=== PATIENT | male | born 1960 | race Caucasian/White ===

== ENCOUNTER 2017-11-03 08:58 | Emergency (ER) | payer BC, MEDICARE ==
[2017-11-03 09:03] VITALS: RESP 18
--- NOTE | 2017-11-03 09:21 | ED ---
General Adult HPI <Nicholas Villalobos - Last Filed: 11/03/17 09:52> - General Source: patient Mode of arrival: ambulatory Limitations: no limitations <Evelyne Hopkins - Last Filed: 11/03/17 12:19> - General Chief complaint: Nausea/Vomiting/Diarrhea Stated complaint: diarrhea, testicular pain Time Seen by Provider: 11/03/17 09:07 - History of Present Illness Initial comments: 57-year-old male patient presents to the emergency department today for evaluation of left testicular swelling and pain. Patient states that this started yesterday. Patient states that the pain radiates up into his left lower abdomen. He denies any hematuria, dysuria, urinary frequency, urinary urgency. He denies any penile discharge. Patient denies any recent injury however states that he has been painting his home and has had increased physical activity related to this. Patient states that yesterday he did have 3 episodes of diarrhea and some abdominal cramping. He denies any nausea or vomiting. Denies any fevers or chills. Patient denies any recent rash, shortness breath, chest pain, back pain, numbness, tingling, dizziness, weakness , headache, visual changes, or any other complaints. (Evelyne Hopkins) - Related Data Home Medications Medication Instructions Recorded Confirmed Atorvastatin [Lipitor] 80 mg PO DAILY 11/03/17 11/03/17 Lisinopril [Zestril] 10 mg PO DAILY 11/03/17 11/03/17 Metoprolol Succinate [Toprol XL] 25 mg PO DAILY 11/03/17 11/03/17 glipiZIDE XL [Glucotrol XL] 5 mg PO BID 11/03/17 11/03/17 metFORMIN HCL [Glucophage] 500 mg PO QID 11/03/17 11/03/17 Previous Rx's Medication Instructions Recorded Levofloxacin [Levaquin] 500 mg PO DAILY #10 tab 11/03/17 Allergies Allergy/AdvReac Type Severity Reaction Status Date / Time No Known Allergies Allergy Verified 11/03/17 09:03 Review of Systems ROS Other: All systems not noted in ROS Statement are negative. <Nicholas Villalobos - Last Filed: 11/03/17 09:52> ROS Other: All systems not noted in ROS Statement are negative. <Evelyne Hopkins - Last Filed: 11/03/17 12:19> ROS Statement: Those systems with pertinent positive or pertinent negative responses have been documented in the HPI. Past Medical History Past Medical History: Diabetes Mellitus, Myocardial Infarction ([place]) History of Any Multi-Drug Resistant Organisms: None Reported Past Surgical History: No Surgical Hx Reported Past Psychological History: No Psychological Hx Reported Smoking Status: Current every day smoker Past Alcohol Use History: None Reported, Rare Past Drug Use History: None Reported <Evelyne Hopkins - Last Filed: 11/03/17 12:19> General Exam Limitations: no limitations General appearance: alert, in no apparent distress, other (This is a well- developed, obese adult male patient in no acute distress. Vital signs upon presentation are temperature 99.2F, pulse 90, respirations 18, blood pressure 133/68, pulse ox 96% on room air.) Eye exam: Present: normal appearance, PERRL, EOMI. Absent: scleral icterus, conjunctival injection, periorbital swelling ENT exam: Present: normal exam, normal oropharynx, mucous membranes moist Respiratory exam: Present: normal lung sounds bilaterally. Absent: respiratory distress, wheezes, rales, rhonchi, stridor Cardiovascular Exam: Present: regular rate, normal rhythm, normal heart sounds. Absent: systolic murmur, diastolic murmur, rubs, gallop, clicks GI/Abdominal exam: Present: soft, normal bowel sounds. Absent: distended, tenderness, guarding, rebound, rigid exam: Present: testicular tenderness (Left), scrotal swelling (Left). Absent : normal inspection, urethral discharge Neurological exam: Present: alert, oriented X3, CN II-XII intact Psychiatric exam: Present: normal affect, normal mood Skin exam: Present: warm, dry, intact, normal color. Absent: rash <Evelyne Hopkins - Last Filed: 11/03/17 12:19> Course <Nicholas Villalobos - Last Filed: 11/03/17 09:52> <Evelyne Hopkins - Last Filed: 11/03/17 12:19> Vital Signs 11/03/17 11/03/17 09:00 11:41 Temperature 99.2 F 98.9 F Pulse Rate 90 84 Respiratory 18 18 Rate Blood Pressure 133/68 139/76 O2 Sat by Pulse 96 93 L Oximetry - Reevaluation(s) Reevaluation #1: 11/03/17 09:53 I did personally do a [id number] evaluation patient did discuss the findings with him. Patient does demonstrate left testicular tenderness palpation no definite masses no discharge noted. No evidence of herniation. I do agree with the assessment and plan (Nicholas Villalobos) Medical Decision Making <Nicholas Villalobos - Last Filed: 11/03/17 09:52> - Radiology Data Radiology results: report reviewed, image reviewed <Evelyne Hopkins - Last Filed: 11/03/17 12:19> - Medical Decision Making 57-year-old male patient presents the emergency department today for evaluation of left testicular pain and swelling. Physical examination did reveal some swelling and tenderness of the left testicle. Urine was obtained and showed trace protein, trace glucose, large leukocyte esterase, 110 white blood cells, few bacteria, few mucus, and occasional urine yeast. Ultrasound was obtained and did show bilateral epididymal cysts, and abnormal appearance of the left testicle that is of uncertain significance, and it did also show some epididymal enlargement. Given the patient's tenderness in the epididymis enlargement we will treat patient for epididymitis. There is also evidence of urinary tract infection which we'll treat as well. Patient will be referred to urology. Return parameters discussed in detail. He is instructed to follow-up with his primary care physician for recheck in 1-2 days. He verbalizes understanding and agrees with this plan. (Evelyne Hopkins) - Lab Data Lab Results 11/03/17 Range/Units 09:20 Urine Color Yellow Urine Appearance Cloudy (Clear) Urine pH 6.0 (5.0-8.0) Ur Specific Hoagland 1.019 (1.001-1.035) Urine Protein Trace H (Negative) Urine Glucose (UA) Trace H (Negative) Urine Ketones Negative (Negative) Urine Blood Negative (Negative) Urine Nitrite Negative (Negative) Urine Bilirubin Negative (Negative) Urine Urobilinogen 2.0 (<2.0) mg/dL Ur Leukocyte Esterase Large H (Negative) Urine RBC 1 (0-5) /hpf Urine WBC 110 H (0-5) /hpf Ur Squamous Epith Cells <1 (0-4) /hpf Urine Bacteria Few H (None) /hpf Urine Mucus Few H (None) /hpf Urine Yeast (Budding) Occasional H (None) /hpf - Radiology Data Scrotal ultrasound was obtained. Report was reviewed in its entirety. Impression by Dr. De Luna shows normal intrinsic testicles. Bilateral epididymal cysts. Small characterization left testicle are of uncertain significance. Urologic consult would be suggested. (Evelyne Hopkins) Disposition <Nicholas Villalobos - Last Filed: 11/03/17 09:52> Is patient prescribed a controlled substance at d/c from ED?: No Time of Disposition: 12:09 <Evelyne Hopkins - Last Filed: 11/03/17 12:19> Clinical Impression: Epididymo-orchitis, Hydrocele, left, Urinary tract infection Disposition: HOME SELF-CARE Condition: Good Instructions: Epididymo-Orchitis (ED), Hydrocele (ED), Urinary Tract Infection in Men (ED), Scrotal Pain (ED) Additional Instructions: Increase fluids. Follow up with urology for recheck as soon as possible. Return here immediately for any new, worsening, or concerning symptoms. Prescriptions: Levofloxacin [Levaquin] 500 mg PO DAILY #10 tab Referrals: Gurvinder Francis MD [Primary Care Provider] - 1-2 days Wellington Dong MD [STAFF PHYSICIAN] - 1-2 days
[2017-11-03 09:44] LABS: Appearance,Urine Cloudy (Clear); Bacteria,Urine Few /hpf; Bilirubin,Urine Negative (Negative); Blood,Urine Negative (Negative); Budding Yeast,Urine Occasional /hpf; Color,Urine Yellow; Glucose,Urine (UA) Trace (Negative); Ketones,Urine Negative (Negative); Leukocyte Esterase,Urine Large (Negative); Mucus,Urine Few /hpf; Nitrite,Urine Negative (Negative); Protein,Urine Trace (Negative); RBC,Urine 1 /hpf (0-5); Specific Gravity,Urine 1.019 (1.001-1.035); Squamous Epithelial Cell,Urine <1 /hpf (0-4); WBC,Urine 110 /hpf (0-5)
[2017-11-03] MEDS ORDERED: KETOROLAC 30 MG/ML 1 ML VIAL IM STA (10:41)
--- NOTE | 2017-11-03 11:19 | US ---
EXAMINATION TYPE: US scrotum with doppler. Grayscale and color Doppler Duplex imaging performed of t he scrotum. DATE OF EXAM: 11/03/2017 COMPARISON: NONE CLINICAL HISTORY: Pain. EXAM MEASUREMENTS: TESTICLES: Right Testicle: 4.5 x 3.3 x 2.9 cm Left Testicle: 3.9 x 4.2 x 2.9 cm EPIDIDYMIS HEAD: Right Epididymis: 0.9 x 1.1 x 1.0 cm Left Epididymis: 2.7 x 2.2 x 2.8cm cm Doppler performed to assess for testicular vascularity; good bilateral color flow and waveforms are s een. There is no evidence of testicular torsion, but hypervascularity is seen in left testicle on i mage #[id number]. Right epididymis: small head cysts are noted with largest = 0.4 x 0.3 x 0.4cm. Left epididymis: enlarged appearance to epididymis; head cyst is seen = 1.1 x 1.0 x 0.8cm. Presence of hydroceles: in left scrotal sac = 5.5 x 4.6 x 1.9cm. Left testicle: small appendices seen in image [id number] and [id number]. Presence of varicoceles: no Both testicles are intrinsically normal with normal vascular flow. There are bilateral epididymal cys t. There is a small left hydrocele IMPRESSION: 1. NORMAL INTRINSIC TESTICLES. 2. BILATERAL EPIDIDYMAL CYST. 3. SMALL CHARACTERIZE IN THE LEFT TESTICLE ARE OF UNCERTAIN SIGNIFICANCE. UROLOGIC CONSULT WOULD BE S UGGESTED.
[2017-11-03 11:46] VITALS: BP 139/76; PULSE 84; TEMP 98.9
== END 2017-11-03 12:15 | disposition home or self-care (01) ==
LOC: EC 08:58
DX: N45.3 Epididymo-orchitis (principal); N43.3 Hydrocele, unspecified; N39.0 Urinary tract infection, site not specified; N50.3 Cyst of epididymis; R19.7 Diarrhea, unspecified; F17.200 Nicotine dependence, unspecified, uncomplicated; I25.2 Old myocardial infarction; E11.9 Type 2 diabetes mellitus without complications; E66.9 Obesity, unspecified; Z68.42 Body mass index [BMI] 45.0-49.9, adult; Z79.84 Long term (current) use of oral hypoglycemic drugs; Z79.899 Other long term (current) drug therapy
CPT/HCPCS: 99284; 96372; 81001; 87086; 93975; 76870; J1885; 87077; 87186

== ENCOUNTER → 2018-11-29 | Day surgery (SDC) | payer BC, MEDICARE ==
[2018-11-13 14:38] VITALS: BMI 43.8
[~2018-11-29] MED LIST: LACTATED RINGERS 1,000 ML IV SCH; LIDOCAINE 1% INJ 10MG/ML (20 ML MDV) ONE; PROPOFOL 10 MG/ML 20 ML VIAL IV ONE
[2018-11-29 08:27] VITALS: TEMP 97.5
[2018-11-29 08:48] LABS: Glucose,Whole Blood 246 mg/dL (75-99)
--- NOTE | 2018-11-29 09:20 | P.GSHP ---
History of Present Illness H&P Date: 11/29/18 Chief Complaint: Colon cancer screening Patient here today for colonoscopy. He has not had one previously. No bowel related complaints. No family history of colon cancer. Past Medical History Past Medical History: COPD, Diabetes Mellitus, Hypertension, Myocardial Infarction ([place]) Last Myocardial Infarction Date:: 2003 History of Any Multi-Drug Resistant Organisms: None Reported Past Surgical History: Heart Catheterization With Stent Past Anesthesia/Blood Transfusion Reactions: No Reported Reaction Date of Last Stent Placement:: 2003 Smoking Status: Current every day smoker Medications and Allergies Home Medications Medication Instructions Recorded Confirmed Type Atorvastatin [Lipitor] 80 mg PO DAILY 11/03/17 11/29/18 History Lisinopril [Zestril] 10 mg PO DAILY 11/03/17 11/29/18 History Metoprolol Succinate [Toprol XL] 25 mg PO DAILY 11/03/17 11/29/18 History metFORMIN HCL [Glucophage] 1,000 mg PO BID 11/03/17 11/29/18 History Clopidogrel [Plavix] 75 mg PO DAILY 11/13/18 11/29/18 History Insulin Aspart [NovoLOG Flexpen] 0 units SQ TID-W/MEALS 11/13/18 11/29/18 History Insulin Degludec [Tresiba 20 unit SQ DAILY 11/13/18 11/29/18 History Flextouch U-200] Umeclidinium Brm/Vilanterol Tr 1 puff INHALATION DAILY 11/13/18 11/29/18 History [Anoro Ellipta 62.5-25 Mcg INH] Allergies Allergy/AdvReac Type Severity Reaction Status Date / Time No Known Allergies Allergy Verified 11/29/18 08:23 Surgical - Exam Vital Signs Temp Pulse Resp BP Pulse Ox 97.5 F L 76 18 149/74 94 L 11/29/18 08:26 11/29/18 08:26 11/29/18 08:26 11/29/18 08:26 11/29/18 08:26 Physical exam: General: Well-developed, well-nourished HEENT: Normocephalic, sclerae nonicteric Abdomen: Nontender, nondistended Extremities: No edema Neuro: Alert and oriented Results - Labs Abnormal Lab Results - Last 24 Hours (Table) 11/29/18 Range/Units 08:30 POC Glucose (mg/dL) 246 H (75-99) mg/dL Assessment and Plan (1) Colon cancer screening Narrative/Plan: Will proceed with colonoscopy at this time Current Visit: Yes Status: Acute Code(s): Z12.11 - ENCOUNTER FOR SCREENING FOR MALIGNANT NEOPLASM OF COLON SNOMED Code(s): 925606573
--- NOTE | 2018-11-29 09:45 | P.PCN ---
Date of Procedure: 11/29/18 Procedure(s) Performed: PREOPERATIVE DIAGNOSIS: Screening POSTOPERATIVE DIAGNOSIS: Descending colon polyp, sigmoid colon polyp PROCEDURE: Colonoscopy with snare polypectomy ANESTHESIA: MAC SURGEON: Hermilo Rollins M.D. SPECIMENS: Polyps ENDOSCOPIC PROCEDURE: The patient was placed on the endoscopy table in the left decubitus position. The Olympus colonoscope was inserted into the anus and passed under direct visualization to the base of the cecum. The appendiceal orifice was visualized. From that point the scope was slowly withdrawn inspecting all surfaces carefully. There were no neoplastic inflammatory or polypoid lesions throughout the cecum, ascending, and transverse colon. In the descending colon a small polyp was identified and removed using the snare with cautery technique. An additional polyp was identified in the midsigmoid colon removed in a similar fashion. The remainder of the sigmoid and rectum appeared normal. There is no visible diverticulosis. Digital rectal examination was normal. The patient was taken to the recovery room in stable condition per anesthesia guidelines. RECOMMENDATIONS: Await biopsy results. Anticipate follow-up colonoscopy 5 years
[2018-11-29 09:47] VITALS: RESP 16
[2018-11-29 10:03] VITALS: BP 145/79; PULSE 61
[2018-11-29 10:27] LABS: Glucose,Whole Blood 235 mg/dL (75-99)
== END ==
LOC: ORWHC2ENDO 08:02
PROVIDERS: ATTEND Surgery
DX: Z12.11 Encounter for screening for malignant neoplasm of colon (principal); D12.4 Benign neoplasm of descending colon; D12.5 Benign neoplasm of sigmoid colon; J44.9 Chronic obstructive pulmonary disease, unspecified; E11.9 Type 2 diabetes mellitus without complications; I10 Essential (primary) hypertension; E78.5 Hyperlipidemia, unspecified; I25.2 Old myocardial infarction; Z95.5 Presence of coronary angioplasty implant and graft; F17.210 Nicotine dependence, cigarettes, uncomplicated; Z79.02 Long term (current) use of antithrombotics/antiplatelets; Z79.4 Long term (current) use of insulin; Z79.899 Other long term (current) drug therapy
CPT/HCPCS: 88305; 45385; J2001; J2704

== ENCOUNTER → 2020-10-28 | Outpatient (CLI) | payer BC, MEDICARE ==
--- NOTE | 2020-10-28 10:06 | XR ---
EXAMINATION TYPE: XR lumbosacral spine min 4V DATE OF EXAM: 10/28/2020 CLINICAL HISTORY: pain COMPARISON: NONE TECHNIQUE: Frontal, lateral, and oblique images of the lumbar spine are obtained. FINDINGS: There are 5 lumbar type vertebral bodies identified. The lumbar spine shows satisfactory alignment without evidence of acute fracture or dislocation. Vertebral body heights are within normal limits. Severe degenerative disc space narrowing and spondylosis. Facet joint arthropathy. The ove rlying soft tissue appears unremarkable. IMPRESSION: No acute fracture or dislocation is seen in the lumbar spine.ICD 10 NO FRACTURE, INITIAL EVALUATION
== END | disposition home or self-care (01) ==
LOC: RADXRMAIN 09:28
PROVIDERS: ATTEND Family Medicine
DX: M54.5 Low back pain (principal)
CPT/HCPCS: 72110

== ENCOUNTER 2023-04-28 00:35 | Inpatient (IN) | payer BC, MEDICARE ==
[2023-04-28 01:49] LABS: Basophils # (A) 0.1 k/uL (0-0.2); Basophils % (A) 1 %; Eosinophils # (A) 0.5 k/uL (0-0.7); Eosinophils % (A) 4 %; HCT 42.7 % (39.0-53.0); HGB 14.2 gm/dL (13.0-17.5); Lymphocytes # (A) 3.5 k/uL (1.0-4.8); Lymphocytes % (A) 31 %; MCHC 33.2 g/dL (31.0-37.0); MCV 96.4 fL (80.0-100.0); Mean Platelet Volume 10.6; Monocytes # (A) 0.7 k/uL (0-1.0); Monocytes % (A) 7 %; Neutrophils # (A) 6.4 k/uL (1.3-7.7); Neutrophils % (A) 56 %; Platelet Count 254 k/uL (150-450); RBC 4.42 m/uL (4.30-5.90); RDW 14.1 % (11.5-15.5); WBC 11.4 k/uL (3.8-10.6)
[2023-04-28 01:57] LABS: ALT 25 U/L (4-49); AST 23 U/L (17-59); African American GFR (CKD) 84 (>60 ml/min/1.73 sqM); Albumin 3.9 g/dL (3.5-5.0); Alkaline Phosphatase 138 U/L (38-126); Anion Gap 9 mmol/L; Blood Urea Nitrogen 27 mg/dL (9-20); Calcium 9.9 mg/dL (8.4-10.2); Carbon Dioxide 22 mmol/L (22-30); Chloride 104 mmol/L (98-107); Glucose 324 mg/dL (74-99); Magnesium 1.8 mg/dL (1.6-2.3); Non-African American GFR(CKD) 73 (>60 ml/min/1.73 sqM); Potassium 4.6 mmol/L (3.5-5.1); Sodium 135 mmol/L (137-145); Total Bilirubin 0.4 mg/dL (0.2-1.3); Total Protein 6.5 g/dL (6.3-8.2)
[2023-04-28] MEDS ORDERED: ASPIRIN 81 MG PO STA (02:00)
--- NOTE | 2023-04-28 02:02 | ED ---
Chest Pain HPI - General Chief Complaint: Chest Pain Stated Complaint: Chest Pain Time Seen by Provider: 04/28/23 00:45 Source: patient Mode of arrival: wheelchair Limitations: no limitations - History of Present Illness Initial Comments: 63-year-old male with past medical history of coronary artery disease with one stent who presents to the emergency department reporting exertional dyspnea. States that he had symptoms for the past month. Reports that they are getting worse. He cannot walk a few steps without getting extremely short of breath. R eports that he has pressure in his chest described as a indigestion pressure. He denies any radiation of the pain. Not currently in pain at this time. He does have a history of one stent in 2003. Takes Plavix. Denies any missed doses. He does not currently follow with a gas maker. He did not take anything for his pain before coming into the emergency department. Has not had any stress testing. He denies fevers chills or cough. No radiating pain to the back. No numbness or tingling in his extremities. No abdominal pain. No other alleviating, precipitating or modifying factors - Related Data Home Medications Medication Instructions Recorded Confirmed Atorvastatin [Lipitor] 80 mg PO DAILY 11/03/17 11/29/18 Metoprolol Succinate [Toprol XL] 25 mg PO DAILY 11/03/17 11/29/18 lisinopriL [Zestril] 10 mg PO DAILY 11/03/17 11/29/18 metFORMIN HCL [Glucophage] 1,000 mg PO BID 11/03/17 11/29/18 Clopidogrel [Plavix] 75 mg PO DAILY 11/13/18 11/29/18 Insulin Aspart [NovoLOG Flexpen] 0 units SQ TID-W/MEALS 11/13/18 11/29/18 Insulin Degludec [Tresiba 20 unit SQ DAILY 11/13/18 11/29/18 Flextouch U-200 Pen] Umeclidinium Brm/Vilanterol Tr 1 puff INHALATION DAILY 11/13/18 11/29/18 [Anoro Ellipta 62.5-25 Mcg INH] Allergies Allergy/AdvReac Type Severity Reaction Status Date / Time No Known Allergies Allergy Verified 11/29/18 08:23 Review of Systems ROS Statement: Those systems with pertinent positive or pertinent negative responses have been documented in the HPI. ROS Other: All systems not noted in ROS Statement are negative. Past Medical History Past Medical History: COPD, Diabetes Mellitus, Hypertension, Myocardial Infarction ([place]) Last Myocardial Infarction Date:: 2003 History of Any Multi-Drug Resistant Organisms: None Reported Past Surgical History: Heart Catheterization With Stent Past Anesthesia/Blood Transfusion Reactions: No Reported Reaction Date of Last Stent Placement:: 2003 Past Psychological History: No Psychological Hx Reported Smoking Status: Never smoker Past Alcohol Use History: None Reported, Rare Past Drug Use History: None Reported General Exam Limitations: no limitations General appearance: alert, in no apparent distress Head exam: Present: atraumatic, normocephalic, normal inspection Eye exam: Present: normal appearance, PERRL, EOMI. Absent: scleral icterus, conjunctival injection, periorbital swelling ENT exam: Present: normal exam, mucous membranes moist Neck exam: Present: normal inspection. Absent: tenderness, meningismus, lymphadenopathy Respiratory exam: Present: normal lung sounds bilaterally. Absent: respiratory distress, wheezes, rales, rhonchi, stridor Cardiovascular Exam: Present: regular rate, normal rhythm, normal heart sounds. Absent: systolic murmur, diastolic murmur, rubs, gallop, clicks GI/Abdominal exam: Present: soft, normal bowel sounds. Absent: distended, tenderness, guarding, rebound, rigid Extremities exam: Present: normal inspection, full ROM, normal capillary refill. Absent: tenderness, pedal edema, joint swelling, calf tenderness Back exam: Present: normal inspection Neurological exam: Present: alert, oriented X3, CN II-XII intact Psychiatric exam: Present: normal affect, normal mood Skin exam: Present: warm, dry, intact, normal color. Absent: rash Course Vital Signs 04/28/23 04/28/23 04/28/23 00:41 01:46 03:18 Temperature 97.6 F Pulse Rate 73 69 65 Respiratory 18 16 16 Rate Blood Pressure 149/89 131/79 146/65 O2 Sat by Pulse 98 96 96 Oximetry 04/28/23 04/28/23 06:54 07:37 Temperature Pulse Rate 63 60 Respiratory 16 16 Rate Blood Pressure 135/73 130/60 O2 Sat by Pulse 95 98 Oximetry Chest Pain MDM - MDM Was pt. sent in by a medical professional or institution (, PA, INFORMATION SUPPORT PROJECT MANAGER, urgent care, hospital, or fdc...) When possible be specific @ -No Did you speak to anyone other than the patient for history (EMS, parent, family, police, friend...)? What history was obtained from this source @ -No Did you review nursing and triage notes (agree or disagree)? Why? @ -I reviewed and agree with nursing and triage notes Were old charts reviewed (outside hosp., previous admission, EMS record, old EKG, old radiological studies, urgent care reports/EKG's, fdc records)? Report findings @ -No old charts were reviewed Differential Diagnosis (chest pain, altered mental status, abdominal pain women, abdominal pain men, vaginal bleeding, weakness, fever, dyspnea, syncope, headache, dizziness, GI bleed, back pain, seizure, CVA, palpatations, mental health, musculoskeletal)? @ -Differential Chest Pain: Stable Angina, Unstable Angina, STEMI, NSTEMI Aortic Dissection, Pneumothorax, Musculoskeletal, Esophageal Spasm GERD, Cholecystitis, Pancreatitis, Zoster, this is not meant to be an all-inclusive list. EKG interpreted by me (3pts min.). @ -Yes and demonstrates sinus rhythm with a rate of 77. OR interval 142. QRS 100. QTC of 407. No acute ST segment elevations or depressions. Q wave in lead 3 X-rays interpreted by me (1pt min.). @ -Yes and demonstrates no acute process CT interpreted by me (1pt min.). @ -None done U/S interpreted by me (1pt. min.). @ -None done What testing was considered but not performed or refused? (CT, X-rays, U/S, labs)? Why? @ -None What meds were considered but not given or refused? Why? @ -None Did you discuss the management of the patient with other professionals (professionals i.e. , PA, INFORMATION SUPPORT PROJECT MANAGER, lab, RT, psych nurse, social services specialist, senior ruby developer, te acher, front desk officer, manager of case management)? Give summary @ -Spoke with Mt from [facility] Was smoking cessation discussed for >3mins.? @ -No Was critical care preformed (if so, how long)? @ -yes, 35 minutes for heparinization of the patient Were there social determinants of health that impacted care today? How? (Homelessness, low income, unemployed, alcoholism, drug addiction, transportation, low edu. Level, literacy, decrease access to med. care, [facility], rehab)? @ -No Was there de-escalation of care discussed even if they declined (Discuss DNR or withdrawal of care, Hospice)? DNR status @ -No What co-morbidities impacted this encounter? (DM, HTN, Smoking, COPD, CAD, Cancer, CVA, ARF, Chemo, Hep., AIDS, mental health diagnosis, sleep apnea, morbid obesity)? @ -Atherosclerotic coronary disease Was patient admitted / discharged? Hospital course, mention meds given and route, prescriptions, significant lab abnormalities, going to OR and other pertinent info. @ -Upon arrival patient is placed in room 19. Thorough history and physical exam was performed. IV is established and laboratory studies were conducted. 12-lead EKG is obtained. Chest x-ray was performed. Patient does have a normal first troponin however due to high concern for unstable angina I did recommend heparinizing the patient. He was agreeable to this and does not have any cont raindications. Patient will be admitted to [facility]. Spoke with Mt who agreed to admit the patient. Patient pending admission at this time Undiagnosed new problem with uncertain prognosis? @ -yes Drug Therapy requiring intensive monitoring for toxicity (Heparin, Nitro, Insulin, Cardizem)? @ -No Were any procedures done? @ -No Diagnosis/symptom? @ -Acute chest pain, possible unstable angina Acute, or Chronic, or Acute on Chronic? @ -acute Uncomplicated (without systemic symptoms) or Complicated (systemic symptoms)? @ -complicated Side effects of treatment? @ -No Exacerbation, Progression, or Severe Exacerbation? @ -No Poses a threat to life or bodily function? How? (Chest pain, [place], [place], pneumonia, PE, COPD, DKA, ARF, appy, cholecystitis, CVA, Diverticulitis, Homicidal, Suicidal, threat to staff... and all critical care pts) @ -yes, patient does have symptoms concerning for unstable angina Disposition Clinical Impression: Chest pain, Unstable angina Dis[facility] Condition: Stable Is patient prescribed a controlled substance at d/c from ED?: No Time of Disposition: 02:53 Decision to Admit Reason: Admit from EC Decision Date: 04/28/23 Decision Time: 02:53
[2023-04-28 02:05] LABS: NT-Pro-B-Type Natriuretic Pept 140 pg/mL
[2023-04-28 02:21] LABS: Partial Thromboplastin Time 25.1 sec (22.0-30.0); Prothrombin Time 10.7 sec (10.0-12.5)
[2023-04-28] MEDS ORDERED: NALOXONE 0.4 MG/ML 1 ML VIAL IV PRN (02:55)
[2023-04-28] MEDS ORDERED: HEPARIN SODIUM 1,000 UN/ML (10ML VL) IV ONE (03:01)
[2023-04-28] MEDS: HEPARIN SOD,PORK IN 0.45% NACL 25,000 UNIT in 0.45% NACL 1 250ML.BAG IV SCH ×2 (03:15→22:57)
--- NOTE | 2023-04-28 05:03 | XR ---
EXAM: XR Chest, 2 Views CLINICAL HISTORY: ITS.REASON XR Reason: Chest Pain TECHNIQUE: Frontal and lateral views of the chest. COMPARISON: No relevant prior studies available. FINDINGS: Lungs: The lungs are symmetrically mildly hypoinflated flattening of the diaphragms. Chronic lung markings are seen bilaterally. No infiltrate. Pleural space: Unremarkable. No pneumothorax. Heart: Unremarkable. No cardiomegaly. Mediastinum: Unremarkable. Bones/joints: Degenerative changes are seen within the spine and shoulders. Vasculature: Calcifications overlie the aorta. IMPRESSION: No acute cardiopulmonary disease.
[2023-04-28] MEDS ORDERED: MORPHINE SULFATE 2 MG/ML SYRINGE IVP PRN (06:27)
[2023-04-28] MEDS ORDERED: ONDANSETRON 4 MG/2 ML VIAL IVP PRN (06:27)
[2023-04-28] MEDS ORDERED: oxyCODONE-APAP 5-325MG 1 EACH TAB PO PRN (06:27)
[2023-04-28] MEDS ORDERED: ACETAMINOPHEN TAB 325 MG TAB PO PRN (06:27)
[2023-04-28] MEDS ORDERED: DEXTROSE 50% SYRINGE 50 ML IVP PRN ×2 (06:29)
[2023-04-28 06:53] LABS: Glucose,Whole Blood 211 mg/dL (70-110)
[2023-04-28] MEDS: SODIUM CHLORIDE 0.9% 1,000 ML IV SCH (06:53)
[2023-04-28] MEDS: INSULIN ASPART (NovoLOG) 100 UNIT/ML VIAL SQ SCH ×4 (09:09→20:59)
[2023-04-28] MEDS: HEPARIN SODIUM 1,000 UN/ML (10ML VL) IV PRN (10:54)
[2023-04-28] MEDS ORDERED: ALPRAZolam 0.25 MG TAB PO PRN (11:47)
--- NOTE | 2023-04-28 11:53 | P.CRDCN ---
History of Present Illness Consult date: 04/28/23 History of present illness: HISTORY OF PRESENTING ILLNESS 63-year-old male with past medical history of CAD status post PCI in 2003. We don't have a cardiac cath report at hand at this time. 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 He would start experiencing pain after walking 2-3 blocks. Angina class III. His symptoms have been getting worse over last 1 month. It has became more severe in intensity and frequency. Is associated with difficulty in breathing which would get better with rest. Patient is ECG showed sinus rhythm with no significant ST-T wave changes. There are old Q waves system of old inferior [place] Hemoglobin is 14, creatinine is within normal limit, troponin 0.01, 0.01, 0.08. REVIEW OF SYSTEMS 14 point review of system is negative except what is mentioned above in HPI. PHYSICAL EXAMINATION Vital signs reviewed. Head: Normocephalic. Eyes: Sclerae nonicteric. Neck: Brisk carotid upstroke, no jugular venous distention. Lungs: Clear to auscultation. Heart: Regular rate and rhythm, S1-S2, no S3, no murmur or rub. Abdomen: Soft nontender, positive bowel sounds no organomegaly. Extremities: No edema, intact distal pulses. Neuro: Alert, oritented, no focal deficits ASSESSMENT NSTEMI with mildly elevated troponin Worsening stable angina symptoms History of CAD status post PCI Morbid obesity Hypertension Dyslipidemia Type 2 diabetes PLAN Start aspirin, atorvastatin, metoprolol succinate 25 mg daily. Hold Plavix Continue IV heparin. Repeat 1 more troponin Obtain echocardiogram. If his cardiomyopathy he would benefit from Farxiga. Good blood pressure and diabetic control is advised Plan for cardiac catheterization on Sunday afternoon I explained the patient the need for the procedure, indications, procedure steps and potential risk of stroke and . Patient agrees to proceed. No bleeding or medications, no prior strokes Past Medical History Past Medical History: COPD, Diabetes Mellitus, Hypertension, Myocardial Infarction ([place]) Last Myocardial Infarction Date:: 2003 History of Any Multi-Drug Resistant Organisms: None Reported Past Surgical History: Heart Catheterization With Stent Additional Past Surgical History / Comment(s): 1 stent in 2003 Past Anesthesia/Blood Transfusion Reactions: No Reported Reaction Date of Last Stent Placement:: 2003 Past Psychological History: No Psychological Hx Reported Smoking Status: Current every day smoker Past Alcohol Use History: None Reported, Rare Additional Past Alcohol Use History / Comment(s): smokes 1ppd from age 16 Past Drug Use History: None Reported Medications and Allergies Home Medications Medication Instructions Recorded Confirmed Type Atorvastatin [Lipitor] 80 mg PO DAILY 11/03/17 11/29/18 History Metoprolol Succinate [Toprol XL] 25 mg PO DAILY 11/03/17 11/29/18 History lisinopriL [Zestril] 10 mg PO DAILY 11/03/17 11/29/18 History metFORMIN HCL [Glucophage] 1,000 mg PO BID 11/03/17 11/29/18 History Clopidogrel [Plavix] 75 mg PO DAILY 11/13/18 11/29/18 History Insulin Aspart [NovoLOG Flexpen] 0 units SQ TID-W/MEALS 11/13/18 11/29/18 History Insulin Degludec [Tresiba 20 unit SQ DAILY 11/13/18 11/29/18 History Flextouch U-200 Pen] Umeclidinium Brm/Vilanterol Tr 1 puff INHALATION DAILY 11/13/18 11/29/18 History [Anoro Ellipta 62.5-25 Mcg INH] Allergies Allergy/AdvReac Type Severity Reaction Status Date / Time No Known Allergies Allergy Verified 11/29/18 08:23 Physical Exam Vitals: Vital Signs Temp Pulse Pulse Resp BP BP Pulse Ox 04/28/23 08:00 98.6 F 63 19 138/79 97 04/28/23 07:37 60 16 130/60 98 04/28/23 06:54 63 16 135/73 95 04/28/23 03:18 65 16 146/65 96 04/28/23 01:46 69 16 131/79 96 04/28/23 00:41 97.6 F 73 18 149/89 98 Intake and Output 04/27/23 04/28/23 04/28/23 22:59 06:59 14:59 Intake Total 76.667 Balance 76.667 Intake: Intake, IV Titration 76.667 Amount Heparin Sod,Pork in 0.45% 76.667 NaCl 25,000 unit In 0.45 % NaCl 1 250ml.bag @ 7. 8736 UNITS/KG/HR 10 mls/ hr IV .Q24H [facility] Rx#: [id number] Other: Weight 127.006 kg 127.006 kg Results 04/28/23 01:15 04/28/23 01:15 Cardiac Enzymes 04/28/23 04/28/23 04/28/23 Range/Units 01:15 01:15 03:51 AST 23 (17-59) U/L Troponin I <0.012 <0.012 (0.000-0.034) ng/mL 04/28/23 Range/Units 09:13 AST (17-59) U/L Troponin I 0.086 H* (0.000-0.034) ng/mL Coagulation 04/28/23 04/28/23 Range/Units 01:15 09:13 PT 10.7 (10.0-12.5) sec APTT 25.1 33.8 H (22.0-30.0) sec CBC 04/28/23 Range/Units 01:15 WBC 11.4 H (3.8-10.6) k/uL RBC 4.42 (4.30-5.90) m/uL Hgb 14.2 (13.0-17.5) gm/dL Hct 42.7 (39.0-53.0) % Plt Count 254 (150-450) k/uL Comprehensive Metabolic Panel 04/28/23 Range/Units 01:15 Sodium 135 L (137-145) mmol/L Potassium 4.6 (3.5-5.1) mmol/L Chloride 104 (98-107) mmol/L Carbon Dioxide 22 (22-30) mmol/L BUN 27 H (9-20) mg/dL Creatinine 1.08 (0.66-1.25) mg/dL Glucose 324 H (74-99) mg/dL Calcium 9.9 (8.4-10.2) mg/dL AST 23 (17-59) U/L ALT 25 (4-49) U/L Alkaline Phosphatase 138 H (38-126) U/L Total Protein 6.5 (6.3-8.2) g/dL Albumin 3.9 (3.5-5.0) g/dL Current Medications Generic Name Dose Route Start Last Admin Trade Name Freq PRN Reason Stop Dose Admin Acetaminophen 650 mg 04/28/23 06:27 Acetaminophen Tab 325 Mg Tab PO Q6HR PRN Mild Pain or Fever > 100.5 Alprazolam 0.25 mg 04/28/23 11:47 Alprazolam 0.25 Mg Tab PO Q6HR PRN Mild Anxiety Aspirin 81 mg 04/28/23 11:45 Aspirin 81 Mg PO DAILY [facility] Atorvastatin Calcium 40 mg 04/28/23 21:00 Atorvastatin 40 Mg Tab PO HS [facility] Dextrose/Water 25 ml 04/28/23 06:29 Dextrose 50% Syringe 50 Ml IVP PER PROTOCOL PRN Hypoglycemia Protocol Dextrose/Water 50 ml 04/28/23 06:29 Dextrose 50% Syringe 50 Ml IVP PER PROTOCOL PRN Hypoglycemia Protocol Heparin Sodium (Porcine) 0 unit 04/28/23 03:01 04/28/23 10:54 Heparin Sodium 1,000 Un/Ml (10ml Vl) IV 3,175 unit PER PROTOCOL PRN Administration Low PTT Protocol Heparin Sodium/Sodium Chloride 250 mls @ 10 mls/hr 04/28/23 03:15 04/28/23 10:55 25,000 unit/ Sodium Chloride IV 9.87 units/kg/hr .Q24H [facility] 12.535 mls/hr Titration Protocol 7.8736 UNITS/KG/HR Sodium Chloride 1,000 mls @ 20 mls/hr 04/28/23 06:30 04/28/23 06:53 Saline 0.9% IV 20 mls/hr .Q24H [facility] Administration Heparin Sodium (Porcine) 10, 1,001 mls @ 999 mls/hr 04/30/23 07:00 000 unit/ Sodium Chloride IRRIGATION 04/30/23 23:00 ONCE PRN INTRA-OP Heparin Sodium (Porcine) 2,500 250.5 mls @ 250 mls/hr 04/30/23 07:00 unit/ Sodium Chloride IRRIGATION 04/30/23 23:00 ONCE PRN INTRA-OP Sodium Chloride 1,000 ml/ IV 1,000 mls @ 10,160.48 mls/hr 04/28/23 12:00 Solution IV 04/28/23 18:01 .Q6M [facility] 80 ML/KG/HR Insulin Aspart 0 unit 04/28/23 07:30 04/28/23 09:09 Insulin Aspart (Novolog) 100 Unit/Ml Vial SQ Not Given ACHS [facility] Protocol Metoprolol Succinate 25 mg 04/28/23 11:45 Metoprolol Succinate (Er) 25 Mg Tab.Er.24h PO DAILY [facility] Morphine Sulfate 1 mg 04/28/23 06:27 Morphine Sulfate 2 Mg/Ml Syringe IVP Q4HR PRN Severe Pain (Scale 7 to 10) Naloxone HCl 0.2 mg 04/28/23 02:55 Naloxone 0.4 Mg/Ml 1 Ml Vial IV Q2M PRN Opioid Reversal Ondansetron HCl 4 mg 04/28/23 06:27 Ondansetron 4 Mg/2 Ml Vial IVP Q8HR PRN Nausea And Vomiting Oxycodone/Acetaminophen 1 each 04/28/23 06:27 Oxycodone-Apap 5-325mg 1 Each Tab PO Q4HR PRN Severe Pain (Scale 7 to 10) Intake and Output 04/27/23 04/28/23 04/28/23 22:59 06:59 14:59 Intake Total 76.667 Balance 76.667 Intake: Intake, IV Titration 76.667 Amount Heparin Sod,Pork in 0.45% 76.667 NaCl 25,000 unit In 0.45 % NaCl 1 250ml.bag @ 7. 8736 UNITS/KG/HR 10 mls/ hr IV .Q24H [facility] Rx#: [id number] Other: Weight 127.006 kg 127.006 kg Patient Weight 04/29/23 06:59 Weight 127.006 kg 04/28/23 01:15 04/28/23 01:15
[2023-04-28 12:13] LABS: Glucose,Whole Blood 209 mg/dL (70-110)
[2023-04-28] MEDS: ASPIRIN 81 MG PO SCH (12:21)
[2023-04-28] MEDS: METOPROLOL SUCCINATE (ER) 25 MG TAB.ER.24H PO SCH (12:21)
[2023-04-28 17:38] LABS: Glucose,Whole Blood 280 mg/dL (70-110)
[2023-04-28] MEDS: ATORVASTATIN 40 MG TAB PO SCH (20:58)
[2023-04-28 20:59] LABS: Glucose,Whole Blood 273 mg/dL (70-110)
[2023-04-29] MEDS: INSULIN ASPART (NovoLOG) 100 UNIT/ML VIAL SQ SCH ×4 (06:29→21:33)
[2023-04-29 06:30] LABS: Glucose,Whole Blood 191 mg/dL (70-110)
[2023-04-29] MEDS: SODIUM CHLORIDE 0.9% 1,000 ML IV SCH (06:31)
[2023-04-29 06:40] LABS: Partial Thromboplastin Time 39.1 sec (22.0-30.0); Prothrombin Time 10.9 sec (10.0-12.5)
[2023-04-29] MEDS: HEPARIN SODIUM 1,000 UN/ML (10ML VL) IV PRN (08:20)
[2023-04-29] MEDS: METOPROLOL SUCCINATE (ER) 25 MG TAB.ER.24H PO SCH (08:21)
[2023-04-29] MEDS: ASPIRIN 81 MG PO SCH (08:21)
--- NOTE | 2023-04-29 08:55 | P.HPIM ---
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 Patient was evaluated by cardiology and is scheduled for cardiac catheterization on Sunday. Patient can use to smoke one pack of cigarettes per day REVIEW OF SYSTEMS: CONSTITUTIONAL: No fever, no malaise, no fatigue. HEENT: No recent visual problems or hearing problems. Denied any sore throat. CARDIOVASCULAR: No orthopnea, PND, no palpitations, no syncope. PULMONARY: No shortness of breath, no cough, no hemoptysis. GASTROINTESTINAL: No diarrhea, no nausea, no vomiting, no abdominal pain. NEUROLOGICAL: No headaches, no weakness, no numbness. HEMATOLOGICAL: Denies any bleeding or petechiae. GENITOURINARY: Denies any burning micturition, frequency, or urgency. MUSCULOSKELETAL/RHEUMATOLOGICAL: Denies any joint pain, swelling, or any muscle pain. ENDOCRINE: Denies any polyuria or polydipsia. The rest of the 14-point review of systems is negative. PHYSICAL EXAMINATION: GENERAL: The patient is alert and oriented x3, not in any acute distress. Obese HEENT: Pupils are round and equally reacting to light. EOMI. No scleral icterus. No conjunctival pallor. Normocephalic, atraumatic. No pharyngeal erythema. No thyromegaly. CARDIOVASCULAR: S1 and S2 present. No murmurs, rubs, or gallops. PULMONARY: Chest is clear to auscultation, no wheezing or crackles. ABDOMEN: Soft, nontender, nondistended, normoactive bowel sounds. No palpable organomegaly. MUSCULOSKELETAL: No joint swelling or deformity. EXTREMITIES: No cyanosis, clubbing, or pedal edema. NEUROLOGICAL: Gross neurological examination did not reveal any focal deficits. SKIN: No rashes. Assessment and plan -Acute non-ST elevation microinfarction: Patient will undergo cardiac catheterization on Sunday patient is on IV heparin at this time. Continue with high-dose statin, antiplatelet therapy. -Type 2 diabetes mellitus: Patient will be resumed on long-acting insulin but will cut of acidosis patient will be nothing by mouth right lung with sliding scale insulin and metformin will be held. History of coronary disease with stents in the past -Hypertension - DVT prophylaxis: On IV heparin Past Medical History Past Medical History: COPD, Diabetes Mellitus, Hypertension, Myocardial Infarction ([place]) Last Myocardial Infarction Date:: 2003 History of Any Multi-Drug Resistant Organisms: None Reported Past Surgical History: Heart Catheterization With Stent Additional Past Surgical History / Comment(s): 1 stent in 2003 Past Anesthesia/Blood Transfusion Reactions: No Reported Reaction Date of Last Stent Placement:: 2003 Past Psychological History: No Psychological Hx Reported Smoking Status: Current every day smoker Past Alcohol Use History: None Reported, Rare Additional Past Alcohol Use History / Comment(s): smokes 1ppd from age 16 Past Drug Use History: None Reported Medications and Allergies Home Medications Medication Instructions Recorded Confirmed Type Atorvastatin [Lipitor] 80 mg PO HS 11/03/17 04/28/23 History Metoprolol Succinate [Toprol XL] 25 mg PO DAILY 11/03/17 04/28/23 History lisinopriL [Zestril] 10 mg PO DAILY 11/03/17 04/28/23 History metFORMIN HCL [Glucophage] 1,000 mg PO BID 11/03/17 04/28/23 History Clopidogrel [Plavix] 75 mg PO HS 11/13/18 04/28/23 History Umeclidinium Brm/Vilanterol Tr 1 puff INHALATION RT-DAILY 11/13/18 04/28/23 History [Anoro Ellipta 62.5-25 Mcg INH] Aspirin EC [Ecotrin Low Dose] 81 mg PO DAILY PRN 04/28/23 04/28/23 History Insulin Glargine/Lixisenatide 50 units SQ DAILY 04/28/23 04/28/23 History [Soliqua 100 Unit-33 Mcg/ml Pen] Allergies Allergy/AdvReac Type Severity Reaction Status Date / Time No Known Allergies Allergy Verified 04/28/23 12:51 Physical Exam Vitals: Vital Signs Temp Pulse Resp BP Pulse Ox 04/29/23 07:10 98.2 F 58 L 17 130/63 95 04/29/23 02:00 53 L 04/29/23 01:00 97.7 F 53 L 18 117/73 97 04/28/23 19:08 97.7 F 75 16 120/70 96 04/28/23 15:00 97.4 F L 65 19 144/77 99 Intake and Output 04/28/23 04/29/23 04/29/23 22:59 06:59 14:59 Intake Total 330.837 114.069 Balance 330.837 114.069 Intake: Intake, IV Titration 150.837 114.069 Amount Heparin Sod,Pork in 0.45% 150.837 114.069 NaCl 25,000 unit In 0.45 % NaCl 1 250ml.bag @ 7. 8736 UNITS/KG/HR 10 mls/ hr IV .Q24H [facility] Rx#: [id number] Oral 180 Other: # Voids 1 2 Results CBC & Chem 7: 04/28/23 01:15 04/28/23 01:15 Labs: Abnormal Lab Results - Last 24 Hours (Table) 04/28/23 04/28/23 04/28/23 Range/Units 09:13 09:13 12:06 APTT 33.8 H (22.0-30.0) sec POC Glucose (mg/dL) (70-110) mg/dL Troponin I 0.086 H* 0.137 H* (0.000-0.034) ng/mL 04/28/23 04/28/23 04/28/23 Range/Units 12:11 17:05 17:36 APTT 47.0 H (22.0-30.0) sec POC Glucose (mg/dL) 209 H 280 H (70-110) mg/dL Troponin I (0.000-0.034) ng/mL 04/28/23 04/29/23 04/29/23 Range/Units 20:58 05:29 06:28 APTT 39.1 H (22.0-30.0) sec POC Glucose (mg/dL) 273 H 191 H (70-110) mg/dL Troponin I (0.000-0.034) ng/mL Thrombosis Risk Factor Assmnt - Choose All That Apply Any of the Below Risk Factors Present?: Yes Each Factor Represents 1 point: Obesity (BMI >25) Other Risk Factors: Yes Each Risk Factor Represents 2 Points: Age 61-74 years Thrombosis Risk Factor Assessment Total Risk Factor Score: 3 Thrombosis Risk Factor Assessment Level: Moderate Risk
[2023-04-29] MEDS ORDERED: METOPROLOL SUCCINATE (ER) 25 MG TAB.ER.24H PO SCH (09:00)
[2023-04-29] MEDS: lisinopriL 10 MG TAB PO SCH (10:28)
[2023-04-29] MEDS: INSULIN DETEMIR (LEVEMIR) 100 UNIT/ML SYR SQ SCH (10:29)
[2023-04-29 11:49] LABS: Glucose,Whole Blood 300 mg/dL (70-110)
--- NOTE | 2023-04-29 11:54 | CA ---
Transthoracic Echo Report Name: Daniel Avina Age: 63 Gender: M : 1960 Exam Date: 04/28/2023 13:56 Exam Location: [place] [facility] Ht (in): 67 Wt (lb): 280 Ordering Physician: Jerel Brewer MD ([email or web address]) Attending/Referring Phys: Pan Shover Yvonne Tuttle RDCS Procedure CPT: Indications: Ustable angina Cardiac Hx: Technical Quality: Technically difficult study Contrast 1: Lumason Total Dose (mL): 4 Contrast 2: Total Dose (mL): MEASUREMENTS (Male / Female) Normal Values 2D ECHO LV Diastolic Diameter PLAX 4.1 cm 4.2 - 5.9 / 3.9 - 5.3 cm LV Systolic Diameter PLAX 3.1 cm IVS Diastolic Thickness 1.6 cm 0.6 - 1.0 / 0.6 - 0.9 cm LVPW Diastolic Thickness 1.4 cm 0.6 - 1.0 / 0.6 - 0.9 cm LV Relative Wall Thickness 0.7 RV Internal Dim ED PLAX 3.2 cm LA Volume 79.5 cm??? 18 - 58 / 22 - 52 cm??? LA Volume Index 31.6 cm???/m??? 16 - 28 cm???/m??? M-MODE Aortic Root Diameter MM 3.4 cm LA Systolic Diameter MM 4.1 cm LA Ao Ratio MM 1.2 AV Cusp Separation MM 2.3 cm DOPPLER AV Peak Velocity 103.1 cm/s AV Peak Gradient 4.3 mmHg AV Mean Velocity 76.8 cm/s AV Mean Gradient 2.6 mmHg AV Velocity Time Integral 20.7 cm LVOT Peak Velocity 93.6 cm/s LVOT Peak Gradient 3.5 mmHg LVOT Velocity Time Integral 21.9 cm Mitral E Point Velocity 93.8 cm/s Mitral A Point Velocity 88.1 cm/s Mitral E to A Ratio 1.1 MV E' Velocity 5.3 cm/s Mitral E to MV E' Ratio 17.7 FINDINGS Left Ventricle Moderately increased left ventricular wall thickness. Left ventricular cavity size normal. Apical and infero-lateral wall hypokinesis. Left ventricular ejection fraction is estimated at 40-45%. Right Ventricle Right ventricle not well visualized. Right Atrium Right atrium not well visualized. Left Atrium Mildly increased left atrial volume. Mildly increased left atrial area. Mitral Valve Structurally normal mitral valve. No mitral stenosis. Mild mitral regurgitation. Aortic Valve No aortic valve stenosis or regurgitation. Tricuspid Valve Tricuspid valve not well visualized. Pulmonic Valve Trace pulmonic regurgitation. Pericardium No pericardial effusion. Aorta Normal size aortic root and proximal ascending aorta. CONCLUSIONS LVEF is estimated at 40 %. Moderately reduced LV systolic function Apical and infero-lateral wall hypokinesis. Moderately increased left ventricular wall thickness. Mild MR No prior echocardiogram to compare within database Previewed by: Dr Jerel Brewer (Electronically Signed) Final Date: 29 April 2023 11:54
--- NOTE | 2023-04-29 11:56 | P.PN ---
Subjective Progress Note Date: 04/29/23 Progress note: Patient is seen and examined at bedside the same. He is hemodynamics stable. Dull chest pain on and off. Echo Showed an EF of 40% with inferoapical hypokinesia HISTORY OF PRESENTING ILLNESS 63-year-old male with past medical history of CAD status post PCI in 2003. We don't have a cardiac cath report at hand at this time. 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 He would start experiencing pain after walking 2-3 blocks. Angina class III. His symptoms have been getting worse over last 1 month. It has became more severe in intensity and frequency. Is associated with difficulty in breathing which would get better with rest. Patient is ECG showed sinus rhythm with no significant ST-T wave changes. There are old Q waves system of old inferior [place] Hemoglobin is 14, creatinine is within normal limit, troponin 0.01, 0.01, 0.08. REVIEW OF SYSTEMS 14 point review of system is negative except what is mentioned above in HPI. PHYSICAL EXAMINATION Vital signs reviewed. Head: Normocephalic. Eyes: Sclerae nonicteric. Neck: Brisk carotid upstroke, no jugular venous distention. Lungs: Clear to auscultation. Heart: Regular rate and rhythm, S1-S2, no S3, no murmur or rub. Abdomen: Soft nontender, positive bowel sounds no organomegaly. Extremities: No edema, intact distal pulses. Neuro: Alert, oritented, no focal deficits ASSESSMENT NSTEMI with mildly elevated troponin Worsening stable angina symptoms History of CAD status post PCI Morbid obesity Hypertension Dyslipidemia Type 2 diabetes PLAN Start aspirin, atorvastatin, metoprolol succinate 25 mg daily. Hold Plavix Continue IV heparin. Good blood pressure and diabetic control is advised Plan for cardiac catheterization on Sunday Dr Osman Devine explained the patient the need for the procedure, indications, procedure steps and potential risk of stroke and . Patient agrees to proceed. No bleeding or medications, no prior strokes Objective - Vital Signs Vital signs: Vital Signs Temp 98.2 F 04/29/23 07:10 Pulse 58 L 04/29/23 07:10 Resp 17 04/29/23 07:10 BP 130/63 04/29/23 07:10 Pulse Ox 95 04/29/23 07:10 FiO2 Intake & Output 04/28/23 04/29/23 04/29/23 18:59 06:59 18:59 Intake Total 340.860 66.644 114.069 Balance 340.860 66.644 114.069 Weight 127.006 kg Intake: Intake, IV Titration 160.860 66.644 114.069 Amount Heparin Sod,Pork in 0.45% 160.860 66.644 114.069 NaCl 25,000 unit In 0.45 % NaCl 1 250ml.bag @ 7. 8736 UNITS/KG/HR 10 mls/ hr IV .Q24H [facility] Rx#: [id number] Oral 180 Other: # Voids 1 2 # Bowel Movements 1 - Labs CBC & Chem 7: 04/28/23 01:15 04/28/23 01:15 Labs: Abnormal Lab Results - Last 24 Hours (Table) 04/28/23 04/28/23 04/28/23 Range/Units 12:06 12:11 17:05 APTT 47.0 H (22.0-30.0) sec POC Glucose (mg/dL) 209 H (70-110) mg/dL Troponin I 0.137 H* (0.000-0.034) ng/mL 04/28/23 04/28/23 04/29/23 Range/Units 17:36 20:58 05:29 APTT 39.1 H (22.0-30.0) sec POC Glucose (mg/dL) 280 H 273 H (70-110) mg/dL Troponin I (0.000-0.034) ng/mL 04/29/23 04/29/23 Range/Units 06:28 11:47 APTT (22.0-30.0) sec POC Glucose (mg/dL) 191 H 300 H (70-110) mg/dL Troponin I (0.000-0.034) ng/mL
[2023-04-29 13:24] LABS: Basophils # (A) 0.06 X 10*3/uL (0.00-0.10); Basophils % (A) 0.6 %; Eosinophils # (A) 0.45 X 10*3/uL (0.04-0.35); Eosinophils % (A) 4.3 %; HCT 43.4 % (39.6-50.0); HGB 14.1 d/dL (13.0-17.0); Lymphocytes # (A) 2.91 X 10*3/uL (0.90-5.00); Lymphocytes % (A) 27.8 %; MCHC 32.5 d/dL (32.0-37.0); MCV 95.4 FL (80.0-97.0); Mean Platelet Volume 12.9 FL (9.5-12.2); Monocytes # (A) 0.76 X 10*3/uL (0.20-1.00); Monocytes % (A) 7.3 %; NRBC Per 100 WBC 0 X 10*3/uL (0.00-0.01); Neutrophils # (A) 6.25 X 10*3/uL (1.80-7.70); Neutrophils % (A) 59.6 %; Platelet Count 243 X 10*3/uL (140-440); RBC 4.55 X 10*6/uL (4.40-5.60); RDW 13.9 % (11.5-14.5); WBC 10.47 X 10*3/uL (4.50-10.00)
[2023-04-29 13:45] LABS: Blood Urea Nitrogen 19.8 mg/dL (9.0-27.0); Calcium 10.1 mg/dL (8.7-10.3); Carbon Dioxide 25.5 mmol/L (21.6-31.8); Chloride 103 mmol/L (96-109); Glucose 193 mg/dL (70-110); Potassium 4.7 mmol/L (3.5-5.5); Sodium 138 mmol/L (135-145)
[2023-04-29 17:07] LABS: Glucose,Whole Blood 207 mg/dL (70-110)
[2023-04-29] MEDS: ATORVASTATIN 40 MG TAB PO SCH (20:51)
[2023-04-29 21:02] LABS: Glucose,Whole Blood 240 mg/dL (70-110)
[2023-04-30] MEDS ORDERED: SODIUM CHLORIDE 0.9% 1,000 ML in EMPTY BAG 1 BAG IV SCH
[2023-04-30] MEDS: HEPARIN SOD,PORK IN 0.45% NACL 25,000 UNIT in 0.45% NACL 1 250ML.BAG IV SCH (02:55)
[2023-04-30] MEDS: SODIUM CHLORIDE 0.9% 1,000 ML IV SCH (02:56)
[2023-04-30 06:28] LABS: Glucose,Whole Blood 156 mg/dL (70-110)
[2023-04-30] MEDS: INSULIN ASPART (NovoLOG) 100 UNIT/ML VIAL SQ SCH ×4 (06:39→20:47)
[2023-04-30] MEDS ORDERED: HEPARIN SODIUM,PORCINE 10,000 UNIT in SODIUM CHLORIDE 0.9% 1,000 ML IRRIGATION PRN (07:00)
[2023-04-30] MEDS ORDERED: HEPARIN SODIUM,PORCINE (1 ML) 2,500 UNIT in SODIUM CHLORIDE 0.9% 250 ML IRRIGATION PRN (07:00)
[2023-04-30] MEDS: ASPIRIN 81 MG PO SCH (07:37)
[2023-04-30] MEDS ORDERED: IV FLUID CONTINUATION 100 ML IV ONE (07:45)
[2023-04-30] MEDS ORDERED: VERAPAMIL 2.5 MG/ML 2 ML AMP ONE (07:52)
[2023-04-30] MEDS ORDERED: LIDOCAINE 1% INJ 10MG/ML (20 ML MDV) ONE (07:52)
[2023-04-30] MEDS ORDERED: HEPARIN SODIUM 1,000 UN/ML (10ML VL) ONE (07:59)
[2023-04-30] MEDS ORDERED: fentaNYL (PF) 50 MCG/ML 2 ML AMP ONE (07:59)
[2023-04-30] MEDS ORDERED: MIDAZOLAM 2 MG/2 ML VIAL IVP ONE (08:02)
[2023-04-30] MEDS ORDERED: fentaNYL (PF) 50 MCG/ML 2 ML AMP IVP ONE (08:02)
[2023-04-30] MEDS ORDERED: LIDOCAINE 1% INJ 10MG/ML (20 ML MDV) SQ ONE (08:04)
[2023-04-30] MEDS ORDERED: VERAPAMIL SYRINGE (5 MG/10 ML) INTRAARTER ONE (08:08)
[2023-04-30] MEDS ORDERED: IOPAMIDOL-370 100ML BTL INJ ONE (08:30)
[2023-04-30] MEDS ORDERED: RX INFO: IV CONTRAST WAS GIVEN 1 EACH MISC MISCELLANE PRN (08:37)
[2023-04-30] MEDS ORDERED: SODIUM CHLORIDE 0.9% 1,000 ML IV SCH (08:45)
--- NOTE | 2023-04-30 11:01 | P.CARDCATH ---
Date of Procedure: 04/30/23 Description of Procedure: DIAGNOSTIC CORONARY ANGIOGRAPHY and LEFT HEART CATH REPORT PROCEDURES PERFORMED: Left heart catheterization Selective coronary angiography Moderate conscious sedation 22 mins Right radial access INDICATION: NSTEMI CONSENT: I have discussed the risks, benefits and alternative therapies for the above-mentioned procedure, sedation/analgesia and necessary blood product administration (if indicated, as they pertain to this patient). The patient has indicated understanding and acceptance of the risks and procedures discussed. Conscious Sedation: Patient's ECG, heart rate, blood pressure, pulse oximetry was monitored throughout the duration of procedure under the direct supervision. [1] mg Versed and [50] mg Fentanyl were used for induction of moderate conscious sedation. Total duration of [25] minutes. PROCEDURE:After the risks, benefits and alternatives of the above mentioned procedure explained in detail with the patient, informed consent was obtained. Patient was taken to the catheterization lab and prepped and draped in usual sterile fashion. 1% lidocaine was infiltrated over the right radial artery. A 6- Kinyarwanda sheath was placed in the right radial artery using modified Seldinger technique. The sheath was flushed 5 mg verapamil was administered intra- arterially. J tipped wire was advanced under fluoroscopic guidance. Once the wire tip reached aortic root [3000] units of IV heparin was given. Patient was on IV heparin drip] to the Automotive Service Manager. Over the wire JL4 diagnostic catheter was advanced. Wire was removed, catheter was flushed and manipulated under fluorosc opy to selectively engaged the left coronary ostium. Left coronary angioplasty was performed in different angiographic projections. This catheter was exchanged for a JR4 diagnostic catheter over the wire. The catheter was flushed and manipulated to cross the aortic valve. LV pressures were obtained. Pullback was performed across aortic valve and catheter was manipulated to selectively engage the right coronary ostium under fluoroscopic guidance. Right coronary angiography was performed in different angiographic projections. Catheter was removed over the wire. Radial sheath was flushed. The right radial sheath was removed and a TR band was placed with excellent patent hemostasis was achieved. The patient tolerated the procedure well. Patient was transported back to the post catheterization holding area in stable condition. Angiographic images were reviewed in detail. HEMODYNAMICS: Aortic Pressure: 137/60 mmHg. LV pressure: 136/1 mmHg. LVEDP 15 mmHg. SELECTIVE CORONARY ARTERIOGRAPHY: LEFT MAIN: Left main appears angiographically normal. Bifurcates into LAD and LCx LEFT ANTERIOR DESCENDING CORONARY ARTERY: Proximal LAD appears angiographically normal. Mid LAD has 90% stenosis just before the diagonal 1 branch. It appears that there is a bifurcation stent and diagonal 1 and LAD. LAD stent has 100% in-stent stenosis. Diagonal stent appears patent. Diagonal is a medium-sized vessel which appears angiographically normal. LEFT CIRCUMFLEX CORONARY ARTERY: Nondominant vessel. There is restless small OM1, medium-sized OM 2 vessel. Appears angiographically normal with mild luminal irregularities RIGHT CORONARY ARTERY: Dominant vessel. Proximal RCA appears angiographically normal. Mid RCA has a long stent. Proximal edge of the stent has around 40-50% stenosis, mid stent has 90% in-stent restenosis, distal of the stent has 20-30% narrowing. Distal RCA bifurcates into PDA and PL branch which has mild to moderate luminal irregularities. 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 Case discussed with sales professional bilingual. If patient is high risk for surgery, we discussed possible intervention strategy and possible viability testing in LAD territory Discontinue IV heparin. Continue other medications Performing Physician Jerel Brewer MD
[2023-04-30 13:00] LABS: Glucose,Whole Blood 276 mg/dL (70-110)
[2023-04-30] MEDS: INSULIN DETEMIR (LEVEMIR) 100 UNIT/ML SYR SQ SCH (13:00)
--- NOTE | 2023-04-30 13:08 | US ---
EXAMINATION TYPE: US carotid duplex BILAT DATE OF EXAM: 04/30/2023 COMPARISON: NONE CLINICAL INDICATION: Male, 63 years old with history of preop cardiac surgery; open heart TECHNIQUE: Carotid duplex ultrasound examination. Indirect Doppler criteria was utilized. FINDINGS: EXAM MEASUREMENTS: RIGHT: Peak Systolic Velocity (PSV) cm/sec ----- Right CCA: 64.4 ----- Right ICA: 83.8 ----- Right ECA: 109.7 ICA/CCA ratio: 1.3 RIGHT: End Diastole cm/sec ----- Right CCA: 11.1 ----- Right ICA: 22.5 ----- Right ECA: 7.9 LEFT: Peak Systolic Velocity (PSV) cm/sec ----- Left CCA: 87.1 ----- Left ICA: 87.1 ----- Left ECA: 85.4 ICA/CCA ratio: 1.0 LEFT: End Diastole cm/sec ----- Left CCA: 14.7 ----- Left ICA: 24.1 ----- Left ECA: 11.1 VERTEBRALS (direction of flow): Right Vertebral: Antegrade Left Vertebral: Antegrade Rhythm: Normal CONSTRUCTION CONTROLLER NOTES: No significant stenosis seen IMPRESSION: Less than 50% stenosis of the bilateral carotid bifurcations. Criteria for Assigning % of Stenosis / Diameter reduction (Estimation based on the indirect measurements of the internal carotid artery velocities (ICA PSV). 1. Normal (no stenosis)=ICA PSV < 125 cm/s: ratio < 2.0: ICA EDV<40 cm/s. 2. Less than 50% stenosis=ICA PSV < 125 cm/s: ratio < 2.0: ICA EDV<40 cm/s. 3. 50 to 69% stenosis=ICA PSV of 125 to 230 cm/s: ration 2.0 ? 4.0: ICA EDV 40-100 cm/s. 4. Greater than 70% stenosis to near occlusion= ICA PSV > 230 cm/s: ratio > 4.0: ICA EDV > 100 cm/s. 5. Near occlusion= ICA PSV velocities may be low or undetectable: variable ratio and ICA EDV. 6. Total occlusion=unable to detect flow.
--- NOTE | 2023-04-30 13:10 | US ---
EXAMINATION TYPE: US vein mapping BILAT DATE OF EXAM: 04/30/2023 12:51 PM COMPARISON: NONE CLINICAL INDICATION: Male, 63 years old with history of preop cardiac surgery; open heart SIDE PERFORMED: Bilateral TECHNIQUE: Lower extremity saphenous vein is examined and measured utilizing real time linear array sonography. Patient History: Smoker: Yes Heart Disease: Yes Previous DVT: No Vascular Surgery: Yes Discoloration: No Hypertension: Yes Diabetes: Yes Paralysis: No Varicosities: No Edema: No DUPLEX FINDINGS: Greater Saphenous: Color flow seen Lesser Saphenous: Color flow seen Measurements in mm: Right Greater Saphenous: Groin: 7.7 x 6.4 mm High Thigh: 3.7 x 2.5 mm Mid Thigh: 3.7 x 2.9 mm Above Knee: 3.4 x 2.3 mm Knee: 3.2 x 2.7 mm Below Knee: 3.6 x 2.9 mm Mid Calf: 2.6 x 2.0 mm At Ankle: 3.2 x 2.1 mm Left Greater Saphenous: Groin: 10.0 x 6.1 mm High Thigh: 2.2 x 2.3 mm Mid Thigh: 2.3 x 1.7 mm Above Knee: 2.5 x 1.9 mm Knee: 1.4 x 1.8 mm Below Knee: 3.1 x 2.3 mm Mid Calf: 1.3 x 1.7 mm At Ankle: 2.5 x 1.4 mm IMPRESSION: 1. Bilateral GSV measurements listed above. 2. Performing surgeon to determine viability as conduit.
--- NOTE | 2023-04-30 13:13 | US ---
EXAMINATION TYPE: Pre-Operative Non-Invasive Evaluation of the hand for Potential Radial Artery Jassi , Measurements only DATE OF EXAM: 04/30/2023 12:51 PM CLINICAL INDICATION: Male, 63 years old with history of measurements only; left measurements only SIDE PERFORMED: Left TECHNIQUE: Radial artery is measured utilizing real time linear array sonography. Dominant hand: right Duplex Findings: Radial Artery: Color flow seen Measurements in mm, transverse view: Left Radial: Proximal: 1.8 x 2.0 mm Mid: 1.8 x 1.7 mm Distal: 1.8 x 1.8 mm IMPRESSION: 1. Radial artery measurements as described above. 2. Performing surgeon to determine viability as conduit.
--- NOTE | 2023-04-30 13:30 | P.GSCN ---
History of Present Illness Consult date: 04/30/23 Reason for Consult: Coronary artery disease Requesting physician: Jerel Brewer History of present illness: This is a 63-year-old gentleman who follows outpatient with Dr. Prateek Contreras for primary care. He has a previous medical history of coronary artery disease with previous PCI many years ago, hypertension, hyperlipidemia, insulin- dependent diabetes, peripheral arterial disease with intermittent claudication, morbid obesity, current heavy tobacco dependence and remote history of pneumonia. He presented to [facility] emergency room with complaints of exertional chest pressure and shortness of breath which initially had been relieved with rest, however his symptoms had been getting worse over the prior couple of weeks. In the emergency room EKG was completed demonstrating sinus rhythm with evidence of prior infarct. Chest x-ray demonstrated no acute cardiopulmonary process. Lab work revealed WBC 11.4, hemoglobin 14.2, creatinine 1.08, initial troponin was negative, however follow-up troponin elevated to 0.137 and patient was ruled in for non-STEMI. He was admitted for evaluation and treatment with consultation placed to cardiology. Echocardiogram revealed moderately increased left ventricular wall thickness, apical and inferolateral wall hypokinesis, and moderately reduced systolic function with EF of 40-45% with mild mitral regurgitation. He was recommended to undergo heart catheterization which was completed today and which demonstrated 100% LAD in- stent stenosis and 99% mid RCA in-stent stenosis. Due to these findings consultation was placed to cardiothoracic surgery for surgical revascularization recommendations. Review of Systems Review of systems was completed it was negative except as noted - Cardiovascular Reports as per HPI, Reports chest pain, Reports claudication, Reports decreased exercise tolerance, Reports dyspnea on exertion Past Medical History Past Medical History: Coronary Artery Disease (CAD), COPD, Diabetes Mellitus, Hyperlipidemia, Hypertension, Myocardial Infarction (SC), Pneumonia Additional Past Medical History / Comment(s): Peripheral arterial disease with intermittent claudication; morbid obesity Last Myocardial Infarction Date:: 2003 History of Any Multi-Drug Resistant Organisms: None Reported Past Surgical History: Heart Catheterization With Stent Additional Past Surgical History / Comment(s): 1 stent in 2003 Past Anesthesia/Blood Transfusion Reactions: No Reported Reaction Date of Last Stent Placement:: 2003 Past Psychological History: No Psychological Hx Reported Smoking Status: Current every day smoker Past Alcohol Use History: None Reported, Rare Additional Past Alcohol Use History / Comment(s): smokes 1- 1.5 ppd from age 16 Past Drug Use History: None Reported - Past Family History Mother Family Medical History: COPD Father Additional Family Medical History / Comment(s): from old age Medications and Allergies Home Medications Medication Instructions Recorded Confirmed Type Atorvastatin [Lipitor] 80 mg PO HS 11/03/17 04/28/23 History Metoprolol Succinate [Toprol XL] 25 mg PO DAILY 11/03/17 04/28/23 History lisinopriL [Zestril] 10 mg PO DAILY 11/03/17 04/28/23 History metFORMIN HCL [Glucophage] 1,000 mg PO BID 11/03/17 04/28/23 History Clopidogrel [Plavix] 75 mg PO HS 11/13/18 04/28/23 History Umeclidinium Brm/Vilanterol Tr 1 puff INHALATION RT-DAILY 11/13/18 04/28/23 History [Anoro Ellipta 62.5-25 Mcg INH] Aspirin EC [Ecotrin Low Dose] 81 mg PO DAILY PRN 04/28/23 04/28/23 History Insulin Glargine/Lixisenatide 50 units SQ DAILY 04/28/23 04/28/23 History [Soliqua 100 Unit-33 Mcg/ml Pen] Allergies Allergy/AdvReac Type Severity Reaction Status Date / Time No Known Allergies Allergy Verified 04/28/23 12:51 Surgical - Exam Vital Signs Temp Pulse Resp BP Pulse Ox 97.6 F 73 18 149/89 98 04/28/23 00:41 04/28/23 00:41 04/28/23 00:41 04/28/23 00:41 04/28/23 00:41 CONSTITUTIONAL: Awake and alert, appears comfortable, cooperative, well- developed, well-nourished, no pain, no acute distress EYES: Pupils equal, round, reactive to light, normal ocular movement ENT: Moist mucous membranes without oral lesions present NECK: No masses, no bruits, trachea midline RESPIRATORY: Lungs sounds diminished bilaterally. Respirations even, nonlabored. Currently on room air with oxygen saturation 96%. Strong cough. No chest wall deformities. No clubbing or cyanosis present CARDIOVASCULAR: S1, S2 present. Regular rate and rhythm, sinus rhythm on telemetry. Palpable peripheral pulses bilaterally. No edema present. No calf pain or tenderness noted. No significant lower extremity varicosities noted. Left radial Ruy's test less than 8 seconds. GASTROINTESTINAL: Abdomen soft, nontender, nondistended, obese without masses or organomegaly noted. There is no rebound or guarding present. Active bowel sounds present 4 quadrants. GENITOURINARY: Deferred INTEGUMENTARY: Skin is warm and dry with evidence of good perfusion. NEUROLOGIC: Cranial nerves II through XII intact, normal coordination, no obvious motor or sensory deficits, speech is normal MUSKULOSKELETAL: Able to move all extremities, strength equal bilaterally, normal posture PSYCHIATRIC: Alert and oriented to person place and time, appropriate affect, intact judgment and insight Results - Labs 04/29/23 05:29 04/29/23 05:29 Abnormal Lab Results - Last 24 Hours (Table) 04/29/23 04/29/23 04/29/23 Range/Units 05:29 05:29 05:29 WBC 10.47 H (4.50-10.00) X 10*3/uL MPV 12.9 H (9.5-12.2) FL Eosinophils # 0.45 H (0.04-0.35) X 10*3/uL APTT (22.0-30.0) sec Glucose 193 H (70-110) mg/dL POC Glucose (mg/dL) (70-110) mg/dL Hemoglobin A1c 9.1 H (<=6.0) % 04/29/23 04/29/23 04/29/23 Range/Units 16:13 17:05 21:00 WBC (4.50-10.00) X 10*3/uL MPV (9.5-12.2) FL Eosinophils # (0.04-0.35) X 10*3/uL APTT 49.8 H (22.0-30.0) sec Glucose (70-110) mg/dL POC Glucose (mg/dL) 207 H 240 H (70-110) mg/dL Hemoglobin A1c (<=6.0) % 04/30/23 04/30/23 04/30/23 Range/Units 05:32 06:27 12:56 WBC (4.50-10.00) X 10*3/uL MPV (9.5-12.2) FL Eosinophils # (0.04-0.35) X 10*3/uL APTT 37.6 H (22.0-30.0) sec Glucose (70-110) mg/dL POC Glucose (mg/dL) 156 H 276 H (70-110) mg/dL Hemoglobin A1c (<=6.0) % Diabetes panel 04/29/23 04/29/23 Range/Units 05:29 05:29 Sodium 138 (135-145) mmol/L Potassium 4.7 (3.5-5.5) mmol/L Chloride 103 (96-109) mmol/L Carbon Dioxide 25.5 (21.6-31.8) mmol/L BUN 19.8 (9.0-27.0) mg/dL Creatinine 1.1 (0.6-1.5) mg/dL Glucose 193 H (70-110) mg/dL Hemoglobin A1c 9.1 H (<=6.0) % Calcium 10.1 (8.7-10.3) mg/dL Thyroid panel 04/30/23 Range/Units 11:15 TSH 1.630 (0.465-4.680) mIU/L Calcium panel 04/29/23 Range/Units 05:29 Calcium 10.1 (8.7-10.3) mg/dL Pituitary panel 04/29/23 04/30/23 Range/Units 05:29 11:15 Sodium 138 (135-145) mmol/L Potassium 4.7 (3.5-5.5) mmol/L Chloride 103 (96-109) mmol/L Carbon Dioxide 25.5 (21.6-31.8) mmol/L BUN 19.8 (9.0-27.0) mg/dL Creatinine 1.1 (0.6-1.5) mg/dL Glucose 193 H (70-110) mg/dL Calcium 10.1 (8.7-10.3) mg/dL TSH 1.630 (0.465-4.680) mIU/L Adrenal panel 04/29/23 Range/Units 05:29 Sodium 138 (135-145) mmol/L Potassium 4.7 (3.5-5.5) mmol/L Chloride 103 (96-109) mmol/L Carbon Dioxide 25.5 (21.6-31.8) mmol/L BUN 19.8 (9.0-27.0) mg/dL Creatinine 1.1 (0.6-1.5) mg/dL Glucose 193 H (70-110) mg/dL Calcium 10.1 (8.7-10.3) mg/dL - Imaging Chest x-ray: report reviewed, image reviewed EKG: image reviewed Assessment and Plan Assessment: Coronary artery disease with previous PCI many years ago, non-STEMI this admission Hypertension Hyperlipidemia, treated Insulin-dependent diabetes Peripheral arterial disease with intermittent claudication Morbid obesity Current heavy tobacco dependence Remote history of pneumonia Plan: The patient was seen and examined laying in bed on the observation unit. Chart/diagnostics were reviewed. The case will be discussed in detail and cardiac catheterization films will be reviewed with Dr. Aguilar. The usual perioperative course of open heart surgery was discussed in detail with the patient, risks and benefits were reviewed, all questions were answered. The patient does consent to surgery that is deemed to be the appropriate course. Preoperative testing was initiated, once completed we will calculate STS risk score and discussed with the patient. Recommend continuing to maximize medical therapy with aspirin, statin, beta marquez therapy. Increase activity as tolerated. Smoking cessation and education counseling provided, patient was strongly encouraged to cease from ever smoking again. Medical management of other comorbidities per internal medicine, cardiology. More recommendations to follow. Thank you Dr. Brewer for this consult, we look forward to working with you in the care of this patient. I have personally seen and examined the patient, performed the documentation and the assessment and plan as written. Number of minutes spent on the visit: 30. ROGELIO Alvarez Attending Addendum: Pt seen and evaluated with AIRPORT PLANNER above. Agree with her assessment and plan. This is a 63 y/o M who presents with NSTEMI. He has significant LAD and RCA disease and is a decent candidate for CABG. We will proceed this admission. I spent 45 minutes reviewing the data and discussing the plan of care with the patient and the care team. Time with Patient: Greater than 30
--- NOTE | 2023-04-30 13:46 | CT ---
EXAMINATION TYPE: CT chest wo con CT DLP: 894 mGycm, Automated exposure control for dose reduction was used. DATE OF EXAM: 04/30/2023 1:27 PM COMPARISON: Chest radiograph 04/28/2023. CLINICAL INDICATION:Male, 63 years old with history of eval aorta for calcification; PH[facility], eval aorta for calcification pre open heart TECHNIQUE: Multiple axial images were obtained through the chest without IV contrast. Lack of IV or o ral contrast limits evaluation of solid and hollow organ viscera. . Coronal and sagittal reformats re viewed. FINDINGS: LUNGS/ PLEURA: The lung parenchyma appears unremarkable. AIRWAY: Patent and unremarkable.. HEART: Size within normal limits. No pericardial effusion. Mild to moderate three-vessel coronary art erial calcifications. MEDIASTINUM: No gross evidence of adenopathy. VASCULATURE: No aortic aneurysm. Mild atherosclerotic calcification of the aorta and its branches. MUSCULOSKELETAL: No acute osseous abnormalities. Findings compatible with DISH. SOFT TISSUES/LYMPH NODES: Unremarkable. LOWER NECK: No significant findings. UPPER ABDOMEN: Small bilateral punctate nonobstructive renal calculi IMPRESSION: 1. No acute thoracic process. 2. Mild to moderate three-vessel coronary arterial disease. 3. Nonobstructive bilateral renal calculi.
--- NOTE | 2023-04-30 14:07 | P.PN ---
Subjective Progress Note Date: 04/30/23 This is a 63-year-old gentleman admitted with an NSTEMI, morbid obesity, history of CAD with previous PCI years ago, DM, nicotine dependence and multiple other medical issues status post cardiac catheterization. Completed cardiac catheterization this morning reporting 100% LAD in-stent stenosis, 99% mid RCA in-stent stenosis, mild disease of left circumflex and into PDA and PLV branch, normal LVEDP, ischemic cardiomyopathy EF 40%. CTS consulted regarding potential CABG. Currently denies chest pain, palpitations or shortness of breath. Denies nausea or vomiting. Objective - Vital Signs Vital signs: Vital Signs Temp 97.8 F 04/30/23 02:28 Pulse 55 L 04/30/23 02:28 Resp 18 04/30/23 08:00 BP 124/76 04/30/23 02:28 Pulse Ox 96 04/30/23 02:28 FiO2 Intake & Output 04/29/23 04/30/23 04/30/23 18:59 06:59 18:59 Intake Total 354.069 668 Balance 354.069 668 Intake: IV 50 Intake, IV Titration 114.069 Amount Heparin Sod,Pork in 0.45% 114.069 NaCl 25,000 unit In 0.45 % NaCl 1 250ml.bag @ 7. 8736 UNITS/KG/HR 10 mls/ hr IV .Q24H CLAY Rx#: [id number] Oral 240 618 Other: # Voids 2 2 - Exam PHYSICAL EXAMINATION: GENERAL: Alert and oriented x3, no acute distress. Obese. HEENT: Normocephalic, Pupils are round and equal. EOMI. No scleral icterus. No conjunctival pallor. CARDIOVASCULAR: S1 and S2 present. No murmurs, rubs, or gallops. PULMONARY: Unlabored, bilateral air entry, clear to auscultation, no wheezing or crackles. ABDOMEN: Soft, nontender, nondistended, normoactive bowel sounds. No palpable organomegaly. MUSCULOSKELETAL: No joint swelling or deformity. EXTREMITIES: No cyanosis, clubbing, or pedal edema. NEUROLOGICAL: Gross neurological examination did not reveal any focal deficits. SKIN: No rashes. - Labs CBC & Chem 7: 04/29/23 05:29 04/29/23 05:29 Labs: Abnormal Lab Results - Last 24 Hours (Table) 04/29/23 04/29/23 04/29/23 Range/Units 16:13 17:05 21:00 APTT 49.8 H (22.0-30.0) sec POC Glucose (mg/dL) 207 H 240 H (70-110) mg/dL 04/30/23 04/30/23 04/30/23 Range/Units 05:32 06:27 12:56 APTT 37.6 H (22.0-30.0) sec POC Glucose (mg/dL) 156 H 276 H (70-110) mg/dL Assessment and Plan Assessment: Acute NSTEMI, status post cardiac catheterization reporting 100% LAD in-stent stenosis and 99% mid RCA in-stent stenosis. CAD with hx of PCI Diabetes mellitus type 2 hypertension Hyperlipidemia Morbid obesity, BMI 44 Ongoing nicotine dependence Plan: Continue on current medication regime ,monitoring and symptomatic treatment. CTS consult in place regarding cardiac catheterization results. Anticoagulated on heparin drip. Maximizing medical management. Smoking cessation reinforced. Aggressive pulmonary toileting with incentive spirometer ordered. Prognosis guarded given multiple complex medical issues. The impression and plan of care has been dictated as directed. : I performed a history and examination of this patient, discussed the same with the dictator. I agree with the dictator's note ,documented as a scribe. Any additional findings or plans will be noted.
[2023-04-30] MEDS: lisinopriL 10 MG TAB PO SCH (14:15)
[2023-04-30] MEDS: METOPROLOL SUCCINATE (ER) 25 MG TAB.ER.24H PO SCH (14:15)
--- NOTE | 2023-04-30 16:04 | US ---
EXAMINATION TYPE: US arterial LE single level DATE OF EXAM: 04/30/2023 3:35 PM CLINICAL INDICATION: Male, 63 years old with history of Ankle Brachial Index (GIRMA); open heart History of: Smoker: y Hypertension: y Diabetic: y Hyperlipidemia: y TIA/CVA: n Previous Vascular Surgery: yes, heart stenting CAD: n IN: n Vascular Ulcers: n Claudication: n Gangrene: n Doppler Waveforms: Right: Biphasic Left: Biphasic Right Brachial Pressure: 150 Left Brachial Pressure: 148 Ankle-Brachial Indices: Right: 1.0 Left: 0.8 Toe Brachial Indices: Right: 0.9 Left: 0.5 (Vessel hardening > 1.4; Normal 0.9 - 1.4, Moderate 0.7 - 0.9, Severe 0.5-0.7) IMPRESSION: Moderate left and normal right peripheral vascular disease by ankle brachial indices.
[2023-04-30 17:02] LABS: Glucose,Whole Blood 306 mg/dL (70-110)
[2023-04-30 18:27] LABS: Hepatitis A Antibody IgM Nonreactive; Hepatitis B Core IgM Nonreactive; Hepatitis B Surface Antigen Nonreactive; Hepatitis C IgG Antibody Nonreactive
[2023-04-30 20:31] LABS: Glucose,Whole Blood 349 mg/dL (70-110)
[2023-04-30] MEDS: ATORVASTATIN 40 MG TAB PO SCH (20:47)
[2023-05-01 01:35] LABS: Chol/HDL Ratio 3.83 Ratio; LDL Cholesterol,Calculated 70.3 mg/dL (0.0-131.0)
[2023-05-01] MEDS: SODIUM CHLORIDE 0.9% 1,000 ML IV SCH (05:41)
[2023-05-01 06:25] LABS: Glucose,Whole Blood 225 mg/dL (70-110)
[2023-05-01] MEDS: INSULIN ASPART (NovoLOG) 100 UNIT/ML VIAL SQ SCH ×4 (06:31→20:36)
[2023-05-01] MEDS: lisinopriL 10 MG TAB PO SCH (08:26)
[2023-05-01] MEDS: METOPROLOL SUCCINATE (ER) 25 MG TAB.ER.24H PO SCH (08:26)
[2023-05-01] MEDS: ASPIRIN 81 MG PO SCH (08:26)
[2023-05-01] MEDS: INSULIN DETEMIR (LEVEMIR) 100 UNIT/ML SYR SQ SCH (09:31)
--- NOTE | 2023-05-01 11:45 | P.PN ---
Subjective HISTORY OF PRESENT ILLNESS: 63-year-old male with past medical history of CAD status post PCI in 2003. We don't have a cardiac cath report at hand at this time. 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 He would start experiencing pain after walking 2-3 bloc ks. Angina class III. His symptoms have been getting worse over last 1 month. It has became more severe in intensity and frequency. Is associated with difficulty in breathing which would get better with rest. Patient is ECG showed sinus rhythm with no significant ST-T wave changes. There are old Q waves system of old inferior MD Hemoglobin is 14, creatinine is within normal limit, troponin 0.01, 0.01, 0.08. 04/29/2023 Progress note: Patient is seen and examined at bedside the same. He is hemodynamics stable. Dull chest pain on and off. Echo Showed an EF of 40% with inferoapical hypokinesia 05/01/2023 Patient is status post cardiac catheterization revealing 100% LAD in-stent stenosis, 99% mid RCA in-stent stenosis, mild disease in left circumflex and mild disease and PDA and PLV branch. Cardiothoracic surgery was consulted for evaluation for possible CABG. Patient examined this morning. Patient is sitting in the chair. Patient denies any chest pain or pressure. He denies shortness of breath. PHYSICAL EXAM: VITAL SIGNS: Reviewed. GENERAL: Well-developed in no acute distress. NECK: Supple. No JVD or thyromegaly LUNGS: Respirations even and unlabored. Lungs essentially clear to auscultation bilaterally. HEART: Regular rate and rhythm. S1 and S2 heard. EXTREMITIES: Normal range of motion. No clubbing or cyanosis. Peripheral pulses intact. No lower extremity edema ASSESSMENT: Non-STEMI Coronary artery disease with previous PCI Hypertension Hyperlipidemia Diabetes Morbid obesity Nicotine dependence PLAN: Continue current cardiac medications CT surgery has been consulted for evaluation for possible CABG. Await further recommendations Continue to monitor blood pressure and continue telemetry monitoring Further recommendations pending patient course Nurse practitioner note has been reviewed by physician. Signing provider agrees with the documented findings, assessment, and plan of care. Objective - Vital Signs Vital signs: Vital Signs Temp 97.9 F 05/01/23 07:34 Pulse 57 L 05/01/23 07:34 Resp 16 05/01/23 08:00 BP 118/68 05/01/23 07:34 Pulse Ox 94 L 05/01/23 07:34 FiO2 Intake & Output 04/30/23 05/01/23 05/01/23 18:59 06:59 18:59 Intake Total 1286 Balance 1286 Weight 127.006 kg Intake: IV 50 Oral 1236 Other: Voiding Method Toilet # Voids 3 2 - Labs CBC & Chem 7: 04/29/23 05:29 04/29/23 05:29 Labs: Abnormal Lab Results - Last 24 Hours (Table) 04/30/23 04/30/23 04/30/23 Range/Units 11:15 12:56 16:59 POC Glucose (mg/dL) 276 H 306 H (70-110) mg/dL HDL Cholesterol 33.90 L (40.00-60.00) mg/dL 04/30/23 05/01/23 Range/Units 20:29 06:23 POC Glucose (mg/dL) 349 H 225 H (70-110) mg/dL HDL Cholesterol (40.00-60.00) mg/dL
[2023-05-01 12:19] LABS: Glucose,Whole Blood 297 mg/dL (70-110)
--- NOTE | 2023-05-01 12:19 | P.PN ---
Subjective Progress Note Date: 05/01/23 Principal diagnosis: Coronary artery disease, non-STEMI this admission. History of CAD with previous PCI in 2003, hypertension, hyperlipidemia, insulin-dependent diabetes, periphe ral arterial disease with intermittent claudication, morbid obesity, current heavy tobacco dependence, COPD, remote history of pneumonia The patient was seen and examined sitting up in a recliner on the observation unit in no acute distress talking on the phone. He denies any chest pain or shortness of breath but does state he is not exerting himself. He was seen by Dr. Aguilar yesterday who reviewed his cath films, recommendation was made for CABG this admission. Surgery timing to be determined but needs to wait 5-7 days for Plavix metabolism, last dose 04/27/23. The patient stated he would prefer to go home and come back, we explained to him that we would not endorse this plan due to the nature of his disease. Objective - Vital Signs Vital signs: Vital Signs Temp 97.9 F 05/01/23 07:34 Pulse 57 L 05/01/23 07:34 Resp 16 05/01/23 08:00 BP 118/68 05/01/23 07:34 Pulse Ox 94 L 05/01/23 07:34 FiO2 Intake & Output 04/30/23 05/01/23 05/01/23 18:59 06:59 18:59 Intake Total 1286 Balance 1286 Weight 127.006 kg Intake: IV 50 Oral 1236 Other: Voiding Method Toilet # Voids 3 2 - Exam CONSTITUTIONAL: Awake and alert, appears comfortable, cooperative, no pain, no acute distress RESPIRATORY: Lungs sounds diminished bilaterally. Respirations even, nonlabored. Currently on room air with oxygen saturation 96% CARDIOVASCULAR: S1, S2 present. Regular rate and rhythm, sinus rhythm on telemetry. Palpable peripheral pulses bilaterally. No edema present GASTROINTESTINAL: Abdomen soft, nontender, nondistended, obese. Active bowel sounds present 4 quadrants. GENITOURINARY: Continues to void INTEGUMENTARY: Skin is warm and dry NEUROLOGIC: Cranial nerves II through XII intact, normal coordination, no obvious motor or sensory deficits, speech is normal MUSKULOSKELETAL: Able to move all extremities, strength equal bilaterally, normal posture PSYCHIATRIC: Alert and oriented to person place and time, appropriate affect, intact judgment and insight - Allied health notes Allied health notes reviewed: nursing - Labs CBC & Chem 7: 04/29/23 05:29 04/29/23 05:29 Labs: Abnormal Lab Results - Last 24 Hours (Table) 04/30/23 04/30/23 04/30/23 Range/Units 11:15 12:56 16:59 POC Glucose (mg/dL) 276 H 306 H (70-110) mg/dL HDL Cholesterol 33.90 L (40.00-60.00) mg/dL 04/30/23 05/01/23 Range/Units 20:29 06:23 POC Glucose (mg/dL) 349 H 225 H (70-110) mg/dL HDL Cholesterol (40.00-60.00) mg/dL - Imaging and Cardiology CT scan - chest: report reviewed, image reviewed Heart cath and echo films as well as carotids, vein/arterial mapping reviewed with Dr. Aguilar Assessment and Plan Assessment: Coronary artery disease with previous PCI 2003, non-STEMI this admission Hypertension Hyperlipidemia, treated, cholesterol 130, LDL 70 Insulin-dependent diabetes, hgb A1c 9.1% Peripheral arterial disease with intermittent claudication, GIRMA left moderate disease Morbid obesity, BMI 44 Current heavy tobacco dependence Moderate COPD, FEV1 65% of predicted Remote history of pneumonia Plan: Continue to maximize medical therapy with ASA, statin, beta marquez Continue to hold Plavix Encourage incentive spirometer every hour Dr. Llanos consulted for pulmonary optimization Continue to reinforce preoperative teaching Our plan is for off pump myocardial revascularization with left internal mammary artery, left radial artery harvest, ligation of the left atrial appendage at the end of the week after Plavix metabolism STS risk score calculated and discussed with the patient Smoking cessation reinforced Medical management of other comorbidities per internal medicine, cardiology More recommendations to follow
--- NOTE | 2023-05-01 12:35 | P.PN ---
Subjective Progress Note Date: 05/01/23 This is a 63-year-old gentleman admitted with an NSTEMI, morbid obesity, history of CAD with previous PCI years ago, DM, nicotine dependence and multiple other medical issues status post cardiac catheterization. Completed cardiac catheterization this morning reporting 100% LAD in-stent stenosis, 99% mid RCA in-stent stenosis, mild disease of left circumflex and into PDA and PLV branch, normal LVEDP, ischemic cardiomyopathy EF 40%. CTS consulted regarding potential CABG. Currently denies chest pain, palpitations or shortness of breath. Denies nausea or vomiting. 05/01/2023 evaluated by cardiothoracic surgery and is scheduled for CABG on Sunday. Plavix remains on hold. Denies chest pain, palpitations or shortness of breath. Positive diet intake with no nausea vomiting or diarrhea. Blood s ugars running higher over the last 24 hours, currently in the low 200s. Denies abdominal pain. Using incentive spirometer, up to 2500. Afebrile. Objective - Vital Signs Vital signs: Vital Signs Temp 97.9 F 05/01/23 07:34 Pulse 57 L 05/01/23 07:34 Resp 16 05/01/23 08:00 BP 118/68 05/01/23 07:34 Pulse Ox 94 L 05/01/23 07:34 FiO2 Intake & Output 04/30/23 05/01/23 05/01/23 18:59 06:59 18:59 Intake Total 1286 Balance 1286 Weight 127.006 kg Intake: IV 50 Oral 1236 Other: Voiding Method Toilet # Voids 3 2 - Exam PHYSICAL EXAMINATION: GENERAL: Obese, Sitting up in chair, Alert and oriented x3, no acute distress. HEENT: Normocephalic, Pupils are round and equal. EOMI. No scleral icterus. No conjunctival pallor. CARDIOVASCULAR: S1 and S2 present. No murmurs, rubs, or gallops. PULMONARY: Unlabored, bilateral air entry, clear to auscultation. ABDOMEN: Soft, nontender, nondistended, normoactive bowel sounds. No palpable organomegaly. EXTREMITIES: No cyanosis, clubbing, or pedal edema. NEUROLOGICAL: Gross neurological examination did not reveal any focal deficits. SKIN: No rashes. - Labs CBC & Chem 7: 04/29/23 05:29 04/29/23 05:29 Labs: Abnormal Lab Results - Last 24 Hours (Table) 04/30/23 04/30/23 04/30/23 Range/Units 11:15 12:56 16:59 POC Glucose (mg/dL) 276 H 306 H (70-110) mg/dL HDL Cholesterol 33.90 L (40.00-60.00) mg/dL 04/30/23 05/01/23 Range/Units 20:29 06:23 POC Glucose (mg/dL) 349 H 225 H (70-110) mg/dL HDL Cholesterol (40.00-60.00) mg/dL Assessment and Plan Assessment: Acute NSTEMI, status post cardiac catheterization reporting 100% LAD in-stent stenosis and 99% mid RCA in-stent stenosis. CABG pending. CAD with hx of PCI Diabetes mellitus type 2, hemoglobin A1c 9.1, will require further diabetic education outpatient and clinic with PCP. hypertension Hyperlipidemia Morbid obesity, BMI 44 COPD Ongoing nicotine dependence Plan: Continue on current medication regime ,monitoring and symptomatic treatment. Plavix on hold, CABG scheduled for Sunday .Anticoagulated on heparin drip. Maximizing medical management. Maintain aggressive pulmonary toileting with incentive spirometer and smoking cessation reinforced. Tight blood sugar control, diet adjusted to consistent carb diet. Adjusted long-acting insulin, close monitoring of Accu-Cheks.Prognosis guarded given multiple complex medical issues. The impression and plan of care has been dictated as directed. : I performed a history and examination of this patient, discussed the same with the dictator. I agree with the dictator's note ,documented as a scribe. Any additional findings or plans will be noted.
--- NOTE | 2023-05-01 14:13 | P.CNPUL ---
History of Present Illness Consult date: 05/01/23 Reason for consult: other Chief complaint: Chest pain History of present illness: 63-year-old obese male patient, who is currently being investigated for coronary artery bypass surgery. The patient is known to have CAD, he is morbidly obese and has hypertension hyperlipidemia and insulin-dependent diabetes mellitus along with peripheral vascular disease. The patient is also chronic smoker The patient had a cardiac catheterization that showed 100% LAD in-stent stenosis, 99% mid RCA and the patient was recommended to undergo a coronary artery bypass surgery. He is going to be seen by the cardiothoracic team. His left ventricle ejection fraction slightly reduced at 40-45%. He has an FEV1 of 66% of predicted. He is obese and has features of obstructive sleep apnea although this has not been officially diagnosed. His current cardiac rhythm is sinus. Chest x-ray showed no acute abnormalities. CAT scan of the chest showed negative abnormalities. The patient is clinically stable and hemodynamically s table. Performance of functional status is adequate for now. Is currently free of any chest pain. He is on room air oxygen with a pulse ox of 94-97%. Is pulling ordered 1999 on his incentive spirometer. Review of Systems Constitutional: Reports as per HPI, Reports fatigue, Reports weight gain Eyes: denies as per HPI, denies blurred vision, denies bulging eye, denies decreased vision, denies diplopia, denies discharge, denies dry eye, denies irritation, denies itching, denies pain, denies photophobia, denies loss of peripheral vision, denies loss of vision, denies tunnel vision/blind spots Ears: deny: decreased hearing, ear discharge, earache, tinnitus Ears, nose, mouth and throat: Reports as per HPI Breasts: absent: as per HPI, gynecomastia Cardiovascular: Reports chest pain Respiratory: Reports as per HPI Gastrointestinal: Reports as per HPI Genitourinary: Reports as per HPI Musculoskeletal: Reports as per HPI Musculoskeletal: absent: ankle pain, ankle stiffness, ankle swelling Integumentary: Reports as per HPI Neurological: Reports as per HPI Psychiatric: Reports as per HPI Endocrine: Reports as per HPI Hematologic/Lymphatic: Reports as per HPI Allergic/Immunologic: Reports as per HPI Past Medical History Past Medical History: Coronary Artery Disease (CAD), COPD, Diabetes Mellitus, Hyperlipidemia, Hypertension, Myocardial Infarction (SD), Pneumonia Additional Past Medical History / Comment(s): Peripheral arterial disease with intermittent claudication; morbid obesity Last Myocardial Infarction Date:: 2003 History of Any Multi-Drug Resistant Organisms: None Reported Past Surgical History: Heart Catheterization With Stent Additional Past Surgical History / Comment(s): 1 stent in 2003 Past Anesthesia/Blood Transfusion Reactions: No Reported Reaction Date of Last Stent Placement:: 2003 Past Psychological History: No Psychological Hx Reported Smoking Status: Current every day smoker Past Alcohol Use History: None Reported, Rare Additional Past Alcohol Use History / Comment(s): smokes 1- 1.5 ppd from age 16 Past Drug Use History: None Reported - Past Family History Mother Family Medical History: COPD Father Additional Family Medical History / Comment(s): from old age Medications and Allergies Home Medications Medication Instructions Recorded Confirmed Type Atorvastatin [Lipitor] 80 mg PO HS 11/03/17 04/28/23 History Metoprolol Succinate [Toprol XL] 25 mg PO DAILY 11/03/17 04/28/23 History lisinopriL [Zestril] 10 mg PO DAILY 11/03/17 04/28/23 History metFORMIN HCL [Glucophage] 1,000 mg PO BID 11/03/17 04/28/23 History Clopidogrel [Plavix] 75 mg PO HS 11/13/18 04/28/23 History Umeclidinium Brm/Vilanterol Tr 1 puff INHALATION RT-DAILY 11/13/18 04/28/23 History [Anoro Ellipta 62.5-25 Mcg INH] Aspirin EC [Ecotrin Low Dose] 81 mg PO DAILY PRN 04/28/23 04/28/23 History Insulin Glargine/Lixisenatide 50 units SQ DAILY 04/28/23 04/28/23 History [Soliqua 100 Unit-33 Mcg/ml Pen] Allergies Allergy/AdvReac Type Severity Reaction Status Date / Time No Known Allergies Allergy Verified 04/28/23 12:51 Physical Exam Vitals: Vital Signs Temp Pulse Resp BP Pulse Ox 05/01/23 08:00 16 05/01/23 07:34 97.9 F 57 L 16 118/68 94 L 05/01/23 02:41 98.2 F 84 15 136/70 97 04/30/23 19:09 98.1 F 64 15 111/61 94 L 04/30/23 14:55 98.1 F 62 16 116/69 96 Intake and Output 04/30/23 05/01/23 05/01/23 22:59 06:59 14:59 Other: Voiding Method Toilet # Voids 2 2 Weight 127.006 kg Gen. appearance the patient is obese, calm comfortable not acute distress, body mass index of 43.9, currently on room air oxygen Head exam was generally normal. There was no scleral icterus or corneal arcus. Mucous membranes were moist. Neck was supple and without jugular venous distension, thyromegaly, or carotid bruits. Carotids were easily palpable bilaterally. There was no adenopathy. The patient has significant crowding of posterior pharynx with a Mallampati class IV Lungs were clear to auscultation and percussion, and with normal diaphragmatic excursion. No wheezes or rales were noted. Cardiac exam revealed the PMI to be normally situated and sized. The rhythm was regular and no extrasystoles were noted during several minutes of auscultation. The first and second heart sounds were normal and physiologic splitting of the second heart sound was noted. There were no murmurs, rubs, clicks, or gallops. Abdominal exam revealed normal bowel sounds. The abdomen was soft, non-tender, and without masses, organomegaly, or appreciable enlargement of the abdominal aorta. Examination of the extremities revealed easily palpable radial, femoral and pedal pulses. There was no cyanosis, clubbing or edema. Examination of the skin revealed no evidence of significant rashes, suspicious appearing nevi or other concerning lesions. Neurologically, the patient is awake and alert and the patient does not have any focal neurological deficit. Cranial nerves are essentially intact. Results - Laboratory Findings CBC and BMP: 04/29/23 05:29 04/29/23 05:29 PT/INR, D-dimer PT 10.9 sec (10.0-12.5) 04/29/23 05:29 INR 1.0 (<1.2) 04/29/23 05:29 Abnormal lab findings: Abnormal Labs 04/28/23 04/28/23 04/28/23 01:15 01:15 06:50 WBC 11.4 H MPV Eosinophils # APTT Sodium 135 L BUN 27 H Glucose 324 H POC Glucose (mg/dL) 211 H Hemoglobin A1c Alkaline Phosphatase 138 H Troponin I HDL Cholesterol 10/04/28/23 04/28/23 09:13 09:13 12:06 WBC MPV Eosinophils # APTT 33.8 H Sodium BUN Glucose POC Glucose (mg/dL) Hemoglobin A1c Alkaline Phosphatase Troponin I 0.086 H* 0.137 H* HDL Cholesterol 04/28/23 04/28/23 04/28/23 12:11 17:05 17:36 WBC MPV Eosinophils # APTT 47.0 H Sodium BUN Glucose POC Glucose (mg/dL) 209 H 280 H Hemoglobin A1c Alkaline Phosphatase Troponin I HDL Cholesterol 04/28/23 04/29/23 04/29/23 20:58 05:29 05:29 WBC MPV Eosinophils # APTT Sodium BUN Glucose 193 H POC Glucose (mg/dL) 273 H Hemoglobin A1c 9.1 H Alkaline Phosphatase Troponin I HDL Cholesterol 04/29/23 04/29/23 04/29/23 05:29 05:29 06:28 WBC 10.47 H MPV 12.9 H Eosinophils # 0.45 H APTT 39.1 H Sodium BUN Glucose POC Glucose (mg/dL) 191 H Hemoglobin A1c Alkaline Phosphatase Troponin I HDL Cholesterol 04/29/23 04/29/23 04/29/23 11:47 16:13 17:05 WBC MPV Eosinophils # APTT 49.8 H Sodium BUN Glucose POC Glucose (mg/dL) 300 H 207 H Hemoglobin A1c Alkaline Phosphatase Troponin I HDL Cholesterol 04/29/23 04/30/23 04/30/23 21:00 05:32 06:27 WBC MPV Eosinophils # APTT 37.6 H Sodium BUN Glucose POC Glucose (mg/dL) 240 H 156 H Hemoglobin A1c Alkaline Phosphatase Troponin I HDL Cholesterol 04/30/23 04/30/23 04/30/23 11:15 12:56 16:59 WBC MPV Eosinophils # APTT Sodium BUN Glucose POC Glucose (mg/dL) 276 H 306 H Hemoglobin A1c Alkaline Phosphatase Troponin I HDL Cholesterol 33.90 L 04/30/23 05/01/23 05/01/23 20:29 06:23 12:17 WBC MPV Eosinophils # APTT Sodium BUN Glucose POC Glucose (mg/dL) 349 H 225 H 297 H Hemoglobin A1c Alkaline Phosphatase Troponin I HDL Cholesterol - Diagnostic Findings Chest x-ray: image reviewed CT scan - chest: image reviewed Assessment and Plan Plan: Assessment Multivessel coronary artery disease with previous PCI. The patient presented with chest pain and acute non-ST segment elevation myocardial infarction. The patient had a repeat cardiac catheterization showed extensive CAD and the patient is being worked up for coronary artery bypass surgery Morbidly obese, BMI 43.9. COPD with an FEV1 of 66% of predicted currently inactive and stable Possible obstructive sleep apnea Hypertension Hyperlipidemia Insulin-dependent diabetes mellitus Peripheral vascular disease with intermittent claudication History of smoking Plan Overall pulmonary status is stable. The patient had a CAT scan of the chest that showed no acute abnormalities. The patient has acceptable performance of functional status. He will complete his pre-operative testing. He was provided incentive spirometer. We'll continue to follow. We'll continue medical management for the time being. Will be glad to follow this patient and his postoperative course in the intensive care unit and managed mechanical ventilator and attempt for any pulmonary needs or complications. The STS score to be calculated by the cardiac team. We'll continue to follow.
[2023-05-01 17:17] LABS: Glucose,Whole Blood 338 mg/dL (70-110)
[2023-05-01 18:20] LABS: Appearance,Urine Clear (Clear); Color,Urine Light Yellow; Protein,Urine Negative (Negative); Specific Gravity,Urine 1.015 (1.001-1.035)
[2023-05-01 18:21] LABS: Bilirubin,Urine Negative (Negative); Blood,Urine Negative (Negative); Glucose,Urine (UA) 4+ (Negative); Ketones,Urine Negative (Negative); Leukocyte Esterase,Urine Negative (Negative); Nitrite,Urine Negative (Negative); Urobilinogen,Urine <2.0 mg/dL (<2.0)
[2023-05-01 18:31] LABS: WBC,Urine <1 /hpf (0-5)
[2023-05-01 20:17] LABS: Glucose,Whole Blood 274 mg/dL (70-110)
[2023-05-01] MEDS: ATORVASTATIN 40 MG TAB PO SCH (20:36)
[2023-05-01] MEDS ORDERED: INSULIN DETEMIR (LEVEMIR) 100 UNIT/ML SYR SQ SCH (21:00)
[2023-05-02] MEDS: SODIUM CHLORIDE 0.9% 1,000 ML IV SCH ×2 (05:40→22:04)
[2023-05-02 06:33] LABS: Glucose,Whole Blood 257 mg/dL (70-110)
[2023-05-02] MEDS: INSULIN DETEMIR (LEVEMIR) 100 UNIT/ML SYR SQ SCH ×2 (06:36→22:01)
[2023-05-02] MEDS: INSULIN ASPART (NovoLOG) 100 UNIT/ML VIAL SQ SCH ×4 (06:36→22:02)
--- NOTE | 2023-05-02 08:24 | P.PN ---
Subjective Progress Note Date: 05/02/23 Principal diagnosis: Coronary artery disease, non-STEMI this admission. History of CAD with previous PCI in 2003, hypertension, hyperlipidemia, insulin-dependent diabetes, periphe ral arterial disease with intermittent claudication, morbid obesity, current heavy tobacco dependence, COPD, remote history of pneumonia The patient was seen and examined this morning sitting up in a recliner in no acute distress. Denies any chest pain or shortness of breath. He has been ambulatory without difficulty. Again reinforced preoperative teaching, encourage smoking cessation. Discussed plan for surgery Sunday, patient is agreeable. No other new concerns. Objective - Vital Signs Vital signs: Vital Signs Temp 97.9 F 05/02/23 07:31 Pulse 56 L 05/02/23 07:31 Resp 14 05/02/23 07:31 BP 118/72 05/02/23 07:31 Pulse Ox 98 05/02/23 07:31 FiO2 Intake & Output 05/01/23 05/02/23 05/02/23 18:59 06:59 18:59 Other: Voiding Method Toilet Toilet # Voids 1 2 # Bowel Movements 1 - Exam CONSTITUTIONAL: Appears comfortable, cooperative, no acute distress RESPIRATORY: Lungs sounds diminished bilaterally. Respirations even, nonlabored. Currently on room air with oxygen saturation 98%. Able to achieve 2500 mL on incentive spirometry. Strong cough. CARDIOVASCULAR: S1, S2 present. Regular rate and rhythm, sinus rhythm on telemetry. Palpable peripheral pulses bilaterally. No edema present. No calf pain or tenderness noted. GASTROINTESTINAL: Abdomen soft, nontender, nondistended, obese. Active bowel sounds present 4 quadrants. Tolerating diet. Positive bowel movement 05/01 GENITOURINARY: Continues to void INTEGUMENTARY: Skin is warm and dry with evidence of good perfusion NEUROLOGIC: Cranial nerves II through XII intact MUSKULOSKELETAL: Able to move all extremities, strength equal bilaterally, gait normal PSYCHIATRIC: Alert and oriented to person place and time, appropriate affect, intact judgment and insight - Allied health notes Allied health notes reviewed: nursing - Labs CBC & Chem 7: 04/29/23 05:29 04/29/23 05:29 Labs: Abnormal Lab Results - Last 24 Hours (Table) 05/01/23 05/01/23 05/01/23 Range/Units 12:17 17:16 20:16 POC Glucose (mg/dL) 297 H 338 H 274 H (70-110) mg/dL 05/02/23 Range/Units 06:31 POC Glucose (mg/dL) 257 H (70-110) mg/dL Assessment and Plan Assessment: Coronary artery disease with previous PCI 2003, non-STEMI this admission Hypertension Hyperlipidemia, treated, cholesterol 130, LDL 70 Insulin-dependent diabetes, hgb A1c 9.1% Peripheral arterial disease with intermittent claudication, GIRMA left moderate disease Morbid obesity, BMI 44 Current heavy tobacco dependence Moderate COPD, FEV1 65% of predicted Remote history of pneumonia Plan: Continue to maximize medical therapy with ASA, statin, beta marquez Continue to hold Plavix Encourage incentive spirometer every hour Continue to reinforce preoperative teaching Our plan is for off pump myocardial revascularization with left internal mammary artery, left radial artery harvest, ligation of the left atrial appendage Sunday by Dr. Aguilar after Plavix metabolism STS risk score calculated and discussed with the patient 5 meter walk test completed without difficulty: #1 4.63 sec, #2 5.12 sec, #3 4.98 sec Smoking cessation reinforced Medical management of other comorbidities per internal medicine, cardiology More recommendations to follow
[2023-05-02] MEDS: ASPIRIN 81 MG PO SCH (08:41)
[2023-05-02] MEDS: METOPROLOL SUCCINATE (ER) 25 MG TAB.ER.24H PO SCH (08:41)
[2023-05-02] MEDS: lisinopriL 10 MG TAB PO SCH (08:41)
[2023-05-02] MEDS ORDERED: IPRATROPIUM-ALBUTEROL 3 ML NEB INHALATION PRN (09:58)
--- NOTE | 2023-05-02 10:17 | P.PN ---
Subjective HISTORY OF PRESENT ILLNESS: 63-year-old male with past medical history of CAD status post PCI in 2003. We don't have a cardiac cath report at hand at this time. 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 He would start experiencing pain after walking 2-3 bloc ks. Angina class III. His symptoms have been getting worse over last 1 month. It has became more severe in intensity and frequency. Is associated with difficulty in breathing which would get better with rest. Patient is ECG showed sinus rhythm with no significant ST-T wave changes. There are old Q waves system of old inferior TX Hemoglobin is 14, creatinine is within normal limit, troponin 0.01, 0.01, 0.08. 04/29/2023 Progress note: Patient is seen and examined at bedside the same. He is hemodynamics stable. Dull chest pain on and off. Echo Showed an EF of 40% with inferoapical hypokinesia 05/01/2023 Patient is status post cardiac catheterization revealing 100% LAD in-stent stenosis, 99% mid RCA in-stent stenosis, mild disease in left circumflex and mild disease and PDA and PLV branch. Cardiothoracic surgery was consulted for evaluation for possible CABG. Patient examined this morning. Patient is sitting in the chair. Patient denies any chest pain or pressure. He denies shortness of breath. 05/02/2023 Patient examined this morning. He is sitting up in a chair. Patient denies chest pain or pressure. He denies shortness of breath. He states he has been up ambulating without difficulty. Vital signs are stable. PHYSICAL EXAM: VITAL SIGNS: Reviewed. GENERAL: Well-developed in no acute distress. NECK: Supple. No JVD or thyromegaly LUNGS: Respirations even and unlabored. Lungs essentially clear to auscultation bilaterally. HEART: Regular rate and rhythm. S1 and S2 heard. EXTREMITIES: Normal range of motion. No clubbing or cyanosis. Peripheral pulses intact. No lower extremity edema ASSESSMENT: Non-STEMI Coronary artery disease with previous PCI Hypertension Hyperlipidemia Diabetes Morbid obesity Nicotine dependence PLAN: Continue current cardiac medications Continue to monitor blood pressure and continue telemetry monitoring Plavix remains on hold Patient tentatively scheduled for CABG on Sunday with Dr. Aguilar Further recommendations pending patient course Nurse practitioner note has been reviewed by physician. Signing provider agrees with the documented findings, assessment, and plan of care. Objective - Vital Signs Vital signs: Vital Signs Temp 97.9 F 05/02/23 07:31 Pulse 56 L 05/02/23 07:31 Resp 14 05/02/23 07:31 BP 118/72 05/02/23 07:31 Pulse Ox 98 05/02/23 07:31 FiO2 Intake & Output 05/01/23 05/02/23 05/02/23 18:59 06:59 18:59 Intake Total 540 Balance 540 Intake: Oral 540 Other: Voiding Method Toilet Toilet # Voids 1 2 # Bowel Movements 1 - Labs CBC & Chem 7: 04/29/23 05:29 04/29/23 05:29 Labs: Abnormal Lab Results - Last 24 Hours (Table) 05/01/23 05/01/23 05/01/23 Range/Units 12:17 17:16 20:16 POC Glucose (mg/dL) 297 H 338 H 274 H (70-110) mg/dL 05/02/23 Range/Units 06:31 POC Glucose (mg/dL) 257 H (70-110) mg/dL
[2023-05-02] MEDS ORDERED: ARTIFICIAL TEARS-HYPROMELLOSE DROPS 15 ML BTL BOTH EYES PRN (10:43)
--- NOTE | 2023-05-02 11:09 | P.PN ---
Subjective Progress Note Date: 05/02/23 This is a 63-year-old gentleman admitted with an NSTEMI, morbid obesity, history of CAD with previous PCI years ago, DM, nicotine dependence and multiple other medical issues status post cardiac catheterization. Completed cardiac catheterization this morning reporting 100% LAD in-stent stenosis, 99% mid RCA in-stent stenosis, mild disease of left circumflex and into PDA and PLV branch, normal LVEDP, ischemic cardiomyopathy EF 40%. CTS consulted regarding potential CABG. Currently denies chest pain, palpitations or shortness of breath. Denies nausea or vomiting. 05/01/2023 evaluated by cardiothoracic surgery and is scheduled for CABG on Sunday. Plavix remains on hold. Denies chest pain, palpitations or shortness of breath. Positive diet intake with no nausea vomiting or diarrhea. Blood s ugars running higher over the last 24 hours, currently in the low 200s. Denies abdominal pain. Using incentive spirometer, up to 2500. Afebrile. 05/02/2023 Plavix remains on hold, scheduled for CABG on Sunday. Denies chest pain, palpitations shortness of breath. Denies chills or sweats. Blood sugars currently in the 200s. Compliant with incentive spirometer, greater than 2200. Objective - Vital Signs Vital signs: Vital Signs Temp 97.9 F 05/02/23 07:31 Pulse 56 L 05/02/23 07:31 Resp 14 05/02/23 07:31 BP 118/72 05/02/23 07:31 Pulse Ox 98 05/02/23 07:31 FiO2 Intake & Output 05/01/23 05/02/23 05/02/23 18:59 06:59 18:59 Intake Total 540 Balance 540 Intake: Oral 540 Other: Voiding Method Toilet Toilet # Voids 1 2 # Bowel Movements 1 - Exam PHYSICAL EXAMINATION: GENERAL: Obese, Sitting up in chair, Alert and oriented x3, no acute distress. HEENT: Normocephalic, Pupils are round and equal. EOMI. No scleral icterus. No conjunctival pallor. Neck supple, unable to assess JVD. CARDIOVASCULAR: S1 and S2 present. No murmurs, rubs, or gallops. PULMONARY: Unlabored, bilateral air entry, clear to auscultation. ABDOMEN: Soft, nontender, nondistended, normoactive bowel sounds. No palpable organomegaly. EXTREMITIES: No cyanosis, clubbing, or pedal edema. NEUROLOGICAL: Gross neurological examination did not reveal any focal deficits. SKIN: No rashes. - Labs CBC & Chem 7: 04/29/23 05:29 04/29/23 05:29 Labs: Abnormal Lab Results - Last 24 Hours (Table) 05/01/23 05/01/23 05/01/23 Range/Units 12:17 17:16 20:16 POC Glucose (mg/dL) 297 H 338 H 274 H (70-110) mg/dL 05/02/23 Range/Units 06:31 POC Glucose (mg/dL) 257 H (70-110) mg/dL Assessment and Plan Assessment: Acute NSTEMI, status post cardiac catheterization reporting 100% LAD in-stent stenosis and 99% mid RCA in-stent stenosis. CABG pending. CAD with hx of PCI Diabetes mellitus type 2, hemoglobin A1c 9.1, will require further diabetic education outpatient in clinic with PCP. hypertension Hyperlipidemia Morbid obesity, BMI 44 COPD Ongoing nicotine dependence Plan: Continue on current medication regime ,monitoring and symptomatic treatment. Continue holding Plavix/ CABG scheduled for Sunday .Anticoagulation as per CTS. Maximizing medical management. Aggressive pulmonary toileting with incentive spirometer and smoking cessation reinforced. Tight blood sugar control, further adjusted long-acting insulin, close monitoring of Accu- Cheks.Prognosis guarded given multiple complex medical issues. The impression and plan of care has been dictated as directed. : I performed a history and examination of this patient, discussed the same with the dictator. I agree with the dictator's note ,documented as a scribe. Any additional findings or plans will be noted.
[2023-05-02] MEDS: IPRATROPIUM-ALBUTEROL 3 ML NEB INHALATION SCH ×3 (11:38→20:36)
[2023-05-02] MEDS: FORMOTEROL FUMARATE 20 MCG/2 ML NEBU INHALATION SCH ×2 (11:42→20:36)
[2023-05-02 12:21] LABS: Glucose,Whole Blood 311 mg/dL (70-110)
--- NOTE | 2023-05-02 13:16 | P.PN ---
Progress Note - Text Progress Note Date: 05/02/23 Patient will require a new glucometer at discharge including Accu-Cheks before meals and at bedtime. Patient is scheduled for CABG on 05/04/2023 and requires tight blood sugar control, frequent monitoring to promote wound healing and decrease risk of sternal wound infection. The impression and plan of care has been dictated as directed. : I performed a history and examination of this patient, discussed the same with the dictator. I agree with the dictator's note ,documented as a scribe. Any additional findings or plans will be noted.
[2023-05-02] MEDS: PANTOPRAZOLE 40 MG/10 ML VIAL IVP SCH (13:17)
--- NOTE | 2023-05-02 15:50 | P.PN ---
Subjective Progress Note Date: 05/02/23 63-year-old obese male patient, who is currently being investigated for coronary artery bypass surgery. The patient is known to have CAD, he is morbidly obese and has hypertension hyperlipidemia and insulin-dependent diabetes mellitus along with peripheral vascular disease. The patient is also chronic smoker The patient had a cardiac catheterization that showed 100% LAD in-stent stenosis, 99% mid RCA and the patient was recommended to undergo a coronary artery bypass surgery. He is going to be seen by the cardiothoracic team. His left ventricle ejection fraction slightly reduced at 40-45%. He has an FEV1 of 66% of predicted. He is obese and has features of obstructive sleep apnea although this has not been officially diagnosed. His current cardiac rhythm is sinus. Chest x-ray showed no acute abnormalities. CAT scan of the chest showed negative abnormalities. The patient is clinically stable and hemodynamically stable. Performance of functional status is adequate for now. Is currently free of any chest pain. He is on room air oxygen with a pulse ox of 94-97%. Is pulling ordered 1999 on his incentive spirometer. On today's evaluation of 05/02/2023, no new complaints and the patient is still awaiting his cardiac surgery. His condition is stable. Clinically stable. Hem odynamically stable. Vital signs are all stable. Sitting up on a chair. Using the incentive spirometer. Objective - Vital Signs Vital signs: Vital Signs Temp 97.9 F 05/02/23 07:31 Pulse 56 L 05/02/23 11:50 Resp 18 05/02/23 08:00 BP 118/72 05/02/23 07:31 Pulse Ox 98 05/02/23 07:31 FiO2 Intake & Output 05/01/23 05/02/23 05/02/23 18:59 06:59 18:59 Intake Total 540 Balance 540 Intake: Oral 540 Other: Voiding Method Toilet Toilet Toilet # Voids 1 2 2 # Bowel Movements 1 1 - Exam Gen. appearance the patient is obese, calm comfortable not acute distress, body mass index of 43.9, currently on room air oxygen Head exam was generally normal. There was no scleral icterus or corneal arcus. Mucous membranes were moist. Neck was supple and without jugular venous distension, thyromegaly, or carotid bruits. Carotids were easily palpable bilaterally. There was no adenopathy. The patient has significant crowding of posterior pharynx with a Mallampati class IV Lungs were clear to auscultation and percussion, and with normal diaphragmatic excursion. No wheezes or rales were noted. Cardiac exam revealed the PMI to be normally situated and sized. The rhythm was regular and no extrasystoles were noted during several minutes of auscultation. The first and second heart sounds were normal and physiologic splitting of the second heart sound was noted. There were no murmurs, rubs, clicks, or gallops. Abdominal exam revealed normal bowel sounds. The abdomen was soft, non-tender, and without masses, organomegaly, or appreciable enlargement of the abdominal aorta. Examination of the extremities revealed easily palpable radial, femoral and pedal pulses. There was no cyanosis, clubbing or edema. Examination of the skin revealed no evidence of significant rashes, suspicious appearing nevi or other concerning lesions. Neurologically, the patient is awake and alert and the patient does not have any focal neurological deficit. Cranial nerves are essentially intact. Results - Labs CBC & Chem 7: 04/29/23 05:29 04/29/23 05:29 Labs: Abnormal Lab Results - Last 24 Hours (Table) 05/01/23 05/01/23 05/02/23 Range/Units 17:16 20:16 06:31 POC Glucose (mg/dL) 338 H 274 H 257 H (70-110) mg/dL 05/02/23 Range/Units 12:19 POC Glucose (mg/dL) 311 H (70-110) mg/dL Assessment and Plan Plan: Assessment Multivessel coronary artery disease with previous PCI. The patient presented with chest pain and acute non-ST segment elevation myocardial infarction. The patient had a repeat cardiac catheterization showed extensive CAD and the patient is being worked up for coronary artery bypass surgery Morbidly obese, BMI 43.9. COPD with an FEV1 of 66% of predicted currently inactive and stable Possible obstructive sleep apnea Hypertension Hyperlipidemia Insulin-dependent diabetes mellitus Peripheral vascular disease with intermittent claudication History of smoking Plan No changes condition patient remains stable Awaiting surgical intervention regarding his multivessel coronary artery disease. Overall pulmonary status is stable. The patient had a CAT scan of the chest that showed no acute abnormalities. The patient has acceptable performance of functional status. He will complete his pre-operative testing. He was provided incentive spirometer. We'll continue to follow. We'll continue medical management for the time being. Will be glad to follow this patient and his postoperative course in the intensive care unit and managed mechanical ventilator and attempt for any pulmonary needs or complications. The STS score to be calculated by the cardiac team. We'll continue to follow.
[2023-05-02 17:10] LABS: Glucose,Whole Blood 322 mg/dL (70-110)
[2023-05-02 20:50] LABS: Glucose,Whole Blood 396 mg/dL (70-110)
[2023-05-02] MEDS: ATORVASTATIN 40 MG TAB PO SCH (22:02)
[2023-05-03 06:03] LABS: Glucose,Whole Blood 249 mg/dL (70-110)
[2023-05-03] MEDS: INSULIN DETEMIR (LEVEMIR) 100 UNIT/ML SYR SQ SCH ×2 (06:12→21:32)
[2023-05-03] MEDS: INSULIN ASPART (NovoLOG) 100 UNIT/ML VIAL SQ SCH ×4 (06:12→21:32)
[2023-05-03] MEDS ORDERED: INSULIN DETEMIR (LEVEMIR) 100 UNIT/ML SYR SQ ONE (08:24)
[2023-05-03] MEDS: METOPROLOL SUCCINATE (ER) 25 MG TAB.ER.24H PO SCH (08:25)
[2023-05-03] MEDS: lisinopriL 10 MG TAB PO SCH (08:25)
[2023-05-03] MEDS: PANTOPRAZOLE 40 MG/10 ML VIAL IVP SCH (08:25)
[2023-05-03] MEDS: ASPIRIN 81 MG PO SCH (08:25)
[2023-05-03] MEDS: IPRATROPIUM-ALBUTEROL 3 ML NEB INHALATION SCH ×4 (08:52→18:02)
[2023-05-03] MEDS: FORMOTEROL FUMARATE 20 MCG/2 ML NEBU INHALATION SCH ×2 (08:52→18:02)
[2023-05-03 09:07] LABS: Basophils # (A) 0.07 X 10*3/uL (0.00-0.10); Basophils % (A) 0.6 %; Carbon Dioxide 21.7 mmol/L (21.6-31.8); Chloride 104 mmol/L (96-109); Eosinophils # (A) 0.36 X 10*3/uL (0.04-0.35); Eosinophils % (A) 3.2 %; Glucose 258 mg/dL (70-110); HCT 40.9 % (39.6-50.0); HGB 13.7 d/dL (13.0-17.0); Lymphocytes # (A) 2.76 X 10*3/uL (0.90-5.00); Lymphocytes % (A) 24.4 %; MCH 31.3 pg (27.0-32.0); MCHC 33.5 d/dL (32.0-37.0); MCV 93.4 FL (80.0-97.0); Magnesium 2.2 mg/dL (1.5-2.4); Mean Platelet Volume 12.5 FL (9.5-12.2); Monocytes % (A) 8.8 %; NRBC Per 100 WBC 0 X 10*3/uL (0.00-0.01); Neutrophils # (A) 7.08 X 10*3/uL (1.80-7.70); Neutrophils % (A) 62.5 %; Platelet Count 220 X 10*3/uL (140-440); Potassium 4.8 mmol/L (3.5-5.5); RBC 4.38 X 10*6/uL (4.40-5.60); RDW 13.7 % (11.5-14.5); Sodium 137 mmol/L (135-145); WBC 11.33 X 10*3/uL (4.50-10.00)
[2023-05-03] MEDS: MUPIROCIN 2% OINT 22 GM TUBE NASAL SCH ×2 (09:16→21:33)
--- NOTE | 2023-05-03 11:12 | P.PN ---
Subjective HISTORY OF PRESENT ILLNESS: 63-year-old male with past medical history of CAD status post PCI in 2003. We don't have a cardiac cath report at hand at this time. 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 He would start experiencing pain after walking 2-3 bloc ks. Angina class III. His symptoms have been getting worse over last 1 month. It has became more severe in intensity and frequency. Is associated with difficulty in breathing which would get better with rest. Patient is ECG showed sinus rhythm with no significant ST-T wave changes. There are old Q waves system of old inferior IN Hemoglobin is 14, creatinine is within normal limit, troponin 0.01, 0.01, 0.08. 04/29/2023 Progress note: Patient is seen and examined at bedside the same. He is hemodynamics stable. Dull chest pain on and off. Echo Showed an EF of 40% with inferoapical hypokinesia 05/01/2023 Patient is status post cardiac catheterization revealing 100% LAD in-stent stenosis, 99% mid RCA in-stent stenosis, mild disease in left circumflex and mild disease and PDA and PLV branch. Cardiothoracic surgery was consulted for evaluation for possible CABG. Patient examined this morning. Patient is sitting in the chair. Patient denies any chest pain or pressure. He denies shortness of breath. 05/02/2023 Patient examined this morning. He is sitting up in a chair. Patient denies chest pain or pressure. He denies shortness of breath. He states he has been up ambulating without difficulty. Vital signs are stable. 05/03/2023 Patient examined this morning. He is sitting up in a chair. Patient denies chest pain or pressure. He denies shortness of breath. He states he has been up ambulating without difficulty. Vital signs are stable. PHYSICAL EXAM: VITAL SIGNS: Reviewed. GENERAL: Well-developed in no acute distress. NECK: Supple. No JVD or thyromegaly LUNGS: Respirations even and unlabored. Lungs essentially clear to auscultation bilaterally. HEART: Regular rate and rhythm. S1 and S2 heard. EXTREMITIES: Normal range of motion. No clubbing or cyanosis. Peripheral pulses intact. No lower extremity edema ASSESSMENT: Non-STEMI Coronary artery disease with previous PCI Hypertension Hyperlipidemia Diabetes Morbid obesity Nicotine dependence PLAN: Continue current cardiac medications Continue to monitor blood pressure and continue telemetry monitoring Plavix remains on hold Patient scheduled for CABG on Sunday with Dr. Aguilar Further recommendations pending patient course Nurse practitioner note has been reviewed by physician. Signing provider agrees with the documented findings, assessment, and plan of care. Objective - Vital Signs Vital signs: Vital Signs Temp 97.9 F 05/03/23 08:00 Pulse 64 05/03/23 09:11 Resp 18 05/03/23 08:00 BP 136/74 05/03/23 08:00 Pulse Ox 95 05/03/23 08:00 FiO2 Intake & Output 05/02/23 05/03/23 05/03/23 18:59 06:59 18:59 Intake Total 780 Balance 780 Weight 127.006 kg Intake: Oral 780 Other: Voiding Method Toilet Toilet # Voids 2 3 # Bowel Movements 1 - Labs CBC & Chem 7: 05/03/23 05:56 05/03/23 05:56 Labs: Abnormal Lab Results - Last 24 Hours (Table) 05/02/23 05/02/23 05/02/23 Range/Units 12:19 17:08 20:48 WBC (4.50-10.00) X 10*3/uL RBC (4.40-5.60) X 10*6/uL MPV (9.5-12.2) FL Eosinophils # (0.04-0.35) X 10*3/uL Glucose (70-110) mg/dL POC Glucose (mg/dL) 311 H 322 H 396 H (70-110) mg/dL 05/03/23 05/03/23 05/03/23 Range/Units 05:56 05:56 06:02 WBC 11.33 H (4.50-10.00) X 10*3/uL RBC 4.38 L (4.40-5.60) X 10*6/uL MPV 12.5 H (9.5-12.2) FL Eosinophils # 0.36 H (0.04-0.35) X 10*3/uL Glucose 258 H (70-110) mg/dL POC Glucose (mg/dL) 249 H (70-110) mg/dL
[2023-05-03] MEDS ORDERED: MD COMMUNICATION TO PHARMACY 1 EACH MISC PO ONE (11:38)
--- NOTE | 2023-05-03 11:38 | P.PN ---
Subjective Progress Note Date: 05/03/23 Principal diagnosis: Coronary artery disease, non-STEMI this admission. History of CAD with previous PCI in 2003, hypertension, hyperlipidemia, insulin-dependent diabetes, periphe ral arterial disease with intermittent claudication, morbid obesity, current heavy tobacco dependence, COPD, remote history of pneumonia The patient was seen and examined this morning sitting up in a recliner in no acute distress. Denies any chest pain or shortness of breath. He has been ambulatory without difficulty. Again reinforced preoperative teaching, encourage smoking cessation. Discussed plan for surgery tomorrow, patient is agreeable. No other new concerns. Objective - Vital Signs Vital signs: Vital Signs Temp 97.9 F 05/03/23 08:00 Pulse 64 05/03/23 09:11 Resp 18 05/03/23 08:00 BP 136/74 05/03/23 08:00 Pulse Ox 95 05/03/23 08:00 FiO2 Intake & Output 05/02/23 05/03/23 05/03/23 18:59 06:59 18:59 Intake Total 780 Balance 780 Weight 127.006 kg Intake: Oral 780 Other: Voiding Method Toilet Toilet # Voids 2 3 # Bowel Movements 1 - Exam CONSTITUTIONAL: Appears comfortable, cooperative, no acute distress RESPIRATORY: Lungs sounds diminished bilaterally. Respirations even, nonlabor ed. Currently on room air with oxygen saturation 98%. Able to achieve 2500 mL on incentive spirometry. Strong cough. CARDIOVASCULAR: S1, S2 present. Regular rate and rhythm, sinus rhythm on tel emetry. Palpable peripheral pulses bilaterally. No edema present. No calf pain or tenderness noted. GASTROINTESTINAL: Abdomen soft, nontender, nondistended, obese. Active bowel sounds present 4 quadrants. Tolerating diet. Positive bowel movement 05/01 GENITOURINARY: Continues to void INTEGUMENTARY: Skin is warm and dry with evidence of good perfusion NEUROLOGIC: Cranial nerves II through XII intact MUSKULOSKELETAL: Able to move all extremities, strength equal bilaterally, gait normal PSYCHIATRIC: Alert and oriented to person place and time, appropriate affect, intact judgment and insight - Labs CBC & Chem 7: 05/03/23 05:56 05/03/23 05:56 Labs: Abnormal Lab Results - Last 24 Hours (Table) 05/02/23 05/02/23 05/02/23 Range/Units 12:19 17:08 20:48 WBC (4.50-10.00) X 10*3/uL RBC (4.40-5.60) X 10*6/uL MPV (9.5-12.2) FL Eosinophils # (0.04-0.35) X 10*3/uL Glucose (70-110) mg/dL POC Glucose (mg/dL) 311 H 322 H 396 H (70-110) mg/dL 05/03/23 05/03/23 05/03/23 Range/Units 05:56 05:56 06:02 WBC 11.33 H (4.50-10.00) X 10*3/uL RBC 4.38 L (4.40-5.60) X 10*6/uL MPV 12.5 H (9.5-12.2) FL Eosinophils # 0.36 H (0.04-0.35) X 10*3/uL Glucose 258 H (70-110) mg/dL POC Glucose (mg/dL) 249 H (70-110) mg/dL Assessment and Plan Assessment: Coronary artery disease with previous PCI 2003, non-STEMI this admission Hypertension Hyperlipidemia, treated, cholesterol 130, LDL 70 Insulin-dependent diabetes, hgb A1c 9.1% Peripheral arterial disease with intermittent claudication, GIRMA left moderate disease Morbid obesity, BMI 44 Current heavy tobacco dependence Moderate COPD, FEV1 65% of predicted Remote history of pneumonia Plan: Continue to maximize medical therapy with ASA, statin, beta marquez Continue to hold Plavix Encourage incentive spirometer every hour Continue to reinforce preoperative teaching Our plan is for off pump myocardial revascularization with left internal mammary artery, left radial artery harvest, ligation of the left atrial appendage tomorrow by Dr. Aguilar after Plavix metabolism NPO after midnight Smoking cessation reinforced Medical management of other comorbidities per internal medicine, cardiology More recommendations to follow
--- NOTE | 2023-05-03 11:54 | P.PN ---
Subjective Progress Note Date: 05/03/23 This is a 63-year-old gentleman admitted with an NSTEMI, morbid obesity, history of CAD with previous PCI years ago, DM, nicotine dependence and multiple other medical issues status post cardiac catheterization. Completed cardiac catheterization this morning reporting 100% LAD in-stent stenosis, 99% mid RCA in-stent stenosis, mild disease of left circumflex and into PDA and PLV branch, normal LVEDP, ischemic cardiomyopathy EF 40%. CTS consulted regarding potential CABG. Currently denies chest pain, palpitations or shortness of breath. Denies nausea or vomiting. 05/01/2023 evaluated by cardiothoracic surgery and is scheduled for CABG on Sunday. Plavix remains on hold. Denies chest pain, palpitations or shortness of breath. Positive diet intake with no nausea vomiting or diarrhea. Blood s ugars running higher over the last 24 hours, currently in the low 200s. Denies abdominal pain. Using incentive spirometer, up to 2500. Afebrile. 05/02/2023 Plavix remains on hold, scheduled for CABG on Sunday. Denies chest pain, palpitations shortness of breath. Denies chills or sweats. Blood sugars currently in the 200s. Compliant with incentive spirometer, greater than 2200. 05/03/23 sitting up in chair, IS [id number]. Denies chest pain, palpitations or shortness of breath. Blood sugars this morning in the mid 200s, additional Levemir ordered. Objective - Vital Signs Vital signs: Vital Signs Temp 97.6 F 05/03/23 04:10 Pulse 57 L 05/03/23 04:10 Resp 16 05/03/23 04:10 BP 128/72 05/03/23 04:10 Pulse Ox 96 05/03/23 04:10 FiO2 Intake & Output 05/02/23 05/03/23 05/03/23 18:59 06:59 18:59 Intake Total 780 Balance 780 Weight 127.006 kg Intake: Oral 780 Other: Voiding Method Toilet Toilet # Voids 2 3 # Bowel Movements 1 - Exam PHYSICAL EXAMINATION: GENERAL: Alert and oriented 3, sitting up in chair, no acute distress. HEENT: Normocephalic, Pupils are round and equal. EOMI. No scleral icterus. No conjunctival pallor. Neck supple, unable to assess JVD. CARDIOVASCULAR: S1 and S2 present. No murmurs, rubs, or gallops. PULMONARY: Unlabored, bilateral air entry, clear to auscultation. ABDOMEN: Soft, nontender, nondistended, normoactive bowel sounds. EXTREMITIES: No cyanosis, clubbing, or pedal edema. NEUROLOGICAL: Gross neurological examination did not reveal any focal deficits. SKIN: No rashes. - Labs CBC & Chem 7: 05/03/23 05:56 05/03/23 05:56 Labs: Abnormal Lab Results - Last 24 Hours (Table) 05/02/23 05/02/23 05/02/23 Range/Units 12:19 17:08 20:48 POC Glucose (mg/dL) 311 H 322 H 396 H (70-110) mg/dL 05/03/23 Range/Units 06:02 POC Glucose (mg/dL) 249 H (70-110) mg/dL Assessment and Plan Assessment: Acute NSTEMI, status post cardiac catheterization reporting 100% LAD in-stent stenosis and 99% mid RCA in-stent stenosis. CABG pending. CAD with hx of PCI Diabetes mellitus type 2, hemoglobin A1c 9.1, will require further diabetic education outpatient in clinic with PCP. hypertension Hyperlipidemia Morbid obesity, BMI 44 COPD Ongoing nicotine dependence Plan: Continue on current medication regime ,monitoring and symptomatic treatment. CABG scheduled for tomorrow ,continue holding Plavix.NPO at [place]. Maximizing medical management. Aggressive pulmonary toileting with incentive spirometer and smoking cessation reinforced. Close monitoring of Accu- Cheks.Prognosis guarded given multiple complex medical issues. The impression and plan of care has been dictated as directed. : I performed a history and examination of this patient, discussed the same with the dictator. I agree with the dictator's note ,documented as a scribe. Any additional findings or plans will be noted.
[2023-05-03 12:28] LABS: Glucose,Whole Blood 316 mg/dL (70-110)
[2023-05-03 17:33] LABS: Glucose,Whole Blood 491 mg/dL (70-110)
[2023-05-03] MEDS ORDERED: INSULIN ASPART (NovoLOG) 100 UNIT/ML VIAL SQ ONE (18:00)
--- NOTE | 2023-05-03 19:56 | P.PN ---
Subjective Progress Note Date: 05/03/23 63-year-old obese male patient, who is currently being investigated for coronary artery bypass surgery. The patient is known to have CAD, he is morbidly obese and has hypertension hyperlipidemia and insulin-dependent diabetes mellitus along with peripheral vascular disease. The patient is also chronic smoker The patient had a cardiac catheterization that showed 100% LAD in-stent stenosis, 99% mid RCA and the patient was recommended to undergo a coronary artery bypass surgery. He is going to be seen by the cardiothoracic team. His left ventricle ejection fraction slightly reduced at 40-45%. He has an FEV1 of 66% of predicted. He is obese and has features of obstructive sleep apnea although this has not been officially diagnosed. His current cardiac rhythm is sinus. Chest x-ray showed no acute abnormalities. CAT scan of the chest showed negative abnormalities. The patient is clinically stable and hemodynamically stable. Performance of functional status is adequate for now. Is currently free of any chest pain. He is on room air oxygen with a pulse ox of 94-97%. Is pulling ordered 1999 on his incentive spirometer. On today's evaluation of 05/02/2023, no new complaints and the patient is still awaiting his cardiac surgery. His condition is stable. Clinically stable. Hem odynamically stable. Vital signs are all stable. Sitting up on a chair. Using the incentive spirometer. On today's evaluation of 05/03/2023, the patient is having no respiratory distress. Perioperative teaching was given. Clinically stable. Hemodynamically stable. Pulse ox is 98% on room air oxygen. Using the incentive spirometer. Creatinine is at 1.3 with a BUN of 26 and his sodium leve ls is 137. Hemoglobin is at 13.7. Remains on aspirin and beta blockers. Plavix is currently on hold. Nothing by mouth after for an off cardiac bypass surgery tomorrow. Objective - Vital Signs Vital signs: Vital Signs Temp 97.4 F L 05/03/23 14:00 Pulse 72 05/03/23 18:24 Resp 18 05/03/23 14:00 BP 124/75 05/03/23 14:00 Pulse Ox 94 L 05/03/23 14:00 FiO2 Intake & Output 05/03/23 05/03/23 05/04/23 06:59 18:59 06:59 Intake Total 118 Balance 118 Intake: Oral 118 Other: Voiding Method Toilet # Voids 3 - Exam Gen. appearance the patient is obese, calm comfortable not acute distress, body mass index of 43.9, currently on room air oxygen Head exam was generally normal. There was no scleral icterus or corneal arcus. Mucous membranes were moist. Neck was supple and without jugular venous distension, thyromegaly, or carotid bruits. Carotids were easily palpable bilaterally. There was no adenopathy. The patient has significant crowding of posterior pharynx with a Mallampati class IV Lungs were clear to auscultation and percussion, and with normal diaphragmatic excursion. No wheezes or rales were noted. Cardiac exam revealed the PMI to be normally situated and sized. The rhythm was regular and no extrasystoles were noted during several minutes of auscultation. The first and second heart sounds were normal and physiologic splitting of the second heart sound was noted. There were no murmurs, rubs, clicks, or gallops. Abdominal exam revealed normal bowel sounds. The abdomen was soft, non-tender, and without masses, organomegaly, or appreciable enlargement of the abdominal aorta. Examination of the extremities revealed easily palpable radial, femoral and pedal pulses. There was no cyanosis, clubbing or edema. Examination of the skin revealed no evidence of significant rashes, suspicious a ppearing nevi or other concerning lesions. Neurologically, the patient is awake and alert and the patient does not have any focal neurological deficit. Cranial nerves are essentially intact. Results - Labs CBC & Chem 7: 05/03/23 05:56 05/03/23 05:56 Labs: Abnormal Lab Results - Last 24 Hours (Table) 05/02/23 05/03/23 05/03/23 Range/Units 20:48 05:56 05:56 WBC 11.33 H (4.50-10.00) X 10*3/uL RBC 4.38 L (4.40-5.60) X 10*6/uL MPV 12.5 H (9.5-12.2) FL Eosinophils # 0.36 H (0.04-0.35) X 10*3/uL Glucose 258 H (70-110) mg/dL POC Glucose (mg/dL) 396 H (70-110) mg/dL Crossmatch 05/03/23 05/03/23 05/03/23 Range/Units 06:02 06:34 12:27 WBC (4.50-10.00) X 10*3/uL RBC (4.40-5.60) X 10*6/uL MPV (9.5-12.2) FL Eosinophils # (0.04-0.35) X 10*3/uL Glucose (70-110) mg/dL POC Glucose (mg/dL) 249 H 316 H (70-110) mg/dL Crossmatch See Detail 05/03/23 Range/Units 17:31 WBC (4.50-10.00) X 10*3/uL RBC (4.40-5.60) X 10*6/uL MPV (9.5-12.2) FL Eosinophils # (0.04-0.35) X 10*3/uL Glucose (70-110) mg/dL POC Glucose (mg/dL) 491 H (70-110) mg/dL Crossmatch Microbiology - Last 24 Hours (Table) 05/02/23 11:06 Nasal Screen MRSA/MSSA - Final Nasal Swab Staphylococcus aureus,Not MRSA Assessment and Plan Plan: Assessment Multivessel coronary artery disease with previous PCI. The patient presented with chest pain and acute non-ST segment elevation myocardial infarction. The patient had a repeat cardiac catheterization showed extensive CAD and the patient is being worked up for coronary artery bypass surgery Morbidly obese, BMI 43.9. COPD with an FEV1 of 66% of predicted currently inactive and stable Possible obstructive sleep apnea Hypertension Hyperlipidemia Insulin-dependent diabetes mellitus Peripheral vascular disease with intermittent claudication History of smoking Plan Perioperative teaching was given Continues to use incentive spirometer Oxygenation is stable Labs are stable No changes condition patient remains stable Awaiting surgical intervention regarding his multivessel coronary artery disease. Overall pulmonary status is stable. The patient had a CAT scan of the chest that showed no acute abnormalities. The patient has acceptable performance of functional status. He will complete his pre-operative testing. He was provided incentive spirometer. We'll continue to follow. We'll continue medical management for the time being. Will be glad to follow this patient and his postoperative course in the intensive care unit and managed mechanical ventilator and attempt for any pulmonary needs or complications. The plan is to proceed with off pump cardiac bypass surgery in a.m.
[2023-05-03 21:01] LABS: Glucose,Whole Blood 251 mg/dL (70-110)
[2023-05-03] MEDS: ATORVASTATIN 40 MG TAB PO SCH (21:32)
[2023-05-03] MEDS ORDERED: CHLORHEXIDINE GLUCONATE 15 ML CUP MUCOUS MEM ONE (22:30)
[2023-05-04] MEDS ORDERED: LACTATED RINGERS 1,000 ML IV SCH (05:00)
[2023-05-04] MEDS ORDERED: ASPIRIN 325 MG TAB PO ONE (05:00)
[2023-05-04] MEDS ORDERED: PROTAMINE SULFATE 10 MG/ML 25 ML VIAL IV ONE (05:00)
[2023-05-04] MEDS ORDERED: PHENYLEPHRINE 10 MG/ML VIAL IV ONE (05:00)
[2023-05-04] MEDS ORDERED: SODIUM BICARB 8.4% 50 ML SYR (1 MEQ/ML) IV ONE (05:00)
[2023-05-04] MEDS ORDERED: DILTIAZEM 125 MG in SODIUM CHLORIDE 0.9% 100 ML IV SCH (05:00)
[2023-05-04] MEDS ORDERED: ALBUMIN HUMAN 25% 50 ML in EMPTY BAG 1 BAG IVPB ONE (05:00)
[2023-05-04] MEDS ORDERED: MAGNESIUM SULFATE 16.24 MEQ in EMPTY SYRINGE 1 SYR IV ONE (05:00)
[2023-05-04] MEDS ORDERED: HEPARIN SODIUM,PORCINE (1 ML) 5,000 UNIT in SODIUM CHLORIDE 0.9% 500 ML 500 ML IV ONE (05:00)
[2023-05-04] MEDS ORDERED: PHENYLEPHRINE 40 MG in SODIUM CHLORIDE 0.9% 250 ML IV ONE (05:00)
[2023-05-04] MEDS ORDERED: PROTAMINE SULFATE 250 MG in EMPTY BAG 1 BAG IV ONE (05:00)
[2023-05-04] MEDS ORDERED: ELECTROLYTE-A SOLUTION 1,000 ML with POTASSIUM CHLORIDE 100 MEQ, MAGNESIUM SULFATE 16 M... IV ONE ×5 (05:00)
[2023-05-04] MEDS ORDERED: ELECTROLYTE-A SOLUTION 1,000 ML with POTASSIUM CHLORIDE 40 MEQ, MAGNESIUM SULFATE 16 ME... IV ONE ×5 (05:00)
[2023-05-04] MEDS ORDERED: PAPAVERINE 360 MG in SODIUM CHLORIDE 0.9% 90 ML IV ONE ×2 (05:00→11:58)
[2023-05-04] MEDS ORDERED: ceFAZolin 3 GM in SODIUM CHLORIDE 0.9% 100 ML IVPB ONE (05:00)
[2023-05-04] MEDS ORDERED: MANNITOL 25% 12.5 GM/50 ML VIAL IV ONE ×2 (05:00)
[2023-05-04] MEDS ORDERED: CHLORHEXIDINE GLUCONATE 15 ML CUP MUCOUS MEM ONE (05:00)
[2023-05-04] MEDS ORDERED: CALCIUM CHLORIDE 100 MG/ML 10 ML SYRINGE IVP ONE (05:00)
[2023-05-04] MEDS ORDERED: HEPARIN SODIUM 1,000 UN/ML (10ML VL) IV ONE (05:00)
[2023-05-04] MEDS ORDERED: INSULIN REGULAR 100 UNIT in SODIUM CHLORIDE 0.9% 100 ML IV SCH (05:00)
[2023-05-04] MEDS ORDERED: NOREPINEPHRINE 4 MG in SODIUM CHLORIDE 0.9% 250 ML IV SCH (05:00)
[2023-05-04] MEDS ORDERED: ALBUMIN HUMAN 5% 500 ML in EMPTY BAG 1 BAG IVPB ONE ×6 (05:00)
[2023-05-04] MEDS ORDERED: METOPROLOL TARTRATE 12.5 MG TAB PO ONE (05:00)
[2023-05-04] MEDS ORDERED: TRANEXAMIC ACID 2,000 MG in SODIUM CHLORIDE 0.9% 80 ML IV ONE ×2 (05:00→06:00)
[2023-05-04] MEDS ORDERED: NITROGLYCERIN-D5W PMX 50 MG in DEXTROSE/WATER 1 250ML.BAG IV SCH ×2 (05:00→15:00)
[2023-05-04] MEDS ORDERED: ATORVASTATIN 10 MG TAB PO ONE (05:00)
[2023-05-04] MEDS ORDERED: CLEVIDIPINE BUTYRATE 25 MG in EMPTY BAG 1 BAG IV SCH ×2 (05:00→14:34)
[2023-05-04] MEDS ORDERED: ceFAZolin 1,000 MG in SODIUM CHLORIDE 0.9% IRRIGATIO 1,000 ML IRRIGATION ONE (05:00)
[2023-05-04] MEDS ORDERED: NITROGLYCERIN-D5W PMX 25 MG/250 ML BTL IV ONE (05:00)
[2023-05-04] MEDS: INSULIN ASPART (NovoLOG) 100 UNIT/ML VIAL SQ SCH ×2 (07:33→14:05)
[2023-05-04 07:35] LABS: Glucose,Whole Blood 219 mg/dL (70-110)
[2023-05-04 08:15] LABS: Glucose,Whole Blood 216 mg/dL (70-110)
[2023-05-04] MEDS ORDERED: INSULIN ASPART (NovoLOG) 100 UNIT/ML VIAL SQ ONE (08:24)
[2023-05-04] MEDS: FORMOTEROL FUMARATE 20 MCG/2 ML NEBU INHALATION SCH (09:49)
[2023-05-04] MEDS: IPRATROPIUM-ALBUTEROL 3 ML NEB INHALATION SCH ×4 (09:49→19:51)
--- NOTE | 2023-05-04 10:48 | P.PN ---
Subjective Progress Note Date: 05/04/23 This is a 63-year-old gentleman admitted with an NSTEMI, morbid obesity, history of CAD with previous PCI years ago, DM, nicotine dependence and multiple other medical issues status post cardiac catheterization. Completed cardiac catheterization this morning reporting 100% LAD in-stent stenosis, 99% mid RCA in-stent stenosis, mild disease of left circumflex and into PDA and PLV branch, normal LVEDP, ischemic cardiomyopathy EF 40%. CTS consulted regarding potential CABG. Currently denies chest pain, palpitations or shortness of breath. Denies nausea or vomiting. 05/01/2023 evaluated by cardiothoracic surgery and is scheduled for CABG on Sunday. Plavix remains on hold. Denies chest pain, palpitations or shortness of breath. Positive diet intake with no nausea vomiting or diarrhea. Blood s ugars running higher over the last 24 hours, currently in the low 200s. Denies abdominal pain. Using incentive spirometer, up to 2500. Afebrile. 05/02/2023 Plavix remains on hold, scheduled for CABG on Sunday. Denies chest pain, palpitations shortness of breath. Denies chills or sweats. Blood sugars currently in the 200s. Compliant with incentive spirometer, greater than 2200. 05/03/23 sitting up in chair[place] [id number]. Denies chest pain, palpitations or shortness of breath. Blood sugars this morning in the mid 200s, additional Levemir ordered. 05/04/2023 patient not seen this morning, as patient in preop for CABG procedure. Objective - Vital Signs Vital signs: Vital Signs Temp 98.2 F 05/04/23 02:42 Pulse 78 05/04/23 02:42 Resp 15 05/04/23 02:42 BP 108/62 05/04/23 02:42 Pulse Ox 96 05/04/23 02:42 FiO2 Intake & Output 05/03/23 05/04/23 05/04/23 18:59 06:59 18:59 Intake Total 118 Balance 118 Intake: Oral 118 Other: Voiding Method Toilet Toilet # Voids 1 2 - Labs CBC & Chem 7: 05/03/23 05:56 05/03/23 05:56 Labs: Abnormal Lab Results - Last 24 Hours (Table) 05/03/23 05/03/23 05/03/23 Range/Units 05:56 05:56 06:34 WBC 11.33 H (4.50-10.00) X 10*3/uL RBC 4.38 L (4.40-5.60) X 10*6/uL MPV 12.5 H (9.5-12.2) FL Eosinophils # 0.36 H (0.04-0.35) X 10*3/uL Glucose 258 H (70-110) mg/dL POC Glucose (mg/dL) (70-110) mg/dL Crossmatch See Detail 05/03/23 05/03/23 05/03/23 Range/Units 12:27 17:31 21:00 WBC (4.50-10.00) X 10*3/uL RBC (4.40-5.60) X 10*6/uL MPV (9.5-12.2) FL Eosinophils # (0.04-0.35) X 10*3/uL Glucose (70-110) mg/dL POC Glucose (mg/dL) 316 H 491 H 251 H (70-110) mg/dL Crossmatch 05/04/23 Range/Units 07:33 WBC (4.50-10.00) X 10*3/uL RBC (4.40-5.60) X 10*6/uL MPV (9.5-12.2) FL Eosinophils # (0.04-0.35) X 10*3/uL Glucose (70-110) mg/dL POC Glucose (mg/dL) 219 H (70-110) mg/dL Crossmatch Microbiology - Last 24 Hours (Table) 05/02/23 11:06 Nasal Screen MRSA/MSSA - Final Nasal Swab Staphylococcus aureus,Not MRSA
[2023-05-04 11:03] LABS: ABG Base Excess -1.7 mmol/L; ABG Glucose Whole Blood 136 mg/dL (75-99); ABG HCO3 24 mmol/L (21-25); ABG Hematocrit 42 % (34.0-46.0); ABG Ionized Calcium 5.4 mg/dL (4.5-5.3); ABG Lactic Acid Whole Blood 1.3 mmol/L (0.5-1.6); ABG PCO2 43 mmHg (35-45); ABG PH 7.36 (7.35-7.45); ABG PO2 383 mmHg (83-108); ABG Potassium Whole Blood 4.3 mmol/L (3.4-4.5); ABG Sodium Whole Blood 139 mmol/L (135-146); ABG TCO2 25 mmol/L (19-24)
--- NOTE | 2023-05-04 11:26 | P.ANPRN ---
Procedure Note - Anesthesia - Invasive Line Right Arterial Line Time Out Performed: Yes Date of Procedure: 05/04/23 Time of Procedure: 08:45 Location of Patient: PreOp Preparation: Sterile Prep, Sterile Dressing Arterial Line Location: Radial Ultrasound Used: No Needle Guage: 20 Narrative: Right radial arterial line placed by HERPETOLOGIST Right Central Line Time Out Performed: Yes Date of Procedure: 05/04/23 Time of Procedure: 08:50 Location of Patient: PreOp Preparation: Sterile Prep, Sterile Dressing Central Line Location: Internal Jugular Ultrasound Used: Yes Purpose - Visualization and Identification of Vasculature: Yes Needle Guage: 18 Image Stored and Saved: Yes Narrative: Central line placement per sterile protocol utilized. Seldinger technique Right [place] Sara Time Out Performed: Yes Date of Procedure: 05/04/23 Time of Procedure: 09:00 Location of Patient: PreOp Preparation: Sterile Prep, Sterile Dressing [place] Sara Line Location: Internal Jugular Ultrasound Used: No Purpose - Visualization and Identification of Vasculature: No Narrative: SWAN had all ports flushed and balloon tested. Advanced until PA waveform obtained. Secured at 43 cm.
[2023-05-04] MEDS ORDERED: ceFAZolin 1,000 MG in SODIUM CHLORIDE 0.9% 1,000 ML IRRIGATION ONE (11:58)
[2023-05-04] MEDS ORDERED: SODIUM CHLORIDE 0.9% 500 ML 500 ML with HEPARIN SODIUM,PORCINE (1 ML) 5,000 UNIT IV ONE ×2 (11:58)
[2023-05-04 12:12] LABS: ABG Base Excess -1.9 mmol/L; ABG Glucose Whole Blood 125 mg/dL (75-99); ABG HCO3 24 mmol/L (21-25); ABG Hematocrit 39 % (34.0-46.0); ABG Ionized Calcium 5.2 mg/dL (4.5-5.3); ABG Lactic Acid Whole Blood 1.5 mmol/L (0.5-1.6); ABG Oxygen Saturation 98.8 % (94-97); ABG PCO2 44 mmHg (35-45); ABG PH 7.34 (7.35-7.45); ABG PO2 121 mmHg (83-108); ABG Potassium Whole Blood 4.3 mmol/L (3.4-4.5); ABG Sodium Whole Blood 138 mmol/L (135-146); ABG TCO2 25 mmol/L (19-24)
[2023-05-04 12:48] LABS: ABG Glucose Whole Blood 120 mg/dL (75-99); ABG HCO3 25 mmol/L (21-25); ABG Hematocrit 39 % (34.0-46.0); ABG Ionized Calcium 5.2 mg/dL (4.5-5.3); ABG Lactic Acid Whole Blood 1.1 mmol/L (0.5-1.6); ABG Oxygen Saturation 99.7 % (94-97); ABG PCO2 44 mmHg (35-45); ABG PH 7.36 (7.35-7.45); ABG PO2 188 mmHg (83-108); ABG Potassium Whole Blood 4.3 mmol/L (3.4-4.5); ABG Sodium Whole Blood 138 mmol/L (135-146); ABG TCO2 26 mmol/L (19-24)
[2023-05-04 13:20] LABS: ABG Base Excess -3.2 mmol/L; ABG Glucose Whole Blood 114 mg/dL (75-99); ABG HCO3 23 mmol/L (21-25); ABG Hematocrit 34 % (34.0-46.0); ABG Ionized Calcium 4.9 mg/dL (4.5-5.3); ABG Lactic Acid Whole Blood 1.3 mmol/L (0.5-1.6); ABG Oxygen Saturation 99.6 % (94-97); ABG PCO2 43 mmHg (35-45); ABG PH 7.33 (7.35-7.45); ABG PO2 179 mmHg (83-108); ABG Sodium Whole Blood 138 mmol/L (135-146); ABG TCO2 24 mmol/L (19-24)
[2023-05-04] MEDS: SODIUM CHLORIDE 0.9% 1,000 ML IV SCH (14:03)
[2023-05-04] MEDS: INSULIN DETEMIR (LEVEMIR) 100 UNIT/ML SYR SQ SCH (14:03)
[2023-05-04] MEDS: ASPIRIN 81 MG PO SCH (14:04)
[2023-05-04] MEDS: PANTOPRAZOLE 40 MG/10 ML VIAL IVP SCH (14:04)
[2023-05-04] MEDS: lisinopriL 10 MG TAB PO SCH (14:04)
[2023-05-04] MEDS: METOPROLOL SUCCINATE (ER) 25 MG TAB.ER.24H PO SCH (14:04)
[2023-05-04] MEDS: MUPIROCIN 2% OINT 22 GM TUBE NASAL SCH (14:04)
--- NOTE | 2023-05-04 14:15 | P.ANPRN ---
Procedure Note - Anesthesia - BIBI Intraop Pre Bypass BIBI Intraop - Anesthesia Indication: CAD hemodynamic instability Date of Procedure: 05/04/23 Pre-operative Diagnosis: CAD Post-operative Diagnosis: Same Surgeon: Jay Aguilar Left Ventricle: EF 40%; no RWMA Regional Wall Motion Abnormalities: None Left Ventricle Hypertrophy: No Right Ventricle: hypertrophy Anatomy: Trileaflet Aortic Stenosis: None Aortic Regurgitation: None Mitral Stenosis: None Mitral Regurgitation: None Tricuspid Stenosis: None Tricuspid Regurgitation: None Pulmonic Stenosis: None Pulmonic Regurgitation: None R. Atrial Dilation: No R. Atrial PFO: No L. Atrial Dilation: No Aortic Dissection: No Aortic Calcification: None Plural Effusion: None - BIBI Intraop Post Bypass BIBI Intraop Post Bypass Procedure Performed: off pump CABG Left Ventricle: EF 40% Regional Wall Motion Abnormalities: None R. Ventricle Function: Normal Aortic Valve: Unchanged Mitral Valve: Unchanged Tricuspid: Unchanged Pulmonic: Unchanged Aortic Dissection: No
[2023-05-04] MEDS ORDERED: AMIODARONE 360 MG in DEXTROSE 5% IN WATER 200 ML IV PRN ×2 (14:34)
[2023-05-04] MEDS ORDERED: DEXMEDETOMIDINE/0.9% NACL(PMX) 400 MCG in EMPTY BAG 1 BAG IV SCH (14:34)
[2023-05-04] MEDS ORDERED: Potassium Replacement Protocol 1 EACH MISC MISCELLANE PRN (14:34)
[2023-05-04] MEDS ORDERED: IPRATROPIUM-ALBUTEROL 3 ML NEB INHALATION PRN (14:34)
[2023-05-04] MEDS ORDERED: CALCIUM GLUCONATE IN NACL 2 GM in SALINE 1 100ML.BAG IVPB PRN (14:34)
[2023-05-04] MEDS ORDERED: ONDANSETRON 4 MG/2 ML VIAL IVP PRN (14:34)
[2023-05-04] MEDS ORDERED: AMIODARONE 450 MG in DEXTROSE 5% IN WATER 250 ML IV PRN ×2 (14:34)
[2023-05-04] MEDS ORDERED: Magnesium Replacement Protocol 1 EACH MISC MISCELLANE PRN (14:34)
[2023-05-04] MEDS ORDERED: DEXTROSE 50% SYRINGE 50 ML IVP PRN ×2 (14:34)
[2023-05-04] MEDS ORDERED: BENZOCAINE/MENTHOL LOZENG 1 EACH LOZENGE MUCOUS MEM PRN (14:34)
[2023-05-04 15:12] LABS: Glucose,Whole Blood 137 mg/dL (70-110)
[2023-05-04] MEDS: ALBUMIN HUMAN 5% 250 ML in EMPTY BAG 1 BAG IVPB PRN ×4 (15:14→21:17)
--- NOTE | 2023-05-04 15:29 | P.PN ---
Subjective HISTORY OF PRESENT ILLNESS: 63-year-old male with past medical history of CAD status post PCI in 2003. We don't have a cardiac cath report at hand at this time. 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 He would start experiencing pain after walking 2-3 blocks. Angina class III. His symptoms have been getting worse over last 1 month. It has became more severe in intensity and frequency. Is associated with difficulty in breathing which would get better with rest. Patient is ECG showed sinus rhythm with no significant ST-T wave changes. There are old Q waves system of old inferior PR Hemoglobin is 14, creatinine is within normal limit, troponin 0.01, 0.01, 0.08. 04/29/2023 Progress note: Patient is seen and examined at bedside the same. He is hemodynamics stable. Dull chest pain on and off. Echo Showed an EF of 40% with inferoapical hypokinesia 05/01/2023 Patient is status post cardiac catheterization revealing 100% LAD in-stent stenosis, 99% mid RCA in-stent stenosis, mild disease in left circumflex and mild disease and PDA and PLV branch. Cardiothoracic surgery was consulted for evaluation for possible CABG. Patient examined this morning. Patient is sitting in the chair. Patient denies any chest pain or pressure. He denies shortness of breath. 05/02/2023 Patient examined this morning. He is sitting up in a chair. Patient denies chest pain or pressure. He denies shortness of breath. He states he has been up ambulating without difficulty. Vital signs are stable. 05/03/2023 Patient examined this morning. He is sitting up in a chair. Patient denies chest pain or pressure. He denies shortness of breath. He states he has been up ambulating without difficulty. Vital signs are stable. 05/04 Patient seen and examined. Patient underwent off-pump CABG with VERGARA to LAD and SVG to PDA today. Currently seen in the ICU off of any vasopressors on nitroglycerin 5, propofol and intubated and sedated. On 100% FiO2 and PEEP of 10 however been weaned. Cardiac output 5.0 and cardiac index 2.3. Remains in sinus rhythm. PHYSICAL EXAM: VITAL SIGNS: Reviewed. GENERAL: Well-developed in no acute distress. NECK: Supple. No JVD or thyromegaly LUNGS: Respirations even and unlabored. Lungs essentially clear to auscultation bilaterally. HEART: Regular rate and rhythm. S1 and S2 heard. EXTREMITIES: Normal range of motion. No clubbing or cyanosis. Peripheral pulses intact. No lower extremity edema ASSESSMENT: Non-STEMI Coronary artery disease with previous PCI, s/p CABG 05/04 with VERGARA to LAD and SVG to PDA Hypertension Hyperlipidemia Diabetes Morbid obesity Nicotine dependence PLAN: Continue with current supportive care. Wean ventilator and extubate as able. Beta- marquez as able. Objective - Vital Signs Vital signs: Vital Signs Temp 97.6 F 05/04/23 08:26 Pulse 70 05/04/23 08:26 Resp 16 05/04/23 08:26 BP 157/74 05/04/23 08:26 Pulse Ox 96 05/04/23 08:26 FiO2 100 05/04/23 15:13 Intake & Output 05/03/23 05/04/23 05/04/23 18:59 06:59 18:59 Intake Total 118 104 Output Total 2100 Balance 118 -1995 Intake: IV 104 Oral 118 Output: Urine 300 Estimated Blood Loss 1800 Other: Voiding Method Toilet Toilet # Voids 1 2 - Labs CBC & Chem 7: 05/03/23 05:56 05/03/23 05:56 Labs: Abnormal Lab Results - Last 24 Hours (Table) 05/03/23 05/03/23 05/03/23 Range/Units 06:34 17:31 21:00 ABG pH (7.35-7.45) ABG pO2 (83-108) mmHg ABG Total CO2 (19-24) mmol/L ABG O2 Saturation (94-97) % ABG Ionized Calcium (4.5-5.3) mg/dL ABG Glucose (75-99) mg/dL Hemoglobin (13.0-17.5) gm/dL POC Glucose (mg/dL) 491 H 251 H (70-110) mg/dL Arterial Blood Glucose (75-99) mg/dL Crossmatch See Detail 05/04/23 05/04/23 05/04/23 Range/Units 07:33 08:13 09:30 ABG pH (7.35-7.45) ABG pO2 383 H (83-108) mmHg ABG Total CO2 25 H (19-24) mmol/L ABG O2 Saturation 100.0 H (94-97) % ABG Ionized Calcium 5.4 H (4.5-5.3) mg/dL ABG Glucose 136 H (75-99) mg/dL Hemoglobin (13.0-17.5) gm/dL POC Glucose (mg/dL) 219 H 216 H (70-110) mg/dL Arterial Blood Glucose 136 H (75-99) mg/dL Crossmatch 05/04/23 05/04/23 05/04/23 Range/Units 09:30 09:30 09:30 ABG pH 7.34 L 7.33 L (7.35-7.45) ABG pO2 121 H 188 H 179 H (83-108) mmHg ABG Total CO2 25 H 26 H (19-24) mmol/L ABG O2 Saturation 98.8 H 99.7 H 99.6 H (94-97) % ABG Ionized Calcium (4.5-5.3) mg/dL ABG Glucose 125 H 120 H 114 H (75-99) mg/dL Hemoglobin 12.6 L 12.6 L 11.1 L (13.0-17.5) gm/dL POC Glucose (mg/dL) (70-110) mg/dL Arterial Blood Glucose 125 H 120 H 114 H (75-99) mg/dL Crossmatch 05/04/23 Range/Units 15:10 ABG pH (7.35-7.45) ABG pO2 (83-108) mmHg ABG Total CO2 (19-24) mmol/L ABG O2 Saturation (94-97) % ABG Ionized Calcium (4.5-5.3) mg/dL ABG Glucose (75-99) mg/dL Hemoglobin (13.0-17.5) gm/dL POC Glucose (mg/dL) 137 H (70-110) mg/dL Arterial Blood Glucose (75-99) mg/dL Crossmatch Microbiology - Last 24 Hours (Table) 05/02/23 11:06 Nasal Screen MRSA/MSSA - Final Nasal Swab Staphylococcus aureus,Not MRSA
[2023-05-04] MEDS: LACTATED RINGERS 1,000 ML IV SCH (15:36)
--- NOTE | 2023-05-04 15:36 | XR ---
EXAMINATION TYPE: XR chest 1V portable DATE OF EXAM: 05/04/2023 3:30 PM COMPARISON: Chest radiographs from 04/28/2023, CT chest 04/30/2023 TECHNIQUE: XR chest 1V portable Portable AP radiograph of the chest. CLINICAL INDICATION:Male, 63 years old with history of Post Operative Cardiac Surgery; FINDINGS: Lungs/Pleura: Blunting of the left costophrenic angle. No sizable pneumothorax. No focal consolidatio n. Pulmonary vascularity: Unremarkable. Heart/mediastinum: Cardiomediastinal silhouette is enlarged. Left atrial appendage occlusion devices present. Musculoskeletal: No acute osseous pathology. Midline sternotomy wires are noted. Other findings: None Lines/Tubes: Endotracheal tube with distal tip 3.1 cm above the elke Nasogastric tube with its distal tip and side-port projecting under the diaphragm. Right IJ Mandan-Sara catheter with distal tip in the region main pulmonary artery. Bilateral thoracotomy tubes identified. Mediastinal drain is identified. IMPRESSION: 1. Post cardiac surgery with small left pleural effusion. 2. Support lines as described above.
[2023-05-04] MEDS: ceFAZolin 3 GM in SODIUM CHLORIDE 0.9% 100 ML IVPB SCH (15:37)
[2023-05-04 15:39] LABS: Basophils % (A) 0 %; Eosinophils # (A) 0.3 k/uL (0-0.7); Eosinophils % (A) 2 %; HCT 37.5 % (39.0-53.0); HGB 12.7 gm/dL (13.0-17.5); Lymphocytes # (A) 1.9 k/uL (1.0-4.8); Lymphocytes % (A) 10 %; MCH 32.1 pg (25.0-35.0); MCHC 33.8 g/dL (31.0-37.0); MCV 94.9 fL (80.0-100.0); Monocytes % (A) 5 %; Neutrophils # (A) 15.5 k/uL (1.3-7.7); Neutrophils % (A) 82 %; RBC 3.95 m/uL (4.30-5.90); WBC 18.9 k/uL (3.8-10.6)
[2023-05-04 15:48] LABS: INR 1.2 (<1.2); Partial Thromboplastin Time 21.6 sec (22.0-30.0); Prothrombin Time 12.9 sec (10.0-12.5)
[2023-05-04 15:55] LABS: Platelet Count 114 k/uL (150-450)
[2023-05-04 15:58] LABS: ABG HCO3 21 mmol/L (21-25); ABG Oxygen Saturation 99.6 % (94-97); ABG PCO2 50 mmHg (35-45); ABG PH 7.24 (7.35-7.45); ABG PO2 329 mmHg (83-108); ABG TCO2 23 mmol/L (19-24); Allen Test Performed? Yes
[2023-05-04 16:12] LABS: Glucose,Whole Blood 119 mg/dL (70-110)
[2023-05-04] MEDS: INSULIN REGULAR 100 UNIT in SODIUM CHLORIDE 0.9% 100 ML IV SCH (16:24)
--- NOTE | 2023-05-04 16:44 | P.PN ---
Subjective Progress Note Date: 05/04/23 63-year-old obese male patient, who is currently being investigated for coronary artery bypass surgery. The patient is known to have CAD, he is morbidly obese and has hypertension hyperlipidemia and insulin-dependent diabetes mellitus along with peripheral vascular disease. The patient is also chronic smoker The patient had a cardiac catheterization that showed 100% LAD in-stent stenosis, 99% mid RCA and the patient was recommended to undergo a coronary artery bypass surgery. He is going to be seen by the cardiothoracic team. His left ventricle ejection fraction slightly reduced at 40-45%. He has an FEV1 of 66% of predicted. He is obese and has features of obstructive sleep apnea although this has not been officially diagnosed. His current cardiac rhythm is sinus. Chest x-ray showed no acute abnormalities. CAT scan of the chest showed negative abnormalities. The patient is clinically stable and hemodynamically stable. Performance of functional status is adequate for now. Is currently free of any chest pain. He is on room air oxygen with a pulse ox of 94-97%. Is pulling ordered 1999 on his incentive spirometer. On today's evaluation of 05/02/2023, no new complaints and the patient is still awaiting his cardiac surgery. His condition is stable. Clinically stable. Hem odynamically stable. Vital signs are all stable. Sitting up on a chair. Using the incentive spirometer. On today's evaluation of 05/03/2023, the patient is having no respiratory distress. Perioperative teaching was given. Clinically stable. Hemodynamically stable. Pulse ox is 98% on room air oxygen. Using the incentive spirometer. Creatinine is at 1.3 with a BUN of 26 and his sodium leve ls is 137. Hemoglobin is at 13.7. Remains on aspirin and beta blockers. Plavix is currently on hold. Nothing by mouth after for an off cardiac bypass surgery tomorrow. On 05/04/2023, I'm seeing the patient in intensive care unit following his coronary artery bypass surgery the patient had an off pump two-vessel bypass surgery including VERGARA to LAD and SVG to PDA. Currently is intubated on a mechanical ventilator and the patient is postop day #0 and the patient is being seen in the intensive care unit. The patient is currently sedated on propofol which is running at 40 mcg/kg/m. He is on a mechanical ventilator assist control mode at the rate of 16, tidal volume of 450 with an FiO2 of 50% and PEEP of 10. The blood gas was done and the patient was found to have a pH of 7.23 and a pCO2 of 49 and pO2 of 329. FiO2 was dropped down to 50% from 100%. Peak airway pressure is 23. Chest x-ray shows adequate expansion of both lungs. Orotracheal tube is in a good location. The patient has left pleural chest tube, right pleural chest tube and mediastinal chest tube. Output from the mediastinal chest tube is been only 50 mL and output from the pleural chest tubes have been 80 mL and the patient arrived from the operating room. Pulmonary artery pressures are 34/24. Cardiac output is 6.5 with an index of 3.0. The patient is on nitroglycerin drip. The patient is also on insulin drip at 0.5 units an hour. The patient is producing adequate amount of urine output. The hemoglobin currently is at 12.7. White cell count of 18.9. Cardiac rhythm is sinus at the rate of 61. No other significant issues for now. Objective - Vital Signs Vital signs: Vital Signs Temp 97.6 F 05/04/23 08:26 Pulse 67 05/04/23 16:16 Resp 16 05/04/23 08:26 BP 157/74 05/04/23 08:26 Pulse Ox 96 05/04/23 08:26 FiO2 100 05/04/23 15:13 Intake & Output 05/03/23 05/04/23 05/04/23 18:59 06:59 18:59 Intake Total 118 1037.0 Output Total 2265 Balance 118 -1228.0 Intake: IV 104 Intake, IV Titration 933.0 Amount Albumin Human 5% 250 ml 750 In Empty Bag 1 bag @ 250 mls/hr IVPB Q1HR PRN Rx#: [id number] Lactated Ringers 1,000 ml 50 @ 50 mls/hr IV .Q20H CLAY Rx#:[id number] Nitroglycerin-D5w Pmx 50 1.5 mg In Dextrose/Water 1 250ml.bag @ 5 MCG/MIN 1.5 mls/hr IV .Q24H CLAY Rx#: [id number] Nitroglycerin-D5w Pmx 50 1.5 mg In Dextrose/Water 1 250ml.bag @ 5 MCG/MIN 1.5 mls/hr IV .Q24H CLAY Rx#: [id number] ceFAZolin 3 gm In Sodium 100 Chloride 0.9% 100 ml @ 100 mls/hr IVPB Q8HR CLAY Rx#:[id number] propofoL 1,000 mg In 30 Empty Bag 1 bag @ Titrate IV .Q0M CLAY Rx#: [id number] Oral 118 Output: Chest Tube Drainage 100 Mediastinal 40 Rt&Lt Ple[address] 60 Urine 365 Estimated Blood Loss 1800 Other: Voiding Method Toilet Toilet # Voids 1 2 - Exam Patient is currently intubated on a mechanical ventilator. Orogastric and orotracheal tube are both in place. Sedated on propofol Head exam was generally normal. There was no scleral icterus or corneal arcus. Mucous membranes were moist. Neck was supple and without jugular venous distension, thyromegaly, or carotid bruits. Carotids were easily palpable bilaterally. There was no adenopathy. The patient has a Cordis in the right IJ Lungs are diminished bilaterally and the patient has a thoracotomy scar. At the same time, the patient has a mediastinal, right pleural, left pleural chest tubes. No evidence of any air leak. Cardiac exam revealed the PMI to be normally situated and sized. The rhythm was regular and no extrasystoles were noted during several minutes of auscultation. The first and second heart sounds were normal and physiologic splitting of the second heart sound was noted. There were no murmurs, rubs, clicks, or gallops. Abdominal exam revealed normal bowel sounds. The abdomen was soft, non-tender, and without masses, organomegaly, or appreciable enlargement of the abdominal aorta. Examination of the extremities revealed easily palpable radial, femoral and ped al pulses. There was no cyanosis, clubbing or edema. Examination of the skin revealed no evidence of significant rashes, suspicious appearing nevi or other concerning lesions. Neurologically the patient is sedated on propofol - Labs CBC & Chem 7: 05/04/23 15:03 05/03/23 05:56 Labs: Abnormal Lab Results - Last 24 Hours (Table) 05/03/23 05/03/23 05/03/23 Range/Units 06:34 17:31 21:00 WBC (3.8-10.6) k/uL RBC (4.30-5.90) m/uL Hgb (13.0-17.5) gm/dL Hct (39.0-53.0) % Plt Count (150-450) k/uL Neutrophils # (1.3-7.7) k/uL PT (10.0-12.5) sec INR (<1.2) APTT (22.0-30.0) sec ABG pH (7.35-7.45) ABG pCO2 (35-45) mmHg ABG pO2 (83-108) mmHg ABG Total CO2 (19-24) mmol/L ABG O2 Saturation (94-97) % ABG Ionized Calcium (4.5-5.3) mg/dL ABG Glucose (75-99) mg/dL Hemoglobin (13.0-17.5) gm/dL POC Glucose (mg/dL) 491 H 251 H (70-110) mg/dL Arterial Blood Glucose (75-99) mg/dL Crossmatch See Detail 05/04/23 05/04/23 05/04/23 Range/Units 07:33 08:13 09:30 WBC (3.8-10.6) k/uL RBC (4.30-5.90) m/uL Hgb (13.0-17.5) gm/dL Hct (39.0-53.0) % Plt Count (150-450) k/uL Neutrophils # (1.3-7.7) k/uL PT (10.0-12.5) sec INR (<1.2) APTT (22.0-30.0) sec ABG pH (7.35-7.45) ABG pCO2 (35-45) mmHg ABG pO2 383 H (83-108) mmHg ABG Total CO2 25 H (19-24) mmol/L ABG O2 Saturation 100.0 H (94-97) % ABG Ionized Calcium 5.4 H (4.5-5.3) mg/dL ABG Glucose 136 H (75-99) mg/dL Hemoglobin (13.0-17.5) gm/dL POC Glucose (mg/dL) 219 H 216 H (70-110) mg/dL Arterial Blood Glucose 136 H (75-99) mg/dL Crossmatch 05/04/23 05/04/23 05/04/23 Range/Units 09:30 09:30 09:30 WBC (3.8-10.6) k/uL RBC (4.30-5.90) m/uL Hgb (13.0-17.5) gm/dL Hct (39.0-53.0) % Plt Count (150-450) k/uL Neutrophils # (1.3-7.7) k/uL PT (10.0-12.5) sec INR (<1.2) APTT (22.0-30.0) sec ABG pH 7.34 L 7.33 L (7.35-7.45) ABG pCO2 (35-45) mmHg ABG pO2 121 H 188 H 179 H (83-108) mmHg ABG Total CO2 25 H 26 H (19-24) mmol/L ABG O2 Saturation 98.8 H 99.7 H 99.6 H (94-97) % ABG Ionized Calcium (4.5-5.3) mg/dL ABG Glucose 125 H 120 H 114 H (75-99) mg/dL Hemoglobin 12.6 L 12.6 L 11.1 L (13.0-17.5) gm/dL POC Glucose (mg/dL) (70-110) mg/dL Arterial Blood Glucose 125 H 120 H 114 H (75-99) mg/dL Crossmatch 05/04/23 05/04/23 05/04/23 Range/Units 15:03 15:03 15:10 WBC 18.9 H (3.8-10.6) k/uL RBC 3.95 L (4.30-5.90) m/uL Hgb 12.7 L (13.0-17.5) gm/dL Hct 37.5 L (39.0-53.0) % Plt Count 114 L D (150-450) k/uL Neutrophils # 15.5 H (1.3-7.7) k/uL PT 12.9 H (10.0-12.5) sec INR 1.2 H (<1.2) APTT 21.6 L (22.0-30.0) sec ABG pH (7.35-7.45) ABG pCO2 (35-45) mmHg ABG pO2 (83-108) mmHg ABG Total CO2 (19-24) mmol/L ABG O2 Saturation (94-97) % ABG Ionized Calcium (4.5-5.3) mg/dL ABG Glucose (75-99) mg/dL Hemoglobin (13.0-17.5) gm/dL POC Glucose (mg/dL) 137 H (70-110) mg/dL Arterial Blood Glucose (75-99) mg/dL Crossmatch 05/04/23 05/04/23 Range/Units 15:52 16:11 WBC (3.8-10.6) k/uL RBC (4.30-5.90) m/uL Hgb (13.0-17.5) gm/dL Hct (39.0-53.0) % Plt Count (150-450) k/uL Neutrophils # (1.3-7.7) k/uL PT (10.0-12.5) sec INR (<1.2) APTT (22.0-30.0) sec ABG pH 7.24 L (7.35-7.45) ABG pCO2 50 H (35-45) mmHg ABG pO2 329 H (83-108) mmHg ABG Total CO2 (19-24) mmol/L ABG O2 Saturation 99.6 H (94-97) % ABG Ionized Calcium (4.5-5.3) mg/dL ABG Glucose (75-99) mg/dL Hemoglobin (13.0-17.5) gm/dL POC Glucose (mg/dL) 119 H (70-110) mg/dL Arterial Blood Glucose (75-99) mg/dL Crossmatch Microbiology - Last 24 Hours (Table) 05/02/23 11:06 Nasal Screen MRSA/MSSA - Final Nasal Swab Staphylococcus aureus,Not MRSA Assessment and Plan Plan: Assessment Multivessel coronary artery disease with previous PCI. The patient presented with chest pain and acute non-ST segment elevation myocardial infarction. The patient had a repeat cardiac catheterization showed extensive CAD and the patient is being worked up for coronary artery bypass surgery. The patient underwent 2 vessel bypass surgery with VERGARA to LAD and SVG to diagonal. The patient is postop day #0. The patient is currently in the intensive care unit intubated on a mechanical ventilator. The patient is hemodynamically stable with adequate hemodynamics and cardiac output. Postthoracotomy, currently intubated on mechanical ventilator. The blood gas shows a component of respiratory acidosis. Chest x-ray shows adequate expansion of both lungs. Chest tubes are all in good location. Output is minimal at this point in time. No evidence of any air leak. Morbidly obese, BMI 43.9. COPD with an FEV1 of 66% of predicted currently inactive and stable Possible obstructive sleep apnea Hypertension Hyperlipidemia Insulin-dependent diabetes mellitus, currently on insulin drip for blood sugar control Peripheral vascular disease with intermittent claudication History of smoking Plan Patient is a respiration rate of 26. Decubiti the volume at 450. Dropped a PEEP down to 5 and keep the FiO2 of 50%. Chest x-ray was noted Keep the patient sedated for now Keep nitroglycerin drip Continue insulin drip Cardiac rhythm is sinus Adequate hemodynamics Anticipate extubation within next few hours. We'll continue to follow. Monitor output from the chest tube. Monitor cardiac output. We'll continue to follow. Evaluation within a more than 30 minutes. Time with Patient: Greater than 30
[2023-05-04 16:56] LABS: ALT 26 U/L (4-49); AST 21 U/L (17-59); African American GFR (CKD) >90 (>60 ml/min/1.73 sqM); Albumin 3.1 g/dL (3.5-5.0); Alkaline Phosphatase 68 U/L (38-126); Anion Gap 7 mmol/L; Blood Urea Nitrogen 27 mg/dL (9-20); Calcium 8.4 mg/dL (8.4-10.2); Carbon Dioxide 19 mmol/L (22-30); Chloride 110 mmol/L (98-107); Glucose 140 mg/dL (74-99); Magnesium 1.8 mg/dL (1.6-2.3); Non-African American GFR(CKD) 84 (>60 ml/min/1.73 sqM); Potassium 4.4 mmol/L (3.5-5.1); Sodium 136 mmol/L (137-145); Total Bilirubin 0.6 mg/dL (0.2-1.3); Total Protein 4.9 g/dL (6.3-8.2)
[2023-05-04 17:13] LABS: Glucose,Whole Blood 190 mg/dL (70-110)
[2023-05-04] MEDS: HEPARIN SODIUM,PORCINE 5,000 UNIT/ML 1 ML VIAL SQ SCH (17:35)
--- NOTE | 2023-05-04 18:07 | P.OP ---
Date of Procedure: 05/04/23 Preoperative Diagnosis: NSTEMI CAD Postoperative Diagnosis: Same Procedure(s) Performed: 1. Off pump coronary artery bypass grafting x 2. Left internal thoracic artery (in-situ) to left anterior descending coronary artery. Saphenous vein from aorta to posterior descending coronary artery. 2. Left atrial appendage ligation using #35mm AtriClip 3. Endoscopic right greater saphenous vein harvest 4. Graft flow measurements using the Medi-Stim flow meter 5. Sternal closure using the pioneer cable and plating system 6. Trans-esophageal echo Implants: #35 AtriClip Anesthesia: KAROLA Surgeon: Jay Aguilar Hand Tile Maker #1: Ramos Tovar Hand Tile Maker #2: Aguilar Payan Estimated Blood Loss (ml): 250 Pathology: none sent Condition: critical Disposition: ICU Indications for Procedure: This patient is a 63 year-old male with a known hx of CAD s/p PCI to the circumflex coronary who presented to the hospital with chest pain. He underwent cardiac cath which revealed significant calcified LAD lesion as well as a very tight stenosis of the mid RCA. He was diagnosed with NSTEMI and CABG was recommended. All the risks, benefits and alternatives were discussed with the patient including his STS risk of morbidity and mortality and he was in agreement to proceed. Operative Findings: LEONARDO good conduit 1.75mm, LAD good target, 1.6mm. VERGARA-LAD Flow 24ml/min, P.I. 2.7 Saphenous vein good conduit, 2.5mm, PDA good target 2.25mm. GSV-PDA flow 78 ml/min, P.I. 1.7 Description of Procedure: The patient underwent central line, swan meenakshi catheter, and arterial line placement by the anesthesia team. The patient was brought back to the operating room and placed on the table supine. General endotracheal anesthesia was induced and the patient was prepped and draped in the usual sterile fashion from the chin to the ankles. A time-out was performed and antibiotics were given. A midline incision was made on the chest. This was carried down to bone and a median sternotomy was performed. Hemostasis on the bone was achieved with electrocautery. The left pleura was entered and the left internal thoracic artery was harvested in a skeletonized fashion. Simultaneously another molding line assistant harvested the right greater saphenous vein endoscopically. The patient was systemically heparinized and the LEONARDO was transected and placed in a papaverine jacuzzi. A left sided ced was placed. The right pleura was incised. The pericardium was opened in a T-fashion and a pericardial cradle was created. Stay sutures were placed and a window for the JANUARY was created in the pericardium avoiding injury to the left phrenic nerve. Next, the left atrial appendage was ligated using a #35mm AtriClip. We then evaluated our targets and conduits. Once the ACT > 250. The octopus stabilizer was used to stabilize the mid-LAD and the VERGARA was cut to length and prepared. An arteriotomy was made in the LAD and a 1.5mm shunt was placed in the vessel. The vessel was of good quality. An endo to side anastomosis was performed between the VERGARA to LAD using a running 7-0 Prolene. The flow through was removed prior to tieing down the suture. Next, a stay suture was placed on the diaphragm near the IVC as well as a deep stitch in the oblique sinus and the inferior wall was exposed. The distal RCA and proximal PDA was heavily calcified. The posterior descending artery downstream where it was a good target was stabilized and opened. A 2.0mm shunt was placed. An end to side with a saphenous vein to PDA was performed using a running 7-0 Prolene. The shunt was removed without difficulty prior to tieing down the anastomosis. The saphenous vein was fastened to the ascending aorta using a heartstring device and running 5-0 prolene. Graft flows were measured using the medi-stim flow meter and they were excellent in both grafts without evidence of competitive flow. Protamine was given for heparin reversal. Hemostasis was secured and a 19F Ced and 32F chest tube was placed in the right pleura and mediastinum respectively. The sternum was closed with cables and plates. The fascia was closed with Ethibond. The subcutaneous tissues and skin of the sternum, and leg were closed with ethibond and vicryl in layers. All counts were correct and the patient was transported to the ICU without the need for pressors. The patient tolerated the procedure well without any prolonged period of hypotension or instability. Completion BIBI revealed similar EF of 40-45%.
[2023-05-04 18:08] LABS: Glucose,Whole Blood 191 mg/dL (70-110)
[2023-05-04] MEDS: ACETAMINOPHEN IV (For NPO) 1,000 MG in EMPTY BAG 1 BAG IVPB SCH (18:32)
[2023-05-04 18:33] LABS: Basophils % (A) 0 %; Eosinophils # (A) 0.1 k/uL (0-0.7); Eosinophils % (A) 1 %; HCT 34.5 % (39.0-53.0); HGB 11.8 gm/dL (13.0-17.5); Lymphocytes # (A) 0.7 k/uL (1.0-4.8); Lymphocytes % (A) 6 %; MCH 32.9 pg (25.0-35.0); MCHC 34.2 g/dL (31.0-37.0); MCV 96.1 fL (80.0-100.0); Mean Platelet Volume 10.2; Monocytes # (A) 0.6 k/uL (0-1.0); Monocytes % (A) 5 %; Neutrophils # (A) 11.8 k/uL (1.3-7.7); Neutrophils % (A) 88 %; Platelet Count 133 k/uL (150-450); RBC 3.59 m/uL (4.30-5.90); RDW 13.7 % (11.5-15.5); WBC 13.3 k/uL (3.8-10.6)
[2023-05-04 18:52] LABS: Glucose,Whole Blood 198 mg/dL (70-110)
[2023-05-04 19:58] LABS: Glucose,Whole Blood 191 mg/dL (70-110)
[2023-05-04 20:18] LABS: ABG Base Excess -7.1 mmol/L; ABG HCO3 19 mmol/L (21-25); ABG Oxygen Saturation 94.3 % (94-97); ABG PCO2 39 mmHg (35-45); ABG PO2 75 mmHg (83-108); ABG TCO2 20 mmol/L (19-24); Allen Test Performed? Yes
[2023-05-04 21:01] LABS: Glucose,Whole Blood 186 mg/dL (70-110)
[2023-05-04 21:20] LABS: Basophils % (A) 0 %; Eosinophils % (A) 0 %; HCT 35.4 % (39.0-53.0); HGB 11.8 gm/dL (13.0-17.5); Lymphocytes # (A) 0.8 k/uL (1.0-4.8); Lymphocytes % (A) 6 %; MCH 31.9 pg (25.0-35.0); MCHC 33.4 g/dL (31.0-37.0); MCV 95.4 fL (80.0-100.0); Mean Platelet Volume 10.5; Monocytes # (A) 0.8 k/uL (0-1.0); Monocytes % (A) 5 %; Neutrophils # (A) 12.4 k/uL (1.3-7.7); Neutrophils % (A) 88 %; Platelet Count 123 k/uL (150-450); RBC 3.71 m/uL (4.30-5.90); RDW 13.9 % (11.5-15.5); WBC 14.1 k/uL (3.8-10.6)
[2023-05-04] MEDS ORDERED: VASOPRESSIN 60 UNIT in SODIUM CHLORIDE 0.9% 150 ML IV SCH (22:00)
[2023-05-04 22:01] LABS: Glucose,Whole Blood 153 mg/dL (70-110)
[2023-05-04 23:02] LABS: Glucose,Whole Blood 130 mg/dL (70-110)
[2023-05-04] MEDS: ATORVASTATIN 40 MG TAB PO SCH (23:15)
[2023-05-04] MEDS: SENNOSIDES-DOCUSATE SODIUM 1 EACH TAB PO SCH (23:15)
[2023-05-05 00:01] LABS: Glucose,Whole Blood 116 mg/dL (70-110)
[2023-05-05] MEDS: ACETAMINOPHEN IV (For NPO) 1,000 MG in EMPTY BAG 1 BAG IVPB SCH (00:03)
[2023-05-05] MEDS: HEPARIN SODIUM,PORCINE 5,000 UNIT/ML 1 ML VIAL SQ SCH ×3 (00:04→16:15)
[2023-05-05] MEDS: MUPIROCIN 2% OINT 22 GM TUBE NASAL SCH ×3 (00:04→20:13)
[2023-05-05] MEDS: ceFAZolin 3 GM in SODIUM CHLORIDE 0.9% 100 ML IVPB SCH ×3 (00:04→16:15)
[2023-05-05 01:13] LABS: Glucose,Whole Blood 114 mg/dL (70-110)
[2023-05-05 02:05] LABS: Glucose,Whole Blood 137 mg/dL (70-110)
[2023-05-05 03:04] LABS: Glucose,Whole Blood 162 mg/dL (70-110)
[2023-05-05] MEDS ORDERED: METOPROLOL TARTRATE 25 MG TAB PO STA (03:34)
[2023-05-05 04:04] LABS: Glucose,Whole Blood 138 mg/dL (70-110)
[2023-05-05] MEDS ORDERED: hydrALAZINE HCL 20 MG/ML 1 ML VIAL IVP PRN (04:18)
[2023-05-05 05:10] LABS: Glucose,Whole Blood 140 mg/dL (70-110)
[2023-05-05 05:36] LABS: Basophils % (A) 0 %; Eosinophils # (A) 0.1 k/uL (0-0.7); Eosinophils % (A) 0 %; HCT 37.3 % (39.0-53.0); HGB 12.5 gm/dL (13.0-17.5); Lymphocytes # (A) 1.8 k/uL (1.0-4.8); Lymphocytes % (A) 11 %; MCH 31.9 pg (25.0-35.0); MCHC 33.5 g/dL (31.0-37.0); MCV 95.2 fL (80.0-100.0); Mean Platelet Volume 10.4; Monocytes # (A) 1.1 k/uL (0-1.0); Monocytes % (A) 7 %; Neutrophils % (A) 81 %; Platelet Count 136 k/uL (150-450); RBC 3.92 m/uL (4.30-5.90); RDW 14.1 % (11.5-15.5); WBC 16.2 k/uL (3.8-10.6)
[2023-05-05 06:04] LABS: Glucose,Whole Blood 141 mg/dL (70-110)
[2023-05-05 06:22] LABS: Ionized Calcium 5.1 mg/dL (4.5-5.3)
[2023-05-05 06:38] LABS: ALT 20 U/L (4-49); AST 31 U/L (17-59); African American GFR (CKD) >90 (>60 ml/min/1.73 sqM); Albumin 3.2 g/dL (3.5-5.0); Alkaline Phosphatase 62 U/L (38-126); Anion Gap 8 mmol/L; Blood Urea Nitrogen 23 mg/dL (9-20); Calcium 8.8 mg/dL (8.4-10.2); Carbon Dioxide 19 mmol/L (22-30); Chloride 108 mmol/L (98-107); Glucose 125 mg/dL (74-99); Magnesium 1.7 mg/dL (1.6-2.3); Non-African American GFR(CKD) >90 (>60 ml/min/1.73 sqM); Potassium 4.4 mmol/L (3.5-5.1); Sodium 135 mmol/L (137-145); Total Bilirubin 0.8 mg/dL (0.2-1.3); Total Protein 5.2 g/dL (6.3-8.2)
[2023-05-05] MEDS ORDERED: MAGNESIUM SULFATE-D5W PMX 1 GM in DEXTROSE/WATER 1 100ML.BAG IVPB ONE (06:45)
[2023-05-05] MEDS ORDERED: HYDROcodone/APAP 10-325MG 1 EACH TAB PO PRN (06:52)
[2023-05-05] MEDS ORDERED: ACETAMINOPHEN TAB 325 MG TAB PO PRN (06:53)
[2023-05-05 06:59] LABS: Glucose,Whole Blood 128 mg/dL (70-110)
[2023-05-05] MEDS: KETOROLAC 15 MG/ML 1 ML VIAL IVP SCH ×3 (07:12→18:19)
[2023-05-05] MEDS: IPRATROPIUM-ALBUTEROL 3 ML NEB INHALATION SCH ×4 (07:53→20:33)
--- NOTE | 2023-05-05 08:06 | XR ---
EXAM: XR chest 1V portable CLINICAL INDICATION:Male, 63 years old with history of Post Operative Cardiac Surgery; [facility] COMPARISON: 05/04/2023 TECHNIQUE: Chest single view. FINDINGS: Lines/tubes/devices: Right IJ [place]-Sara catheter with tip over the pulmonary outflow tract. Stable me diastinal drain left of midline. ET tube appears to have been removed. Bilateral chest tubes are agai n present. Cardiomediastinum: Cardiac silhouette appears stable, heart is mildly enlarged. Unremarkable mediastinal silhouette. Vasculature: Mild central congestion. Lungs/pleura: Similar appearing small left pleural effusion and mild left basilar atelectasis/airspace disease. No new or worsening infiltrate, or sizable pneumothorax. Bones/soft tissues: Bony thorax appears grossly unchanged as seen. Unchanged sternotomy wires. Regional soft tissues appe ar unremarkable. IMPRESSION: 1. Lines and tubes in place, as above. ET tube has apparently been removed. 2. Mild cardiomegaly with postoperative changes and mildly increased pulmonary vascular congestion. 3. Stable small left pleural effusion with adjacent atelectasis/airspace disease.
[2023-05-05 08:23] LABS: Glucose,Whole Blood 141 mg/dL (70-110)
--- NOTE | 2023-05-05 08:23 | P.PN ---
Subjective Progress Note Date: 05/05/23 Principal diagnosis: Coronary artery disease, non-STEMI this admission reduced left ventricular systolic function. History of CAD with previous PCI in 2003, hypertension, hyperlipidemia, insulin-dependent diabetes, peripheral arterial disease with intermittent claudication, morbid obesity, current heavy tobacco dependence, COPD, remote history of pneumonia, preoperative nasal swab positive for MSSA POD #1 off-pump coronary artery bypass graft 2 with left internal thoracic artery in situ to the left anterior descending coronary artery, reverse saphenous vein graft from the aorta to the posterior descending coronary artery, left atrial appendage ligation using a 35 mm AtriClip, endoscopic right greater saphenous vein harvest, graft flow measurements using the [employer] flowmeter, sternal closure using the [employer] cable and plating system, intraoperative transesophageal echocardiogram performed by anesthesia The patient was seen and examined this morning sitting up in a recliner in no acute distress. He was successfully extubated last night at 20:23. States pain is mostly controlled on current medication regimen, denies shortness of breath. Remains in sinus rhythm, hemodynamically stable on no inotropes or pressors. Currently on 5 L nasal cannula with oxygen saturation in the low 90s, only able to achieve 500 mL on incentive spirometry. Labs, x-ray reviewed. Right internal jugular [place]/Cordis, right radial arterial line, mediastinal/left/right pleural chest tubes all remain. No other new concerns. Objective - Vital Signs Vital signs: Vital Signs Temp 97.9 F 05/04/23 19:00 Pulse 80 05/05/23 08:07 Resp 36 H 05/05/23 07:00 BP 107/66 05/05/23 07:00 Pulse Ox 92 L 05/05/23 07:00 FiO2 50 05/04/23 20:00 Intake & Output 05/04/23 05/05/23 05/05/23 18:59 06:59 18:59 Intake Total 2350.556 4494.997 82.838 Output Total 2555 1460 90 Balance -1093.313 -54.003 -7.162 Weight 120.8 kg Intake: IV 200 1122 79 Albumin Human 5% 250 ml 250 In Empty Bag 1 bag @ 250 mls/hr IVPB Q1HR PRN Rx#: [id number] Lactated Ringers 1,000 ml 550 50 @ 20 mls/hr IV .Q24H [facility] Rx#:[id number] ceFAZolin 3 gm In Sodium 100 Chloride 0.9% 100 ml @ 200 mls/hr IVPB ONCE ONE Rx#:[id number] ns cardiac output 60 120 20 ns pressure bags 36 102 9 Intake, IV Titration 1261.687 283.997 3.838 Amount ACETAMINOPHEN IV (For NPO 100 100 ) 1,000 mg In Empty Bag 1 bag @ 400 mls/hr IVPB Q6HR [facility] Rx#:[id number] Albumin Human 5% 250 ml 750 In Empty Bag 1 bag @ 250 mls/hr IVPB Q1HR PRN Rx#: [id number] Dexmedetomidine/0.9% NaCl 14.606 71.282 (Pmx) 400 mcg In Empty Bag 1 bag @ Titrate IV . Q0M [facility] Rx#:[id number] Insulin Regular 100 unit 7.020 48.261 3.838 In Sodium Chloride 0.9% 100 ml @ Per Protocol IV .Q0M [facility] Rx#:[id number] Insulin Regular 100 unit 0.5 In Sodium Chloride 0.9% 100 ml @ Titrate IV .Q0M [facility] Rx#:[id number] Lactated Ringers 1,000 ml 150 50 @ 20 mls/hr IV .Q24H [facility] Rx#:[id number] Nitroglycerin-D5w Pmx 50 4.5 1.5 mg In Dextrose/Water 1 250ml.bag @ 5 MCG/MIN 1.5 mls/hr IV .Q24H [facility] Rx#: [id number] ceFAZolin 3 gm In Sodium 100 Chloride 0.9% 100 ml @ 100 mls/hr IVPB Q8HR [facility] Rx#:[id number] propofoL 1,000 mg In 135.061 12.954 Empty Bag 1 bag @ Titrate IV .Q0M [facility] Rx#: [id number] Output: Chest Tube Drainage 235 805 40 Mediastinal 90 515 30 Rt&Lt Pleural CT 145 290 10 Urine 520 655 50 Estimated Blood Loss 1800 Other: Voiding Method Indwelling Catheter Indwelling Catheter ABP, PAP, CO, CI - Last Documented Arterial Blood Pressure 132/52 Pulmonary Artery Pressure 27/16 Cardiac Output 6.8 Cardiac Index 3.2 - Exam CONSTITUTIONAL: Appears comfortable, cooperative, no acute distress RESPIRATORY: Lungs sounds diminished bilaterally. Respirations even, nonlabo red. Currently on 5 L nasal cannula with oxygen saturation 91%. Able to achieve 500 mL on incentive spirometry. Strong nonproductive cough. CARDIOVASCULAR: S1, S2 present. Regular rate and rhythm, sinus rhythm on telemetry. Sternum stable. Palpable peripheral pulses bilaterally. Trace nicky ateral lower extremity edema present. No calf pain or tenderness noted. Heart hugger in place with patient demonstrating appropriate use. Antiembolism stockings, SCDs present. GASTROINTESTINAL: Abdomen soft, nontender, nondistended, round. Hypoactive bowel sounds present 4 quadrants. Tolerating clear liquids. Positive flatus GENITOURINARY: Mcdonald present draining clear, yellow urine. Output overnight 50-100 mL per hour INTEGUMENTARY: Skin is warm and dry with evidence of good perfusion. Anterior chest incision well approximated and covered with dry intact dressing. Right lower extremity EVH site well approximated without redness or drainage. NEUROLOGIC: Cranial nerves II through XII intact MUSKULOSKELETAL: Able to move all extremities, strength equal bilaterally, gait normal PSYCHIATRIC: Alert and oriented to person place and time, appropriate affect, intact judgment and insight INVASIVE LINES AND TUBES: Mediastinal/left/right pleural chest tubes present and connected to wall suction, no air leaks present. Mediastinal tube with 430 mL serosanguineous drainage overnight, 650 mL since surgery. Left/right pleural chest tubes with 180 mL serosanguineous drainage overnight, 450 mL since surgery. V epicardial pacemaker wires present, connected to generator, generator turned off. Right internal jugular [place]/Cordis, right radial arterial line present. Last CO/CI 6.8/3.2, PA 25/14, CVP 2. - Allied health notes Allied health notes reviewed: nursing - Labs CBC & Chem 7: 05/05/23 05:10 05/05/23 05:10 Labs: Abnormal Lab Results - Last 24 Hours (Table) 05/03/23 05/04/23 05/04/23 Range/Units 06:34 08:13 09:30 WBC (3.8-10.6) k/uL RBC (4.30-5.90) m/uL Hgb (13.0-17.5) gm/dL Hct (39.0-53.0) % Plt Count (150-450) k/uL Neutrophils # (1.3-7.7) k/uL Lymphocytes # (1.0-4.8) k/uL Monocytes # (0-1.0) k/uL PT (10.0-12.5) sec INR (<1.2) APTT (22.0-30.0) sec ABG pH (7.35-7.45) ABG pCO2 (35-45) mmHg ABG pO2 383 H (83-108) mmHg ABG HCO3 (21-25) mmol/L ABG Total CO2 25 H (19-24) mmol/L ABG O2 Saturation 100.0 H (94-97) % ABG Ionized Calcium 5.4 H (4.5-5.3) mg/dL ABG Glucose 136 H (75-99) mg/dL Hemoglobin (13.0-17.5) gm/dL Sodium (137-145) mmol/L Chloride (98-107) mmol/L Carbon Dioxide (22-30) mmol/L BUN (9-20) mg/dL Glucose (74-99) mg/dL POC Glucose (mg/dL) 216 H (70-110) mg/dL Total Protein (6.3-8.2) g/dL Albumin (3.5-5.0) g/dL Arterial Blood Glucose 136 H (75-99) mg/dL Crossmatch See Detail 05/04/23 05/04/23 05/04/23 Range/Units 09:30 09:30 09:30 WBC (3.8-10.6) k/uL RBC (4.30-5.90) m/uL Hgb (13.0-17.5) gm/dL Hct (39.0-53.0) % Plt Count (150-450) k/uL Neutrophils # (1.3-7.7) k/uL Lymphocytes # (1.0-4.8) k/uL Monocytes # (0-1.0) k/uL PT (10.0-12.5) sec INR (<1.2) APTT (22.0-30.0) sec ABG pH 7.34 L 7.33 L (7.35-7.45) ABG pCO2 (35-45) mmHg ABG pO2 121 H 188 H 179 H (83-108) mmHg ABG HCO3 (21-25) mmol/L ABG Total CO2 25 H 26 H (19-24) mmol/L ABG O2 Saturation 98.8 H 99.7 H 99.6 H (94-97) % ABG Ionized Calcium (4.5-5.3) mg/dL ABG Glucose 125 H 120 H 114 H (75-99) mg/dL Hemoglobin 12.6 L 12.6 L 11.1 L (13.0-17.5) gm/dL Sodium (137-145) mmol/L Chloride (98-107) mmol/L Carbon Dioxide (22-30) mmol/L BUN (9-20) mg/dL Glucose (74-99) mg/dL POC Glucose (mg/dL) (70-110) mg/dL Total Protein (6.3-8.2) g/dL Albumin (3.5-5.0) g/dL Arterial Blood Glucose 125 H 120 H 114 H (75-99) mg/dL Crossmatch 05/04/23 05/04/23 05/04/23 Range/Units 15:03 15:03 15:03 WBC 18.9 H (3.8-10.6) k/uL RBC 3.95 L (4.30-5.90) m/uL Hgb 12.7 L (13.0-17.5) gm/dL Hct 37.5 L (39.0-53.0) % Plt Count 114 L D (150-450) k/uL Neutrophils # 15.5 H (1.3-7.7) k/uL Lymphocytes # (1.0-4.8) k/uL Monocytes # (0-1.0) k/uL PT 12.9 H (10.0-12.5) sec INR 1.2 H (<1.2) APTT 21.6 L (22.0-30.0) sec ABG pH (7.35-7.45) ABG pCO2 (35-45) mmHg ABG pO2 (83-108) mmHg ABG HCO3 (21-25) mmol/L ABG Total CO2 (19-24) mmol/L ABG O2 Saturation (94-97) % ABG Ionized Calcium (4.5-5.3) mg/dL ABG Glucose (75-99) mg/dL Hemoglobin (13.0-17.5) gm/dL Sodium 136 L (137-145) mmol/L Chloride 110 H (98-107) mmol/L Carbon Dioxide 19 L (22-30) mmol/L BUN 27 H (9-20) mg/dL Glucose 140 H (74-99) mg/dL POC Glucose (mg/dL) (70-110) mg/dL Total Protein 4.9 L (6.3-8.2) g/dL Albumin 3.1 L (3.5-5.0) g/dL Arterial Blood Glucose (75-99) mg/dL Crossmatch 05/04/23 05/04/23 05/04/23 Range/Units 15:10 15:52 16:11 WBC (3.8-10.6) k/uL RBC (4.30-5.90) m/uL Hgb (13.0-17.5) gm/dL Hct (39.0-53.0) % Plt Count (150-450) k/uL Neutrophils # (1.3-7.7) k/uL Lymphocytes # (1.0-4.8) k/uL Monocytes # (0-1.0) k/uL PT (10.0-12.5) sec INR (<1.2) APTT (22.0-30.0) sec ABG pH 7.24 L (7.35-7.45) ABG pCO2 50 H (35-45) mmHg ABG pO2 329 H (83-108) mmHg ABG HCO3 (21-25) mmol/L ABG Total CO2 (19-24) mmol/L ABG O2 Saturation 99.6 H (94-97) % ABG Ionized Calcium (4.5-5.3) mg/dL ABG Glucose (75-99) mg/dL Hemoglobin (13.0-17.5) gm/dL Sodium (137-145) mmol/L Chloride (98-107) mmol/L Carbon Dioxide (22-30) mmol/L BUN (9-20) mg/dL Glucose (74-99) mg/dL POC Glucose (mg/dL) 137 H 119 H (70-110) mg/dL Total Protein (6.3-8.2) g/dL Albumin (3.5-5.0) g/dL Arterial Blood Glucose (75-99) mg/dL Crossmatch 10/27/23 10/27/23 10/27/23 Range/Units 17:12 18:05 18:07 WBC 13.3 H (3.8-10.6) k/uL RBC 3.59 L (4.30-5.90) m/uL Hgb 11.8 L (13.0-17.5) gm/dL Hct 34.5 L (39.0-53.0) % Plt Count 133 L (150-450) k/uL Neutrophils # 11.8 H (1.3-7.7) k/uL Lymphocytes # 0.7 L (1.0-4.8) k/uL Monocytes # (0-1.0) k/uL PT (10.0-12.5) sec INR (<1.2) APTT (22.0-30.0) sec ABG pH (7.35-7.45) ABG pCO2 (35-45) mmHg ABG pO2 (83-108) mmHg ABG HCO3 (21-25) mmol/L ABG Total CO2 (19-24) mmol/L ABG O2 Saturation (94-97) % ABG Ionized Calcium (4.5-5.3) mg/dL ABG Glucose (75-99) mg/dL Hemoglobin (13.0-17.5) gm/dL Sodium (137-145) mmol/L Chloride (98-107) mmol/L Carbon Dioxide (22-30) mmol/L BUN (9-20) mg/dL Glucose (74-99) mg/dL POC Glucose (mg/dL) 190 H 191 H (70-110) mg/dL Total Protein (6.3-8.2) g/dL Albumin (3.5-5.0) g/dL Arterial Blood Glucose (75-99) mg/dL Crossmatch 05/04/23 05/04/23 05/04/23 Range/Units 18:51 19:57 20:15 WBC (3.8-10.6) k/uL RBC (4.30-5.90) m/uL Hgb (13.0-17.5) gm/dL Hct (39.0-53.0) % Plt Count (150-450) k/uL Neutrophils # (1.3-7.7) k/uL Lymphocytes # (1.0-4.8) k/uL Monocytes # (0-1.0) k/uL PT (10.0-12.5) sec INR (<1.2) APTT (22.0-30.0) sec ABG pH 7.30 L (7.35-7.45) ABG pCO2 (35-45) mmHg ABG pO2 75 L (83-108) mmHg ABG HCO3 19 L (21-25) mmol/L ABG Total CO2 (19-24) mmol/L ABG O2 Saturation (94-97) % ABG Ionized Calcium (4.5-5.3) mg/dL ABG Glucose (75-99) mg/dL Hemoglobin (13.0-17.5) gm/dL Sodium (137-145) mmol/L Chloride (98-107) mmol/L Carbon Dioxide (22-30) mmol/L BUN (9-20) mg/dL Glucose (74-99) mg/dL POC Glucose (mg/dL) 198 H 191 H (70-110) mg/dL Total Protein (6.3-8.2) g/dL Albumin (3.5-5.0) g/dL Arterial Blood Glucose (75-99) mg/dL Crossmatch 05/04/23 05/04/23 05/04/23 Range/Units 20:55 20:56 22:00 WBC 14.1 H (3.8-10.6) k/uL RBC 3.71 L (4.30-5.90) m/uL Hgb 11.8 L (13.0-17.5) gm/dL Hct 35.4 L (39.0-53.0) % Plt Count 123 L (150-450) k/uL Neutrophils # 12.4 H (1.3-7.7) k/uL Lymphocytes # 0.8 L (1.0-4.8) k/uL Monocytes # (0-1.0) k/uL PT (10.0-12.5) sec INR (<1.2) APTT (22.0-30.0) sec ABG pH (7.35-7.45) ABG pCO2 (35-45) mmHg ABG pO2 (83-108) mmHg ABG HCO3 (21-25) mmol/L ABG Total CO2 (19-24) mmol/L ABG O2 Saturation (94-97) % ABG Ionized Calcium (4.5-5.3) mg/dL ABG Glucose (75-99) mg/dL Hemoglobin (13.0-17.5) gm/dL Sodium (137-145) mmol/L Chloride (98-107) mmol/L Carbon Dioxide (22-30) mmol/L BUN (9-20) mg/dL Glucose (74-99) mg/dL POC Glucose (mg/dL) 186 H 153 H (70-110) mg/dL Total Protein (6.3-8.2) g/dL Albumin (3.5-5.0) g/dL Arterial Blood Glucose (75-99) mg/dL Crossmatch 05/04/23 05/05/23 05/05/23 Range/Units 23:00 00:00 01:12 WBC (3.8-10.6) k/uL RBC (4.30-5.90) m/uL Hgb (13.0-17.5) gm/dL Hct (39.0-53.0) % Plt Count (150-450) k/uL Neutrophils # (1.3-7.7) k/uL Lymphocytes # (1.0-4.8) k/uL Monocytes # (0-1.0) k/uL PT (10.0-12.5) sec INR (<1.2) APTT (22.0-30.0) sec ABG pH (7.35-7.45) ABG pCO2 (35-45) mmHg ABG pO2 (83-108) mmHg ABG HCO3 (21-25) mmol/L ABG Total CO2 (19-24) mmol/L ABG O2 Saturation (94-97) % ABG Ionized Calcium (4.5-5.3) mg/dL ABG Glucose (75-99) mg/dL Hemoglobin (13.0-17.5) gm/dL Sodium (137-145) mmol/L Chloride (98-107) mmol/L Carbon Dioxide (22-30) mmol/L BUN (9-20) mg/dL Glucose (74-99) mg/dL POC Glucose (mg/dL) 130 H 116 H 114 H (70-110) mg/dL Total Protein (6.3-8.2) g/dL Albumin (3.5-5.0) g/dL Arterial Blood Glucose (75-99) mg/dL Crossmatch 05/05/23 05/05/23 05/05/23 Range/Units 02:04 03:03 04:02 WBC (3.8-10.6) k/uL RBC (4.30-5.90) m/uL Hgb (13.0-17.5) gm/dL Hct (39.0-53.0) % Plt Count (150-450) k/uL Neutrophils # (1.3-7.7) k/uL Lymphocytes # (1.0-4.8) k/uL Monocytes # (0-1.0) k/uL PT (10.0-12.5) sec INR (<1.2) APTT (22.0-30.0) sec ABG pH (7.35-7.45) ABG pCO2 (35-45) mmHg ABG pO2 (83-108) mmHg ABG HCO3 (21-25) mmol/L ABG Total CO2 (19-24) mmol/L ABG O2 Saturation (94-97) % ABG Ionized Calcium (4.5-5.3) mg/dL ABG Glucose (75-99) mg/dL Hemoglobin (13.0-17.5) gm/dL Sodium (137-145) mmol/L Chloride (98-107) mmol/L Carbon Dioxide (22-30) mmol/L BUN (9-20) mg/dL Glucose (74-99) mg/dL POC Glucose (mg/dL) 137 H 162 H 138 H (70-110) mg/dL Total Protein (6.3-8.2) g/dL Albumin (3.5-5.0) g/dL Arterial Blood Glucose (75-99) mg/dL Crossmatch 05/05/23 05/05/23 05/05/23 Range/Units 05:09 05:10 05:10 WBC 16.2 H (3.8-10.6) k/uL RBC 3.92 L (4.30-5.90) m/uL Hgb 12.5 L (13.0-17.5) gm/dL Hct 37.3 L (39.0-53.0) % Plt Count 136 L (150-450) k/uL Neutrophils # 13.0 H (1.3-7.7) k/uL Lymphocytes # (1.0-4.8) k/uL Monocytes # 1.1 H (0-1.0) k/uL PT (10.0-12.5) sec INR (<1.2) APTT (22.0-30.0) sec ABG pH (7.35-7.45) ABG pCO2 (35-45) mmHg ABG pO2 (83-108) mmHg ABG HCO3 (21-25) mmol/L ABG Total CO2 (19-24) mmol/L ABG O2 Saturation (94-97) % ABG Ionized Calcium (4.5-5.3) mg/dL ABG Glucose (75-99) mg/dL Hemoglobin (13.0-17.5) gm/dL Sodium 135 L (137-145) mmol/L Chloride 108 H (98-107) mmol/L Carbon Dioxide 19 L (22-30) mmol/L BUN 23 H (9-20) mg/dL Glucose 125 H (74-99) mg/dL POC Glucose (mg/dL) 140 H (70-110) mg/dL Total Protein 5.2 L (6.3-8.2) g/dL Albumin 3.2 L (3.5-5.0) g/dL Arterial Blood Glucose (75-99) mg/dL Crossmatch 05/05/23 05/05/23 Range/Units 06:02 06:57 WBC (3.8-10.6) k/uL RBC (4.30-5.90) m/uL Hgb (13.0-17.5) gm/dL Hct (39.0-53.0) % Plt Count (150-450) k/uL Neutrophils # (1.3-7.7) k/uL Lymphocytes # (1.0-4.8) k/uL Monocytes # (0-1.0) k/uL PT (10.0-12.5) sec INR (<1.2) APTT (22.0-30.0) sec ABG pH (7.35-7.45) ABG pCO2 (35-45) mmHg ABG pO2 (83-108) mmHg ABG HCO3 (21-25) mmol/L ABG Total CO2 (19-24) mmol/L ABG O2 Saturation (94-97) % ABG Ionized Calcium (4.5-5.3) mg/dL ABG Glucose (75-99) mg/dL Hemoglobin (13.0-17.5) gm/dL Sodium (137-145) mmol/L Chloride (98-107) mmol/L Carbon Dioxide (22-30) mmol/L BUN (9-20) mg/dL Glucose (74-99) mg/dL POC Glucose (mg/dL) 141 H 128 H (70-110) mg/dL Total Protein (6.3-8.2) g/dL Albumin (3.5-5.0) g/dL Arterial Blood Glucose (75-99) mg/dL Crossmatch - Imaging and Cardiology Chest x-ray: report reviewed, image reviewed Assessment and Plan Assessment: Coronary artery disease with previous PCI 2003, non-STEMI this admission, status post two-vessel off-pump CABG Reduced left ventricular systolic function, EF 40-45% Hypertension Hyperlipidemia, treated, cholesterol 130, LDL 70 Insulin-dependent diabetes, hgb A1c 9.1% Peripheral arterial disease with intermittent claudication, GIRMA left moderate disease Morbid obesity, BMI 44 Current heavy tobacco dependence Moderate COPD, FEV1 65% of predicted Remote history of pneumonia Preoperative nasal swab positive for MSSA Plan: Continue to maximize medical therapy with ASA, statin, Plavix, beta marquez. Will increase beta marquez therapy as tolerated. Discontinue IV nitro Will add losartan for afterload reduction Wean O2 as tolerated. Encourage incentive spirometer every hour, bronchodilators per pulmonology Increase activity, ambulate as tolerated. PT/OT/cardiac rehab consulted Will monitor daily labs and x-rays. Electrolyte replacement per protocol GI/DVT prophylaxis Pain control with current medication regimen. Toradol added Insulin management per internal medicine. Patient should remain on insulin continuous IV for 48 hours post surgery, then may transition to subcutaneous insulin per protocol Continue mupirocin for preoperative nasal swab positive for MSSA Discontinue [place]. Connect Cordis to continuous CVP monitoring May ground epicardial pacer wire Continue chest tubes for another 24 hours, monitor output Continue Mcdonald catheter for another 24 hours, continue to record accurate intake and output Daily weights Smoking cessation reinforced More recommendations to follow
[2023-05-05] MEDS: CLOPIDOGREL 75 MG TAB PO SCH (08:40)
[2023-05-05] MEDS: ASPIRIN 325 MG TAB PO SCH (08:40)
[2023-05-05] MEDS: METOPROLOL TARTRATE 25 MG TAB PO SCH ×2 (08:40→20:13)
--- NOTE | 2023-05-05 08:56 | P.PN ---
Subjective Progress Note Date: 05/05/23 63-year-old obese male patient, who is currently being investigated for coronary artery bypass surgery. The patient is known to have CAD, he is morbidly obese and has hypertension hyperlipidemia and insulin-dependent diabetes mellitus along with peripheral vascular disease. The patient is also chronic smoker The patient had a cardiac catheterization that showed 100% LAD in-stent stenosis, 99% mid RCA and the patient was recommended to undergo a coronary artery bypass surgery. He is going to be seen by the cardiothoracic team. His left ventricle ejection fraction slightly reduced at 40-45%. He has an FEV1 of 66% of predicted. He is obese and has features of obstructive sleep apnea although this has not been officially diagnosed. His current cardiac rhythm is sinus. Chest x-ray showed no acute abnormalities. CAT scan of the chest showed negative abnormalities. The patient is clinically stable and hemodynamically stable. Performance of functional status is adequate for now. Is currently free of any chest pain. He is on room air oxygen with a pulse ox of 94-97%. Is pulling ordered 1999 on his incentive spirometer. On today's evaluation of 05/02/2023, no new complaints and the patient is still awaiting his cardiac surgery. His condition is stable. Clinically stable. Hem odynamically stable. Vital signs are all stable. Sitting up on a chair. Using the incentive spirometer. On today's evaluation of 05/03/2023, the patient is having no respiratory distress. Perioperative teaching was given. Clinically stable. Hemodynamically stable. Pulse ox is 98% on room air oxygen. Using the incentive spirometer. Creatinine is at 1.3 with a BUN of 26 and his sodium leve ls is 137. Hemoglobin is at 13.7. Remains on aspirin and beta blockers. Plavix is currently on hold. Nothing by mouth after for an off cardiac bypass surgery tomorrow. On 05/04/2023, I'm seeing the patient in intensive care unit following his coronary artery bypass surgery the patient had an off pump two-vessel bypass surgery including VERGARA to LAD and SVG to PDA. Currently is intubated on a mechanical ventilator and the patient is postop day #0 and the patient is being seen in the intensive care unit. The patient is currently sedated on propofol which is running at 40 mcg/kg/m. He is on a mechanical ventilator assist control mode at the rate of 16, tidal volume of 450 with an FiO2 of 50% and PEEP of 10. The blood gas was done and the patient was found to have a pH of 7.23 and a pCO2 of 49 and pO2 of 329. FiO2 was dropped down to 50% from 100%. Peak airway pressure is 23. Chest x-ray shows adequate expansion of both lungs. Orotracheal tube is in a good location. The patient has left pleural chest tube, right pleural chest tube and mediastinal chest tube. Output from the mediastinal chest tube is been only 50 mL and output from the pleural chest tubes have been 80 mL and the patient arrived from the operating room. Pulmonary artery pressures are 34/24. Cardiac output is 6.5 with an index of 3.0. The patient is on nitroglycerin drip. The patient is also on insulin drip at 0.5 units an hour. The patient is producing adequate amount of urine output. The hemoglobin currently is at 12.7. White cell count of 18.9. Cardiac rhythm is sinus at the rate of 61. No other significant issues for now. On today's evaluation of 05/05/2023, the patient is postop day #1. Is doing extremely well. I was able to extubate the patient within a few hours after arrival to the intensive care unit. He was slightly acidotic and he developed some respiratory acidosis with appropriate ventilator changes were done and subsequently the patient was extubated. Overnight, the patient stayed on oxygen at 6 L nasal cannula. A chest x-ray from today shows adequate expansion of both lungs. No evidence of any pneumothorax. The patient is using the senna spirometer. Cardiac output is at 6.8 with an index of 3.2. PA pressures of 25 of 14. CVP is at 2. The mediastinal chest tube is draining around 430 mL overnight and the pleural chest tubes are connected and they have drained approximately 180 mL overnight and the ventricular epicardial pacemaker wires are present. The patient is not having any respiratory difficulties. His calm and comfortable. Is off the nitroglycerin drip. Insulin drip is running at 4 units an hour. Objective - Vital Signs Vital signs: Vital Signs Temp 97.9 F 05/04/23 19:00 Pulse 80 05/05/23 08:07 Resp 36 H 05/05/23 07:00 BP 107/66 05/05/23 07:00 Pulse Ox 92 L 05/05/23 07:00 FiO2 50 10/27/23 20:00 Intake & Output 05/04/23 05/05/23 05/05/23 18:59 06:59 18:59 Intake Total 0265.081 5771.997 87.669 Output Total 2555 1460 90 Balance -1093.313 -54.003 -2.331 Weight 120.8 kg Intake: IV 200 1122 79 Albumin Human 5% 250 ml 250 In Empty Bag 1 bag @ 250 mls/hr IVPB Q1HR PRN Rx#: [id number] Lactated Ringers 1,000 ml 550 50 @ 20 mls/hr IV .Q24H CLAY Rx#:[id number] ceFAZolin 3 gm In Sodium 100 Chloride 0.9% 100 ml @ 200 mls/hr IVPB ONCE ONE Rx#:[id number] ns cardiac output 60 120 20 ns pressure bags 36 102 9 Intake, IV Titration 1261.687 283.997 8.669 Amount ACETAMINOPHEN IV (For NPO 100 100 ) 1,000 mg In Empty Bag 1 bag @ 400 mls/hr IVPB Q6HR CLAY Rx#:[id number] Albumin Human 5% 250 ml 750 In Empty Bag 1 bag @ 250 mls/hr IVPB Q1HR PRN Rx#: [id number] Dexmedetomidine/0.9% NaCl 14.606 71.282 (Pmx) 400 mcg In Empty Bag 1 bag @ Titrate IV . Q0M CLAY Rx#:[id number] Insulin Regular 100 unit 7.020 48.261 8.669 In Sodium Chloride 0.9% 100 ml @ Per Protocol IV .Q0M CLAY Rx#:[id number] Insulin Regular 100 unit 0.5 In Sodium Chloride 0.9% 100 ml @ Titrate IV .Q0M CLAY Rx#:[id number] Lactated Ringers 1,000 ml 150 50 @ 20 mls/hr IV .Q24H CLAY Rx#:[id number] Nitroglycerin-D5w Pmx 50 4.5 1.5 mg In Dextrose/Water 1 250ml.bag @ 5 MCG/MIN 1.5 mls/hr IV .Q24H CLAY Rx#: [id number] ceFAZolin 3 gm In Sodium 100 Chloride 0.9% 100 ml @ 100 mls/hr IVPB Q8HR CLAY Rx#:[id number] propofoL 1,000 mg In 135.061 12.954 Empty Bag 1 bag @ Titrate IV .Q0M CLAY Rx#: [id number] Output: Chest Tube Drainage 235 805 40 Mediastinal 90 515 30 Rt&Lt Pleural CT 145 290 10 Urine 520 655 50 Estimated Blood Loss 1800 Other: Voiding Method Indwelling Catheter Indwelling Catheter ABP, PAP, CO, CI - Last Documented Arterial Blood Pressure 132/52 Pulmonary Artery Pressure 27/16 Cardiac Output 6.8 Cardiac Index 3.2 - Exam Patient is awake and alert and communicating without any focal neurological deficit and the patient is currently on 6 L of oxygen by nasal cannula Head exam was generally normal. There was no scleral icterus or corneal arcus. Mucous membranes were moist. Neck was supple and without jugular venous distension, thyromegaly, or carotid bruits. Carotids were easily palpable bilaterally. There was no adenopathy. The patient has a Cordis in the right IJ, the [place]-Sara catheter was removed Lungs are diminished bilaterally and the patient has a thoracotomy scar. At the same time, the patient has a mediastinal, right pleural, left pleural chest tubes. No evidence of any air leak. Cardiac exam revealed the PMI to be normally situated and sized. The rhythm was regular and no extrasystoles were noted during several minutes of auscultation. The first and second heart sounds were normal and physiologic splitting of the second heart sound was noted. There were no murmurs, rubs, clicks, or gallops. Abdominal exam revealed normal bowel sounds. The abdomen was soft, non-tender, and without masses, organomegaly, or appreciable enlargement of the abdominal aorta. Examination of the extremities revealed easily palpable radial, femoral and pedal pulses. There was no cyanosis, clubbing or edema. Examination of the skin revealed no evidence of significant rashes, suspicious appearing nevi or other concerning lesions. Neurologically the patient Neurologically, the patient is awake and alert and the patient does not have any focal neurological deficit. Cranial nerves are essentially intact. - Labs CBC & Chem 7: 05/05/23 05:10 05/05/23 05:10 Labs: Abnormal Lab Results - Last 24 Hours (Table) 05/03/23 05/04/23 05/04/23 Range/Units 06:34 09:30 09:30 WBC (3.8-10.6) k/uL RBC (4.30-5.90) m/uL Hgb (13.0-17.5) gm/dL Hct (39.0-53.0) % Plt Count (150-450) k/uL Neutrophils # (1.3-7.7) k/uL Lymphocytes # (1.0-4.8) k/uL Monocytes # (0-1.0) k/uL PT (10.0-12.5) sec INR (<1.2) APTT (22.0-30.0) sec ABG pH 7.34 L (7.35-7.45) ABG pCO2 (35-45) mmHg ABG pO2 383 H 121 H (83-108) mmHg ABG HCO3 (21-25) mmol/L ABG Total CO2 25 H 25 H (19-24) mmol/L ABG O2 Saturation 100.0 H 98.8 H (94-97) % ABG Ionized Calcium 5.4 H (4.5-5.3) mg/dL ABG Glucose 136 H 125 H (75-99) mg/dL Hemoglobin 12.6 L (13.0-17.5) gm/dL Sodium (137-145) mmol/L Chloride (98-107) mmol/L Carbon Dioxide (22-30) mmol/L BUN (9-20) mg/dL Glucose (74-99) mg/dL POC Glucose (mg/dL) (70-110) mg/dL Total Protein (6.3-8.2) g/dL Albumin (3.5-5.0) g/dL Arterial Blood Glucose 136 H 125 H (75-99) mg/dL Crossmatch See Detail 05/04/23 05/04/23 05/04/23 Range/Units 09:30 09:30 15:03 WBC 18.9 H (3.8-10.6) k/uL RBC 3.95 L (4.30-5.90) m/uL Hgb 12.7 L (13.0-17.5) gm/dL Hct 37.5 L (39.0-53.0) % Plt Count 114 L D (150-450) k/uL Neutrophils # 15.5 H (1.3-7.7) k/uL Lymphocytes # (1.0-4.8) k/uL Monocytes # (0-1.0) k/uL PT (10.0-12.5) sec INR (<1.2) APTT (22.0-30.0) sec ABG pH 7.33 L (7.35-7.45) ABG pCO2 (35-45) mmHg ABG pO2 188 H 179 H (83-108) mmHg ABG HCO3 (21-25) mmol/L ABG Total CO2 26 H (19-24) mmol/L ABG O2 Saturation 99.7 H 99.6 H (94-97) % ABG Ionized Calcium (4.5-5.3) mg/dL ABG Glucose 120 H 114 H (75-99) mg/dL Hemoglobin 12.6 L 11.1 L (13.0-17.5) gm/dL Sodium (137-145) mmol/L Chloride (98-107) mmol/L Carbon Dioxide (22-30) mmol/L BUN (9-20) mg/dL Glucose (74-99) mg/dL POC Glucose (mg/dL) (70-110) mg/dL Total Protein (6.3-8.2) g/dL Albumin (3.5-5.0) g/dL Arterial Blood Glucose 120 H 114 H (75-99) mg/dL Crossmatch 05/04/23 05/04/23 05/04/23 Range/Units 15:03 15:03 15:10 WBC (3.8-10.6) k/uL RBC (4.30-5.90) m/uL Hgb (13.0-17.5) gm/dL Hct (39.0-53.0) % Plt Count (150-450) k/uL Neutrophils # (1.3-7.7) k/uL Lymphocytes # (1.0-4.8) k/uL Monocytes # (0-1.0) k/uL PT 12.9 H (10.0-12.5) sec INR 1.2 H (<1.2) APTT 21.6 L (22.0-30.0) sec ABG pH (7.35-7.45) ABG pCO2 (35-45) mmHg ABG pO2 (83-108) mmHg ABG HCO3 (21-25) mmol/L ABG Total CO2 (19-24) mmol/L ABG O2 Saturation (94-97) % ABG Ionized Calcium (4.5-5.3) mg/dL ABG Glucose (75-99) mg/dL Hemoglobin (13.0-17.5) gm/dL Sodium 136 L (137-145) mmol/L Chloride 110 H (98-107) mmol/L Carbon Dioxide 19 L (22-30) mmol/L BUN 27 H (9-20) mg/dL Glucose 140 H (74-99) mg/dL POC Glucose (mg/dL) 137 H (70-110) mg/dL Total Protein 4.9 L (6.3-8.2) g/dL Albumin 3.1 L (3.5-5.0) g/dL Arterial Blood Glucose (75-99) mg/dL Crossmatch 05/04/23 05/04/23 05/04/23 Range/Units 15:52 16:11 17:12 WBC (3.8-10.6) k/uL RBC (4.30-5.90) m/uL Hgb (13.0-17.5) gm/dL Hct (39.0-53.0) % Plt Count (150-450) k/uL Neutrophils # (1.3-7.7) k/uL Lymphocytes # (1.0-4.8) k/uL Monocytes # (0-1.0) k/uL PT (10.0-12.5) sec INR (<1.2) APTT (22.0-30.0) sec ABG pH 7.24 L (7.35-7.45) ABG pCO2 50 H (35-45) mmHg ABG pO2 329 H (83-108) mmHg ABG HCO3 (21-25) mmol/L ABG Total CO2 (19-24) mmol/L ABG O2 Saturation 99.6 H (94-97) % ABG Ionized Calcium (4.5-5.3) mg/dL ABG Glucose (75-99) mg/dL Hemoglobin (13.0-17.5) gm/dL Sodium (137-145) mmol/L Chloride (98-107) mmol/L Carbon Dioxide (22-30) mmol/L BUN (9-20) mg/dL Glucose (74-99) mg/dL POC Glucose (mg/dL) 119 H 190 H (70-110) mg/dL Total Protein (6.3-8.2) g/dL Albumin (3.5-5.0) g/dL Arterial Blood Glucose (75-99) mg/dL Crossmatch 05/04/23 05/04/23 05/04/23 Range/Units 18:05 18:07 18:51 WBC 13.3 H (3.8-10.6) k/uL RBC 3.59 L (4.30-5.90) m/uL Hgb 11.8 L (13.0-17.5) gm/dL Hct 34.5 L (39.0-53.0) % Plt Count 133 L (150-450) k/uL Neutrophils # 11.8 H (1.3-7.7) k/uL Lymphocytes # 0.7 L (1.0-4.8) k/uL Monocytes # (0-1.0) k/uL PT (10.0-12.5) sec INR (<1.2) APTT (22.0-30.0) sec ABG pH (7.35-7.45) ABG pCO2 (35-45) mmHg ABG pO2 (83-108) mmHg ABG HCO3 (21-25) mmol/L ABG Total CO2 (19-24) mmol/L ABG O2 Saturation (94-97) % ABG Ionized Calcium (4.5-5.3) mg/dL ABG Glucose (75-99) mg/dL Hemoglobin (13.0-17.5) gm/dL Sodium (137-145) mmol/L Chloride (98-107) mmol/L Carbon Dioxide (22-30) mmol/L BUN (9-20) mg/dL Glucose (74-99) mg/dL POC Glucose (mg/dL) 191 H 198 H (70-110) mg/dL Total Protein (6.3-8.2) g/dL Albumin (3.5-5.0) g/dL Arterial Blood Glucose (75-99) mg/dL Crossmatch 05/04/23 05/04/23 05/04/23 Range/Units 19:57 20:15 20:55 WBC 14.1 H (3.8-10.6) k/uL RBC 3.71 L (4.30-5.90) m/uL Hgb 11.8 L (13.0-17.5) gm/dL Hct 35.4 L (39.0-53.0) % Plt Count 123 L (150-450) k/uL Neutrophils # 12.4 H (1.3-7.7) k/uL Lymphocytes # 0.8 L (1.0-4.8) k/uL Monocytes # (0-1.0) k/uL PT (10.0-12.5) sec INR (<1.2) APTT (22.0-30.0) sec ABG pH 7.30 L (7.35-7.45) ABG pCO2 (35-45) mmHg ABG pO2 75 L (83-108) mmHg ABG HCO3 19 L (21-25) mmol/L ABG Total CO2 (19-24) mmol/L ABG O2 Saturation (94-97) % ABG Ionized Calcium (4.5-5.3) mg/dL ABG Glucose (75-99) mg/dL Hemoglobin (13.0-17.5) gm/dL Sodium (137-145) mmol/L Chloride (98-107) mmol/L Carbon Dioxide (22-30) mmol/L BUN (9-20) mg/dL Glucose (74-99) mg/dL POC Glucose (mg/dL) 191 H (70-110) mg/dL Total Protein (6.3-8.2) g/dL Albumin (3.5-5.0) g/dL Arterial Blood Glucose (75-99) mg/dL Crossmatch 05/04/23 05/04/23 05/04/23 Range/Units 20:56 22:00 23:00 WBC (3.8-10.6) k/uL RBC (4.30-5.90) m/uL Hgb (13.0-17.5) gm/dL Hct (39.0-53.0) % Plt Count (150-450) k/uL Neutrophils # (1.3-7.7) k/uL Lymphocytes # (1.0-4.8) k/uL Monocytes # (0-1.0) k/uL PT (10.0-12.5) sec INR (<1.2) APTT (22.0-30.0) sec ABG pH (7.35-7.45) ABG pCO2 (35-45) mmHg ABG pO2 (83-108) mmHg ABG HCO3 (21-25) mmol/L ABG Total CO2 (19-24) mmol/L ABG O2 Saturation (94-97) % ABG Ionized Calcium (4.5-5.3) mg/dL ABG Glucose (75-99) mg/dL Hemoglobin (13.0-17.5) gm/dL Sodium (137-145) mmol/L Chloride (98-107) mmol/L Carbon Dioxide (22-30) mmol/L BUN (9-20) mg/dL Glucose (74-99) mg/dL POC Glucose (mg/dL) 186 H 153 H 130 H (70-110) mg/dL Total Protein (6.3-8.2) g/dL Albumin (3.5-5.0) g/dL Arterial Blood Glucose (75-99) mg/dL Crossmatch 05/05/23 05/05/23 05/05/23 Range/Units 00:00 01:12 02:04 WBC (3.8-10.6) k/uL RBC (4.30-5.90) m/uL Hgb (13.0-17.5) gm/dL Hct (39.0-53.0) % Plt Count (150-450) k/uL Neutrophils # (1.3-7.7) k/uL Lymphocytes # (1.0-4.8) k/uL Monocytes # (0-1.0) k/uL PT (10.0-12.5) sec INR (<1.2) APTT (22.0-30.0) sec ABG pH (7.35-7.45) ABG pCO2 (35-45) mmHg ABG pO2 (83-108) mmHg ABG HCO3 (21-25) mmol/L ABG Total CO2 (19-24) mmol/L ABG O2 Saturation (94-97) % ABG Ionized Calcium (4.5-5.3) mg/dL ABG Glucose (75-99) mg/dL Hemoglobin (13.0-17.5) gm/dL Sodium (137-145) mmol/L Chloride (98-107) mmol/L Carbon Dioxide (22-30) mmol/L BUN (9-20) mg/dL Glucose (74-99) mg/dL POC Glucose (mg/dL) 116 H 114 H 137 H (70-110) mg/dL Total Protein (6.3-8.2) g/dL Albumin (3.5-5.0) g/dL Arterial Blood Glucose (75-99) mg/dL Crossmatch 05/05/23 05/05/23 05/05/23 Range/Units 03:03 04:02 05:09 WBC (3.8-10.6) k/uL RBC (4.30-5.90) m/uL Hgb (13.0-17.5) gm/dL Hct (39.0-53.0) % Plt Count (150-450) k/uL Neutrophils # (1.3-7.7) k/uL Lymphocytes # (1.0-4.8) k/uL Monocytes # (0-1.0) k/uL PT (10.0-12.5) sec INR (<1.2) APTT (22.0-30.0) sec ABG pH (7.35-7.45) ABG pCO2 (35-45) mmHg ABG pO2 (83-108) mmHg ABG HCO3 (21-25) mmol/L ABG Total CO2 (19-24) mmol/L ABG O2 Saturation (94-97) % ABG Ionized Calcium (4.5-5.3) mg/dL ABG Glucose (75-99) mg/dL Hemoglobin (13.0-17.5) gm/dL Sodium (137-145) mmol/L Chloride (98-107) mmol/L Carbon Dioxide (22-30) mmol/L BUN (9-20) mg/dL Glucose (74-99) mg/dL POC Glucose (mg/dL) 162 H 138 H 140 H (70-110) mg/dL Total Protein (6.3-8.2) g/dL Albumin (3.5-5.0) g/dL Arterial Blood Glucose (75-99) mg/dL Crossmatch 05/05/23 05/05/23 05/05/23 Range/Units 05:10 05:10 06:02 WBC 16.2 H (3.8-10.6) k/uL RBC 3.92 L (4.30-5.90) m/uL Hgb 12.5 L (13.0-17.5) gm/dL Hct 37.3 L (39.0-53.0) % Plt Count 136 L (150-450) k/uL Neutrophils # 13.0 H (1.3-7.7) k/uL Lymphocytes # (1.0-4.8) k/uL Monocytes # 1.1 H (0-1.0) k/uL PT (10.0-12.5) sec INR (<1.2) APTT (22.0-30.0) sec ABG pH (7.35-7.45) ABG pCO2 (35-45) mmHg ABG pO2 (83-108) mmHg ABG HCO3 (21-25) mmol/L ABG Total CO2 (19-24) mmol/L ABG O2 Saturation (94-97) % ABG Ionized Calcium (4.5-5.3) mg/dL ABG Glucose (75-99) mg/dL Hemoglobin (13.0-17.5) gm/dL Sodium 135 L (137-145) mmol/L Chloride 108 H (98-107) mmol/L Carbon Dioxide 19 L (22-30) mmol/L BUN 23 H (9-20) mg/dL Glucose 125 H (74-99) mg/dL POC Glucose (mg/dL) 141 H (70-110) mg/dL Total Protein 5.2 L (6.3-8.2) g/dL Albumin 3.2 L (3.5-5.0) g/dL Arterial Blood Glucose (75-99) mg/dL Crossmatch 05/05/23 05/05/23 Range/Units 06:57 08:21 WBC (3.8-10.6) k/uL RBC (4.30-5.90) m/uL Hgb (13.0-17.5) gm/dL Hct (39.0-53.0) % Plt Count (150-450) k/uL Neutrophils # (1.3-7.7) k/uL Lymphocytes # (1.0-4.8) k/uL Monocytes # (0-1.0) k/uL PT (10.0-12.5) sec INR (<1.2) APTT (22.0-30.0) sec ABG pH (7.35-7.45) ABG pCO2 (35-45) mmHg ABG pO2 (83-108) mmHg ABG HCO3 (21-25) mmol/L ABG Total CO2 (19-24) mmol/L ABG O2 Saturation (94-97) % ABG Ionized Calcium (4.5-5.3) mg/dL ABG Glucose (75-99) mg/dL Hemoglobin (13.0-17.5) gm/dL Sodium (137-145) mmol/L Chloride (98-107) mmol/L Carbon Dioxide (22-30) mmol/L BUN (9-20) mg/dL Glucose (74-99) mg/dL POC Glucose (mg/dL) 128 H 141 H (70-110) mg/dL Total Protein (6.3-8.2) g/dL Albumin (3.5-5.0) g/dL Arterial Blood Glucose (75-99) mg/dL Crossmatch Assessment and Plan Plan: Assessment Multivessel coronary artery disease with previous PCI. The patient presented with chest pain and acute non-ST segment elevation myocardial infarction. The patient had a repeat cardiac catheterization showed extensive CAD and the patient is being worked up for coronary artery bypass surgery. The patient underwent 2 vessel bypass surgery with VERGARA to LAD and SVG to diagonal. The patient is postop day #1 8 and [place]-Sara catheter is minimal. Hemodynamically stable. Currently on no pressors.. Postthoracotomy, extubated and patient is currently on 6 L of oxygen by nasal cannula. Chest tubes are in place. Using incentive spirometer. No complications noted on today's chest x-ray. Morbidly obese, BMI 43.9. COPD with an FEV1 of 66% of predicted currently inactive and stable Possible obstructive sleep apnea Hypertension Hyperlipidemia Insulin-dependent diabetes mellitus, currently on insulin drip for blood sugar control Peripheral vascular disease with intermittent claudication History of smoking Plan Continue I-S Aspirin Plavix Metoprolol at a dose of 25 mg by mouth twice a day Chest x-ray noted Nitroglycerin has been discontinued Keep the chest tubes in place for another 24 hours and monitor the output Chest x-ray in the morning Cardiac rhythm is sinus Pain is under adequate control We'll try to ambulate We'll continue to follow keep the insulin drip for today. We'll switch him tomorrow +. No issues
[2023-05-05] MEDS ORDERED: MAGNESIUM HYDROXIDE 2,400 MG/30 ML CUP PO PRN (09:00)
[2023-05-05] MEDS ORDERED: bisacodyL 10 MG SUPP RECTAL PRN (09:00)
[2023-05-05] MEDS ORDERED: METOPROLOL TARTRATE 12.5 MG TAB PO SCH (09:00)
[2023-05-05] MEDS ORDERED: PANTOPRAZOLE 40 MG/10 ML VIAL IVP SCH (09:00)
[2023-05-05 09:37] LABS: Glucose,Whole Blood 153 mg/dL (70-110)
[2023-05-05 11:01] LABS: Glucose,Whole Blood 146 mg/dL (70-110)
[2023-05-05] MEDS ORDERED: LOSARTAN 25 MG TAB PO SCH (12:00)
[2023-05-05 12:33] LABS: Glucose,Whole Blood 138 mg/dL (70-110)
--- NOTE | 2023-05-05 13:41 | P.PN ---
Subjective Progress Note Date: 05/05/23 This is a 63-year-old gentleman admitted with an NSTEMI, morbid obesity, history of CAD with previous PCI years ago, DM, nicotine dependence and multiple other medical issues status post cardiac catheterization. Completed cardiac catheterization this morning reporting 100% LAD in-stent stenosis, 99% mid RCA in-stent stenosis, mild disease of left circumflex and into PDA and PLV branch, normal LVEDP, ischemic cardiomyopathy EF 40%. CTS consulted regarding potential CABG. Currently denies chest pain, palpitations or shortness of breath. Denies nausea or vomiting. 05/01/2023 evaluated by cardiothoracic surgery and is scheduled for CABG on Sunday. Plavix remains on hold. Denies chest pain, palpitations or shortness of breath. Positive diet intake with no nausea vomiting or diarrhea. Blood sugars running higher over the last 24 hours, currently in the low 200s. Denies abdominal pain. Using incentive spirometer, up to 2500. Afebrile. 05/02/2023 Plavix remains on hold, scheduled for CABG on Sunday. Denies chest pain, palpitations shortness of breath. Denies chills or sweats. Blood sugars currently in the 200s. Compliant with incentive spirometer, greater than 2200. 05/03/23 sitting up in chair, IS [id number]. Denies chest pain, palpitations or shortness of breath. Blood sugars this morning in the mid 200s, additional Levemir ordered. 05/04/2023 patient not seen this morning, as patient in preop for CABG procedure. 05/05. Patient seen and examined. Patient currently in ICU, extubated, currently on oxygen via nasal cannula. States he feels much better. Patient has chest tubes in. Tolerating diet REVIEW OF SYSTEMS: CONSTITUTIONAL: No fever, no malaise,. CARDIOVASCULAR: No chest pain, no palpitations, no syncope. PULMONARY: No shortness of breath, no cough, GASTROINTESTINAL: No diarrhea, no nausea, no vomiting, no abdominal pain. NEUROLOGICAL: No headaches, no weakness, PHYSICAL EXAMINATION: GENERAL: The patient is alert and oriented x3, not in any acute distress. Well developed, well nourished. HEENT: Pupils are round and equally reacting to light. EOMI. No scleral icterus. No conjunctival pallor. Normocephalic, atraumatic. No pharyngeal erythema. No thyromegaly. CARDIOVASCULAR: S1 and S2 present. No murmurs, rubs, or gallops. PULMONARY: Thoracotomy scar seen, chest tubes seen, diminished breath sounds at bases ABDOMEN: Soft, nontender, nondistended, normoactive bowel sounds. No palpable organomegaly. MUSCULOSKELETAL: No joint swelling or deformity. EXTREMITIES: No cyanosis, clubbing, or pedal edema. NEUROLOGICAL: Gross neurological examination did not reveal any focal deficits. SKIN: No rashes. Assessment and plan Acute NSTEMI, status post cardiac catheterization reporting 100% LAD in-stent stenosis and 99% mid RCA in-stent stenosis status post 2 vessel bypass surgery with VERGARA to LAD and SVG to diagonal on 05/04 CAD with hx of PCI Diabetes mellitus type 2, hemoglobin A1c 9.1, hypertension Hyperlipidemia Morbid obesity, BMI 44 COPD Ongoing nicotine dependence Monitor vital signs Monitor CBC Monitor CMP Continue telemetry monitoring Continue postop care per cardiac surgery Continue chest tube management per surgery Aggressive bronchopulmonary hygiene Encourage use of I-S Monitor blood sugar levels, currently on insulin drip Continue aspirin, Plavix, Lipitor Continue Lopressor, losartan Critical care following Cardiac surgery following Labs and medication were reviewed.. Continue same treatment. Continue with symptomatic treatment. Resume home medication. Monitor labs and vitals. DVT and GI prophylaxis. Further recommendations as per clinical course of the patient Dictation was produced using [employer] dictation software. please excuse any gr ammatical, word or spelling errors. Objective - Vital Signs Vital signs: Vital Signs Temp 98.4 F 05/05/23 12:00 Pulse 87 05/05/23 12:00 Resp 18 05/05/23 12:00 BP 109/63 05/05/23 08:00 Pulse Ox 94 L 05/05/23 12:00 FiO2 50 05/04/23 20:00 Intake & Output 05/04/23 05/05/23 05/05/23 18:59 06:59 18:59 Intake Total 1535.304 3729.997 477.624 Output Total 2555 1460 365 Balance -1093.313 -54.003 112.624 Weight 120.8 kg 120.8 kg Intake: IV 200 1122 250 Albumin Human 5% 250 ml 250 In Empty Bag 1 bag @ 250 mls/hr IVPB Q1HR PRN Rx#: [id number] Lactated Ringers 1,000 ml 550 180 @ 20 mls/hr IV .Q24H [facility] Rx#:[id number] ceFAZolin 3 gm In Sodium 100 Chloride 0.9% 100 ml @ 200 mls/hr IVPB ONCE ONE Rx#:[id number] ns cardiac output 60 120 40 ns pressure bags 36 102 30 Intake, IV Titration 1261.687 283.997 127.624 Amount ACETAMINOPHEN IV (For NPO 100 100 ) 1,000 mg In Empty Bag 1 bag @ 400 mls/hr IVPB Q6HR [facility] Rx#:[id number] Albumin Human 5% 250 ml 750 In Empty Bag 1 bag @ 250 mls/hr IVPB Q1HR PRN Rx#: [id number] Dexmedetomidine/0.9% NaCl 14.606 71.282 (Pmx) 400 mcg In Empty Bag 1 bag @ Titrate IV . Q0M [facility] Rx#:[id number] Insulin Regular 100 unit 7.020 48.261 27.624 In Sodium Chloride 0.9% 100 ml @ Per Protocol IV .Q0M [facility] Rx#:[id number] Insulin Regular 100 unit 0.5 In Sodium Chloride 0.9% 100 ml @ Titrate IV .Q0M [facility] Rx#:[id number] Lactated Ringers 1,000 ml 150 50 @ 20 mls/hr IV .Q24H [facility] Rx#:[id number] Nitroglycerin-D5w Pmx 50 4.5 1.5 mg In Dextrose/Water 1 250ml.bag @ 5 MCG/MIN 1.5 mls/hr IV .Q24H [facility] Rx#: [id number] ceFAZolin 3 gm In Sodium 100 100 Chloride 0.9% 100 ml @ 100 mls/hr IVPB Q8HR [facility] Rx#:[id number] propofoL 1,000 mg In 135.061 12.954 Empty Bag 1 bag @ Titrate IV .Q0M [facility] Rx#: [id number] Oral 100 Output: Chest Tube Drainage 235 805 200 Mediastinal 90 515 90 Rt&Lt Ple[address] CT 145 290 110 Urine 520 655 165 Estimated Blood Loss 1800 Other: Voiding Method Indwelling Catheter Indwelling Catheter Indwelling Catheter ABP, PAP, CO, CI - Last Documented Arterial Blood Pressure 97/64 Pulmonary Artery Pressure 23/13 Cardiac Output 6.8 Cardiac Index 3.2 - Labs CBC & Chem 7: 10/28/23 05:10 05/05/23 05:10 Labs: Abnormal Lab Results - Last 24 Hours (Table) 05/03/23 05/04/23 05/04/23 Range/Units 06:34 09:30 09:30 WBC (3.8-10.6) k/uL RBC (4.30-5.90) m/uL Hgb (13.0-17.5) gm/dL Hct (39.0-53.0) % Plt Count (150-450) k/uL Neutrophils # (1.3-7.7) k/uL Lymphocytes # (1.0-4.8) k/uL Monocytes # (0-1.0) k/uL PT (10.0-12.5) sec INR (<1.2) APTT (22.0-30.0) sec ABG pH 7.34 L (7.35-7.45) ABG pCO2 (35-45) mmHg ABG pO2 383 H 121 H (83-108) mmHg ABG HCO3 (21-25) mmol/L ABG Total CO2 25 H 25 H (19-24) mmol/L ABG O2 Saturation 100.0 H 98.8 H (94-97) % ABG Ionized Calcium 5.4 H (4.5-5.3) mg/dL ABG Glucose 136 H 125 H (75-99) mg/dL Hemoglobin 12.6 L (13.0-17.5) gm/dL Sodium (137-145) mmol/L Chloride (98-107) mmol/L Carbon Dioxide (22-30) mmol/L BUN (9-20) mg/dL Glucose (74-99) mg/dL POC Glucose (mg/dL) (70-110) mg/dL Total Protein (6.3-8.2) g/dL Albumin (3.5-5.0) g/dL Arterial Blood Glucose 136 H 125 H (75-99) mg/dL Crossmatch See Detail 05/04/23 05/04/23 05/04/23 Range/Units 09:30 09:30 15:03 WBC 18.9 H (3.8-10.6) k/uL RBC 3.95 L (4.30-5.90) m/uL Hgb 12.7 L (13.0-17.5) gm/dL Hct 37.5 L (39.0-53.0) % Plt Count 114 L D (150-450) k/uL Neutrophils # 15.5 H (1.3-7.7) k/uL Lymphocytes # (1.0-4.8) k/uL Monocytes # (0-1.0) k/uL PT (10.0-12.5) sec INR (<1.2) APTT (22.0-30.0) sec ABG pH 7.33 L (7.35-7.45) ABG pCO2 (35-45) mmHg ABG pO2 188 H 179 H (83-108) mmHg ABG HCO3 (21-25) mmol/L ABG Total CO2 26 H (19-24) mmol/L ABG O2 Saturation 99.7 H 99.6 H (94-97) % ABG Ionized Calcium (4.5-5.3) mg/dL ABG Glucose 120 H 114 H (75-99) mg/dL Hemoglobin 12.6 L 11.1 L (13.0-17.5) gm/dL Sodium (137-145) mmol/L Chloride (98-107) mmol/L Carbon Dioxide (22-30) mmol/L BUN (9-20) mg/dL Glucose (74-99) mg/dL POC Glucose (mg/dL) (70-110) mg/dL Total Protein (6.3-8.2) g/dL Albumin (3.5-5.0) g/dL Arterial Blood Glucose 120 H 114 H (75-99) mg/dL Crossmatch 05/04/23 05/04/23 05/04/23 Range/Units 15:03 15:03 15:10 WBC (3.8-10.6) k/uL RBC (4.30-5.90) m/uL Hgb (13.0-17.5) gm/dL Hct (39.0-53.0) % Plt Count (150-450) k/uL Neutrophils # (1.3-7.7) k/uL Lymphocytes # (1.0-4.8) k/uL Monocytes # (0-1.0) k/uL PT 12.9 H (10.0-12.5) sec INR 1.2 H (<1.2) APTT 21.6 L (22.0-30.0) sec ABG pH (7.35-7.45) ABG pCO2 (35-45) mmHg ABG pO2 (83-108) mmHg ABG HCO3 (21-25) mmol/L ABG Total CO2 (19-24) mmol/L ABG O2 Saturation (94-97) % ABG Ionized Calcium (4.5-5.3) mg/dL ABG Glucose (75-99) mg/dL Hemoglobin (13.0-17.5) gm/dL Sodium 136 L (137-145) mmol/L Chloride 110 H (98-107) mmol/L Carbon Dioxide 19 L (22-30) mmol/L BUN 27 H (9-20) mg/dL Glucose 140 H (74-99) mg/dL POC Glucose (mg/dL) 137 H (70-110) mg/dL Total Protein 4.9 L (6.3-8.2) g/dL Albumin 3.1 L (3.5-5.0) g/dL Arterial Blood Glucose (75-99) mg/dL Crossmatch 05/04/23 05/04/23 05/04/23 Range/Units 15:52 16:11 17:12 WBC (3.8-10.6) k/uL RBC (4.30-5.90) m/uL Hgb (13.0-17.5) gm/dL Hct (39.0-53.0) % Plt Count (150-450) k/uL Neutrophils # (1.3-7.7) k/uL Lymphocytes # (1.0-4.8) k/uL Monocytes # (0-1.0) k/uL PT (10.0-12.5) sec INR (<1.2) APTT (22.0-30.0) sec ABG pH 7.24 L (7.35-7.45) ABG pCO2 50 H (35-45) mmHg ABG pO2 329 H (83-108) mmHg ABG HCO3 (21-25) mmol/L ABG Total CO2 (19-24) mmol/L ABG O2 Saturation 99.6 H (94-97) % ABG Ionized Calcium (4.5-5.3) mg/dL ABG Glucose (75-99) mg/dL Hemoglobin (13.0-17.5) gm/dL Sodium (137-145) mmol/L Chloride (98-107) mmol/L Carbon Dioxide (22-30) mmol/L BUN (9-20) mg/dL Glucose (74-99) mg/dL POC Glucose (mg/dL) 119 H 190 H (70-110) mg/dL Total Protein (6.3-8.2) g/dL Albumin (3.5-5.0) g/dL Arterial Blood Glucose (75-99) mg/dL Crossmatch 05/04/23 05/04/23 05/04/23 Range/Units 18:05 18:07 18:51 WBC 13.3 H (3.8-10.6) k/uL RBC 3.59 L (4.30-5.90) m/uL Hgb 11.8 L (13.0-17.5) gm/dL Hct 34.5 L (39.0-53.0) % Plt Count 133 L (150-450) k/uL Neutrophils # 11.8 H (1.3-7.7) k/uL Lymphocytes # 0.7 L (1.0-4.8) k/uL Monocytes # (0-1.0) k/uL PT (10.0-12.5) sec INR (<1.2) APTT (22.0-30.0) sec ABG pH (7.35-7.45) ABG pCO2 (35-45) mmHg ABG pO2 (83-108) mmHg ABG HCO3 (21-25) mmol/L ABG Total CO2 (19-24) mmol/L ABG O2 Saturation (94-97) % ABG Ionized Calcium (4.5-5.3) mg/dL ABG Glucose (75-99) mg/dL Hemoglobin (13.0-17.5) gm/dL Sodium (137-145) mmol/L Chloride (98-107) mmol/L Carbon Dioxide (22-30) mmol/L BUN (9-20) mg/dL Glucose (74-99) mg/dL POC Glucose (mg/dL) 191 H 198 H (70-110) mg/dL Total Protein (6.3-8.2) g/dL Albumin (3.5-5.0) g/dL Arterial Blood Glucose (75-99) mg/dL Crossmatch 05/04/23 05/04/23 05/04/23 Range/Units 19:57 20:15 20:55 WBC 14.1 H (3.8-10.6) k/uL RBC 3.71 L (4.30-5.90) m/uL Hgb 11.8 L (13.0-17.5) gm/dL Hct 35.4 L (39.0-53.0) % Plt Count 123 L (150-450) k/uL Neutrophils # 12.4 H (1.3-7.7) k/uL Lymphocytes # 0.8 L (1.0-4.8) k/uL Monocytes # (0-1.0) k/uL PT (10.0-12.5) sec INR (<1.2) APTT (22.0-30.0) sec ABG pH 7.30 L (7.35-7.45) ABG pCO2 (35-45) mmHg ABG pO2 75 L (83-108) mmHg ABG HCO3 19 L (21-25) mmol/L ABG Total CO2 (19-24) mmol/L ABG O2 Saturation (94-97) % ABG Ionized Calcium (4.5-5.3) mg/dL ABG Glucose (75-99) mg/dL Hemoglobin (13.0-17.5) gm/dL Sodium (137-145) mmol/L Chloride (98-107) mmol/L Carbon Dioxide (22-30) mmol/L BUN (9-20) mg/dL Glucose (74-99) mg/dL POC Glucose (mg/dL) 191 H (70-110) mg/dL Total Protein (6.3-8.2) g/dL Albumin (3.5-5.0) g/dL Arterial Blood Glucose (75-99) mg/dL Crossmatch 05/04/23 05/04/23 05/04/23 Range/Units 20:56 22:00 23:00 WBC (3.8-10.6) k/uL RBC (4.30-5.90) m/uL Hgb (13.0-17.5) gm/dL Hct (39.0-53.0) % Plt Count (150-450) k/uL Neutrophils # (1.3-7.7) k/uL Lymphocytes # (1.0-4.8) k/uL Monocytes # (0-1.0) k/uL PT (10.0-12.5) sec INR (<1.2) APTT (22.0-30.0) sec ABG pH (7.35-7.45) ABG pCO2 (35-45) mmHg ABG pO2 (83-108) mmHg ABG HCO3 (21-25) mmol/L ABG Total CO2 (19-24) mmol/L ABG O2 Saturation (94-97) % ABG Ionized Calcium (4.5-5.3) mg/dL ABG Glucose (75-99) mg/dL Hemoglobin (13.0-17.5) gm/dL Sodium (137-145) mmol/L Chloride (98-107) mmol/L Carbon Dioxide (22-30) mmol/L BUN (9-20) mg/dL Glucose (74-99) mg/dL POC Glucose (mg/dL) 186 H 153 H 130 H (70-110) mg/dL Total Protein (6.3-8.2) g/dL Albumin (3.5-5.0) g/dL Arterial Blood Glucose (75-99) mg/dL Crossmatch 05/05/23 05/05/23 05/05/23 Range/Units 00:00 01:12 02:04 WBC (3.8-10.6) k/uL RBC (4.30-5.90) m/uL Hgb (13.0-17.5) gm/dL Hct (39.0-53.0) % Plt Count (150-450) k/uL Neutrophils # (1.3-7.7) k/uL Lymphocytes # (1.0-4.8) k/uL Monocytes # (0-1.0) k/uL PT (10.0-12.5) sec INR (<1.2) APTT (22.0-30.0) sec ABG pH (7.35-7.45) ABG pCO2 (35-45) mmHg ABG pO2 (83-108) mmHg ABG HCO3 (21-25) mmol/L ABG Total CO2 (19-24) mmol/L ABG O2 Saturation (94-97) % ABG Ionized Calcium (4.5-5.3) mg/dL ABG Glucose (75-99) mg/dL Hemoglobin (13.0-17.5) gm/dL Sodium (137-145) mmol/L Chloride (98-107) mmol/L Carbon Dioxide (22-30) mmol/L BUN (9-20) mg/dL Glucose (74-99) mg/dL POC Glucose (mg/dL) 116 H 114 H 137 H (70-110) mg/dL Total Protein (6.3-8.2) g/dL Albumin (3.5-5.0) g/dL Arterial Blood Glucose (75-99) mg/dL Crossmatch 05/05/23 05/05/23 05/05/23 Range/Units 03:03 04:02 05:09 WBC (3.8-10.6) k/uL RBC (4.30-5.90) m/uL Hgb (13.0-17.5) gm/dL Hct (39.0-53.0) % Plt Count (150-450) k/uL Neutrophils # (1.3-7.7) k/uL Lymphocytes # (1.0-4.8) k/uL Monocytes # (0-1.0) k/uL PT (10.0-12.5) sec INR (<1.2) APTT (22.0-30.0) sec ABG pH (7.35-7.45) ABG pCO2 (35-45) mmHg ABG pO2 (83-108) mmHg ABG HCO3 (21-25) mmol/L ABG Total CO2 (19-24) mmol/L ABG O2 Saturation (94-97) % ABG Ionized Calcium (4.5-5.3) mg/dL ABG Glucose (75-99) mg/dL Hemoglobin (13.0-17.5) gm/dL Sodium (137-145) mmol/L Chloride (98-107) mmol/L Carbon Dioxide (22-30) mmol/L BUN (9-20) mg/dL Glucose (74-99) mg/dL POC Glucose (mg/dL) 162 H 138 H 140 H (70-110) mg/dL Total Protein (6.3-8.2) g/dL Albumin (3.5-5.0) g/dL Arterial Blood Glucose (75-99) mg/dL Crossmatch 05/05/23 05/05/23 05/05/23 Range/Units 05:10 05:10 06:02 WBC 16.2 H (3.8-10.6) k/uL RBC 3.92 L (4.30-5.90) m/uL Hgb 12.5 L (13.0-17.5) gm/dL Hct 37.3 L (39.0-53.0) % Plt Count 136 L (150-450) k/uL Neutrophils # 13.0 H (1.3-7.7) k/uL Lymphocytes # (1.0-4.8) k/uL Monocytes # 1.1 H (0-1.0) k/uL PT (10.0-12.5) sec INR (<1.2) APTT (22.0-30.0) sec ABG pH (7.35-7.45) ABG pCO2 (35-45) mmHg ABG pO2 (83-108) mmHg ABG HCO3 (21-25) mmol/L ABG Total CO2 (19-24) mmol/L ABG O2 Saturation (94-97) % ABG Ionized Calcium (4.5-5.3) mg/dL ABG Glucose (75-99) mg/dL Hemoglobin (13.0-17.5) gm/dL Sodium 135 L (137-145) mmol/L Chloride 108 H (98-107) mmol/L Carbon Dioxide 19 L (22-30) mmol/L BUN 23 H (9-20) mg/dL Glucose 125 H (74-99) mg/dL POC Glucose (mg/dL) 141 H (70-110) mg/dL Total Protein 5.2 L (6.3-8.2) g/dL Albumin 3.2 L (3.5-5.0) g/dL Arterial Blood Glucose (75-99) mg/dL Crossmatch 05/05/23 05/05/23 05/05/23 Range/Units 06:57 08:21 09:35 WBC (3.8-10.6) k/uL RBC (4.30-5.90) m/uL Hgb (13.0-17.5) gm/dL Hct (39.0-53.0) % Plt Count (150-450) k/uL Neutrophils # (1.3-7.7) k/uL Lymphocytes # (1.0-4.8) k/uL Monocytes # (0-1.0) k/uL PT (10.0-12.5) sec INR (<1.2) APTT (22.0-30.0) sec ABG pH (7.35-7.45) ABG pCO2 (35-45) mmHg ABG pO2 (83-108) mmHg ABG HCO3 (21-25) mmol/L ABG Total CO2 (19-24) mmol/L ABG O2 Saturation (94-97) % ABG Ionized Calcium (4.5-5.3) mg/dL ABG Glucose (75-99) mg/dL Hemoglobin (13.0-17.5) gm/dL Sodium (137-145) mmol/L Chloride (98-107) mmol/L Carbon Dioxide (22-30) mmol/L BUN (9-20) mg/dL Glucose (74-99) mg/dL POC Glucose (mg/dL) 128 H 141 H 153 H (70-110) mg/dL Total Protein (6.3-8.2) g/dL Albumin (3.5-5.0) g/dL Arterial Blood Glucose (75-99) mg/dL Crossmatch 05/05/23 05/05/23 Range/Units 11:00 12:30 WBC (3.8-10.6) k/uL RBC (4.30-5.90) m/uL Hgb (13.0-17.5) gm/dL Hct (39.0-53.0) % Plt Count (150-450) k/uL Neutrophils # (1.3-7.7) k/uL Lymphocytes # (1.0-4.8) k/uL Monocytes # (0-1.0) k/uL PT (10.0-12.5) sec INR (<1.2) APTT (22.0-30.0) sec ABG pH (7.35-7.45) ABG pCO2 (35-45) mmHg ABG pO2 (83-108) mmHg ABG HCO3 (21-25) mmol/L ABG Total CO2 (19-24) mmol/L ABG O2 Saturation (94-97) % ABG Ionized Calcium (4.5-5.3) mg/dL ABG Glucose (75-99) mg/dL Hemoglobin (13.0-17.5) gm/dL Sodium (137-145) mmol/L Chloride (98-107) mmol/L Carbon Dioxide (22-30) mmol/L BUN (9-20) mg/dL Glucose (74-99) mg/dL POC Glucose (mg/dL) 146 H 138 H (70-110) mg/dL Total Protein (6.3-8.2) g/dL Albumin (3.5-5.0) g/dL Arterial Blood Glucose (75-99) mg/dL Crossmatch
[2023-05-05 13:49] VITALS: BMI 41.7
[2023-05-05] MEDS: HYDROcodone/APAP 5-325MG 1 EACH TAB PO PRN ×2 (13:52→22:03)
[2023-05-05] MEDS: INSULIN REGULAR 100 UNIT in SODIUM CHLORIDE 0.9% 100 ML IV SCH (13:52)
[2023-05-05 13:57] LABS: Glucose,Whole Blood 133 mg/dL (70-110)
[2023-05-05] MEDS: LACTATED RINGERS 1,000 ML IV SCH (14:00)
[2023-05-05 15:38] LABS: Glucose,Whole Blood 115 mg/dL (70-110)
--- NOTE | 2023-05-05 16:21 | P.PN ---
Subjective HISTORY OF PRESENT ILLNESS: 63-year-old male with past medical history of CAD status post PCI in 2003. We don't have a cardiac cath report at hand at this time. 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 He would start experiencing pain after walking 2-3 blocks. Angina class III. His symptoms have been getting worse over last 1 month. It has became more severe in intensity and frequency. Is associated with difficulty in breathing which would get better with rest. Patient is ECG showed sinus rhythm with no significant ST-T wave changes. There are old Q waves system of old inferior ND Hemoglobin is 14, creatinine is within normal limit, troponin 0.01, 0.01, 0.08. 04/29/2023 Progress note: Patient is seen and examined at bedside the same. He is hemodynamics stable. Dull chest pain on and off. Echo Showed an EF of 40% with inferoapical hypokinesia 05/01/2023 Patient is status post cardiac catheterization revealing 100% LAD in-stent stenosis, 99% mid RCA in-stent stenosis, mild disease in left circumflex and mild disease and PDA and PLV branch. Cardiothoracic surgery was consulted for evaluation for possible CABG. Patient examined this morning. Patient is sitting in the chair. Patient denies any chest pain or pressure. He denies shortness of breath. 05/02/2023 Patient examined this morning. He is sitting up in a chair. Patient denies chest pain or pressure. He denies shortness of breath. He states he has been up ambulating without difficulty. Vital signs are stable. 05/03/2023 Patient examined this morning. He is sitting up in a chair. Patient denies chest pain or pressure. He denies shortness of breath. He states he has been up ambulating without difficulty. Vital signs are stable. 05/04 Patient seen and examined. Patient underwent off-pump CABG with VERGARA to LAD and SVG to PDA today. Currently seen in the ICU off of any vasopressors on nitroglycerin 5, propofol and intubated and sedated. On 100% FiO2 and PEEP of 10 however been weaned. Cardiac output 5.0 and cardiac index 2.3. Remains in sinus rhythm. 05/05 Patient seen and examined. Patient was weaned off the ventilator and extubated currently on 5 L nasal cannula. He admits to some chest discomfort however was able to walk around the unit twice and only mild shortness breath. He is still fatigued and not much of an appetite however overall does not feel that bad. Blood pressures mainly in the 110s over 60s. White blood cell count 16, hemoglobin 12.5, platelets 136, BUN 23, creatinine 0.9. PHYSICAL EXAM: VITAL SIGNS: Reviewed. GENERAL: Well-developed in no acute distress. NECK: Supple. No JVD or thyromegaly LUNGS: Respirations even and unlabored. Lungs essentially clear to auscultation bilaterally. HEART: Regular rate and rhythm. S1 and S2 heard. EXTREMITIES: Normal range of motion. No clubbing or cyanosis. Peripheral pulses intact. No lower extremity edema ASSESSMENT: Non-STEMI Coronary artery disease with previous PCI, s/p CABG 05/04 with VERGARA to LAD and SVG to PDA Hypertension Hyperlipidemia Diabetes Morbid obesity Nicotine dependence PLAN: Continue with amiodarone for A. fib prevention as well as aspirin and Plavix. Blood pressure is borderline however appears to be tolerating Lopressor 25 mg twice a day as well as losartan. Continue with current supportive care. Further recommendations to follow. Objective - Vital Signs Vital signs: Vital Signs Temp 98.4 F 05/05/23 12:00 Pulse 82 05/05/23 15:30 Resp 18 05/05/23 15:00 BP 115/71 05/05/23 15:00 Pulse Ox 95 05/05/23 15:00 FiO2 50 05/04/23 20:00 Intake & Output 05/04/23 05/05/23 05/05/23 18:59 06:59 18:59 Intake Total 9467.176 8972.997 697.687 Output Total 2555 1460 445 Balance -1093.313 -54.003 252.687 Weight 120.8 kg 120.8 kg Intake: IV 200 1122 337 Albumin Human 5% 250 ml 250 In Empty Bag 1 bag @ 250 mls/hr IVPB Q1HR PRN Rx#: [id number] Lactated Ringers 1,000 ml 550 240 @ 20 mls/hr IV .Q24H [facility] Rx#:[id number] ceFAZolin 3 gm In Sodium 100 Chloride 0.9% 100 ml @ 200 mls/hr IVPB ONCE ONE Rx#:[id number] ns cardiac output 60 120 40 ns pressure bags 36 102 57 Intake, IV Titration 1261.687 283.997 140.687 Amount ACETAMINOPHEN IV (For NPO 100 100 ) 1,000 mg In Empty Bag 1 bag @ 400 mls/hr IVPB Q6HR [facility] Rx#:[id number] Albumin Human 5% 250 ml 750 In Empty Bag 1 bag @ 250 mls/hr IVPB Q1HR PRN Rx#: [id number] Dexmedetomidine/0.9% NaCl 14.606 71.282 (Pmx) 400 mcg In Empty Bag 1 bag @ Titrate IV . Q0M [facility] Rx#:[id number] Insulin Regular 100 unit 7.020 48.261 40.687 In Sodium Chloride 0.9% 100 ml @ Per Protocol IV .Q0M [facility] Rx#:[id number] Insulin Regular 100 unit 0.5 In Sodium Chloride 0.9% 100 ml @ Titrate IV .Q0M [facility] Rx#:[id number] Lactated Ringers 1,000 ml 150 50 @ 20 mls/hr IV .Q24H [facility] Rx#:[id number] Nitroglycerin-D5w Pmx 50 4.5 1.5 mg In Dextrose/Water 1 250ml.bag @ 5 MCG/MIN 1.5 mls/hr IV .Q24H [facility] Rx#: [id number] ceFAZolin 3 gm In Sodium 100 100 Chloride 0.9% 100 ml @ 100 mls/hr IVPB Q8HR [facility] Rx#:[id number] propofoL 1,000 mg In 135.061 12.954 Empty Bag 1 bag @ Titrate IV .Q0M [facility] Rx#: [id number] Oral 220 Output: Chest Tube Drainage 235 805 220 Mediastinal 90 515 [address] Rt&[address] 145 290 120 Urine 520 655 225 Estimated Blood Loss 1800 Other: Voiding Method Indwelling Catheter Indwelling Catheter Indwelling Catheter ABP, PAP, CO, CI - Last Documented Arterial Blood Pressure 91/56 Pulmonary Artery Pressure 23/13 Cardiac Output 6.8 Cardiac Index 3.2 - Labs CBC & Chem 7: 05/05/23 05:10 05/05/23 05:10 Labs: Abnormal Lab Results - Last 24 Hours (Table) 05/03/23 05/04/23 05/04/23 Range/Units 06:34 15:03 17:12 WBC (3.8-10.6) k/uL RBC (4.30-5.90) m/uL Hgb (13.0-17.5) gm/dL Hct (39.0-53.0) % Plt Count (150-450) k/uL Neutrophils # (1.3-7.7) k/uL Lymphocytes # (1.0-4.8) k/uL Monocytes # (0-1.0) k/uL ABG pH (7.35-7.45) ABG pO2 (83-108) mmHg ABG HCO3 (21-25) mmol/L Sodium 136 L (137-145) mmol/L Chloride 110 H (98-107) mmol/L Carbon Dioxide 19 L (22-30) mmol/L BUN 27 H (9-20) mg/dL Glucose 140 H (74-99) mg/dL POC Glucose (mg/dL) 190 H (70-110) mg/dL Total Protein 4.9 L (6.3-8.2) g/dL Albumin 3.1 L (3.5-5.0) g/dL Crossmatch See Detail 05/04/23 05/04/23 05/04/23 Range/Units 18:05 18:07 18:51 WBC 13.3 H (3.8-10.6) k/uL RBC 3.59 L (4.30-5.90) m/uL Hgb 11.8 L (13.0-17.5) gm/dL Hct 34.5 L (39.0-53.0) % Plt Count 133 L (150-450) k/uL Neutrophils # 11.8 H (1.3-7.7) k/uL Lymphocytes # 0.7 L (1.0-4.8) k/uL Monocytes # (0-1.0) k/uL ABG pH (7.35-7.45) ABG pO2 (83-108) mmHg ABG HCO3 (21-25) mmol/L Sodium (137-145) mmol/L Chloride (98-107) mmol/L Carbon Dioxide (22-30) mmol/L BUN (9-20) mg/dL Glucose (74-99) mg/dL POC Glucose (mg/dL) 191 H 198 H (70-110) mg/dL Total Protein (6.3-8.2) g/dL Albumin (3.5-5.0) g/dL Crossmatch 05/04/23 05/04/23 05/04/23 Range/Units 19:57 20:15 20:55 WBC 14.1 H (3.8-10.6) k/uL RBC 3.71 L (4.30-5.90) m/uL Hgb 11.8 L (13.0-17.5) gm/dL Hct 35.4 L (39.0-53.0) % Plt Count 123 L (150-450) k/uL Neutrophils # 12.4 H (1.3-7.7) k/uL Lymphocytes # 0.8 L (1.0-4.8) k/uL Monocytes # (0-1.0) k/uL ABG pH 7.30 L (7.35-7.45) ABG pO2 75 L (83-108) mmHg ABG HCO3 19 L (21-25) mmol/L Sodium (137-145) mmol/L Chloride (98-107) mmol/L Carbon Dioxide (22-30) mmol/L BUN (9-20) mg/dL Glucose (74-99) mg/dL POC Glucose (mg/dL) 191 H (70-110) mg/dL Total Protein (6.3-8.2) g/dL Albumin (3.5-5.0) g/dL Crossmatch 05/04/23 05/04/23 05/04/23 Range/Units 20:56 22:00 23:00 WBC (3.8-10.6) k/uL RBC (4.30-5.90) m/uL Hgb (13.0-17.5) gm/dL Hct (39.0-53.0) % Plt Count (150-450) k/uL Neutrophils # (1.3-7.7) k/uL Lymphocytes # (1.0-4.8) k/uL Monocytes # (0-1.0) k/uL ABG pH (7.35-7.45) ABG pO2 (83-108) mmHg ABG HCO3 (21-25) mmol/L Sodium (137-145) mmol/L Chloride (98-107) mmol/L Carbon Dioxide (22-30) mmol/L BUN (9-20) mg/dL Glucose (74-99) mg/dL POC Glucose (mg/dL) 186 H 153 H 130 H (70-110) mg/dL Total Protein (6.3-8.2) g/dL Albumin (3.5-5.0) g/dL Crossmatch 05/05/23 05/05/23 05/05/23 Range/Units 00:00 01:12 02:04 WBC (3.8-10.6) k/uL RBC (4.30-5.90) m/uL Hgb (13.0-17.5) gm/dL Hct (39.0-53.0) % Plt Count (150-450) k/uL Neutrophils # (1.3-7.7) k/uL Lymphocytes # (1.0-4.8) k/uL Monocytes # (0-1.0) k/uL ABG pH (7.35-7.45) ABG pO2 (83-108) mmHg ABG HCO3 (21-25) mmol/L Sodium (137-145) mmol/L Chloride (98-107) mmol/L Carbon Dioxide (22-30) mmol/L BUN (9-20) mg/dL Glucose (74-99) mg/dL POC Glucose (mg/dL) 116 H 114 H 137 H (70-110) mg/dL Total Protein (6.3-8.2) g/dL Albumin (3.5-5.0) g/dL Crossmatch 05/05/23 05/05/23 05/05/23 Range/Units 03:03 04:02 05:09 WBC (3.8-10.6) k/uL RBC (4.30-5.90) m/uL Hgb (13.0-17.5) gm/dL Hct (39.0-53.0) % Plt Count (150-450) k/uL Neutrophils # (1.3-7.7) k/uL Lymphocytes # (1.0-4.8) k/uL Monocytes # (0-1.0) k/uL ABG pH (7.35-7.45) ABG pO2 (83-108) mmHg ABG HCO3 (21-25) mmol/L Sodium (137-145) mmol/L Chloride (98-107) mmol/L Carbon Dioxide (22-30) mmol/L BUN (9-20) mg/dL Glucose (74-99) mg/dL POC Glucose (mg/dL) 162 H 138 H 140 H (70-110) mg/dL Total Protein (6.3-8.2) g/dL Albumin (3.5-5.0) g/dL Crossmatch 05/05/23 05/05/23 05/05/23 Range/Units 05:10 05:10 06:02 WBC 16.2 H (3.8-10.6) k/uL RBC 3.92 L (4.30-5.90) m/uL Hgb 12.5 L (13.0-17.5) gm/dL Hct 37.3 L (39.0-53.0) % Plt Count 136 L (150-450) k/uL Neutrophils # 13.0 H (1.3-7.7) k/uL Lymphocytes # (1.0-4.8) k/uL Monocytes # 1.1 H (0-1.0) k/uL ABG pH (7.35-7.45) ABG pO2 (83-108) mmHg ABG HCO3 (21-25) mmol/L Sodium 135 L (137-145) mmol/L Chloride 108 H (98-107) mmol/L Carbon Dioxide 19 L (22-30) mmol/L BUN 23 H (9-20) mg/dL Glucose 125 H (74-99) mg/dL POC Glucose (mg/dL) 141 H (70-110) mg/dL Total Protein 5.2 L (6.3-8.2) g/dL Albumin 3.2 L (3.5-5.0) g/dL Crossmatch 05/05/23 05/05/23 05/05/23 Range/Units 06:57 08:21 09:35 WBC (3.8-10.6) k/uL RBC (4.30-5.90) m/uL Hgb (13.0-17.5) gm/dL Hct (39.0-53.0) % Plt Count (150-450) k/uL Neutrophils # (1.3-7.7) k/uL Lymphocytes # (1.0-4.8) k/uL Monocytes # (0-1.0) k/uL ABG pH (7.35-7.45) ABG pO2 (83-108) mmHg ABG HCO3 (21-25) mmol/L Sodium (137-145) mmol/L Chloride (98-107) mmol/L Carbon Dioxide (22-30) mmol/L BUN (9-20) mg/dL Glucose (74-99) mg/dL POC Glucose (mg/dL) 128 H 141 H 153 H (70-110) mg/dL Total Protein (6.3-8.2) g/dL Albumin (3.5-5.0) g/dL Crossmatch 05/05/23 05/05/23 05/05/23 Range/Units 11:00 12:30 13:56 WBC (3.8-10.6) k/uL RBC (4.30-5.90) m/uL Hgb (13.0-17.5) gm/dL Hct (39.0-53.0) % Plt Count (150-450) k/uL Neutrophils # (1.3-7.7) k/uL Lymphocytes # (1.0-4.8) k/uL Monocytes # (0-1.0) k/uL ABG pH (7.35-7.45) ABG pO2 (83-108) mmHg ABG HCO3 (21-25) mmol/L Sodium (137-145) mmol/L Chloride (98-107) mmol/L Carbon Dioxide (22-30) mmol/L BUN (9-20) mg/dL Glucose (74-99) mg/dL POC Glucose (mg/dL) 146 H 138 H 133 H (70-110) mg/dL Total Protein (6.3-8.2) g/dL Albumin (3.5-5.0) g/dL Crossmatch 05/05/23 Range/Units 15:35 WBC (3.8-10.6) k/uL RBC (4.30-5.90) m/uL Hgb (13.0-17.5) gm/dL Hct (39.0-53.0) % Plt Count (150-450) k/uL Neutrophils # (1.3-7.7) k/uL Lymphocytes # (1.0-4.8) k/uL Monocytes # (0-1.0) k/uL ABG pH (7.35-7.45) ABG pO2 (83-108) mmHg ABG HCO3 (21-25) mmol/L Sodium (137-145) mmol/L Chloride (98-107) mmol/L Carbon Dioxide (22-30) mmol/L BUN (9-20) mg/dL Glucose (74-99) mg/dL POC Glucose (mg/dL) 115 H (70-110) mg/dL Total Protein (6.3-8.2) g/dL Albumin (3.5-5.0) g/dL Crossmatch
[2023-05-05 16:58] LABS: Glucose,Whole Blood 126 mg/dL (70-110)
[2023-05-05 18:26] LABS: Glucose,Whole Blood 153 mg/dL (70-110)
[2023-05-05] MEDS: ATORVASTATIN 40 MG TAB PO SCH (20:13)
[2023-05-05] MEDS: SENNOSIDES-DOCUSATE SODIUM 1 EACH TAB PO SCH (20:13)
[2023-05-05 20:16] LABS: Glucose,Whole Blood 131 mg/dL (70-110)
[2023-05-05 21:23] LABS: Glucose,Whole Blood 138 mg/dL (70-110)
[2023-05-05 22:01] LABS: Glucose,Whole Blood 110 mg/dL (70-110)
[2023-05-05 23:04] LABS: Glucose,Whole Blood 134 mg/dL (70-110)
[2023-05-05 23:56] LABS: Glucose,Whole Blood 143 mg/dL (70-110)
[2023-05-06] MEDS: HEPARIN SODIUM,PORCINE 5,000 UNIT/ML 1 ML VIAL SQ SCH ×4 (00:04→23:51)
[2023-05-06] MEDS: KETOROLAC 15 MG/ML 1 ML VIAL IVP SCH ×5 (00:04→23:51)
[2023-05-06] MEDS: ceFAZolin 3 GM in SODIUM CHLORIDE 0.9% 100 ML IVPB SCH (00:04)
[2023-05-06 00:57] LABS: Glucose,Whole Blood 141 mg/dL (70-110)
[2023-05-06 02:05] LABS: Glucose,Whole Blood 132 mg/dL (70-110)
[2023-05-06 03:06] LABS: Glucose,Whole Blood 124 mg/dL (70-110)
[2023-05-06 04:03] LABS: Glucose,Whole Blood 134 mg/dL (70-110)
[2023-05-06 05:01] LABS: Glucose,Whole Blood 134 mg/dL (70-110)
[2023-05-06 06:14] LABS: Glucose,Whole Blood 124 mg/dL (70-110)
[2023-05-06 06:33] LABS: Basophils % (A) 0 %; Eosinophils # (A) 0.3 k/uL (0-0.7); Eosinophils % (A) 2 %; HCT 37.2 % (39.0-53.0); HGB 12.4 gm/dL (13.0-17.5); Lymphocytes # (A) 1.2 k/uL (1.0-4.8); Lymphocytes % (A) 9 %; MCH 32.4 pg (25.0-35.0); MCHC 33.3 g/dL (31.0-37.0); MCV 97.2 fL (80.0-100.0); Mean Platelet Volume 10.2; Monocytes % (A) 8 %; Neutrophils # (A) 10.7 k/uL (1.3-7.7); Neutrophils % (A) 79 %; Platelet Count 120 k/uL (150-450); RBC 3.83 m/uL (4.30-5.90); RDW 13.9 % (11.5-15.5); WBC 13.5 k/uL (3.8-10.6)
[2023-05-06] MEDS: PANTOPRAZOLE 40 MG TABLET PO SCH (06:34)
[2023-05-06 06:45] LABS: ALT 14 U/L (4-49); AST 32 U/L (17-59); African American GFR (CKD) 88 (>60 ml/min/1.73 sqM); Albumin 3.1 g/dL (3.5-5.0); Alkaline Phosphatase 69 U/L (38-126); Anion Gap 9 mmol/L; Blood Urea Nitrogen 26 mg/dL (9-20); Calcium 9.1 mg/dL (8.4-10.2); Carbon Dioxide 18 mmol/L (22-30); Chloride 108 mmol/L (98-107); Glucose 121 mg/dL (74-99); Magnesium 2.1 mg/dL (1.6-2.3); Non-African American GFR(CKD) 76 (>60 ml/min/1.73 sqM); Potassium 4.4 mmol/L (3.5-5.1); Sodium 135 mmol/L (137-145); Total Bilirubin 0.6 mg/dL (0.2-1.3); Total Protein 5.3 g/dL (6.3-8.2)
[2023-05-06 06:50] LABS: Ionized Calcium 5.2 mg/dL (4.5-5.3)
[2023-05-06 07:04] LABS: Glucose,Whole Blood 139 mg/dL (70-110)
--- NOTE | 2023-05-06 07:45 | P.PN ---
Subjective Progress Note Date: 05/06/23 Principal diagnosis: Coronary artery disease, non-STEMI this admission reduced left ventricular systolic function. History of CAD with previous PCI in 2003, hypertension, hyperlipidemia, insulin-dependent diabetes, peripheral arterial disease with intermittent claudication, morbid obesity, current heavy tobacco dependence, COPD, remote history of pneumonia, preoperative nasal swab positive for MSSA POD #2 off-pump coronary artery bypass graft 2 with left internal thoracic artery in situ to the left anterior descending coronary artery, reverse saphenous vein graft from the aorta to the posterior descending coronary artery, left atrial appendage ligation using a 35 mm AtriClip, endoscopic right greater saphenous vein harvest, graft flow measurements using the Medistim flowmeter, sternal closure using the [employer] cable and plating system, intraoperative transesophageal echocardiogram performed by anesthesia The patient was seen and examined this morning sitting up in a recliner in no acute distress eating breakfast. States pain is mostly controlled on current m edication regimen, denies shortness of breath. Remains in sinus rhythm, hemodynamically stable on no inotropes or pressors. Currently on 2 L nasal cannula with oxygen saturation in the low 90s, able to achieve 1000 mL on incentive spirometry. Labs, x-ray reviewed. Ambulated in hallway with nursing without difficulty. Right internal jugular cordis, right radial arterial line, mediastinal/left/right pleural chest tubes all remain. No other new concerns. Objective - Vital Signs Vital signs: Vital Signs Temp 98.4 F 05/06/23 04:00 Pulse 98 05/06/23 07:05 Resp 36 H 05/06/23 07:05 BP 99/49 05/06/23 07:05 Pulse Ox 95 05/06/23 07:05 FiO2 50 05/04/23 20:00 Intake & Output 05/05/23 05/06/23 05/06/23 18:59 06:59 18:59 Intake Total 1117.502 421.577 25.887 Output Total 595 720 0 Balance 522.502 -298.423 25.887 Weight 120.8 kg 121.2 kg Intake: IV 406 376 23 Lactated Ringers 1,000 ml 300 240 20 @ 20 mls/hr IV .Q24H [facility] Rx#:[id number] ceFAZolin 3 gm In Sodium 100 Chloride 0.9% 100 ml @ 200 mls/hr IVPB ONCE ONE Rx#:[id number] ns cardiac output 40 ns pressure bags 66 36 3 Intake, IV Titration 251.502 45.577 2.887 Amount Insulin Regular 100 unit 51.502 45.577 2.887 In Sodium Chloride 0.9% 100 ml @ Per Protocol IV .Q0M [facility] Rx#:[id number] ceFAZolin 3 gm In Sodium 200 Chloride 0.9% 100 ml @ 100 mls/hr IVPB Q8HR [facility] Rx#:[id number] Oral 460 Output: Chest Tube Drainage 260 120 Mediastinal 120 [address] Rt&[address] 140 30 Urine 335 600 0 Other: Voiding Method Indwelling Catheter Indwelling Catheter ABP, PAP, CO, CI - Last Documented Arterial Blood Pressure 91/56 Pulmonary Artery Pressure 23/13 Cardiac Output 6.8 Cardiac Index 3.2 - Exam CONSTITUTIONAL: Appears comfortable, cooperative, no acute distress RESPIRATORY: Lungs sounds diminished bilaterally. Respirations even, nonlabored. Currently on 2 L nasal cannula with oxygen saturation 96%. Able to achieve 1000 mL on incentive spirometry. Strong productive cough with white sputum per patient. CARDIOVASCULAR: S1, S2 present. Regular rate and rhythm, sinus rhythm on telemetry. Sternum stable. Palpable peripheral pulses bilaterally. Trace bilateral lower extremity edema present. No calf pain or tenderness noted. Heart hugger in place with patient demonstrating appropriate use. Antiembolism stockings, SCDs present. GASTROINTESTINAL: Abdomen soft, nontender, nondistended, round. Active bowel sounds present 4 quadrants. Tolerating clear liquids. Positive flatus GENITOURINARY: Mcdonald present draining clear, yellow urine. Output overnight 2 5-75 mL per hour, 935 mL in the last 24 hours INTEGUMENTARY: Skin is warm and dry with evidence of good perfusion. Anterior chest incision well approximated and covered with dry intact dressing. Right lower extremity EVH site well approximated without redness or drainage. NEUROLOGIC: Cranial nerves II through XII intact MUSKULOSKELETAL: Able to move all extremities, strength equal bilaterally, gait normal PSYCHIATRIC: Alert and oriented to person place and time, appropriate affect, intact judgment and insight INVASIVE LINES AND TUBES: Mediastinal/left/right pleural chest tubes present a nd connected to wall suction, no air leaks present. Mediastinal tube with 70 mL serosanguineous drainage overnight, 300 mL in the last 24 hours. Left/right pleural chest tubes with 20 mL serosanguineous drainage overnight, 200 mL in the last 24 hours. V epicardial pacemaker wires present, connected to generator, generator turned off. Right internal jugular cordis, right radial arterial line present. Last CVP 7. - Allied health notes Allied health notes reviewed: nursing - Labs CBC & Chem 7: 05/06/23 05:56 05/06/23 05:56 Labs: Abnormal Lab Results - Last 24 Hours (Table) 05/05/23 05/05/23 05/05/23 Range/Units 08:21 09:35 11:00 WBC (3.8-10.6) k/uL RBC (4.30-5.90) m/uL Hgb (13.0-17.5) gm/dL Hct (39.0-53.0) % Plt Count (150-450) k/uL Neutrophils # (1.3-7.7) k/uL Sodium (137-145) mmol/L Chloride (98-107) mmol/L Carbon Dioxide (22-30) mmol/L BUN (9-20) mg/dL Glucose (74-99) mg/dL POC Glucose (mg/dL) 141 H 153 H 146 H (70-110) mg/dL Total Protein (6.3-8.2) g/dL Albumin (3.5-5.0) g/dL 05/05/23 05/05/23 05/05/23 Range/Units 12:30 13:56 15:35 WBC (3.8-10.6) k/uL RBC (4.30-5.90) m/uL Hgb (13.0-17.5) gm/dL Hct (39.0-53.0) % Plt Count (150-450) k/uL Neutrophils # (1.3-7.7) k/uL Sodium (137-145) mmol/L Chloride (98-107) mmol/L Carbon Dioxide (22-30) mmol/L BUN (9-20) mg/dL Glucose (74-99) mg/dL POC Glucose (mg/dL) 138 H 133 H 115 H (70-110) mg/dL Total Protein (6.3-8.2) g/dL Albumin (3.5-5.0) g/dL 05/05/23 05/05/23 05/05/23 Range/Units 16:56 18:24 20:14 WBC (3.8-10.6) k/uL RBC (4.30-5.90) m/uL Hgb (13.0-17.5) gm/dL Hct (39.0-53.0) % Plt Count (150-450) k/uL Neutrophils # (1.3-7.7) k/uL Sodium (137-145) mmol/L Chloride (98-107) mmol/L Carbon Dioxide (22-30) mmol/L BUN (9-20) mg/dL Glucose (74-99) mg/dL POC Glucose (mg/dL) 126 H 153 H 131 H (70-110) mg/dL Total Protein (6.3-8.2) g/dL Albumin (3.5-5.0) g/dL 05/05/23 05/05/23 05/05/23 Range/Units 21:11 23:03 23:54 WBC (3.8-10.6) k/uL RBC (4.30-5.90) m/uL Hgb (13.0-17.5) gm/dL Hct (39.0-53.0) % Plt Count (150-450) k/uL Neutrophils # (1.3-7.7) k/uL Sodium (137-145) mmol/L Chloride (98-107) mmol/L Carbon Dioxide (22-30) mmol/L BUN (9-20) mg/dL Glucose (74-99) mg/dL POC Glucose (mg/dL) 138 H 134 H 143 H (70-110) mg/dL Total Protein (6.3-8.2) g/dL Albumin (3.5-5.0) g/dL 05/06/23 05/06/23 05/06/23 Range/Units 00:55 02:03 03:05 WBC (3.8-10.6) k/uL RBC (4.30-5.90) m/uL Hgb (13.0-17.5) gm/dL Hct (39.0-53.0) % Plt Count (150-450) k/uL Neutrophils # (1.3-7.7) k/uL Sodium (137-145) mmol/L Chloride (98-107) mmol/L Carbon Dioxide (22-30) mmol/L BUN (9-20) mg/dL Glucose (74-99) mg/dL POC Glucose (mg/dL) 141 H 132 H 124 H (70-110) mg/dL Total Protein (6.3-8.2) g/dL Albumin (3.5-5.0) g/dL 05/06/23 05/06/23 05/06/23 Range/Units 04:01 05:00 05:56 WBC (3.8-10.6) k/uL RBC (4.30-5.90) m/uL Hgb (13.0-17.5) gm/dL Hct (39.0-53.0) % Plt Count (150-450) k/uL Neutrophils # (1.3-7.7) k/uL Sodium 135 L (137-145) mmol/L Chloride 108 H (98-107) mmol/L Carbon Dioxide 18 L (22-30) mmol/L BUN 26 H (9-20) mg/dL Glucose 121 H (74-99) mg/dL POC Glucose (mg/dL) 134 H 134 H (70-110) mg/dL Total Protein 5.3 L (6.3-8.2) g/dL Albumin 3.1 L (3.5-5.0) g/dL 05/06/23 05/06/23 05/06/23 Range/Units 05:56 06:13 07:03 WBC 13.5 H (3.8-10.6) k/uL RBC 3.83 L (4.30-5.90) m/uL Hgb 12.4 L (13.0-17.5) gm/dL Hct 37.2 L (39.0-53.0) % Plt Count 120 L (150-450) k/uL Neutrophils # 10.7 H (1.3-7.7) k/uL Sodium (137-145) mmol/L Chloride (98-107) mmol/L Carbon Dioxide (22-30) mmol/L BUN (9-20) mg/dL Glucose (74-99) mg/dL POC Glucose (mg/dL) 124 H 139 H (70-110) mg/dL Total Protein (6.3-8.2) g/dL Albumin (3.5-5.0) g/dL - Imaging and Cardiology Chest x-ray: image reviewed Assessment and Plan Assessment: Coronary artery disease with previous PCI 2003, non-STEMI this admission, status post two-vessel off-pump CABG Reduced left ventricular systolic function, EF 40-45% Hypertension Hyperlipidemia, treated, cholesterol 130, LDL 70 Insulin-dependent diabetes, hgb A1c 9.1% Peripheral arterial disease with intermittent claudication, GIRMA left moderate disease Morbid obesity, BMI 44 Current heavy tobacco dependence Moderate COPD, FEV1 65% of predicted Remote history of pneumonia Preoperative nasal swab positive for MSSA Plan: Continue to maximize medical therapy with ASA, statin, Plavix, beta marquez. Will increase beta marquez therapy as tolerated Continue losartan for afterload reduction with hold parameters Wean O2 as tolerated. Encourage incentive spirometer every hour, bronchodilators per pulmonology Increase activity, ambulate as tolerated. PT/OT/cardiac rehab consulted Will monitor daily labs and x-rays. Electrolyte replacement per protocol GI/DVT prophylaxis Pain control with current medication regimen Insulin management per internal medicine. Patient should remain on insulin continuous IV for 48 hours post surgery, then may transition to subcutaneous insulin per protocol Continue mupirocin for preoperative nasal swab positive for MSSA May ground epicardial pacer wire Discontinue chest tubes Discontinue Mcdonald catheter, may bladder scan and straight cath for >300 mL residual Continue to record accurate intake and output Daily weights Smoking cessation reinforced More recommendations to follow
[2023-05-06] MEDS: METOPROLOL TARTRATE 25 MG TAB PO SCH ×2 (08:02→19:29)
[2023-05-06] MEDS: CLOPIDOGREL 75 MG TAB PO SCH (08:02)
[2023-05-06] MEDS: ASPIRIN 325 MG TAB PO SCH (08:02)
[2023-05-06] MEDS: MUPIROCIN 2% OINT 22 GM TUBE NASAL SCH ×2 (08:03→20:56)
[2023-05-06 08:14] LABS: Glucose,Whole Blood 138 mg/dL (70-110)
[2023-05-06] MEDS ORDERED: INSULIN DETEMIR (LEVEMIR) 100 UNIT/ML SYR SQ SCH (09:00)
[2023-05-06 09:07] LABS: Glucose,Whole Blood 237 mg/dL (70-110)
[2023-05-06] MEDS: IPRATROPIUM-ALBUTEROL 3 ML NEB INHALATION SCH ×4 (09:11→21:14)
[2023-05-06 09:52] LABS: Glucose,Whole Blood 231 mg/dL (70-110)
--- NOTE | 2023-05-06 10:01 | P.PN ---
Subjective Progress Note Date: 05/06/23 63-year-old obese male patient, who is currently being investigated for coronary artery bypass surgery. The patient is known to have CAD, he is morbidly obese and has hypertension hyperlipidemia and insulin-dependent diabetes mellitus along with peripheral vascular disease. The patient is also chronic smoker The patient had a cardiac catheterization that showed 100% LAD in-stent stenosis, 99% mid RCA and the patient was recommended to undergo a coronary artery bypass surgery. He is going to be seen by the cardiothoracic team. His left ventricle ejection fraction slightly reduced at 40-45%. He has an FEV1 of 66% of predicted. He is obese and has features of obstructive sleep apnea although this has not been officially diagnosed. His current cardiac rhythm is sinus. Chest x-ray showed no acute abnormalities. CAT scan of the chest showed negative abnormalities. The patient is clinically stable and hemodynamically stable. Performance of functional status is adequate for now. Is currently free of any chest pain. He is on room air oxygen with a pulse ox of 94-97%. Is pulling ordered 1999 on his incentive spirometer. On today's evaluation of 05/02/2023, no new complaints and the patient is still awaiting his cardiac surgery. His condition is stable. Clinically stable. Hem odynamically stable. Vital signs are all stable. Sitting up on a chair. Using the incentive spirometer. On today's evaluation of 05/03/2023, the patient is having no respiratory distress. Perioperative teaching was given. Clinically stable. Hemodynamically stable. Pulse ox is 98% on room air oxygen. Using the incentive spirometer. Creatinine is at 1.3 with a BUN of 26 and his sodium leve ls is 137. Hemoglobin is at 13.7. Remains on aspirin and beta blockers. Plavix is currently on hold. Nothing by mouth after for an off cardiac bypass surgery tomorrow. On 05/04/2023, I'm seeing the patient in intensive care unit following his coronary artery bypass surgery the patient had an off pump two-vessel bypass surgery including VERGARA to LAD and SVG to PDA. Currently is intubated on a mechanical ventilator and the patient is postop day #0 and the patient is being seen in the intensive care unit. The patient is currently sedated on propofol which is running at 40 mcg/kg/m. He is on a mechanical ventilator assist control mode at the rate of 16, tidal volume of 450 with an FiO2 of 50% and PEEP of 10. The blood gas was done and the patient was found to have a pH of 7.23 and a pCO2 of 49 and pO2 of 329. FiO2 was dropped down to 50% from 100%. Peak airway pressure is 23. Chest x-ray shows adequate expansion of both lungs. Orotracheal tube is in a good location. The patient has left pleural chest tube, right pleural chest tube and mediastinal chest tube. Output from the mediastinal chest tube is been only 50 mL and output from the pleural chest tubes have been 80 mL and the patient arrived from the operating room. Pulmonary artery pressures are 34/24. Cardiac output is 6.5 with an index of 3.0. The patient is on nitroglycerin drip. The patient is also on insulin drip at 0.5 units an hour. The patient is producing adequate amount of urine output. The hemoglobin currently is at 12.7. White cell count of 18.9. Cardiac rhythm is sinus at the rate of 61. No other significant issues for now. On today's evaluation of 05/05/2023, the patient is postop day #1. Is doing extremely well. I was able to extubate the patient within a few hours after arrival to the intensive care unit. He was slightly acidotic and he developed some respiratory acidosis with appropriate ventilator changes were done and subsequently the patient was extubated. Overnight, the patient stayed on oxygen at 6 L nasal cannula. A chest x-ray from today shows adequate expansion of both lungs. No evidence of any pneumothorax. The patient is using the senna spirometer. Cardiac output is at 6.8 with an index of 3.2. PA pressures of 25 of 14. CVP is at 2. The mediastinal chest tube is draining around 430 mL overnight and the pleural chest tubes are connected and they have drained approximately 180 mL overnight and the ventricular epicardial pacemaker wires are present. The patient is not having any respiratory difficulties. His calm and comfortable. Is off the nitroglycerin drip. Insulin drip is running at 4 units an hour. 05/06/2023, the patient is doing extremely well. He is sitting up on a chair. No major respiratory difficulties. Is falling approximately 2000 on his incentive spirometer. He remains on 2 L of Oxymizer nasal cannula. Cardiac rhythm is sinus. Cherry-Sara catheter has been removed. The patient is hemodynamically stable. Blood work shows a hemoglobin of 12.4, the risk of 15.5, platelet count is at 120 and rest of the blood work including BUN of 26 and a creatinine of 1.04 which is essentially within normal limits and a sodium level is at 135. The patient is currently on aspirin. The patient on Plavix. The patient is on metoprolol 25 mg twice a day. The patient on statins. The patient is receiving Buckhorn for pain control. He is on Levemir insulin 15 units daily and is also ambulating. Insulin drip will be taken off today.Chest to the output was noted. The patient has produced approximately 20 mL of serosanguineous drainage overnight from the pleural chest tube and 200 over the past 24 hours. Mediastinal chest tubes drained approximately 70 mL overnight and 300 mL over the past 24 hours. Objective - Vital Signs Vital signs: Vital Signs Temp 98.3 F 05/06/23 08:00 Pulse 78 05/06/23 09:23 Resp 16 05/06/23 09:23 BP 144/77 05/06/23 08:00 Pulse Ox 98 05/06/23 09:11 FiO2 50 05/04/23 20:00 Intake & Output 05/05/23 05/06/23 05/06/23 18:59 06:59 18:59 Intake Total 1117.502 421.577 288.887 Output Total 595 720 0 Balance 522.502 -298.423 288.887 Weight 120.8 kg 121.2 kg Intake: IV 406 376 46 Lactated Ringers 1,000 ml 300 240 40 @ 20 mls/hr IV .Q24H [facility] Rx#:[id number] ceFAZolin 3 gm In Sodium 100 Chloride 0.9% 100 ml @ 200 mls/hr IVPB ONCE ONE Rx#:[id number] ns cardiac output 40 ns pressure bags 66 36 6 Intake, IV Titration 251.502 45.577 2.887 Amount Insulin Regular 100 unit 51.502 45.577 2.887 In Sodium Chloride 0.9% 100 ml @ Per Protocol IV .Q0M [facility] Rx#:[id number] ceFAZolin 3 gm In Sodium 200 Chloride 0.9% 100 ml @ 100 mls/hr IVPB Q8HR [facility] Rx#:[id number] Oral 460 240 Output: Chest Tube Drainage 260 120 0 Mediastinal 120 90 0 Rt&L[address] Ple[address] 140 30 0 Urine 335 600 0 Other: Voiding Method Indwelling Catheter Indwelling Catheter ABP, PAP, CO, CI - Last Documented Arterial Blood Pressure 91/56 Pulmonary Artery Pressure 23/13 Cardiac Output 6.8 Cardiac Index 3.2 - Exam Patient is awake and alert and communicating without any focal neurological deficit and the patient is currently on 2 L of oxygen by nasal cannula Head exam was generally normal. There was no scleral icterus or corneal arcus. Mucous membranes were moist. Neck was supple and without jugular venous distension, thyromegaly, or carotid bruits. Carotids were easily palpable bilaterally. There was no adenopathy. The patient has a Cordis in the right IJ, the Cherry-Sara catheter was removed Lungs are diminished bilaterally and the patient has a thoracotomy scar. At the same time, the patient has a mediastinal, right pleural, left pleural chest tubes. No evidence of any air leak. Cardiac exam revealed the PMI to be normally situated and sized. The rhythm was regular and no extrasystoles were noted during several minutes of auscultation. The first and second heart sounds were normal and physiologic splitting of the second heart sound was noted. There were no murmurs, rubs, clicks, or gallops. Abdominal exam revealed normal bowel sounds. The abdomen was soft, non-tender, and without masses, organomegaly, or appreciable enlargement of the abdominal aorta. Examination of the extremities revealed easily palpable radial, femoral and pedal pulses. There was no cyanosis, clubbing or edema. Examination of the skin revealed no evidence of significant rashes, suspicious appearing nevi or other concerning lesions. Neurologically the patient Neurologically, the patient is awake and alert and the patient does not have any focal neurological deficit. Cranial nerves are essentially intact. - Labs CBC & Chem 7: 05/06/23 05:56 05/06/23 05:56 Labs: Abnormal Lab Results - Last 24 Hours (Table) 05/05/23 05/05/23 05/05/23 Range/Units 11:00 12:30 13:56 WBC (3.8-10.6) k/uL RBC (4.30-5.90) m/uL Hgb (13.0-17.5) gm/dL Hct (39.0-53.0) % Plt Count (150-450) k/uL Neutrophils # (1.3-7.7) k/uL Sodium (137-145) mmol/L Chloride (98-107) mmol/L Carbon Dioxide (22-30) mmol/L BUN (9-20) mg/dL Glucose (74-99) mg/dL POC Glucose (mg/dL) 146 H 138 H 133 H (70-110) mg/dL Total Protein (6.3-8.2) g/dL Albumin (3.5-5.0) g/dL 05/05/23 05/05/23 05/05/23 Range/Units 15:35 16:56 18:24 WBC (3.8-10.6) k/uL RBC (4.30-5.90) m/uL Hgb (13.0-17.5) gm/dL Hct (39.0-53.0) % Plt Count (150-450) k/uL Neutrophils # (1.3-7.7) k/uL Sodium (137-145) mmol/L Chloride (98-107) mmol/L Carbon Dioxide (22-30) mmol/L BUN (9-20) mg/dL Glucose (74-99) mg/dL POC Glucose (mg/dL) 115 H 126 H 153 H (70-110) mg/dL Total Protein (6.3-8.2) g/dL Albumin (3.5-5.0) g/dL 05/05/23 05/05/23 05/05/23 Range/Units 20:14 21:11 23:03 WBC (3.8-10.6) k/uL RBC (4.30-5.90) m/uL Hgb (13.0-17.5) gm/dL Hct (39.0-53.0) % Plt Count (150-450) k/uL Neutrophils # (1.3-7.7) k/uL Sodium (137-145) mmol/L Chloride (98-107) mmol/L Carbon Dioxide (22-30) mmol/L BUN (9-20) mg/dL Glucose (74-99) mg/dL POC Glucose (mg/dL) 131 H 138 H 134 H (70-110) mg/dL Total Protein (6.3-8.2) g/dL Albumin (3.5-5.0) g/dL 05/05/23 05/06/23 05/06/23 Range/Units 23:54 00:55 02:03 WBC (3.8-10.6) k/uL RBC (4.30-5.90) m/uL Hgb (13.0-17.5) gm/dL Hct (39.0-53.0) % Plt Count (150-450) k/uL Neutrophils # (1.3-7.7) k/uL Sodium (137-145) mmol/L Chloride (98-107) mmol/L Carbon Dioxide (22-30) mmol/L BUN (9-20) mg/dL Glucose (74-99) mg/dL POC Glucose (mg/dL) 143 H 141 H 132 H (70-110) mg/dL Total Protein (6.3-8.2) g/dL Albumin (3.5-5.0) g/dL 05/06/23 05/06/23 05/06/23 Range/Units 03:05 04:01 05:00 WBC (3.8-10.6) k/uL RBC (4.30-5.90) m/uL Hgb (13.0-17.5) gm/dL Hct (39.0-53.0) % Plt Count (150-450) k/uL Neutrophils # (1.3-7.7) k/uL Sodium (137-145) mmol/L Chloride (98-107) mmol/L Carbon Dioxide (22-30) mmol/L BUN (9-20) mg/dL Glucose (74-99) mg/dL POC Glucose (mg/dL) 124 H 134 H 134 H (70-110) mg/dL Total Protein (6.3-8.2) g/dL Albumin (3.5-5.0) g/dL 05/06/23 05/06/23 05/06/23 Range/Units 05:56 05:56 06:13 WBC 13.5 H (3.8-10.6) k/uL RBC 3.83 L (4.30-5.90) m/uL Hgb 12.4 L (13.0-17.5) gm/dL Hct 37.2 L (39.0-53.0) % Plt Count 120 L (150-450) k/uL Neutrophils # 10.7 H (1.3-7.7) k/uL Sodium 135 L (137-145) mmol/L Chloride 108 H (98-107) mmol/L Carbon Dioxide 18 L (22-30) mmol/L BUN 26 H (9-20) mg/dL Glucose 121 H (74-99) mg/dL POC Glucose (mg/dL) 124 H (70-110) mg/dL Total Protein 5.3 L (6.3-8.2) g/dL Albumin 3.1 L (3.5-5.0) g/dL 05/06/23 05/06/23 05/06/23 Range/Units 07:03 08:12 09:06 WBC (3.8-10.6) k/uL RBC (4.30-5.90) m/uL Hgb (13.0-17.5) gm/dL Hct (39.0-53.0) % Plt Count (150-450) k/uL Neutrophils # (1.3-7.7) k/uL Sodium (137-145) mmol/L Chloride (98-107) mmol/L Carbon Dioxide (22-30) mmol/L BUN (9-20) mg/dL Glucose (74-99) mg/dL POC Glucose (mg/dL) 139 H 138 H 237 H (70-110) mg/dL Total Protein (6.3-8.2) g/dL Albumin (3.5-5.0) g/dL 05/06/23 Range/Units 09:51 WBC (3.8-10.6) k/uL RBC (4.30-5.90) m/uL Hgb (13.0-17.5) gm/dL Hct (39.0-53.0) % Plt Count (150-450) k/uL Neutrophils # (1.3-7.7) k/uL Sodium (137-145) mmol/L Chloride (98-107) mmol/L Carbon Dioxide (22-30) mmol/L BUN (9-20) mg/dL Glucose (74-99) mg/dL POC Glucose (mg/dL) 231 H (70-110) mg/dL Total Protein (6.3-8.2) g/dL Albumin (3.5-5.0) g/dL Assessment and Plan Plan: Assessment Multivessel coronary artery disease with previous PCI. The patient presented with chest pain and acute non-ST segment elevation myocardial infarction. The patient had a repeat cardiac catheterization showed extensive CAD and the patient is being worked up for coronary artery bypass surgery. The patient underwent 2 vessel bypass surgery with VERGARA to LAD and SVG to diagonal. The patient is postop day #2 and Cherry-Sara catheter is has been removed Hemodynamically stable. Currently on no pressors.. Postthoracotomy, extubated and patient is currently on 2 L of oxygen by nasal cannula. Output from the chest tubes are minimal COPD with an FEV1 of 66% of predicted currently inactive and stable Possible obstructive sleep apnea Hypertension Hyperlipidemia Insulin-dependent diabetes mellitus, currently on insulin drip for blood sugar control Peripheral vascular disease with intermittent claudication History of smoking Plan Continue I-S Aspirin Plavix Metoprolol at a dose of 25 mg by mouth twice a day Chest x-ray noted May remove the the chest tubes Chest x-ray in the morning Cardiac rhythm is sinus Pain is under adequate control We'll try to ambulate We'll continue to follow Levemir insulin along with sliding scale coverage. The insulin drip will be discontinued
[2023-05-06] MEDS ORDERED: DEXTROSE 50% SYRINGE 50 ML IVP PRN ×2 (10:17)
[2023-05-06] MEDS ORDERED: LOSARTAN 25 MG TAB PO SCH (12:00)
[2023-05-06 12:02] LABS: Glucose,Whole Blood 198 mg/dL (70-110)
[2023-05-06] MEDS: INSULIN ASPART (NovoLOG) 100 UNIT/ML VIAL SQ SCH ×4 (12:23→20:56)
--- NOTE | 2023-05-06 12:40 | P.PN ---
Subjective HISTORY OF PRESENT ILLNESS: 63-year-old male with past medical history of CAD status post PCI in 2003. We don't have a cardiac cath report at hand at this time. 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 He would start experiencing pain after walking 2-3 blocks. Angina class III. His symptoms have been getting worse over last 1 month. It has became more severe in intensity and frequency. Is associated with difficulty in breathing which would get better with rest. Patient is ECG showed sinus rhythm with no significant ST-T wave changes. There are old Q waves system of old inferior ND Hemoglobin is 14, creatinine is within normal limit, troponin 0.01, 0.01, 0.08. 04/29/2023 Progress note: Patient is seen and examined at bedside the same. He is hemodynamics stable. Dull chest pain on and off. Echo Showed an EF of 40% with inferoapical hypokinesia 05/01/2023 Patient is status post cardiac catheterization revealing 100% LAD in-stent stenosis, 99% mid RCA in-stent stenosis, mild disease in left circumflex and mild disease and PDA and PLV branch. Cardiothoracic surgery was consulted for evaluation for possible CABG. Patient examined this morning. Patient is sitting in the chair. Patient denies any chest pain or pressure. He denies shortness of breath. 05/02/2023 Patient examined this morning. He is sitting up in a chair. Patient denies chest pain or pressure. He denies shortness of breath. He states he has been up ambulating without difficulty. Vital signs are stable. 05/03/2023 Patient examined this morning. He is sitting up in a chair. Patient denies chest pain or pressure. He denies shortness of breath. He states he has been up ambulating without difficulty. Vital signs are stable. 05/04 Patient seen and examined. Patient underwent off-pump CABG with VERGARA to LAD and SVG to PDA today. Currently seen in the ICU off of any vasopressors on nitroglycerin 5, propofol and intubated and sedated. On 100% FiO2 and PEEP of 10 however been weaned. Cardiac output 5.0 and cardiac index 2.3. Remains in sinus rhythm. 05/05 Patient seen and examined. Patient was weaned off the ventilator and extubated currently on 5 L nasal cannula. He admits to some chest discomfort however was able to walk around the unit twice and only mild shortness breath. He is still fatigued and not much of an appetite however overall does not feel that bad. Blood pressures mainly in the 110s over 60s. White blood cell count 16, hemoglobin 12.5, platelets 136, BUN 23, creatinine 0.9. 05/06 Patient seen and examined. Patient denies any chest pain or pressure. Has not had a bowel movement yet however tolerating diet. Was able to walk around the halls without difficulty. White blood cell count 13.5, hemoglobin 12.4, platelets 120, creatinine 1.0, BUN 26. Remains in sinus rhythm. His chest tubes were pulled. PHYSICAL EXAM: VITAL SIGNS: Reviewed. GENERAL: Well-developed in no acute distress. NECK: Supple. No JVD or thyromegaly LUNGS: Respirations even and unlabored. Lungs essentially clear to auscultation bilaterally. HEART: Regular rate and rhythm. S1 and S2 heard. EXTREMITIES: Normal range of motion. No clubbing or cyanosis. Peripheral pulses intact. No lower extremity edema ASSESSMENT: Non-STEMI Coronary artery disease with previous PCI, s/p CABG 05/04 with VERGARA to LAD and SVG to PDA Hypertension Hyperlipidemia Diabetes Morbid obesity Nicotine dependence PLAN: Continue with amiodarone for A. fib prevention as well as aspirin and Plavix. Blood pressure is borderline however he is tolerating Lopressor and losartan. Continue with current supportive care. Further recommendations to follow. Objective - Vital Signs Vital signs: Vital Signs Temp 98.1 F 05/06/23 12:00 Pulse 92 05/06/23 12:00 Resp 20 05/06/23 12:00 BP 112/66 05/06/23 12:00 Pulse Ox 99 05/06/23 12:00 FiO2 50 05/04/23 20:00 Intake & Output 05/05/23 05/06/23 05/06/23 18:59 06:59 18:59 Intake Total 1117.502 421.577 633.992 Output Total 595 720 0 Balance 522.502 -298.423 633.992 Weight 120.8 kg 121.2 kg Intake: IV 406 376 138 Lactated Ringers 1,000 ml 300 240 120 @ 20 mls/hr IV .Q24H [facility] Rx#:[id number] ceFAZolin 3 gm In Sodium 100 Chloride 0.9% 100 ml @ 200 mls/hr IVPB ONCE ONE Rx#:[id number] ns cardiac output 40 ns pressure bags 66 36 18 Intake, IV Titration 251.502 45.577 15.992 Amount Insulin Regular 100 unit 51.502 45.577 15.992 In Sodium Chloride 0.9% 100 ml @ Per Protocol IV .Q0M [facility] Rx#:[id number] ceFAZolin 3 gm In Sodium 200 Chloride 0.9% 100 ml @ 100 mls/hr IVPB Q8HR [facility] Rx#:[id number] Oral 460 480 Output: Chest Tube Drainage 260 120 0 Mediastinal 120 90 0 Rt&[address] Ple[address] 140 30 0 Urine 335 600 0 Other: Voiding Method Indwelling Catheter Indwelling Catheter ABP, PAP, CO, CI - Last Documented Arterial Blood Pressure 91/56 Pulmonary Artery Pressure 23/13 Cardiac Output 6.8 Cardiac Index 3.2 - Labs CBC & Chem 7: 05/06/23 05:56 05/06/23 05:56 Labs: Abnormal Lab Results - Last 24 Hours (Table) 05/05/23 05/05/23 05/05/23 Range/Units 13:56 15:35 16:56 WBC (3.8-10.6) k/uL RBC (4.30-5.90) m/uL Hgb (13.0-17.5) gm/dL Hct (39.0-53.0) % Plt Count (150-450) k/uL Neutrophils # (1.3-7.7) k/uL Sodium (137-145) mmol/L Chloride (98-107) mmol/L Carbon Dioxide (22-30) mmol/L BUN (9-20) mg/dL Glucose (74-99) mg/dL POC Glucose (mg/dL) 133 H 115 H 126 H (70-110) mg/dL Total Protein (6.3-8.2) g/dL Albumin (3.5-5.0) g/dL 05/05/23 05/05/23 05/05/23 Range/Units 18:24 20:14 21:11 WBC (3.8-10.6) k/uL RBC (4.30-5.90) m/uL Hgb (13.0-17.5) gm/dL Hct (39.0-53.0) % Plt Count (150-450) k/uL Neutrophils # (1.3-7.7) k/uL Sodium (137-145) mmol/L Chloride (98-107) mmol/L Carbon Dioxide (22-30) mmol/L BUN (9-20) mg/dL Glucose (74-99) mg/dL POC Glucose (mg/dL) 153 H 131 H 138 H (70-110) mg/dL Total Protein (6.3-8.2) g/dL Albumin (3.5-5.0) g/dL 05/05/23 05/05/23 05/06/23 Range/Units 23:03 23:54 00:55 WBC (3.8-10.6) k/uL RBC (4.30-5.90) m/uL Hgb (13.0-17.5) gm/dL Hct (39.0-53.0) % Plt Count (150-450) k/uL Neutrophils # (1.3-7.7) k/uL Sodium (137-145) mmol/L Chloride (98-107) mmol/L Carbon Dioxide (22-30) mmol/L BUN (9-20) mg/dL Glucose (74-99) mg/dL POC Glucose (mg/dL) 134 H 143 H 141 H (70-110) mg/dL Total Protein (6.3-8.2) g/dL Albumin (3.5-5.0) g/dL 05/06/23 05/06/23 05/06/23 Range/Units 02:03 03:05 04:01 WBC (3.8-10.6) k/uL RBC (4.30-5.90) m/uL Hgb (13.0-17.5) gm/dL Hct (39.0-53.0) % Plt Count (150-450) k/uL Neutrophils # (1.3-7.7) k/uL Sodium (137-145) mmol/L Chloride (98-107) mmol/L Carbon Dioxide (22-30) mmol/L BUN (9-20) mg/dL Glucose (74-99) mg/dL POC Glucose (mg/dL) 132 H 124 H 134 H (70-110) mg/dL Total Protein (6.3-8.2) g/dL Albumin (3.5-5.0) g/dL 05/06/23 05/06/23 05/06/23 Range/Units 05:00 05:56 05:56 WBC 13.5 H (3.8-10.6) k/uL RBC 3.83 L (4.30-5.90) m/uL Hgb 12.4 L (13.0-17.5) gm/dL Hct 37.2 L (39.0-53.0) % Plt Count 120 L (150-450) k/uL Neutrophils # 10.7 H (1.3-7.7) k/uL Sodium 135 L (137-145) mmol/L Chloride 108 H (98-107) mmol/L Carbon Dioxide 18 L (22-30) mmol/L BUN 26 H (9-20) mg/dL Glucose 121 H (74-99) mg/dL POC Glucose (mg/dL) 134 H (70-110) mg/dL Total Protein 5.3 L (6.3-8.2) g/dL Albumin 3.1 L (3.5-5.0) g/dL 05/06/23 05/06/23 05/06/23 Range/Units 06:13 07:03 08:12 WBC (3.8-10.6) k/uL RBC (4.30-5.90) m/uL Hgb (13.0-17.5) gm/dL Hct (39.0-53.0) % Plt Count (150-450) k/uL Neutrophils # (1.3-7.7) k/uL Sodium (137-145) mmol/L Chloride (98-107) mmol/L Carbon Dioxide (22-30) mmol/L BUN (9-20) mg/dL Glucose (74-99) mg/dL POC Glucose (mg/dL) 124 H 139 H 138 H (70-110) mg/dL Total Protein (6.3-8.2) g/dL Albumin (3.5-5.0) g/dL 05/06/23 05/06/23 05/06/23 Range/Units 09:06 09:51 12:00 WBC (3.8-10.6) k/uL RBC (4.30-5.90) m/uL Hgb (13.0-17.5) gm/dL Hct (39.0-53.0) % Plt Count (150-450) k/uL Neutrophils # (1.3-7.7) k/uL Sodium (137-145) mmol/L Chloride (98-107) mmol/L Carbon Dioxide (22-30) mmol/L BUN (9-20) mg/dL Glucose (74-99) mg/dL POC Glucose (mg/dL) 237 H 231 H 198 H (70-110) mg/dL Total Protein (6.3-8.2) g/dL Albumin (3.5-5.0) g/dL
--- NOTE | 2023-05-06 14:55 | P.PN ---
Subjective Progress Note Date: 04/29/23 This is a 63-year-old gentleman admitted with an NSTEMI, morbid obesity, history of CAD with previous PCI years ago, DM, nicotine dependence and multiple other medical issues status post cardiac catheterization. Completed cardiac catheterization this morning reporting 100% LAD in-stent stenosis, 99% mid RCA in-stent stenosis, mild disease of left circumflex and into PDA and PLV branch, normal LVEDP, ischemic cardiomyopathy EF 40%. CTS consulted regarding potential CABG. Currently denies chest pain, palpitations or shortness of breath. Denies nausea or vomiting. 05/01/2023 evaluated by cardiothoracic surgery and is scheduled for CABG on Sunday. Plavix remains on hold. Denies chest pain, palpitations or shortness of breath. Positive diet intake with no nausea vomiting or diarrhea. Blood sugars running higher over the last 24 hours, currently in the low 200s. Denies abdominal pain. Using incentive spirometer, up to 2500. Afebrile. 05/02/2023 Plavix remains on hold, scheduled for CABG on Sunday. Denies chest pain, palpitations shortness of breath. Denies chills or sweats. Blood sugars currently in the 200s. Compliant with incentive spirometer, greater than 2200. 05/03/23 sitting up in chair, IS [id number]. Denies chest pain, palpitations or shortness of breath. Blood sugars this morning in the mid 200s, additional Levemir ordered. 05/04/2023 patient not seen this morning, as patient in preop for CABG procedure. 05/05. Patient seen and examined. Patient currently in ICU, extubated, currently on oxygen via nasal cannula. States he feels much better. Patient has chest tubes in. Tolerating diet 05/06. Patient seen and examined. Sitting upright in the chair, chest tubes have been removed. Insulin drip weaned off, currently on Levemir and sliding scale insulin REVIEW OF SYSTEMS: CONSTITUTIONAL: No fever, no malaise,. CARDIOVASCULAR: No chest pain, no palpitations, no syncope. PULMONARY: No shortness of breath, no cough, GASTROINTESTINAL: No diarrhea, no nausea, no vomiting, no abdominal pain. NEUROLOGICAL: No headaches, no weakness, PHYSICAL EXAMINATION: GENERAL: The patient is alert and oriented x3, not in any acute distress. Well developed, well nourished. HEENT: Pupils are round and equally reacting to light. EOMI. No scleral icterus. No conjunctival pallor. Normocephalic, atraumatic. No pharyngeal erythema. No thyromegaly. CARDIOVASCULAR: S1 and S2 present. No murmurs, rubs, or gallops. PULMONARY: Thoracotomy scar seen,diminished breath sounds at bases ABDOMEN: Soft, nontender, nondistended, normoactive bowel sounds. No palpable organomegaly. MUSCULOSKELETAL: No joint swelling or deformity. EXTREMITIES: No cyanosis, clubbing, or pedal edema. NEUROLOGICAL: Gross neurological examination did not reveal any focal deficits. SKIN: No rashes. Assessment and plan Acute NSTEMI, status post cardiac catheterization reporting 100% LAD in-stent stenosis and 99% mid RCA in-stent stenosis status post 2 vessel bypass surgery with VERGARA to LAD and SVG to diagonal on 05/04 CAD with hx of PCI Diabetes mellitus type 2, hemoglobin A1c 9.1, hypertension Hyperlipidemia Morbid obesity, BMI 44 COPD Ongoing nicotine dependence Monitor vital signs Monitor CBC Monitor CMP Continue telemetry monitoring Continue postop care per cardiac surgery Continue chest tube management per surgery Aggressive bronchopulmonary hygiene Encourage use of I-S Monitor blood sugar levels, continue Levemir and sliding scale insulin Continue aspirin, Plavix, Lipitor Continue Lopressor, losartan Critical care following Cardiac surgery following Labs and medication were reviewed.. Continue same treatment. Continue with symptomatic treatment. Resume home medication. Monitor labs and vitals. DVT and GI prophylaxis. Further recommendations as per clinical course of the patient Dictation was produced using [employer] dictation software. please excuse any grammatical, word or spelling errors. Objective - Vital Signs Vital signs: Vital Signs Temp 98.1 F 05/06/23 12:00 Pulse 98 05/06/23 14:00 Resp 23 05/06/23 14:00 BP 108/61 05/06/23 14:00 Pulse Ox 97 05/06/23 14:00 FiO2 50 05/04/23 20:00 Intake & Output 05/05/23 05/06/23 05/06/23 18:59 06:59 18:59 Intake Total 1117.502 421.577 679.992 Output Total 595 720 200 Balance 522.502 -298.423 479.992 Weight 120.8 kg 121.2 kg Intake: IV 406 376 184 Lactated Ringers 1,000 ml 300 240 160 @ 20 mls/hr IV .Q24H [facility] Rx#:[id number] ceFAZolin 3 gm In Sodium 100 Chloride 0.9% 100 ml @ 200 mls/hr IVPB ONCE ONE Rx#:[id number] ns cardiac output 40 ns pressure bags 66 36 24 Intake, IV Titration 251.502 45.577 15.992 Amount Insulin Regular 100 unit 51.502 45.577 15.992 In Sodium Chloride 0.9% 100 ml @ Per Protocol IV .Q0M [facility] Rx#:[id number] ceFAZolin 3 gm In Sodium 200 Chloride 0.9% 100 ml @ 100 mls/hr IVPB Q8HR [facility] Rx#:[id number] Oral 460 480 Output: Chest Tube Drainage 260 120 0 Mediastinal 120 90 0 Rt&Lt Pleural [address] 140 30 0 Urine 335 600 200 Other: Voiding Method Indwelling Catheter Indwelling Catheter ABP, PAP, CO, CI - Last Documented Arterial Blood Pressure 91/56 Pulmonary Artery Pressure 23/13 Cardiac Output 6.8 Cardiac Index 3.2 - Labs CBC & Chem 7: 05/06/23 05:56 05/06/23 05:56 Labs: Abnormal Lab Results - Last 24 Hours (Table) 05/05/23 05/05/23 05/05/23 Range/Units 15:35 16:56 18:24 WBC (3.8-10.6) k/uL RBC (4.30-5.90) m/uL Hgb (13.0-17.5) gm/dL Hct (39.0-53.0) % Plt Count (150-450) k/uL Neutrophils # (1.3-7.7) k/uL Sodium (137-145) mmol/L Chloride (98-107) mmol/L Carbon Dioxide (22-30) mmol/L BUN (9-20) mg/dL Glucose (74-99) mg/dL POC Glucose (mg/dL) 115 H 126 H 153 H (70-110) mg/dL Total Protein (6.3-8.2) g/dL Albumin (3.5-5.0) g/dL 05/05/23 05/05/23 05/05/23 Range/Units 20:14 21:11 23:03 WBC (3.8-10.6) k/uL RBC (4.30-5.90) m/uL Hgb (13.0-17.5) gm/dL Hct (39.0-53.0) % Plt Count (150-450) k/uL Neutrophils # (1.3-7.7) k/uL Sodium (137-145) mmol/L Chloride (98-107) mmol/L Carbon Dioxide (22-30) mmol/L BUN (9-20) mg/dL Glucose (74-99) mg/dL POC Glucose (mg/dL) 131 H 138 H 134 H (70-110) mg/dL Total Protein (6.3-8.2) g/dL Albumin (3.5-5.0) g/dL 05/05/23 05/06/23 05/06/23 Range/Units 23:54 00:55 02:03 WBC (3.8-10.6) k/uL RBC (4.30-5.90) m/uL Hgb (13.0-17.5) gm/dL Hct (39.0-53.0) % Plt Count (150-450) k/uL Neutrophils # (1.3-7.7) k/uL Sodium (137-145) mmol/L Chloride (98-107) mmol/L Carbon Dioxide (22-30) mmol/L BUN (9-20) mg/dL Glucose (74-99) mg/dL POC Glucose (mg/dL) 143 H 141 H 132 H (70-110) mg/dL Total Protein (6.3-8.2) g/dL Albumin (3.5-5.0) g/dL 05/06/23 05/06/23 05/06/23 Range/Units 03:05 04:01 05:00 WBC (3.8-10.6) k/uL RBC (4.30-5.90) m/uL Hgb (13.0-17.5) gm/dL Hct (39.0-53.0) % Plt Count (150-450) k/uL Neutrophils # (1.3-7.7) k/uL Sodium (137-145) mmol/L Chloride (98-107) mmol/L Carbon Dioxide (22-30) mmol/L BUN (9-20) mg/dL Glucose (74-99) mg/dL POC Glucose (mg/dL) 124 H 134 H 134 H (70-110) mg/dL Total Protein (6.3-8.2) g/dL Albumin (3.5-5.0) g/dL 05/06/23 05/06/23 05/06/23 Range/Units 05:56 05:56 06:13 WBC 13.5 H (3.8-10.6) k/uL RBC 3.83 L (4.30-5.90) m/uL Hgb 12.4 L (13.0-17.5) gm/dL Hct 37.2 L (39.0-53.0) % Plt Count 120 L (150-450) k/uL Neutrophils # 10.7 H (1.3-7.7) k/uL Sodium 135 L (137-145) mmol/L Chloride 108 H (98-107) mmol/L Carbon Dioxide 18 L (22-30) mmol/L BUN 26 H (9-20) mg/dL Glucose 121 H (74-99) mg/dL POC Glucose (mg/dL) 124 H (70-110) mg/dL Total Protein 5.3 L (6.3-8.2) g/dL Albumin 3.1 L (3.5-5.0) g/dL 05/06/23 05/06/23 05/06/23 Range/Units 07:03 08:12 09:06 WBC (3.8-10.6) k/uL RBC (4.30-5.90) m/uL Hgb (13.0-17.5) gm/dL Hct (39.0-53.0) % Plt Count (150-450) k/uL Neutrophils # (1.3-7.7) k/uL Sodium (137-145) mmol/L Chloride (98-107) mmol/L Carbon Dioxide (22-30) mmol/L BUN (9-20) mg/dL Glucose (74-99) mg/dL POC Glucose (mg/dL) 139 H 138 H 237 H (70-110) mg/dL Total Protein (6.3-8.2) g/dL Albumin (3.5-5.0) g/dL 05/06/23 05/06/23 Range/Units 09:51 12:00 WBC (3.8-10.6) k/uL RBC (4.30-5.90) m/uL Hgb (13.0-17.5) gm/dL Hct (39.0-53.0) % Plt Count (150-450) k/uL Neutrophils # (1.3-7.7) k/uL Sodium (137-145) mmol/L Chloride (98-107) mmol/L Carbon Dioxide (22-30) mmol/L BUN (9-20) mg/dL Glucose (74-99) mg/dL POC Glucose (mg/dL) 231 H 198 H (70-110) mg/dL Total Protein (6.3-8.2) g/dL Albumin (3.5-5.0) g/dL
--- NOTE | 2023-05-06 15:17 | XR ---
EXAM: XR chest 1V portable CLINICAL INDICATION:Male, 63 years old with history of Post Operative Cardiac Surgery; [facility] COMPARISON: 05/05/2023 and before TECHNIQUE: Chest single view. FINDINGS: Lines/tubes/devices: Bilateral chest tubes are again noted. Mediastinal drain. Removal of the right I J Line [place]Sara catheter with remaining vascular sheath terminating over the SVC. Cardiomediastinum: Cardiac silhouette appears stable, heart is mildly enlarged. Unremarkable mediastinal silhouette. Vasculature: Mild central congestion. Lungs/pleura: Similar appearing small left pleural effusion and mild left basilar atelectasis/airspace disease. No new or worsening infiltrate, or sizable pneumothorax. Bones/soft tissues: Bony thorax appears grossly unchanged as seen. Stable sternotomy wires. Regional soft tissues appear unremarkable. IMPRESSION: 1. Lines and tubes in place, as above. Right IJ Line [place]-Sara catheter has apparently been removed. 2. Stable mild cardiomegaly with postoperative changes and mildly increased pulmonary vascular conge stion. 3. Stable small left pleural effusion with adjacent atelectasis/airspace disease.
[2023-05-06] MEDS: LACTATED RINGERS 1,000 ML IV SCH (15:53)
[2023-05-06 16:41] LABS: Glucose,Whole Blood 266 mg/dL (70-110)
[2023-05-06] MEDS: SENNOSIDES-DOCUSATE SODIUM 1 EACH TAB PO SCH (19:29)
[2023-05-06] MEDS: ATORVASTATIN 40 MG TAB PO SCH (19:29)
[2023-05-06 20:06] LABS: Glucose,Whole Blood 283 mg/dL (70-110)
[2023-05-07 05:16] LABS: Basophils % (A) 0 %; Eosinophils # (A) 0.4 k/uL (0-0.7); Eosinophils % (A) 3 %; HCT 34.5 % (39.0-53.0); HGB 11.3 gm/dL (13.0-17.5); Lymphocytes # (A) 1.4 k/uL (1.0-4.8); Lymphocytes % (A) 11 %; MCH 31.9 pg (25.0-35.0); MCHC 32.8 g/dL (31.0-37.0); MCV 97.2 fL (80.0-100.0); Monocytes # (A) 0.9 k/uL (0-1.0); Monocytes % (A) 7 %; Neutrophils # (A) 10.3 k/uL (1.3-7.7); Neutrophils % (A) 77 %; Platelet Count 118 k/uL (150-450); RBC 3.54 m/uL (4.30-5.90); RDW 14.1 % (11.5-15.5); WBC 13.3 k/uL (3.8-10.6)
[2023-05-07 06:09] LABS: Glucose,Whole Blood 224 mg/dL (70-110)
[2023-05-07 06:13] LABS: ALT 13 U/L (4-49); AST 29 U/L (17-59); African American GFR (CKD) >90 (>60 ml/min/1.73 sqM); Albumin 2.9 g/dL (3.5-5.0); Alkaline Phosphatase 76 U/L (38-126); Anion Gap 11 mmol/L; Blood Urea Nitrogen 28 mg/dL (9-20); Calcium 9.1 mg/dL (8.4-10.2); Carbon Dioxide 17 mmol/L (22-30); Chloride 107 mmol/L (98-107); Glucose 206 mg/dL (74-99); Non-African American GFR(CKD) 86 (>60 ml/min/1.73 sqM); Potassium 4.8 mmol/L (3.5-5.1); Sodium 135 mmol/L (137-145); Total Bilirubin 0.8 mg/dL (0.2-1.3); Total Protein 5.2 g/dL (6.3-8.2)
[2023-05-07] MEDS: PANTOPRAZOLE 40 MG TABLET PO SCH (06:13)
[2023-05-07] MEDS: INSULIN ASPART (NovoLOG) 100 UNIT/ML VIAL SQ SCH ×7 (06:13→20:30)
[2023-05-07] MEDS: KETOROLAC 15 MG/ML 1 ML VIAL IVP SCH ×3 (06:20→17:29)
[2023-05-07] MEDS ORDERED: INSULIN DETEMIR (LEVEMIR) 100 UNIT/ML SYR SQ SCH (07:00)
--- NOTE | 2023-05-07 07:40 | P.PN ---
Subjective Progress Note Date: 05/07/23 Principal diagnosis: Coronary artery disease, non-STEMI this admission reduced left ventricular systolic function. History of CAD with previous PCI in 2003, hypertension, hyperlipidemia, insulin-dependent diabetes, peripheral arterial disease with intermittent claudication, morbid obesity, current heavy tobacco dependence, COPD, remote history of pneumonia, preoperative nasal swab positive for MSSA POD #3 off-pump coronary artery bypass graft 2 with left internal thoracic artery in situ to the left anterior descending coronary artery, reverse saphenous vein graft from the aorta to the posterior descending coronary artery, left atrial appendage ligation using a 35 mm AtriClip, endoscopic right greater saphenous vein harvest, graft flow measurements using the Medistim flowmeter, sternal closure using the Isentropic cable and plating system, intraoperative transesophageal echocardiogram performed by anesthesia The patient was seen and examined this morning sitting up in a recliner in no acute distress eating breakfast. States pain is mostly controlled on current m edication regimen, denies shortness of breath. Remains in sinus rhythm, hemodynamically stable. Currently on room air with oxygen saturation in the mid 90s, able to achieve 1000 mL on incentive spirometry. Labs, x-ray reviewed. Ambulated in hallway with nursing without difficulty. Right internal jugular cordis remains. Blood sugars remain elevated over 200, needs tighter control. No other new concerns. Objective - Vital Signs Vital signs: Vital Signs Temp 98.4 F 05/07/23 04:00 Pulse 96 05/07/23 07:00 Resp 31 H 05/07/23 07:00 BP 123/75 05/07/23 07:00 Pulse Ox 96 05/07/23 07:00 FiO2 50 05/04/23 20:00 Intake & Output 05/06/23 05/07/23 05/07/23 18:59 06:59 18:59 Intake Total 1011.992 299 Output Total 525 425 Balance 486.992 -126 Weight 123.6 kg Intake: IV 276 299 Lactated Ringers 1,000 ml 240 260 @ 20 mls/hr IV .Q24H [facility] Rx#:[id number] ns pressure bags 36 39 Intake, IV Titration 15.992 Amount Insulin Regular 100 unit 15.992 In Sodium Chloride 0.9% 100 ml @ Per Protocol IV .Q0M [facility] Rx#:[id number] Oral 720 Output: Chest Tube Drainage 0 Mediastinal 0 Rt&Lt Pleural CT 0 Urine 525 425 Other: Voiding Method Urinal Urinal ABP, PAP, CO, CI - Last Documented Arterial Blood Pressure 91/56 Pulmonary Artery Pressure 23/13 Cardiac Output 6.8 Cardiac Index 3.2 - Exam CONSTITUTIONAL: Appears comfortable, cooperative, no acute distress RESPIRATORY: Lungs sounds diminished bilaterally. Respirations even, nonlabored. Currently on room air with oxygen saturation 97%. Able to achieve 1000 mL on incentive spirometry. Strong productive cough with white sputum per patient. CARDIOVASCULAR: S1, S2 present. Regular rate and rhythm, sinus rhythm on telemetry. Sternum stable. Palpable peripheral pulses bilaterally. Trace bilateral lower extremity edema present. No calf pain or tenderness noted. Heart hugger in place with patient demonstrating appropriate use. Antiembolism stockings, SCDs present. GASTROINTESTINAL: Abdomen soft, nontender, nondistended, round. Active bowel sounds present 4 quadrants. Tolerating diet. Positive flatus GENITOURINARY: Mcdonald discontinued, continues to void INTEGUMENTARY: Skin is warm and dry with evidence of good perfusion. Anterior chest incision well approximated. Right lower extremity EVH site well approximated without redness or drainage. NEUROLOGIC: Cranial nerves II through XII intact MUSKULOSKELETAL: Able to move all extremities, strength equal bilaterally, gait normal PSYCHIATRIC: Alert and oriented to person place and time, appropriate affect, intact judgment and insight INVASIVE LINES AND TUBES: V epicardial pacemaker wires present, grounded. Right internal jugular cordis present - Allied health notes Allied health notes reviewed: nursing - Labs CBC & Chem 7: 05/07/23 04:35 05/07/23 04:35 Labs: Abnormal Lab Results - Last 24 Hours (Table) 05/06/23 05/06/23 05/06/23 Range/Units 08:12 09:06 09:51 WBC (3.8-10.6) k/uL RBC (4.30-5.90) m/uL Hgb (13.0-17.5) gm/dL Hct (39.0-53.0) % Plt Count (150-450) k/uL Neutrophils # (1.3-7.7) k/uL Sodium (137-145) mmol/L Carbon Dioxide (22-30) mmol/L BUN (9-20) mg/dL Glucose (74-99) mg/dL POC Glucose (mg/dL) 138 H 237 H 231 H (70-110) mg/dL Total Protein (6.3-8.2) g/dL Albumin (3.5-5.0) g/dL 05/06/23 05/06/23 05/06/23 Range/Units 12:00 16:39 20:05 WBC (3.8-10.6) k/uL RBC (4.30-5.90) m/uL Hgb (13.0-17.5) gm/dL Hct (39.0-53.0) % Plt Count (150-450) k/uL Neutrophils # (1.3-7.7) k/uL Sodium (137-145) mmol/L Carbon Dioxide (22-30) mmol/L BUN (9-20) mg/dL Glucose (74-99) mg/dL POC Glucose (mg/dL) 198 H 266 H 283 H (70-110) mg/dL Total Protein (6.3-8.2) g/dL Albumin (3.5-5.0) g/dL 05/07/23 05/07/23 05/07/23 Range/Units 04:35 04:35 06:07 WBC 13.3 H (3.8-10.6) k/uL RBC 3.54 L (4.30-5.90) m/uL Hgb 11.3 L (13.0-17.5) gm/dL Hct 34.5 L (39.0-53.0) % Plt Count 118 L (150-450) k/uL Neutrophils # 10.3 H (1.3-7.7) k/uL Sodium 135 L (137-145) mmol/L Carbon Dioxide 17 L (22-30) mmol/L BUN 28 H (9-20) mg/dL Glucose 206 H (74-99) mg/dL POC Glucose (mg/dL) 224 H (70-110) mg/dL Total Protein 5.2 L (6.3-8.2) g/dL Albumin 2.9 L (3.5-5.0) g/dL - Imaging and Cardiology Chest x-ray: image reviewed Assessment and Plan Assessment: Coronary artery disease with previous PCI 2003, non-STEMI this admission, status post two-vessel off-pump CABG Reduced left ventricular systolic function, EF 40-45% Hypertension Hyperlipidemia, treated, cholesterol 130, LDL 70 Insulin-dependent diabetes, hgb A1c 9.1% Peripheral arterial disease with intermittent claudication, GIRMA left moderate disease Morbid obesity, BMI 44 Current heavy tobacco dependence Moderate COPD, FEV1 65% of predicted Remote history of pneumonia Preoperative nasal swab positive for MSSA Plan: Continue to maximize medical therapy with ASA, statin, Plavix, beta marquez. Will increase beta marquez therapy as tolerated, increased to TID today Continue losartan for afterload reduction with hold parameters Encourage incentive spirometer every hour, bronchodilators per pulmonology Increase activity, ambulate as tolerated. PT/OT/cardiac rehab consulted Will monitor daily labs and x-rays. Electrolyte replacement per protocol GI/DVT prophylaxis Pain control with current medication regimen Insulin management per internal medicine. Blood sugar remains over 200, needs tighter control Continue mupirocin for preoperative nasal swab positive for MSSA DC cordis Continue to record accurate intake and output Daily weights Smoking cessation reinforced Will place transfer orders for [facility], may transfer when bed available Discharge planning in progress, anticipate discharge to home with home care in the next 24-48 hours if blood sugars are better controlled More recommendations to follow
--- NOTE | 2023-05-07 07:46 | XR ---
EXAMINATION TYPE: XR chest 1V portable DATE OF EXAM: 05/07/2023 5:13 AM CLINICAL INDICATION:Male, 63 years old with history of post cardiac surgery; COMPARISON: Chest radiographs from 05/06/2023 TECHNIQUE: XR chest 1V portable Frontal view of the chest. FINDINGS: Lungs/Pleura: Low lung volumes are present. There is no evidence of pleural effusion, focal consolida tion, or pneumothorax. Pulmonary vascularity: Unremarkable. Heart/mediastinum: Cardiomediastinal silhouette is enlarged and stable. Left atrial appendage occlusi on device is present. Musculoskeletal: No acute osseous pathology. Midline sternotomy wires and surgical clips project over the mediastinum. IMPRESSION: Similar low lung volumes with a generalized hazy appearance which could represent atelectasis versus pulmonary edema correlate with serum BNP.
[2023-05-07] MEDS ORDERED: METOPROLOL TARTRATE 25 MG TAB PO SCH (08:00)
[2023-05-07] MEDS: HEPARIN SODIUM,PORCINE 5,000 UNIT/ML 1 ML VIAL SQ SCH ×2 (08:24→16:18)
[2023-05-07] MEDS: ASPIRIN 325 MG TAB PO SCH (08:25)
[2023-05-07] MEDS: CLOPIDOGREL 75 MG TAB PO SCH (08:25)
[2023-05-07] MEDS: MUPIROCIN 2% OINT 22 GM TUBE NASAL SCH ×3 (08:45→20:35)
[2023-05-07] MEDS: METOPROLOL TARTRATE 50 MG TAB PO SCH ×2 (08:50→23:33)
[2023-05-07] MEDS: IPRATROPIUM-ALBUTEROL 3 ML NEB INHALATION SCH ×4 (09:09→20:38)
--- NOTE | 2023-05-07 11:40 | PN ---
PROGRESS NOTE HISTORY: Mr. Avina is a gentleman who had aortocoronary bypass surgery. He was slightly tachycardic. Beta marquez was increased to 25 mg t.i.d. I am suggesting that we use 50 mg b.i.d. and also obtain an echocardiogram to assess LV function. He did have ejection fraction in the 40% to 45% range. He is clinically doing better. He has history of type 2 diabetes, hypertension, hyperlipidemia, and underwent aortocoronary bypass surgery and is recovering fairly well. Plan is to increase the dose of marquez. Obtain an echocardiogram to reassess LV function to rule out any heart failure type picture, although this is not evident clinically. Discussed my thoughts in detail with the patient. PHYSICAL EXAMINATION: VITAL SIGNS: Revealed blood pressure 130/70, pulse rate is about 96. HEART: S1, S2 heard normally. No significant murmurs. LUNGS: Reveal fair air entry. Abdomen and lower extremity exam unchanged. PLAN: Continue incentive spirometry, pulmonary toilet. Increase the marquez to 50 mg b.i.d. Obtain echocardiogram. MMODL / IJN: [id number] /
[2023-05-07] MEDS: LOSARTAN 25 MG TAB PO SCH (11:47)
[2023-05-07 11:54] LABS: Glucose,Whole Blood 233 mg/dL (70-110)
--- NOTE | 2023-05-07 14:30 | P.PN ---
Subjective Progress Note Date: 05/07/23 Principal diagnosis: POD #3 off-pump coronary artery bypass graft 2 with left internal thoracic artery in situ to the left anterior descending coronary artery, reverse saphenous vein graft from the aorta to the posterior descending coronary artery, left atrial appendage ligation using a 35 mm AtriClip, endoscopic right greater saphenous vein harvest, graft flow measurements using the Medistim flowmeter, sternal closure using the [employer] cable and plating system, intraoperative transesophageal echocardiogram performed by anesthesia 63-year-old obese male patient, who is currently being investigated for coronary artery bypass surgery. The patient is known to have CAD, he is morbidly obese and has hypertension hyperlipidemia and insulin-dependent diabetes mellitus al vini with peripheral vascular disease. The patient is also chronic smoker The patient had a cardiac catheterization that showed 100% LAD in-stent stenosis, 99% mid RCA and the patient was recommended to undergo a coronary artery bypass surgery. He is going to be seen by the cardiothoracic team. His left ventricle ejection fraction slightly reduced at 40-45%. He has an FEV1 of 66% of predicted. He is obese and has features of obstructive sleep apnea although this has not been officially diagnosed. His current cardiac rhythm is sinus. Chest x-ray showed no acute abnormalities. CAT scan of the chest showed negative abnormalities. The patient is clinically stable and hemodynamically stable. Performance of functional status is adequate for now. Is currently free of any chest pain. He is on room air oxygen with a pulse ox of 94-97%. Is pulling ordered 1999 on his incentive spirometer. On today's evaluation of 05/02/2023, no new complaints and the patient is still awaiting his cardiac surgery. His condition is stable. Clinically stable. Hemodynamically stable. Vital signs are all stable. Sitting up on a chair. Using the incentive spirometer. On today's evaluation of 05/03/2023, the patient is having no respiratory distress. Perioperative teaching was given. Clinically stable. Hemodynamically stable. Pulse ox is 98% on room air oxygen. Using the incentive spirometer. Creatinine is at 1.3 with a BUN of 26 and his sodium levels is 137. Hemoglobin is at 13.7. Remains on aspirin and beta blockers. Plavix is currently on hold. Nothing by mouth after for an off cardiac bypass surgery tomorrow. On 05/04/2023, I'm seeing the patient in intensive care unit following his coronary artery bypass surgery the patient had an off pump two-vessel bypass surgery including VERGARA to LAD and SVG to PDA. Currently is intubated on a mechanical ventilator and the patient is postop day #0 and the patient is being seen in the intensive care unit. The patient is currently sedated on propofol which is running at 40 mcg/kg/m. He is on a mechanical ventilator assist control mode at the rate of 16, tidal volume of 450 with an FiO2 of 50% and PEEP of 10. The blood gas was done and the patient was found to have a pH of 7.23 and a pCO2 of 49 and pO2 of 329. FiO2 was dropped down to 50% from 100%. Peak airway pressure is 23. Chest x-ray shows adequate expansion of both lungs. Orotracheal tube is in a good location. The patient has left pleural chest tube, right pleural chest tube and mediastinal chest tube. Output from the mediastinal chest tube is been only 50 mL and output from the pleural chest tubes have been 80 mL and the patient arrived from the operating room. Pulmonary artery pressures are 34/24. Cardiac output is 6.5 with an index of 3.0. The patient is on nitroglycerin drip. The patient is also on insulin drip at 0.5 units an hour. The patient is producing adequate amount of urine output. The hemoglobin currently is at 12.7. White cell count of 18.9. Cardiac rhythm is sinus at the rate of 61. No other significant issues for now. On today's evaluation of 05/05/2023, the patient is postop day #1. Is doing extremely well. I was able to extubate the patient within a few hours after arrival to the intensive care unit. He was slightly acidotic and he developed some respiratory acidosis with appropriate ventilator changes were done and subsequently the patient was extubated. Overnight, the patient stayed on oxygen at 6 L nasal cannula. A chest x-ray from today shows adequate expansion of both lungs. No evidence of any pneumothorax. The patient is using the [employer] spirometer. Cardiac output is at 6.8 with an index of 3.2. PA pressures of 25 of 14. CVP is at 2. The mediastinal chest tube is draining around 430 mL overnight and the pleural chest tubes are connected and they have drained approximately 180 mL overnight and the ventricular epicardial pacemaker wires are present. The patient is not having any respiratory difficulties. His calm and comfortable. Is off the nitroglycerin drip. Insulin drip is running at 4 units an hour. Reevaluated today on 05/07/23, patient remains in the ICU as an overflow he will be going to [facility] today. Patient is status post CABG, postoperative day #3. Patient is on room air, doing well with incentive spirometry pulling over 1999, patient is in sinus rhythm, hemodynamically stable, on room air, chest x-ray showed minimal atelectasis at the bases, no evidence of active disease. Continues to have right internal jugular Cordis in place, WBC count of 13.3 hemoglobin 11.3 basic metabolic profile is normal and we'll profile is normal. Blood sugar is just over 200. Objective - Vital Signs Vital signs: Vital Signs Temp 98.2 F 05/07/23 12:00 Pulse 89 05/07/23 12:00 Resp 28 H 05/07/23 12:00 BP 118/69 05/07/23 12:00 Pulse Ox 93 L 05/07/23 12:00 FiO2 50 05/04/23 20:00 Intake & Output 05/06/23 05/07/23 05/07/23 18:59 06:59 18:59 Intake Total 1011.992 299 520 Output Total 525 425 Balance 486.992 -126 520 Weight 123.6 kg Intake: IV 276 299 20 Lactated Ringers 1,000 ml 240 260 20 @ 20 mls/hr IV .Q24H CLAY Rx#:[id number] ns pressure bags 36 39 Intake, IV Titration 15.992 Amount Insulin Regular 100 unit 15.992 In Sodium Chloride 0.9% 100 ml @ Per Protocol IV .Q0M CLAY Rx#:[id number] Oral 720 500 Output: Chest Tube Drainage 0 Mediastinal 0 Rt&Lt Pleural CT 0 Urine 525 425 Other: Voiding Method Urinal Urinal Urinal ABP, PAP, CO, CI - Last Documented Arterial Blood Pressure 91/56 Pulmonary Artery Pressure 23/13 Cardiac Output 6.8 Cardiac Index 3.2 - Exam Physical Exam: Revealed a 63-year-old white male in no distress Head: Atraumatic, normocephalic. HEENT:[Neck is supple.] [No neck masses.] [No thyromegaly.] [No JVD.] Chest: [Clear throughout, no crackles, no rhonchi, no wheezes.] Cardiac Exam: [Normal S1 and S2, no S3 gallop, no murmur.] Abdomen: [Soft, nontender, no megaly, no rebound, no guarding, normal bowel sounds.] Extremities: [No clubbing, no edema, no cyanosis.] Neurological Exam: [No focal neurologic deficit.] Alert and oriented 3 Psychiatric: Normal mood, affect and normal mental status examination. HEENT: No rashes - Labs CBC & Chem 7: 05/07/23 04:35 05/07/23 04:35 Labs: Abnormal Lab Results - Last 24 Hours (Table) 05/06/23 05/06/23 05/07/23 Range/Units 16:39 20:05 04:35 WBC (3.8-10.6) k/uL RBC (4.30-5.90) m/uL Hgb (13.0-17.5) gm/dL Hct (39.0-53.0) % Plt Count (150-450) k/uL Neutrophils # (1.3-7.7) k/uL Sodium (137-145) mmol/L Carbon Dioxide (22-30) mmol/L BUN (9-20) mg/dL Glucose (74-99) mg/dL POC Glucose (mg/dL) 266 H 283 H (70-110) mg/dL Hemoglobin A1c 9.0 H (<=6.0) % Total Protein (6.3-8.2) g/dL Albumin (3.5-5.0) g/dL 05/07/23 05/07/23 05/07/23 Range/Units 04:35 04:35 06:07 WBC 13.3 H (3.8-10.6) k/uL RBC 3.54 L (4.30-5.90) m/uL Hgb 11.3 L (13.0-17.5) gm/dL Hct 34.5 L (39.0-53.0) % Plt Count 118 L (150-450) k/uL Neutrophils # 10.3 H (1.3-7.7) k/uL Sodium 135 L (137-145) mmol/L Carbon Dioxide 17 L (22-30) mmol/L BUN 28 H (9-20) mg/dL Glucose 206 H (74-99) mg/dL POC Glucose (mg/dL) 224 H (70-110) mg/dL Hemoglobin A1c (<=6.0) % Total Protein 5.2 L (6.3-8.2) g/dL Albumin 2.9 L (3.5-5.0) g/dL 05/07/23 Range/Units 11:52 WBC (3.8-10.6) k/uL RBC (4.30-5.90) m/uL Hgb (13.0-17.5) gm/dL Hct (39.0-53.0) % Plt Count (150-450) k/uL Neutrophils # (1.3-7.7) k/uL Sodium (137-145) mmol/L Carbon Dioxide (22-30) mmol/L BUN (9-20) mg/dL Glucose (74-99) mg/dL POC Glucose (mg/dL) 233 H (70-110) mg/dL Hemoglobin A1c (<=6.0) % Total Protein (6.3-8.2) g/dL Albumin (3.5-5.0) g/dL Assessment and Plan Assessment: Impression: Coronary artery disease with previous PCI 2003, non-STEMI this admission, status post two-vessel off-pump CABG Benign essential hypertension Insulin-dependent diabetes Cardiomyopathy and LV dysfunction with ejection fraction of 40-45% Tobacco dependence syndrome Moderate COPD with FEV1 of 65% Peripheral arterial disease Morbid obesity with BMI of 44 Dyslipidemia Recommendation: Continue to maximize medical therapy including statin Plavix beta marquez and aspirin Continue to closely monitor blood pressure and address accordingly Continue incentive spirometry and bronchodilators Ambulate and increase activity Continue GI and DVT prophylaxis Continue to monitor blood sugar and address aggressively with insulin Discontinue unnecessary lines and catheters Counseled regarding smoking cessation Could consider transfer to a cardiac floor on . We will continue to follow Time with Patient: Less than 30
[2023-05-07] MEDS: DEXTROSE 5% IN WATER 100 ML with AMIODARONE 150 MG IV PRN ×3 (16:00→18:44)
[2023-05-07 16:34] LABS: Glucose,Whole Blood 286 mg/dL (70-110)
--- NOTE | 2023-05-07 18:43 | CA ---
Transthoracic Echo Report Name: Daniel Avina Age: 63 Gender: M : 1960 Exam Date: 05/07/2023 09:00 Exam Location: [place] [facility] Ht (in): 67 Wt (lb): 273 Ordering Physician: Dontae Hampton MD Attending/Referring Phys: Associate Professor Of Literature Margo Saldivar RDCS Procedure CPT: Indications: evaluate LV function, wall motion Cardiac Hx: Technical Quality: Technically difficult study Contrast 1: Definity Total Dose (mL): 2 Contrast 2: Total Dose (mL): MEASUREMENTS (Male / Female) Normal Values FINDINGS Left Ventricle Limited study. Left ventricle systolic function borderline normal, ejection fraction 50-55%, no clear segmental segment wall motion abnormality. Right Ventricle Right Atrium Left Atrium Mitral Valve Aortic Valve Tricuspid Valve Pulmonic Valve Pericardium No pericardial effusion. Aorta CONCLUSIONS Technically difficult study. Definity ECHO contrast used for improved visualization of the endocardial borders (inadequate visualization of two or more contiguous segments). Left ventricle systolic function borderline normal with no clear segmental wall motion abnormalities Previewed by: Dr. Elizabeth Lara MD (Electronically Signed) Final Date: 07 May 2023 18:42
[2023-05-07 19:53] LABS: Glucose,Whole Blood 289 mg/dL (70-110)
[2023-05-07 20:30] LABS: Glucose,Whole Blood 243 mg/dL (70-110)
[2023-05-07] MEDS: ATORVASTATIN 40 MG TAB PO SCH (20:31)
[2023-05-07] MEDS: SENNOSIDES-DOCUSATE SODIUM 1 EACH TAB PO SCH (20:31)
[2023-05-08] MEDS: HEPARIN SODIUM,PORCINE 5,000 UNIT/ML 1 ML VIAL SQ SCH ×4 (00:54→23:24)
[2023-05-08] MEDS: KETOROLAC 15 MG/ML 1 ML VIAL IVP SCH ×5 (00:54→23:24)
[2023-05-08] MEDS: DEXTROSE 5% IN WATER 100 ML with AMIODARONE 150 MG IV PRN (02:21)
[2023-05-08] MEDS ORDERED: METOPROLOL TARTRATE 5 MG/5 ML VIAL IVP SCH (03:15)
[2023-05-08] MEDS ORDERED: METOPROLOL TARTRATE 5 MG/5 ML VIAL IVP STA (03:34)
[2023-05-08 04:47] LABS: HCT 33.3 % (39.0-53.0); HGB 11.1 gm/dL (13.0-17.5); MCH 32.2 pg (25.0-35.0); MCHC 33.4 g/dL (31.0-37.0); MCV 96.2 fL (80.0-100.0); Mean Platelet Volume 10.5; Platelet Count 155 k/uL (150-450); RBC 3.46 m/uL (4.30-5.90); RDW 13.8 % (11.5-15.5); WBC 10.9 k/uL (3.8-10.6)
[2023-05-08 05:01] LABS: African American GFR (CKD) >90 (>60 ml/min/1.73 sqM); Anion Gap 6 mmol/L; Blood Urea Nitrogen 27 mg/dL (9-20); Calcium 8.7 mg/dL (8.4-10.2); Carbon Dioxide 22 mmol/L (22-30); Chloride 107 mmol/L (98-107); Glucose 203 mg/dL (74-99); Non-African American GFR(CKD) 84 (>60 ml/min/1.73 sqM); Potassium 4.4 mmol/L (3.5-5.1); Sodium 135 mmol/L (137-145)
[2023-05-08 06:21] LABS: Glucose,Whole Blood 228 mg/dL (70-110)
[2023-05-08] MEDS: INSULIN ASPART (NovoLOG) 100 UNIT/ML VIAL SQ SCH ×8 (06:21→19:59)
[2023-05-08] MEDS: PANTOPRAZOLE 40 MG TABLET PO SCH (06:22)
[2023-05-08] MEDS ORDERED: INSULIN DETEMIR (LEVEMIR) 100 UNIT/ML SYR SQ SCH (07:00)
--- NOTE | 2023-05-08 08:00 | P.PN ---
Subjective Progress Note Date: 05/08/23 Principal diagnosis: Coronary artery disease, non-STEMI this admission reduced left ventricular systolic function. History of CAD with previous PCI in 2003, hypertension, hyperlipidemia, insulin-dependent diabetes, peripheral arterial disease with intermittent claudication, morbid obesity, current heavy tobacco dependence, COPD, remote history of pneumonia, preoperative nasal swab positive for MSSA POD #4 off-pump coronary artery bypass graft 2 with left internal thoracic artery in situ to the left anterior descending coronary artery, reverse saphenous vein graft from the aorta to the posterior descending coronary artery, left atrial appendage ligation using a 35 mm AtriClip, endoscopic right greater saphenous vein harvest, graft flow measurements using the Medistim flowmeter, sternal closure using the [employer] cable and plating system, intraoperative transesophageal echocardiogram performed by anesthesia Postoperative atrial fibrillation, known common occurrence after open heart surgery due to stretching of myocardial fibers The patient was seen and examined this morning sitting up in a recliner in no acute distress eating breakfast. States pain is mostly controlled on current medication regimen, denies shortness of breath. Currently in sinus rhythm, h emodynamically stable. The patient did go into rapid atrial fibrillation yesterday, was given for him he of boluses and initiated on continuous IV amiodarone infusion with conversion to sinus rhythm. Currently on room air with oxygen saturation in the mid 90s, able to achieve 1000 mL on incentive spirometry. Labs, x-ray reviewed. Ambulated in hallway with nursing without difficulty. Blood sugars remain elevated over 200, insulin titrated up yesterday by internal medicine, still remains over 200, needs tighter control. Transfer orders were placed for [facility] yesterday. No other new concerns. Objective - Vital Signs Vital signs: Vital Signs Temp 98.2 F 05/08/23 04:00 Pulse 70 05/08/23 04:00 Resp 26 H 05/08/23 04:00 BP 103/60 05/08/23 04:00 Pulse Ox 100 05/08/23 04:00 FiO2 50 05/04/23 20:00 Intake & Output 05/07/23 05/08/23 05/08/23 18:59 06:59 18:59 Intake Total 1120 207.2 Output Total 150 Balance 1120 57.2 Weight 120.6 kg Intake: IV 20 Lactated Ringers 1,000 ml 20 @ 20 mls/hr IV .Q24H CLAY Rx#:[id number] Intake, IV Titration 207.2 Amount Amiodarone 360 mg In 207.2 Dextrose 5% in Water 200 ml @ 1 MG/MIN 34.533 mls/ hr IV .Q6H PRN Rx#: [id number] Oral 1100 Output: Urine 150 Other: Voiding Method Urinal Urinal # Voids 1 # Bowel Movements 1 ABP, PAP, CO, CI - Last Documented Arterial Blood Pressure 91/56 Pulmonary Artery Pressure 23/13 Cardiac Output 6.8 Cardiac Index 3.2 - Exam CONSTITUTIONAL: Appears comfortable, cooperative, no acute distress RESPIRATORY: Lungs sounds diminished bilaterally. Respirations even, nonlabored. Currently on room air with oxygen saturation 97%. Able to achieve 1000 mL on incentive spirometry. Strong cough CARDIOVASCULAR: S1, S2 present. Regular rate and rhythm, sinus rhythm on telemetry. Sternum stable. Palpable peripheral pulses bilaterally. Trace bilateral lower extremity edema present. No calf pain or tenderness noted. Heart hugger in place with patient demonstrating appropriate use. Antiembolism stockings, SCDs present. GASTROINTESTINAL: Abdomen soft, nontender, nondistended, round. Active bowel sounds present 4 quadrants. Tolerating diet. Positive bowel movement 05/07 GENITOURINARY: Continues to void clear yellow urine INTEGUMENTARY: Skin is warm and dry with evidence of good perfusion. Anterior chest incision well approximated. Right lower extremity EVH site well approximated without redness or drainage. NEUROLOGIC: Cranial nerves II through XII intact MUSKULOSKELETAL: Able to move all extremities, strength equal bilaterally, gait normal PSYCHIATRIC: Alert and oriented to person place and time, appropriate affect, intact judgment and insight - Allied health notes Allied health notes reviewed: nursing - Labs CBC & Chem 7: 05/08/23 04:25 05/08/23 04:25 Labs: Abnormal Lab Results - Last 24 Hours (Table) 05/07/23 05/07/23 05/07/23 Range/Units 04:35 11:52 16:32 WBC (3.8-10.6) k/uL RBC (4.30-5.90) m/uL Hgb (13.0-17.5) gm/dL Hct (39.0-53.0) % Sodium (137-145) mmol/L BUN (9-20) mg/dL Glucose (74-99) mg/dL POC Glucose (mg/dL) 233 H 286 H (70-110) mg/dL Hemoglobin A1c 9.0 H (<=6.0) % 05/07/23 05/07/23 05/08/23 Range/Units 19:51 20:29 04:25 WBC 10.9 H (3.8-10.6) k/uL RBC 3.46 L (4.30-5.90) m/uL Hgb 11.1 L (13.0-17.5) gm/dL Hct 33.3 L (39.0-53.0) % Sodium (137-145) mmol/L BUN (9-20) mg/dL Glucose (74-99) mg/dL POC Glucose (mg/dL) 289 H 243 H (70-110) mg/dL Hemoglobin A1c (<=6.0) % 05/08/23 05/08/23 Range/Units 04:25 06:20 WBC (3.8-10.6) k/uL RBC (4.30-5.90) m/uL Hgb (13.0-17.5) gm/dL Hct (39.0-53.0) % Sodium 135 L (137-145) mmol/L BUN 27 H (9-20) mg/dL Glucose 203 H (74-99) mg/dL POC Glucose (mg/dL) 228 H (70-110) mg/dL Hemoglobin A1c (<=6.0) % - Imaging and Cardiology Chest x-ray: image reviewed Assessment and Plan Assessment: Coronary artery disease with previous PCI 2003, non-STEMI this admission, status post two-vessel off-pump CABG Reduced left ventricular systolic function, EF 40-45% Hypertension Hyperlipidemia, treated, cholesterol 130, LDL 70 Insulin-dependent diabetes, hgb A1c 9.1% Peripheral arterial disease with intermittent claudication, GIRMA left moderate disease Morbid obesity, BMI 44 Current heavy tobacco dependence Moderate COPD, FEV1 65% of predicted Remote history of pneumonia Preoperative nasal swab positive for MSSA Postoperative paroxysmal atrial fibrillation, status post exclusion of the left atrial appendage Plan: Continue to maximize medical therapy with ASA, statin, Plavix, beta marquez. W ill increase beta marquez therapy as tolerated, increased to 50 mg twice a day yesterday Continue amiodarone for A. fib prophylaxis, will transition to oral and taper weekly. No anticoagulation necessary unless stays in A. fib greater than 24 hours Continue losartan for afterload reduction with hold parameters Encourage incentive spirometer every hour, bronchodilators per pulmonology Increase activity, ambulate as tolerated. PT/OT/cardiac rehab consulted Will monitor daily labs and x-rays. Electrolyte replacement per protocol GI/DVT prophylaxis Pain control with current medication regimen Insulin management per internal medicine. Blood sugar remains over 200, needs tighter control Continue mupirocin for preoperative nasal swab positive for MSSA Continue to record accurate intake and output Daily weights Smoking cessation reinforced Transfer orders were placed yesterday for [facility], may transfer when bed available Discharge planning in progress, anticipate discharge to home with home care in the next 24-48 hours if blood sugars are better controlled Patient will need new glucometer upon discharge, states his glucometer at home is not functioning More recommendations to follow
--- NOTE | 2023-05-08 08:01 | PN ---
PROGRESS NOTE SUBJECTIVE: Mr. Avina has converted to sinus rhythm. He was in atrial fibrillation, he has received intravenous amiodarone. Apparently he went into atrial fibrillation last night, paroxysmal, converted to sinus rhythm with amiodarone and 5 mg of IV Lopressor. We will continue amiodarone and beta marquez, hemodynamically stable, feels well. OBJECTIVE: VITALS: Stable. HEART: S1, S2 heard normally. No significant murmurs. LUNGS: Reveal diminished air entry. ABDOMEN: Soft. EXTREMITIES: Lower extremities reveal diminished pulses. NEUROLOGIC: Central nervous system is grossly within normal limits. This gentleman has off pump bypass surgery and is progressing well. Echo revealed preserved systolic function. No significant pericardial effusion. We will continue current medical regimen including IV amiodarone. MMODL / IJN: [id number] /
--- NOTE | 2023-05-08 08:18 | XR ---
EXAMINATION TYPE: XR chest 2V DATE OF EXAM: 05/08/2023 COMPARISON: 05/07/2023 HISTORY: 63 year-old male post cardiac surgery TECHNIQUE: PA and lateral views FINDINGS: Median sternotomy wires are present post CABG clips. Heart borderline enlarged. Hyperinflation. Diffu se interstitial density with hazy and patchy lower lung opacities, increased from prior. Small bilate ral pleural effusions noted on the lateral view. No appreciable pneumothorax. IMPRESSION: COPD and borderline cardiomegaly. There is slight worsening in mild pulmonary vascular congestion. On going small pleural effusions with adjacent atelectasis and/or consolidation.
[2023-05-08] MEDS: ASPIRIN 325 MG TAB PO SCH (09:10)
[2023-05-08] MEDS: AMIODARONE 200 MG TAB PO SCH ×2 (09:10→21:12)
[2023-05-08] MEDS: CLOPIDOGREL 75 MG TAB PO SCH (09:11)
[2023-05-08] MEDS: MUPIROCIN 2% OINT 22 GM TUBE NASAL SCH ×2 (09:11→21:13)
[2023-05-08] MEDS: METOPROLOL TARTRATE 50 MG TAB PO SCH ×2 (09:11→21:12)
[2023-05-08] MEDS: IPRATROPIUM-ALBUTEROL 3 ML NEB INHALATION SCH ×4 (09:13→19:56)
--- NOTE | 2023-05-08 10:51 | P.PN ---
Subjective Progress Note Date: 05/08/23 This is a 63-year-old gentleman admitted with an NSTEMI, morbid obesity, history of CAD with previous PCI years ago, DM, nicotine dependence and multiple other medical issues status post cardiac catheterization. Completed cardiac catheterization this morning reporting 100% LAD in-stent stenosis, 99% mid RCA in-stent stenosis, mild disease of left circumflex and into PDA and PLV branch, normal LVEDP, ischemic cardiomyopathy EF 40%. CTS consulted regarding potential CABG. Currently denies chest pain, palpitations or shortness of breath. Denies nausea or vomiting. 05/01/2023 evaluated by cardiothoracic surgery and is scheduled for CABG on Sunday. Plavix remains on hold. Denies chest pain, palpitations or shortness of breath. Positive diet intake with no nausea vomiting or diarrhea. Blood s ugars running higher over the last 24 hours, currently in the low 200s. Denies abdominal pain. Using incentive spirometer, up to 2500. Afebrile. 05/02/2023 Plavix remains on hold, scheduled for CABG on Sunday. Denies chest pain, palpitations shortness of breath. Denies chills or sweats. Blood sugars currently in the 200s. Compliant with incentive spirometer, greater than 2200. 05/03/23 sitting up in chair, IS [id number]. Denies chest pain, palpitations or shortness of breath. Blood sugars this morning in the mid 200s, additional Levemir ordered. 05/04/2023 patient not seen this morning, as patient in preop for CABG procedure. 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 Maintaining O2 sats in the mid 90s on 2 L nasal cannula. Incentive spirometer up to 1800 .Chest x-ray reported COPD, borderline cardiomegaly, slight worsening in the mild pulmonary vascular congestion, ongoing small pleural effusions with adjacent atelectasis and/or consolidation. Afebrile, WBC 10.9. Blood sugars continuing to 200s, Lantus increased. Renal function stable. Objective - Vital Signs Vital signs: Vital Signs Temp 98.2 F 05/08/23 04:00 Pulse 77 05/08/23 09:24 Resp 16 05/08/23 09:24 BP 103/60 05/08/23 04:00 Pulse Ox 100 05/08/23 04:00 FiO2 50 05/04/23 20:00 Intake & Output 05/07/23 05/08/23 05/08/23 18:59 06:59 18:59 Intake Total 1120 207.2 Output Total 150 Balance 1120 57.2 Weight 120.6 kg Intake: IV 20 Lactated Ringers 1,000 ml 20 @ 20 mls/hr IV .Q24H [facility] Rx#:[id number] Intake, IV Titration 207.2 Amount Amiodarone 360 mg In 207.2 Dextrose 5% in Water 200 ml @ 1 MG/MIN 34.533 mls/ hr IV .Q6H PRN Rx#: [id number] Oral 1100 Output: Urine 150 Other: Voiding Method Urinal Urinal # Voids 1 # Bowel Movements 1 ABP, PAP, CO, CI - Last Documented Arterial Blood Pressure 91/56 Pulmonary Artery Pressure 23/13 Cardiac Output 6.8 Cardiac Index 3.2 - Exam PHYSICAL EXAMINATION: GENERAL: Alert and oriented 3, sitting up in chair, no acute distress. HEENT: Normocephalic, Pupils are round and equal. EOMI.Neck supple, unable to assess JVD. CARDIOVASCULAR: S1 and S2 present. Regular .No murmurs, rubs, or gallops. PULMONARY: Unlabored, bilateral air entry, clear to auscultation. ABDOMEN: Soft, nontender, nondistended, normoactive bowel sounds. EXTREMITIES: No cyanosis, clubbing, or pedal edema. NEUROLOGICAL: Gross neurological examination did not reveal any focal deficits. SKIN: No rashes. - Labs CBC & Chem 7: 05/08/23 04:25 05/08/23 04:25 Labs: Abnormal Lab Results - Last 24 Hours (Table) 05/07/23 05/07/23 05/07/23 Range/Units 11:52 16:32 19:51 WBC (3.8-10.6) k/uL RBC (4.30-5.90) m/uL Hgb (13.0-17.5) gm/dL Hct (39.0-53.0) % Sodium (137-145) mmol/L BUN (9-20) mg/dL Glucose (74-99) mg/dL POC Glucose (mg/dL) 233 H 286 H 289 H (70-110) mg/dL 05/07/23 05/08/23 05/08/23 Range/Units 20:29 04:25 04:25 WBC 10.9 H (3.8-10.6) k/uL RBC 3.46 L (4.30-5.90) m/uL Hgb 11.1 L (13.0-17.5) gm/dL Hct 33.3 L (39.0-53.0) % Sodium 135 L (137-145) mmol/L BUN 27 H (9-20) mg/dL Glucose 203 H (74-99) mg/dL POC Glucose (mg/dL) 243 H (70-110) mg/dL 05/08/23 Range/Units 06:20 WBC (3.8-10.6) k/uL RBC (4.30-5.90) m/uL Hgb (13.0-17.5) gm/dL Hct (39.0-53.0) % Sodium (137-145) mmol/L BUN (9-20) mg/dL Glucose (74-99) mg/dL POC Glucose (mg/dL) 228 H (70-110) mg/dL Assessment and Plan Assessment: Acute NSTEMI, status post cardiac catheterization reporting 100% LAD in-stent stenosis and 99% mid RCA in-stent stenosis. Status post CABG. CAD with hx of PCI Diabetes mellitus type 2, hemoglobin A1c 9.1, will require further diabetic education outpatient in clinic with PCP. hypertension Hyperlipidemia Morbid obesity, BMI 44 COPD Ongoing nicotine dependence Plan: Continue on current medication regime ,monitoring and symptomatic treatment. Antiarrhythmics as per CTS.Aggressive pulmonary toileting with incentive spirometer and smoking cessation reinforced. Lantus increased, close monitoring of Accu-Cheks. Patient is currently selective overflow, awaiting bed. The impression and plan of care has been dictated as directed. : I performed a history and examination of this patient, discussed the same with the dictator. I agree with the dictator's note ,documented as a scribe. Any additional findings or plans will be noted.
[2023-05-08 11:36] LABS: Glucose,Whole Blood 219 mg/dL (70-110)
[2023-05-08] MEDS: LOSARTAN 25 MG TAB PO SCH (11:56)
--- NOTE | 2023-05-08 12:32 | P.PN ---
Subjective Progress Note Date: 05/08/23 Principal diagnosis: POD #4 off-pump coronary artery bypass graft 2 with left internal thoracic artery in situ to the left anterior descending coronary artery, reverse saphenous vein graft from the aorta to the posterior descending coronary artery, left atrial appendage ligation using a 35 mm AtriClip, endoscopic right greater saphenous vein harvest, graft flow measurements using the Medistim flowmeter, sternal closure using the [place] cable and plating system, intraoperative transesophageal echocardiogram performed by anesthesia 63-year-old obese male patient, who is currently being investigated for coronary artery bypass surgery. The patient is known to have CAD, he is morbidly obese and has hypertension hyperlipidemia and insulin-dependent diabetes mellitus al vini with peripheral vascular disease. The patient is also chronic smoker The patient had a cardiac catheterization that showed 100% LAD in-stent stenosis, 99% mid RCA and the patient was recommended to undergo a coronary artery bypass surgery. He is going to be seen by the cardiothoracic team. His left ventricle ejection fraction slightly reduced at 40-45%. He has an FEV1 of 66% of predicted. He is obese and has features of obstructive sleep apnea although this has not been officially diagnosed. His current cardiac rhythm is sinus. Chest x-ray showed no acute abnormalities. CAT scan of the chest showed negative abnormalities. The patient is clinically stable and hemodynamically stable. Performance of functional status is adequate for now. Is currently free of any chest pain. He is on room air oxygen with a pulse ox of 94-97%. Is pulling ordered 1999 on his incentive spirometer. On today's evaluation of 05/02/2023, no new complaints and the patient is still awaiting his cardiac surgery. His condition is stable. Clinically stable. Hemodynamically stable. Vital signs are all stable. Sitting up on a chair. Using the incentive spirometer. On today's evaluation of 05/03/2023, the patient is having no respiratory distress. Perioperative teaching was given. Clinically stable. Hemodynamically stable. Pulse ox is 98% on room air oxygen. Using the incentive spirometer. Creatinine is at 1.3 with a BUN of 26 and his sodium levels is 137. Hemoglobin is at 13.7. Remains on aspirin and beta blockers. Plavix is currently on hold. Nothing by mouth after for an off cardiac bypass surgery tomorrow. On 05/04/2023, I'm seeing the patient in intensive care unit following his coronary artery bypass surgery the patient had an off pump two-vessel bypass surgery including VERGARA to LAD and SVG to PDA. Currently is intubated on a mechanical ventilator and the patient is postop day #0 and the patient is being seen in the intensive care unit. The patient is currently sedated on propofol which is running at 40 mcg/kg/m. He is on a mechanical ventilator assist control mode at the rate of 16, tidal volume of 450 with an FiO2 of 50% and PEEP of 10. The blood gas was done and the patient was found to have a pH of 7.23 and a pCO2 of 49 and pO2 of 329. FiO2 was dropped down to 50% from 100%. Peak airway pressure is 23. Chest x-ray shows adequate expansion of both lungs. Orotracheal tube is in a good location. The patient has left pleural chest tube, right pleural chest tube and mediastinal chest tube. Output from the mediastinal chest tube is been only 50 mL and output from the pleural chest tubes have been 80 mL and the patient arrived from the operating room. Pulmonary artery pressures are 34/24. Cardiac output is 6.5 with an index of 3.0. The patient is on nitroglycerin drip. The patient is also on insulin drip at 0.5 units an hour. The patient is producing adequate amount of urine output. The hemoglobin currently is at 12.7. White cell count of 18.9. Cardiac rhythm is sinus at the rate of 61. No other significant issues for now. On today's evaluation of 05/05/2023, the patient is postop day #1. Is doing extremely well. I was able to extubate the patient within a few hours after arrival to the intensive care unit. He was slightly acidotic and he developed some respiratory acidosis with appropriate ventilator changes were done and subsequently the patient was extubated. Overnight, the patient stayed on oxygen at 6 L nasal cannula. A chest x-ray from today shows adequate expansion of both lungs. No evidence of any pneumothorax. The patient is using the [place] [employer] spirometer. Cardiac output is at 6.8 with an index of 3.2. PA pressures of 25 of 14. CVP is at 2. The mediastinal chest tube is draining around 430 mL overnight and the pleural chest tubes are connected and they have drained approximately 180 mL overnight and the ventricular epicardial pacemaker wires are present. The patient is not having any respiratory difficulties. His calm and comfortable. Is off the nitroglycerin drip. Insulin drip is running at 4 units an hour. Reevaluated today on 05/07/23, patient remains in the ICU as an overflow he will be going to 3 S. today. Patient is status post CABG, postoperative day #3. Patient is on room air, doing well with incentive spirometry pulling over 1999, patient is in sinus rhythm, hemodynamically stable, on room air, chest x-ray showed minimal atelectasis at the bases, no evidence of active disease. Continues to have right internal jugular Cordis in place, WBC count of 13.3 hemoglobin 11.3 basic metabolic profile is normal and we'll profile is normal. Blood sugar is just over 200. Patient was reevaluated today on 05/08/23, patient remains in the ICU, had an episode of atrial fibrillation with RVR last night, presently in sinus rhythm, patient responded to amiodarone bolus and drip, he remains on amiodarone drip at this point. Relatively asymptomatic, no cough no wheezing no shortness of breath. Patient is on 2 L nasal cannula with O2 saturation of 100%. He would be transitioned to oral amiodarone today. Patient is doing great with incentive spirometry achieving over 1800 mL. Plan is to transfer the patient sometime later today to 3 S. Chest x-ray this morning showed mild prominence of the pulmonary vasculature otherwise unremarkable, no pleural effusions. And no infiltrate WBC count is 10.9 hemoglobin 11.1 basic metabolic profile is normal. Objective - Vital Signs Vital signs: Vital Signs Temp 98.2 F 05/08/23 08:00 Pulse 77 05/08/23 09:24 Resp 16 05/08/23 09:24 BP 110/71 05/08/23 08:00 Pulse Ox 95 05/08/23 08:00 FiO2 50 05/04/23 20:00 Intake & Output 05/07/23 05/08/23 05/08/23 18:59 06:59 18:59 Intake Total 1120 207.2 Output Total 150 Balance 1120 57.2 Weight 120.6 kg Intake: IV 20 Lactated Ringers 1,000 ml 20 @ 20 mls/hr IV .Q24H [facility] Rx#:[id number] Intake, IV Titration 207.2 Amount Amiodarone 360 mg In 207.2 Dextrose 5% in Water 200 ml @ 1 MG/MIN 34.533 mls/ hr IV .Q6H PRN Rx#: [id number] Oral 1100 Output: Urine 150 Other: Voiding Method Urinal Urinal Urinal # Voids 1 # Bowel Movements 1 ABP, PAP, CO, CI - Last Documented Arterial Blood Pressure 91/56 Pulmonary Artery Pressure 23/13 Cardiac Output 6.8 Cardiac Index 3.2 - Exam Physical Exam: Revealed a 63-year-old white male in no distress, on 2 L nasal cannula Head: Atraumatic, normocephalic. HEENT:[Neck is supple.] [No neck masses.] [No thyromegaly.] [No JVD.] Chest: [Clear throughout, no crackles, no rhonchi, no wheezes.] Cardiac Exam: [Normal S1 and S2, no S3 gallop, no murmur.] Abdomen: [Soft, nontender, no megaly, no rebound, no guarding, normal bowel sounds.] Extremities: [No clubbing, no edema, no cyanosis.] Neurological Exam: [No focal neurologic deficit.] Alert and oriented 3 Psychiatric: Normal mood, affect and normal mental status examination. HEENT: No rashes - Labs CBC & Chem 7: 05/08/23 04:25 05/08/23 04:25 Labs: Abnormal Lab Results - Last 24 Hours (Table) 05/07/23 05/07/23 05/07/23 Range/Units 16:32 19:51 20:29 WBC (3.8-10.6) k/uL RBC (4.30-5.90) m/uL Hgb (13.0-17.5) gm/dL Hct (39.0-53.0) % Sodium (137-145) mmol/L BUN (9-20) mg/dL Glucose (74-99) mg/dL POC Glucose (mg/dL) 286 H 289 H 243 H (70-110) mg/dL 05/08/23 05/08/23 05/08/23 Range/Units 04:25 04:25 06:20 WBC 10.9 H (3.8-10.6) k/uL RBC 3.46 L (4.30-5.90) m/uL Hgb 11.1 L (13.0-17.5) gm/dL Hct 33.3 L (39.0-53.0) % Sodium 135 L (137-145) mmol/L BUN 27 H (9-20) mg/dL Glucose 203 H (74-99) mg/dL POC Glucose (mg/dL) 228 H (70-110) mg/dL 05/08/23 Range/Units 11:35 WBC (3.8-10.6) k/uL RBC (4.30-5.90) m/uL Hgb (13.0-17.5) gm/dL Hct (39.0-53.0) % Sodium (137-145) mmol/L BUN (9-20) mg/dL Glucose (74-99) mg/dL POC Glucose (mg/dL) 219 H (70-110) mg/dL Assessment and Plan Assessment: Impression: Coronary artery disease with previous PCI 2003, non-STEMI this admission, status post two-vessel off-pump CABG, postoperative day #4 Benign essential hypertension Insulin-dependent diabetes Cardiomyopathy and LV dysfunction with ejection fraction of 40-45% Tobacco dependence syndrome Moderate COPD with FEV1 of 65% Peripheral arterial disease Morbid obesity with BMI of 44 Dyslipidemia Postoperative atrial fibrillation with RVR, expected, patient converted to normal sinus rhythm after receiving amiodarone Recommendation: Continue to maximize medical therapy including statin Plavix beta marquez and aspirin Continue incentive spirometry and bronchodilators Ambulate and increase activity Continue GI and DVT prophylaxis Continue to monitor blood sugar and address aggressively with insulin Discontinue unnecessary lines and catheters Counseled regarding smoking cessation Could consider transfer to a cardiac floor on selective. Later today We will continue to follow Time with Patient: Less than 30
[2023-05-08] MEDS ORDERED: INSULIN DETEMIR (LEVEMIR) 100 UNIT/ML SYR SQ ONE (14:35)
[2023-05-08 16:17] LABS: Glucose,Whole Blood 244 mg/dL (70-110)
[2023-05-08 19:58] LABS: Glucose,Whole Blood 145 mg/dL (70-110)
[2023-05-08] MEDS: SENNOSIDES-DOCUSATE SODIUM 1 EACH TAB PO SCH (21:12)
[2023-05-08] MEDS: ATORVASTATIN 40 MG TAB PO SCH (21:13)
[2023-05-09 06:10] LABS: HCT 35.6 % (39.0-53.0); HGB 11.8 gm/dL (13.0-17.5); MCH 32.3 pg (25.0-35.0); MCHC 33.1 g/dL (31.0-37.0); MCV 97.4 fL (80.0-100.0); Mean Platelet Volume 10.3; Platelet Count 213 k/uL (150-450); RBC 3.65 m/uL (4.30-5.90); RDW 13.6 % (11.5-15.5)
[2023-05-09 06:21] LABS: African American GFR (CKD) 86 (>60 ml/min/1.73 sqM); Anion Gap 7 mmol/L; Blood Urea Nitrogen 27 mg/dL (9-20); Calcium 9.4 mg/dL (8.4-10.2); Carbon Dioxide 24 mmol/L (22-30); Chloride 106 mmol/L (98-107); Glucose 185 mg/dL (74-99); Non-African American GFR(CKD) 74 (>60 ml/min/1.73 sqM); Potassium 4.9 mmol/L (3.5-5.1); Sodium 137 mmol/L (137-145)
[2023-05-09] MEDS ORDERED: POTASSIUM CHLORIDE 20 MEQ in WATER FOR INJECTION 1 100ML.BAG IVPB SCH (06:30)
[2023-05-09] MEDS ORDERED: INSULIN DETEMIR (LEVEMIR) 100 UNIT/ML SYR SQ SCH (07:00)
[2023-05-09 07:52] LABS: Glucose,Whole Blood 184 mg/dL (70-110)
[2023-05-09] MEDS: INSULIN ASPART (NovoLOG) 100 UNIT/ML VIAL SQ SCH ×4 (07:56→11:29)
[2023-05-09] MEDS: KETOROLAC 15 MG/ML 1 ML VIAL IVP SCH ×2 (07:57→11:39)
--- NOTE | 2023-05-09 08:04 | P.PN ---
Subjective Progress Note Date: 05/09/23 Principal diagnosis: Coronary artery disease, non-STEMI this admission reduced left ventricular systolic function. History of CAD with previous PCI in 2003, hypertension, hyperlipidemia, insulin-dependent diabetes, peripheral arterial disease with intermittent claudication, morbid obesity, current heavy tobacco dependence, COPD, remote history of pneumonia, preoperative nasal swab positive for MSSA POD #5 off-pump coronary artery bypass graft 2 with left internal thoracic artery in situ to the left anterior descending coronary artery, reverse saphenous vein graft from the aorta to the posterior descending coronary artery, left atrial appendage ligation using a 35 mm AtriClip, endoscopic right greater saphenous vein harvest, graft flow measurements using the Medistim flowmeter, sternal closure using the [employer] cable and plating system, intraoperative transesophageal echocardiogram performed by anesthesia Postoperative atrial fibrillation, known common occurrence after open heart surgery due to stretching of myocardial fibers The patient was seen and examined this morning sitting up in a recliner in no acute distress eating breakfast. States pain is mostly controlled on current medication regimen, denies shortness of breath. Currently in sinus rhythm, h emodynamically stable. Currently on room air with oxygen saturation in the mid 90s, able to achieve 1500 mL on incentive spirometry. Labs, x-ray reviewed. Ambulated in hallway with nursing without difficulty. Blood sugars under 200 after increase in insulin yesterday. Transfer orders were placed for 3 S., no beds available. Anticipate discharge to home with home care today. No other new concerns. Objective - Vital Signs Vital signs: Vital Signs Temp 97.9 F 05/09/23 04:00 Pulse 73 05/09/23 04:00 Resp 10 L 05/09/23 04:00 BP 130/81 05/09/23 04:00 Pulse Ox 95 05/09/23 04:00 FiO2 50 05/04/23 20:00 Intake & Output 05/08/23 05/09/23 05/09/23 18:59 06:59 18:59 Intake Total 240 150 Output Total 200 200 Balance 40 -50 Intake: Oral 240 150 Output: Urine 200 200 Other: Voiding Method Urinal Urinal ABP, PAP, CO, CI - Last Documented Arterial Blood Pressure 91/56 Pulmonary Artery Pressure 23/13 Cardiac Output 6.8 Cardiac Index 3.2 - Exam CONSTITUTIONAL: Appears comfortable, cooperative, no acute distress RESPIRATORY: Lungs sounds diminished bilaterally. Respirations even, nonlabored. Currently on room air with oxygen saturation 95%. Able to achieve 1500 mL on incentive spirometry. Strong cough CARDIOVASCULAR: S1, S2 present. Regular rate and rhythm, sinus rhythm on telemetry. Sternum stable. Palpable peripheral pulses bilaterally. Trace bilateral lower extremity edema present. No calf pain or tenderness noted. Heart hugger in place with patient demonstrating appropriate use. Antiembolism stockings, SCDs present. GASTROINTESTINAL: Abdomen soft, nontender, nondistended, round. Active bowel sounds present 4 quadrants. Tolerating diet. Positive bowel movement 05/07 GENITOURINARY: Continues to void clear yellow urine INTEGUMENTARY: Skin is warm and dry with evidence of good perfusion. Anterior chest incision well approximated. Right lower extremity EVH site well approximated without redness or drainage. NEUROLOGIC: Cranial nerves II through XII intact MUSKULOSKELETAL: Able to move all extremities, strength equal bilaterally, gait normal PSYCHIATRIC: Alert and oriented to person place and time, appropriate affect, intact judgment and insight - Labs CBC & Chem 7: 05/09/23 05:26 05/09/23 05:26 Labs: Abnormal Lab Results - Last 24 Hours (Table) 05/08/23 05/08/23 05/08/23 Range/Units 11:35 16:16 19:57 RBC (4.30-5.90) m/uL Hgb (13.0-17.5) gm/dL Hct (39.0-53.0) % BUN (9-20) mg/dL Glucose (74-99) mg/dL POC Glucose (mg/dL) 219 H 244 H 145 H (70-110) mg/dL 05/09/23 05/09/23 05/09/23 Range/Units 05:26 05:26 07:50 RBC 3.65 L (4.30-5.90) m/uL Hgb 11.8 L (13.0-17.5) gm/dL Hct 35.6 L (39.0-53.0) % BUN 27 H (9-20) mg/dL Glucose 185 H (74-99) mg/dL POC Glucose (mg/dL) 184 H (70-110) mg/dL - Imaging and Cardiology Chest x-ray: pending Assessment and Plan Assessment: Coronary artery disease with previous PCI 2003, non-STEMI this admission, status post two-vessel off-pump CABG Reduced left ventricular systolic function, EF 40-45% Hypertension Hyperlipidemia, treated, cholesterol 130, LDL 70 Insulin-dependent diabetes, hgb A1c 9.1% Peripheral arterial disease with intermittent claudication, GIRMA left moderate disease Morbid obesity, BMI 44 Current heavy tobacco dependence Moderate COPD, FEV1 65% of predicted Remote history of pneumonia Preoperative nasal swab positive for MSSA Postoperative paroxysmal atrial fibrillation, status post exclusion of the left atrial appendage Plan: Continue to maximize medical therapy with ASA, statin, Plavix, beta marquez Continue amiodarone for A. fib prophylaxis, will taper weekly. No anticoagul ation necessary Continue losartan for afterload reduction Encourage incentive spirometer every hour, bronchodilators per pulmonology Increase activity, ambulate as tolerated. PT/OT/cardiac rehab consulted Will monitor daily labs and x-rays. Electrolyte replacement per protocol GI/DVT prophylaxis Pain control with current medication regimen Insulin management per internal medicine. Continue mupirocin for preoperative nasal swab positive for MSSA Continue to record accurate intake and output Daily weights Smoking cessation reinforced Discharge planning in progress, anticipate discharge to home with home care today, need recommendations regarding diabetic medications from internal medicine Patient will need new glucometer upon discharge, states his glucometer at home is not functioning More recommendations to follow
[2023-05-09] MEDS: IPRATROPIUM-ALBUTEROL 3 ML NEB INHALATION SCH ×2 (08:15→11:22)
[2023-05-09] MEDS: ASPIRIN 325 MG TAB PO SCH (08:58)
[2023-05-09] MEDS: METOPROLOL TARTRATE 50 MG TAB PO SCH (08:58)
[2023-05-09] MEDS: HEPARIN SODIUM,PORCINE 5,000 UNIT/ML 1 ML VIAL SQ SCH (08:58)
[2023-05-09] MEDS: PANTOPRAZOLE 40 MG TABLET PO SCH (08:58)
[2023-05-09] MEDS: MUPIROCIN 2% OINT 22 GM TUBE NASAL SCH (08:58)
[2023-05-09] MEDS: CLOPIDOGREL 75 MG TAB PO SCH (08:58)
[2023-05-09] MEDS: AMIODARONE 200 MG TAB PO SCH (08:58)
[2023-05-09] MEDS ORDERED: FUROSEMIDE 10 MG/ML 2 ML VIAL IV STA (08:59)
--- NOTE | 2023-05-09 08:59 | XR ---
EXAMINATION TYPE: XR chest 2V DATE OF EXAM: 05/09/2023 8:41 AM COMPARISON: Chest radiographs from 04/28/2023 TECHNIQUE: XR chest 2V Frontal and lateral views of the chest. CLINICAL INDICATION:Male, 63 years old with history of post cardiac surgery; FINDINGS: Lungs/Pleura: No pneumothorax. Trace bilateral pleural effusions. Hyperinflation. Diffuse interstitia l density with hazy patchy lower lung opacities which is similar to prior. Heart/mediastinum: Cardiomediastinal silhouette is enlarged and stable. Atherosclerotic calcificatio ns are seen in the aorta. Left atrial appendage occlusion devices present. Post-CABG changes. Musculoskeletal: No acute osseous pathology. Midline sternotomy wires are noted and stable. IMPRESSION: COPD with cardiomegaly and similar mild pulmonary vascular congestion with trace bilateral pleural ef fusions.
--- NOTE | 2023-05-09 09:04 | PN ---
PROGRESS NOTE SUBJECTIVE: Mr. Avina is doing much better. He is in a sinus rhythm. I am recommending we decrease amiodarone to 200 mg b.i.d. He is doing well on incentive spirometry. Blood sugars are also showing improvement. Vital are stable. S1, S2 heard normally. Short systolic murmur noted. Lungs revealed decent air entry. Abdomen and lower extremity exam is unchanged. The patient hopefully can be discharged today or tomorrow whenever okay by the surgeons. I advised to continue incentive spirometry, pulmonary toilet, and follow with Dr. Lara in 2 weeks after discharge. MMODL / IJN: [id number] /
[2023-05-09] MEDS ORDERED: METOPROLOL TARTRATE 5 MG/5 ML VIAL IVP ONE (10:15)
[2023-05-09 11:12] LABS: Glucose,Whole Blood 200 mg/dL (70-110)
[2023-05-09] MEDS: LOSARTAN 25 MG TAB PO SCH (11:28)
--- NOTE | 2023-05-09 12:07 | P.PN ---
Subjective Progress Note Date: 05/09/23 Principal diagnosis: POD # 5 off-pump coronary artery bypass graft 2 with left internal thoracic artery in situ to the left anterior descending coronary artery, reverse saphenous vein graft from the aorta to the posterior descending coronary artery, left atrial appendage ligation using a 35 mm AtriClip, endoscopic right greater saphenous vein harvest, graft flow measurements using the Medistim flowmeter, sternal closure using the [place] cable and plating system, intraoperative transesophageal echocardiogram performed by anesthesia 63-year-old obese male patient, who is currently being investigated for coronary artery bypass surgery. The patient is known to have CAD, he is morbidly obese and has hypertension hyperlipidemia and insulin-dependent diabetes mellitus a long with peripheral vascular disease. The patient is also chronic smoker The patient had a cardiac catheterization that showed 100% LAD in-stent stenosis, 99% mid RCA and the patient was recommended to undergo a coronary artery bypass surgery. He is going to be seen by the cardiothoracic team. His left ventricle ejection fraction slightly reduced at 40-45%. He has an FEV1 of 66% of predicted. He is obese and has features of obstructive sleep apnea although this has not been officially diagnosed. His current cardiac rhythm is sinus. Chest x-ray showed no acute abnormalities. CAT scan of the chest showed negative abnormalities. The patient is clinically stable and hemodynamically st able. Performance of functional status is adequate for now. Is currently free of any chest pain. He is on room air oxygen with a pulse ox of 94-97%. Is pulling ordered 1999 on his incentive spirometer. On today's evaluation of 05/02/2023, no new complaints and the patient is still awaiting his cardiac surgery. His condition is stable. Clinically stable. Hemodynamically stable. Vital signs are all stable. Sitting up on a chair. Using the incentive spirometer. On today's evaluation of 05/03/2023, the patient is having no respiratory distress. Perioperative teaching was given. Clinically stable. Hemodynamically stable. Pulse ox is 98% on room air oxygen. Using the incentive spirometer. Creatinine is at 1.3 with a BUN of 26 and his sodium levels is 137. Hemoglobin is at 13.7. Remains on aspirin and beta blockers. Plavix is currently on hold. Nothing by mouth after for an off cardiac bypass surgery tomorrow. On 05/04/2023, I'm seeing the patient in intensive care unit following his coronary artery bypass surgery the patient had an off pump two-vessel bypass surgery including VERGARA to LAD and SVG to PDA. Currently is intubated on a mechanical ventilator and the patient is postop day #0 and the patient is being seen in the intensive care unit. The patient is currently sedated on propofol which is running at 40 mcg/kg/m. He is on a mechanical ventilator assist control mode at the rate of 16, tidal volume of 450 with an FiO2 of 50% and PEEP of 10. The blood gas was done and the patient was found to have a pH of 7.23 and a pCO2 of 49 and pO2 of 329. FiO2 was dropped down to 50% from 100%. Peak airway pressure is 23. Chest x-ray shows adequate expansion of both lungs. Orotracheal tube is in a good location. The patient has left pleural chest tube, right pleural chest tube and mediastinal chest tube. Output from the mediastinal chest tube is been only 50 mL and output from the pleural chest tubes have been 80 mL and the patient arrived from the operating room. Pulmonary artery pressures are 34/24. Cardiac output is 6.5 with an index of 3.0. The patient is on nitroglycerin drip. The patient is also on insulin drip at 0.5 units an hour. The patient is producing adequate amount of urine output. The hemoglobin currently is at 12.7. White cell count of 18.9. Cardiac rhythm is sinus at the rate of 61. No other significant issues for now. On today's evaluation of 05/05/2023, the patient is postop day #1. Is doing extremely well. I was able to extubate the patient within a few hours after arrival to the intensive care unit. He was slightly acidotic and he developed some respiratory acidosis with appropriate ventilator changes were done and subsequently the patient was extubated. Overnight, the patient stayed on oxygen at 6 L nasal cannula. A chest x-ray from today shows adequate expansion of both lungs. No evidence of any pneumothorax. The patient is using the Qvolvena spirometer. Cardiac output is at 6.8 with an index of 3.2. PA pressures of 25 of 14. CVP is at 2. The mediastinal chest tube is draining around 430 mL overnight and the pleural chest tubes are connected and they have drained approximately 180 mL overnight and the ventricular epicardial pacemaker wires are present. The patient is not having any respiratory difficulties. His calm and comfortable. Is off the nitroglycerin drip. Insulin drip is running at 4 units an hour. Reevaluated today on 05/07/23, patient remains in the ICU as an overflow he will be going to 3 S. today. Patient is status post CABG, postoperative day #3. Patient is on room air, doing well with incentive spirometry pulling over 1999, patient is in sinus rhythm, hemodynamically stable, on room air, chest x-ray showed minimal atelectasis at the bases, no evidence of active disease. Continues to have right internal jugular Cordis in place, WBC count of 13.3 hemoglobin 11.3 basic metabolic profile is normal and we'll profile is normal. Blood sugar is just over 200. Patient was reevaluated today on 05/08/23, patient remains in the ICU, had an episode of atrial fibrillation with RVR last night, presently in sinus rhythm, patient responded to amiodarone bolus and drip, he remains on amiodarone drip at this point. Relatively asymptomatic, no cough no wheezing no shortness of breath. Patient is on 2 L nasal cannula with O2 saturation of 100%. He would be transitioned to oral amiodarone today. Patient is doing great with incentive spirometry achieving over 1800 mL. Plan is to transfer the patient sometime later today to 3 S. Chest x-ray this morning showed mild prominence of the pulmonary vasculature otherwise unremarkable, no pleural effusions. And no infiltrate WBC count is 10.9 hemoglobin 11.1 basic metabolic profile is normal. Reevaluated today on 05/09/2023, patient is doing well clinically however this morning he is developing another episode of atrial fibrillation with RVR. This is being addressed by cardiology and thoracic surgery on the case, remains hemodynamically stable, not in any distress, patient is already on oral amioda matilda. 400 mg twice a day, patient is also on metoprolol 50 mg twice a day he did receive 1 dose of metoprolol 5 mg IV push for atrial fibrillation/RVR. Chest x-ray showed cardiomegaly and mild pulmonary vascular congestion with trace of bilateral pleural effusions. CBC is relatively normal electrolytes are normal renal profile is normal Objective - Vital Signs Vital signs: Vital Signs Temp 98.2 F 05/09/23 08:00 Pulse 80 05/09/23 11:41 Resp 16 05/09/23 08:00 BP 135/81 05/09/23 08:00 Pulse Ox 96 05/09/23 08:00 FiO2 50 05/04/23 20:00 Intake & Output 05/08/23 05/09/23 05/09/23 18:59 06:59 18:59 Intake Total 240 150 Output Total 200 200 Balance 40 -50 Intake: Oral 240 150 Output: Urine 200 200 Other: Voiding Method Urinal Urinal Urinal # Voids 1 ABP, PAP, CO, CI - Last Documented Arterial Blood Pressure 91/56 Pulmonary Artery Pressure 23/13 Cardiac Output 6.8 Cardiac Index 3.2 - Exam Physical Exam: Revealed a 63-year-old white male in no distress, on 2 L nasal cannula Head: Atraumatic, normocephalic. HEENT:[Neck is supple.] [No neck masses.] [No thyromegaly.] [No JVD.] Chest: [Clear throughout, no crackles, no rhonchi, no wheezes.] Cardiac Exam: Tachycardic, irregular rhythm. [Normal S1 and S2, no S3 gallop, no murmur.] Abdomen: [Soft, nontender, no megaly, no rebound, no guarding, normal bowel sounds.] Extremities: [No clubbing, no edema, no cyanosis.] Neurological Exam: [No focal neurologic deficit.] Alert and oriented 3 Psychiatric: Normal mood, affect and normal mental status examination. HEENT: No rashes - Labs CBC & Chem 7: 05/09/23 05:26 05/09/23 05:26 Labs: Abnormal Lab Results - Last 24 Hours (Table) 05/08/23 05/08/23 05/09/23 Range/Units 16:16 19:57 05:26 RBC 3.65 L (4.30-5.90) m/uL Hgb 11.8 L (13.0-17.5) gm/dL Hct 35.6 L (39.0-53.0) % BUN (9-20) mg/dL Glucose (74-99) mg/dL POC Glucose (mg/dL) 244 H 145 H (70-110) mg/dL 05/09/23 05/09/23 05/09/23 Range/Units 05:26 07:50 11:11 RBC (4.30-5.90) m/uL Hgb (13.0-17.5) gm/dL Hct (39.0-53.0) % BUN 27 H (9-20) mg/dL Glucose 185 H (74-99) mg/dL POC Glucose (mg/dL) 184 H 200 H (70-110) mg/dL Assessment and Plan Assessment: Impression: Coronary artery disease with previous PCI 2003, non-STEMI this admission, status post two-vessel off-pump CABG, postoperative day #5 Benign essential hypertension Insulin-dependent diabetes Cardiomyopathy and LV dysfunction with ejection fraction of 40-45% Tobacco dependence syndrome Moderate COPD with FEV1 of 65% Peripheral arterial disease Morbid obesity with BMI of 44 Dyslipidemia Postoperative atrial fibrillation with RVR, expected, patient converted to normal sinus rhythm after receiving amiodarone Recommendation: Continue to maximize medical therapy including statin Plavix beta marquez and aspirin Kidney amiodarone and metoprolol patient received 5 mg of metoprolol IV push for his A. fib/RVR early this morning Continue incentive spirometry and bronchodilators Ambulate and increase activity Continue GI and DVT prophylaxis Possible discharge planning in the next 24 hours We will continue to follow Time with Patient: Less than 30
[2023-05-09 12:30] VITALS: BP 126/83; PULSE 81; RESP 16; TEMP 98
--- NOTE | 2023-05-10 11:49 | P.DS ---
Providers Date of admission: 04/28/23 02:56 Expected date of discharge: 05/09/23 Attending physician: Jay Aguilar MD Consults: 04/28/23 02:55 Consult Physician Urgent Consulting Provider: [facility] Consult Reason/Comments: acute chest pain, unstable angina Do you want consulting provider notified?: Yes 04/30/23 08:36 Consult Physician Routine Consulting Provider: Jay Aguilar Consult Reason/Comments: CAD, multiple vessel, NSTEMI Do you want consulting provider notified?: Yes 05/01/23 11:41 Consult Physician Routine Consulting Provider: Amilcar Llanos Consult Reason/Comments: preop CABG Do you want consulting provider notified?: Already Contacted 05/03/23 11:38 Consult to Anesthesia Routine Consulting Provider: Anesthesia,Services Consult Reason/Comments: Cardiac Surgery Pre-Op 05/04/23 15:42 Consult Physician Routine Consulting Provider: Prateek Contreras Consult Reason/Comments: med mgmt Do you want consulting provider notified?: Already Contacted Primary care physician: Prateek Contreras MD Hospital Course: FINAL DIAGNOSIS: 1. Coronary artery disease with previous PCI in 2003, non-STEMI this admission 2. Reduced left ventricular systolic function, EF 40-45% preoperative, improved to 50-55% postoperative 3. Hypertension 4. Hyperlipidemia, treated, cholesterol 1:30, LDL 70 5. Insulin-dependent diabetes, preoperative hemoglobin A1c 9.1% 6. Peripheral arterial disease with intermittent claudication, GIRMA on the left shows moderate disease 7. Morbid obesity, BMI 44 8. Current heavy tobacco dependence with recent cessation 9. Moderate COPD, preoperative FEV1 65% of predicted 10. Remote history of pneumonia 11. Preoperative nasal swab positive for MSSA, treated with mupirocin 12. Postoperative paroxysmal atrial fibrillation PRINCIPAL PROCEDURE: 1. Off-pump coronary artery bypass graft 2 with left internal thoracic artery in situ to the left anterior descending coronary artery, reverse saphenous vein graft from the aorta to the posterior descending coronary artery 2. Left atrial appendage ligation using a 35 mm AtriClip 3. Endoscopic right greater saphenous vein harvest 4. Graft flow measurements using the Medistim flowmeter 5. Sternal closure using the [place] cable and plating system 6. Intraoperative transesophageal echocardiogram performed by anesthesia HISTORY OF PRESENT ILLNESS: This is a 63-year-old gentleman who follows outpatient with Dr. Prateek Contreras for primary care. He presented to [facility] emergency room with complaints of exertional chest pressure and shortness of breath which initially had been relieved with rest, however his symptoms have been getting worse over a couple week period. In the emergency room EKG was completed demonstrating sinus rhythm with evidence of prior infarct. Troponins did elevate and patient was ruled in for non-STEMI. Workup included echocardiogram as well as heart catheterization. Echo revealed moderately increased left ventricular wall thickness, apical and inferior wall hypokinesis, and moderately reduced systolic function with EF 40-45%, along with mild mitral regurgitation. Heart catheterization demonstrated 100% LAD in-stent stenosis and 99% mid RCA in-stent stenosis. The patient was placed to Dr. Aguilar from cardiothoracic surgery. He was recommended to undergo urgent coronary artery bypass surgery. The usual perioperative course was discussed in detail with the patient and his family, all risks and benefits were explained, all questions were answered, and consent was obtained to proceed with surgery. The patient was kept inpatient due to the nature of his disease process, and surgery was scheduled after allowing for Plavix metabolism. HOSPITAL COURSE: The patient was brought to the preoperative area 05/04/23, prepared in the usual fashion, and subsequently taken to the operating room where Dr. Aguilar performed 2 vessel off-pump CABG. Upon completion of surgery the patient was transferred to the cardiovascular intensive care unit where he was recovered and monitored hemodynamically. He was extubated, all lines, tubes, and drips were discontinued when appropriate, and transfer orders were placed for 3 S. cardiac stepdown unit, however there was no bed availability and the patient remained on ICU as a stepdown patient until discharge. His oxygen was titrated down, he continued to work with physical and occupational therapy, he was tolerating oral diet, his pain was controlled, and he was ready to be discharged to home with [facility] home care on postoperative day #5. He received written and verbal instruction regarding his medications, activity restrictions, signs and symptoms requiring physician notification, and follow-up appointments. Patient Condition at Discharge: Stable Plan - Discharge Summary Discharge Rx Participant: Yes New Discharge Prescriptions: New Losartan [Cozaar] 25 mg PO DAILY@1200 #30 tab Pantoprazole [Protonix] 40 mg PO AC-BRKFST #30 tab Acetaminophen Tab [Tylenol] 650 mg PO Q4HR PRN tab PRN Reason: Fever And/ Or Pain Amiodarone [Cordarone] 400 mg PO BID #44 tab Metoprolol Tartrate [Lopressor] 50 mg PO BID #60 tab Sennosides-Docusate Sodium [Senokot-S] 2 each PO HS PRN tab PRN Reason: Constipation Continue Atorvastatin [Lipitor] 80 mg PO HS Umeclidinium Brm/Vilanterol Tr [Anoro Ellipta 62.5-25 Mcg INH] 1 puff INHALATION RT-DAILY Aspirin EC [Ecotrin Low Dose] 81 mg PO DAILY PRN PRN Reason: Chest Pain Changed Clopidogrel [Plavix] 75 mg PO DAILY #30 tab Discontinued Metoprolol Succinate [Toprol XL] 25 mg PO DAILY lisinopriL [Zestril] 10 mg PO DAILY No Action metFORMIN HCL [Glucophage] 1,000 mg PO BID Insulin Glargine/Lixisenatide [[place] 100 Unit-33 Mcg/ml Pen] 50 units SQ DAILY Discharge Medication List Atorvastatin [Lipitor] 80 mg PO HS 11/03/17 [History] metFORMIN HCL [Glucophage] 1,000 mg PO BID 11/03/17 [History] Umeclidinium Brm/Vilanterol Tr [Anoro Ellipta 62.5-25 Mcg INH] 1 puff INHALATION RT-DAILY 11/13/18 [History] Aspirin EC [Ecotrin Low Dose] 81 mg PO DAILY PRN 04/28/23 [History] Insulin Glargine/Lixisenatide [[place] 100 Unit-33 Mcg/ml Pen] 50 units SQ DAILY 04/28/23 [History] Acetaminophen Tab [Tylenol] 650 mg PO Q4HR PRN tab 05/09/23 [Rx] Amiodarone [Cordarone] 400 mg PO BID #44 tab 05/09/23 [Rx] Clopidogrel [Plavix] 75 mg PO DAILY #30 tab 05/09/23 [Rx] Losartan [Cozaar] 25 mg PO DAILY@1200 #30 tab 05/09/23 [Rx] Metoprolol Tartrate [Lopressor] 50 mg PO BID #60 tab 05/09/23 [Rx] Pantoprazole [Protonix] 40 mg PO AC-BRKFST #30 tab 05/09/23 [Rx] Sennosides-Docusate Sodium [Senokot-S] 2 each PO HS PRN tab 05/09/23 [Rx] Follow up Appointment(s)/Referral(s): Jerel Brewer MD [Medical Doctor] - 05/22/23 2:30 pm Rehab [facility],Cardiac [NON-STAFF] - 4 Weeks (You will receive a phone call in approximately 4-6 weeks for evaluation for cardiac rehab) Prateek Contreras MD [Primary Care Provider] - 05/15/23 3:45 pm (At [facility] - 1-2 Days Jay Aguilar MD [STAFF PHYSICIAN] - 06/05/23 9:00 am Amilcar Llanos MD [STAFF PHYSICIAN] - 06/06/23 9:15 am Ramos Tovar NPC [Nurse Practitioner] - 05/15/23 2:00 pm (You will be seen in the surgeon's office behind the hospital in [facility], [address] Office phone number is ) Ambulatory/Diagnostic Orders: Complete Blood Count w/diff [LAB.AMB] Time Frame: 3 Days, Location: None Selected Comprehensive Metabolic Panel [LAB.AMB] Time Frame: 3 Days, Location: None Selected Activity/Diet/Wound Care/Special Instructions: DISCHARGE INSTRUCTIONS: 1. No driving for 4 weeks, or until physician gives their ok. 2. The patient should sleep in their own bed, no medical bed needed. 3. Stairs are not an issue. If the bedroom is upstairs, it is advised that the patient go up at night and down in the morning for the first week. Go slowly, using handrail and take 1 step at a time. 4. CESAR hose are to be worn for 30 days post surgery or until physician discontinues. 5. Heart hugger is to be worn 100% of the time until physician discontinues.(except when showering) 6. No lifting, pushing, or pulling more than 10 pounds for 12 weeks. The physician will advise of any restriction changes. 7. The patient is expected to continue the prescribed walking program. 8. Continue pain control per as needed orders. 9. Continue with incentive spirometry and splinting/heart hugger until otherwise directed by the physician. 10. Must shower daily using liquid antibacterial soap 11. Routine sternal incision care. No powders, lotions, ointments on incisions. No dressings are necessary on incisions unless they are draining. Dermabond tape is to remain on sternal incision until surgeon follow-up. 12. Please call surgeon/CARDIOTHORACIC ICU RN for temp greater than 101 F or purulent drainage from incisions. 13. You should weigh yourself daily, record and bring log with you to follow up appointments. 14. All prescriptions given by surgeon for 30 days. Refills need to be filled through fluid jet cutter operator/primary care physician. 15. A Red armband has been placed on the patient. It should be worn for 30 days post discharge from surgery and will be removed by the cardiac surgeons. If an ER visit is necessary, please make sure the number on the Red armband is called before going to ER. 16. You have been referred to and are expected to begin Cardiac Rehab in approximately 4-6 weeks. 17. Quitting smoking is the most important step you can take to improve your health. For additional information and assistance to quit smoking, please call the [place] tobacco quit line (7-988-SUHA-NOW/ ) or online: [email or web address]-[email or web address] it-[email or web address] HOME HEALTH SERVICES TO PROVIDE: RN SKILLED HOME CARE SERVICES FOR POST-OP SURGICAL PATIENTS WITH THE FOLLOWING: Coronary Artery Bypass Surgery (CABG), Mitral Valve Replacement/Repair ( MVR), Aortic Valve Replacement/Repair (AVR) RN TO CONTINUE EDUCATION FROM ``ROAD TO A HEALTH HEART PATIENT EDUCATION MANUAL (GIVEN TO PATIENT IN THE HOSPITAL) MEDICATION RECONCILIATION WITH EDUCATION NEEDED ON FIRST HOME VISIT EMPHASIZE IMPORTANCE OF WEARING BREAST SUPPORT/HEART HUGGER ENCOURAGE USE OF INCENTIVE SPIROMETER 10 X EVERY HOUR WHILE AWAKE ENCOURAGE UTILIZATION OF LOWER EXTREMITY COMPRESSION STOCKINGS/CESAR HOSE and ELEVATE LEGS ABOVE LEVEL OF HEART WHILE AT REST. ENCOURAGE AMBULATION 3-5x/day INCREASING TOLERATES, WHILE AVOIDING EXTREMES IN TEMPERATURE FREQUENCY: RN TO OPEN THE PATIENT WITHIN 24 HOURS OF DISCHARGE FROM THE HOSPITAL WITH [place]HE[place] [facility] [place] TO VISIT 2-3 X A WEEK FOR 4 WEEKS ESTABLISHED BY PATIENT NEEDS. LABORATORY: CBC, CMP TO BE DRAWN ON THE THIRD DAY HOME, (RAN STAT) FAX RESULTS TO [phone]. TELEHEALTH PARAMETERS: WEIGHT: NOTIFY MD OF WEIGHT GAIN OF 2 LBS IN 24 HOURS OR 5 LBS IN ONE WEEK HR: NOTIFY MD OF HR <55 BPM OR HR>100 BPM BP: NOTIFY MD IF BP <90/55 OR BP>140/100 O2 SAT: NOTIFY MD IF PO2<93% ON ROOM AIR SEND TELEHEALTH REPORT TO HVAC SALES ENGINEER AND CARDIOVASCULAR SURGEON THE FIRST WEEK OF CARE AND THEN BI-WEEKLY. PLEASE ADDITIONALLY COMMUNICATE ANY ABNORMALS AND NEW FINDINGS TO THE SURGEONS OFFICE. Discharge Disposition: HOME WITH HOME HEALTH SERVICES
--- NOTE | 2023-05-10 12:38 | P.PN ---
Subjective Progress Note Date: 05/09/23 This is a 63-year-old gentleman admitted with an NSTEMI, morbid obesity, history of CAD with previous PCI years ago, DM, nicotine dependence and multiple other medical issues status post cardiac catheterization. Completed cardiac catheterization this morning reporting 100% LAD in-stent stenosis, 99% mid RCA in-stent stenosis, mild disease of left circumflex and into PDA and PLV branch, normal LVEDP, ischemic cardiomyopathy EF 40%. CTS consulted regarding potential CABG. Currently denies chest pain, palpitations or shortness of breath. Denies nausea or vomiting. 05/01/2023 evaluated by cardiothoracic surgery and is scheduled for CABG on Sunday. Plavix remains on hold. Denies chest pain, palpitations or shortness of breath. Positive diet intake with no nausea vomiting or diarrhea. Blood s ugars running higher over the last 24 hours, currently in the low 200s. Denies abdominal pain. Using incentive spirometer, up to 2500. Afebrile. 05/02/2023 Plavix remains on hold, scheduled for CABG on Sunday. Denies chest pain, palpitations shortness of breath. Denies chills or sweats. Blood sugars currently in the 200s. Compliant with incentive spirometer, greater than 2200. 05/03/23 [place] up [place] [id number]. Denies chest pain, palpitations or shortness of breath. Blood sugars this morning in the mid 200s, additional Levemir ordered. 05/04/2023 patient not seen this morning, as patient in preop for CABG procedure. 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 Maintaining O2 sats in the mid 90s on 2 L nasal cannula. Incentive spirometer up to 1800 .Chest x-ray reported COPD, borderline cardiomegaly, slight worsening in the mild pulmonary vascular congestion, ongoing small pleural effusions with adjacent atelectasis and/or consolidation. Afebrile, WBC 10.9. Blood sugars continuing to 200s, Lantus increased. Renal function stable. 05/09/2023 Positive bowel movement this morning on current into atrial fibrillation with RVR. Continues on antiarrhythmics as per CTS. Continuing to adjust insulins as patient's blood sugars ranging from 140s to mid 200s. Pain c ontrolled. Ambulating, tolerating exertion well. COPD with cardiomegaly and similar mild pulmonary vascular congestion with trace bilateral pleural effusions. Maintaining O2 sats in the mid to high 90s on room air. Objective - Vital Signs Vital signs: Vital Signs Temp 98.0 F 05/09/23 12:00 Pulse 81 05/09/23 12:00 Resp 16 05/09/23 12:00 BP 126/83 05/09/23 12:00 Pulse Ox 96 05/09/23 12:00 FiO2 50 05/04/23 20:00 Intake & Output 05/08/23 05/09/23 05/09/23 18:59 06:59 18:59 Intake Total 240 150 Output Total 321 369 9271 Balance 40 -50 -1100 Intake: Oral 240 150 Output: Urine 341 394 0359 Other: Voiding Method Urinal Urinal Urinal # Voids 1 4 # Bowel Movements 1 ABP, PAP, CO, CI - Last Documented Arterial Blood Pressure 91/56 Pulmonary Artery Pressure 23/13 Cardiac Output 6.8 Cardiac Index 3.2 - Exam PHYSICAL EXAMINATION: GENERAL: Alert and oriented 3, sitting up in chair, no acute distress. HEENT: Normocephalic, Pupils are round and equal. EOMI.Neck supple,no JVD. CARDIOVASCULAR: S1 and S2 present. Regular .No murmurs, rubs, or gallops. PULMONARY: Unlabored, bilateral air entry, clear to auscultation. ABDOMEN: Soft, nontender, nondistended, normoactive bowel sounds. EXTREMITIES: No cyanosis, clubbing, or pedal edema. NEUROLOGICAL: Gross neurological examination did not reveal any focal deficits. SKIN: No rashes. - Labs CBC & Chem 7: 05/09/23 05:26 05/09/23 05:26 Labs: Abnormal Lab Results - Last 24 Hours (Table) 05/08/23 05/09/23 05/09/23 Range/Units 19:57 05:26 05:26 RBC 3.65 L (4.30-5.90) m/uL Hgb 11.8 L (13.0-17.5) gm/dL Hct 35.6 L (39.0-53.0) % BUN 27 H (9-20) mg/dL Glucose 185 H (74-99) mg/dL POC Glucose (mg/dL) 145 H (70-110) mg/dL 05/09/23 05/09/23 Range/Units 07:50 11:11 RBC (4.30-5.90) m/uL Hgb (13.0-17.5) gm/dL Hct (39.0-53.0) % BUN (9-20) mg/dL Glucose (74-99) mg/dL POC Glucose (mg/dL) 184 H 200 H (70-110) mg/dL Assessment and Plan Assessment: Acute NSTEMI, status post cardiac catheterization reporting 100% LAD in-stent stenosis and 99% mid RCA in-stent stenosis. Status post CABG. CAD with hx of PCI Diabetes mellitus type 2, hemoglobin A1c 9.1, will require further diabetic education outpatient in clinic with PCP. hypertension Hyperlipidemia Morbid obesity, BMI 44 COPD Ongoing nicotine dependence Plan: Continue on current medication regime ,monitoring and symptomatic treatment. Maintain antiarrhythmics as per CTS. Continue with aggressive pulmonary toileting with incentive spirometer and smoking cessation reinforced. Reinforced tight blood sugar control to facilitate healing and decrease risk of sternal wound infection-Further increase in Lantus close monitoring of Accu- Cheks. Diabetic teaching, as patient will be sent home on same diabetic regimen. CTS planning on discharging home later today. Follow-up with PCP in office next week. The impression and plan of care has been dictated as directed. : I performed a history and examination of this patient, discussed the same with the dictator. I agree with the dictator's note ,documented as a scribe. Any additional findings or plans will be noted.
== END 2023-05-09 15:00 | disposition home health service (06) | DRG 233 ==
LOC: EC 00:35 → 6NMEDSUR 02:55 → OBSVTOIN 02:56 → 6NMEDSUR 03:59 → 2SICU 05-04 08:40
PROVIDERS: ADMIT Thoracic Surgery (Cardiothoracic Vascular Surgery); ATTEND Thoracic Surgery (Cardiothoracic Vascular Surgery)
PROC: 4A023N7 Measurement of Cardiac Sampling and Pressure, Left Heart, Percutaneous Approach (ICD-10-PCS; principal; 2023-04-30 07:30)
PROC: B2111ZZ Fluoroscopy of Multiple Coronary Arteries using Low Osmolar Contrast (ICD-10-PCS; principal; 2023-04-30 07:30)
PROC: 02L70CK Occlusion of Left Atrial Appendage with Extraluminal Device, Open Approach (ICD-10-PCS; 2023-05-04)
PROC: 0210099 Bypass Coronary Artery, One Artery from Left Internal Mammary with Autologous Venous Tissue, Open Approach (ICD-10-PCS; 2023-05-04)
PROC: 06BP4ZZ Excision of Right Saphenous Vein, Percutaneous Endoscopic Approach (ICD-10-PCS; 2023-05-04)
PROC: 0210093 Bypass Coronary Artery, One Artery from Coronary Artery with Autologous Venous Tissue, Open Approach (ICD-10-PCS; 2023-05-04)
PROC: B24BZZ4 Ultrasonography of Heart with Aorta, Transesophageal (ICD-10-PCS; 2023-05-04 10:00)
DX: T82.855A Stenosis of coronary artery stent, initial encounter (principal); I21.4 Non-ST elevation (NSTEMI) myocardial infarction; E87.29 Other acidosis; I25.110 Atherosclerotic heart disease of native coronary artery with unstable angina pectoris; Z68.41 Body mass index [BMI] 40.0-44.9, adult; J98.11 Atelectasis; E66.01 Morbid (severe) obesity due to excess calories; J44.9 Chronic obstructive pulmonary disease, unspecified; I10 Essential (primary) hypertension; E78.5 Hyperlipidemia, unspecified; E11.51 Type 2 diabetes mellitus with diabetic peripheral angiopathy without gangrene; B95.61 Methicillin susceptible Staphylococcus aureus infection as the cause of diseases classified elsewhere; I48.0 Paroxysmal atrial fibrillation; I25.5 Ischemic cardiomyopathy; G47.33 Obstructive sleep apnea (adult) (pediatric); F17.210 Nicotine dependence, cigarettes, uncomplicated; Z87.01 Personal history of pneumonia (recurrent); Z79.899 Other long term (current) drug therapy; Z79.84 Long term (current) use of oral hypoglycemic drugs; Z79.82 Long term (current) use of aspirin; Z79.4 Long term (current) use of insulin; Z79.02 Long term (current) use of antithrombotics/antiplatelets; I25.2 Old myocardial infarction; Z71.3 Dietary counseling and surveillance; Z95.5 Presence of coronary angioplasty implant and graft; Z71.6 Tobacco abuse counseling
CPT/HCPCS: 36415; 71045; 71046; 71250; 80048; 80053; 80061; 80074; 81003; 82330; 82805; 83036; 83735; 83880; 84443; 84484; 85025; 85027; 85610; 85730; 86850; 86900; 86901; 86920; 87070; 93005; 93306; 93308; 93458; 93880; 93922; 93970; 94002; 94150; 94640; 96365; 96366; 99291

== ENCOUNTER 2023-06-13 12:00 | Day surgery (SDC) | payer BC, MEDICARE ==
[2023-06-13] MEDS ORDERED: LACTATED RINGERS 1,000 ML IV ONE (12:38)
[2023-06-13 12:41] VITALS: TEMP 97
[2023-06-13 12:54] LABS: Glucose,Whole Blood 232 mg/dL (70-110)
[2023-06-13] MEDS ORDERED: INSULIN ASPART (NovoLOG) 100 UNIT/ML VIAL SQ ONE (13:09)
[2023-06-13] MEDS ORDERED: PROPOFOL 10 MG/ML 20 ML VIAL IV ONE (13:17)
[2023-06-13] MEDS ORDERED: LIDOCAINE 1% INJ 10MG/ML (20 ML MDV) ONE (13:17)
[2023-06-13 14:42] VITALS: RESP 24
[2023-06-13 15:06] VITALS: PULSE 89
[2023-06-13] MEDS ORDERED: LACTATED RINGERS 1,000 ML IV SCH (15:15)
[2023-06-13 15:29] VITALS: BP 116/73
--- NOTE | 2023-06-13 16:45 | P.TEE ---
Date of Procedure: 06/13/23 Description of Procedure(s): Procedure performed: 1. Transesophageal Echocardiogram with color flow doppler, pulsed wave doppler and continuous wave doppler, 2. Synchronized cardioversion 3. Bubble study Indications: Aflutter with rapid ventricular rate and worsening CHF and fluid overload. Moderate conscious sedation: Moderate conscious sedation was supplied by anesthesia, see separate report. PROCEDURE: After the risks, benefits and alternatives of the above mentioned procedure was explained in detail with the patient, informed consent was obtained. Patient was brought to the lab in a fasting state. Patient was given IV Versed and Fentanyl for sedation. The throat was sprayed with Hurricane to anesthetize the throat. A lubricated Omni probe was then introduced into the esophagus and stomach and multiple views were obtained. 2D echo with color flow doppler, pulsed wave doppler and continuous wave doppler was utilized. Agitated saline bubbles were injected to assess for any intra-atrial shunt. The probe was then removed. There was no thrombus noted and therefore patient underwent synchronized cardioversion x 1 with 200J with resultant sinus rhythm. Patient tolerated the procedure well. Patient was transferred to the post procedure area in stable and satisfactory condition. Complications: none FINDINGS Left Atrium : Mildly increased Left atrial size. No evidence of mass or thrombus seen Left Atrial Appendage: Atriclip in place with completely excluded GRZEGORZ. No flow crossover. Inter atrial septum: Aneurysmal interatrial septum with no PFO on color doppler. No crossover on bubble study Left Ventricle: Moderately reduced global LV systolic function. Right Atrium: Severe RA dilatation with signs of elevated RA filling pressures. IA septum bulging towards LA. Right Ventricle: Normal global RV size and systolic function Aortic Valve: Structurally normal Trileaflet, no significant calcification. No significant stenosis or regurgitation on color doppler assessment. Mitral Valve: Struturally normal. Mild ischemic MR with midly restricted posterior mitral leaflet. Pulmonic Valve: Not well visualized. Tricuspid Valve: Structurally normal. Mild TR Ascending aorta, Aortic root and Aortic arch: Mild intimal thickening. Normal size root and ascending aorta. Desceding aorta: Mild intimal thickening. CONCLUSION: No thrombus in LA or GRZEGORZ. Atriclip in place with complete exclusion of GRZEGORZ, no flow Mild secondary MR likely due to dilated LV and restricted posterior leaflet, (ischemic) Moderate global LV systolic dysfunction. Assessment and Plan Successful cardioversion 200J once attempt , return of sinus rhythm with confirmation done on 12 leads ECG Start Bumex 1 mg PO daily Reduce amiodarone to 200 mg daily Continue other meds without changes d/c home in few hrs f/u o/p Dr Brewer
== END 2023-06-13 16:00 ==
LOC: OR 12:00
PROVIDERS: ATTEND Student in an Organized Health Care Education/Training Program
DX: I48.3 Typical atrial flutter (principal); I25.10 Atherosclerotic heart disease of native coronary artery without angina pectoris; I11.0 Hypertensive heart disease with heart failure; I50.9 Heart failure, unspecified; E78.5 Hyperlipidemia, unspecified; Z95.5 Presence of coronary angioplasty implant and graft; Z79.899 Other long term (current) drug therapy; Z79.02 Long term (current) use of antithrombotics/antiplatelets; Z79.82 Long term (current) use of aspirin
CPT/HCPCS: 93312; 93320; 93325; 92960; 99152; J2001; J2704

== ENCOUNTER → 2023-08-20 | Outpatient (CLI) | payer BC, MEDICARE ==
[2023-08-20 11:48] LABS: NT-Pro-B-Type Natriuretic Pept 645 pg/mL
[2023-08-20 12:30] LABS: ALT 16 U/L (4-49); AST 20 U/L (17-59); African American GFR (CKD) 58 (>60 ml/min/1.73 sqM); Albumin 3.8 g/dL (3.5-5.0); Albumin/Globulin Ratio 1.4; Alkaline Phosphatase 107 U/L (38-126); Anion Gap 6 mmol/L; Blood Urea Nitrogen 25 mg/dL (9-20); Calcium 9.7 mg/dL (8.4-10.2); Carbon Dioxide 24 mmol/L (22-30); Chloride 108 mmol/L (98-107); Globulin 2.7 g/dL; Glucose 169 mg/dL (74-99); Non-African American GFR(CKD) 50 (>60 ml/min/1.73 sqM); Potassium 5.7 mmol/L (3.5-5.1); Sodium 138 mmol/L (137-145); Total Bilirubin 0.5 mg/dL (0.2-1.3); Total Protein 6.5 g/dL (6.3-8.2)
[2023-08-20 15:53] LABS: Chol/HDL Ratio 3.51 Ratio; LDL Cholesterol,Calculated 62.4 mg/dL (0.0-131.0)
[2023-08-20 16:15] LABS: HCT 38.7 % (39.6-50.0); HGB 12.3 g/dL (13.0-17.0); MCH 29.6 pg (27.0-32.0); MCHC 31.8 g/dL (32.0-37.0); MCV 93.3 FL (80.0-97.0); Mean Platelet Volume 12.7 FL (9.5-12.2); NRBC Per 100 WBC 0 X 10*3/uL (0.00-0.01); Platelet Count 232 X 10*3/uL (140-440); RBC 4.15 X 10*6/uL (4.40-5.60); RDW 15.6 % (11.5-14.5); WBC 8.91 X 10*3/uL (4.50-10.00)
== END | disposition home or self-care (01) ==
LOC: LABWHC1 11:03
PROVIDERS: ATTEND Student in an Organized Health Care Education/Training Program
DX: I48.91 Unspecified atrial fibrillation (principal); I25.10 Atherosclerotic heart disease of native coronary artery without angina pectoris; I25.810 Atherosclerosis of coronary artery bypass graft(s) without angina pectoris
CPT/HCPCS: 36415; 80053; 80061; 83880; 84443; 85027

== ENCOUNTER → 2023-09-13 | Outpatient (CLI) | payer BC, MEDICARE ==
[2023-09-13 10:57] LABS: HCT 40.2 % (39.6-50.0); HGB 12.8 g/dL (13.0-17.0); MCH 29.7 pg (27.0-32.0); MCHC 31.8 g/dL (32.0-37.0); MCV 93.3 FL (80.0-97.0); Mean Platelet Volume 12.5 FL (9.5-12.2); NRBC Per 100 WBC 0 X 10*3/uL (0.00-0.01); Platelet Count 269 X 10*3/uL (140-440); RBC 4.31 X 10*6/uL (4.40-5.60); RDW 15.5 % (11.5-14.5)
[2023-09-13 11:07] LABS: NT-Pro-B-Type Natriuretic Pept 343 pg/mL (0-125)
[2023-09-13 11:10] LABS: ALT 14 U/L (10-49); AST 14 U/L (14-35); Albumin 4.2 g/dL (3.8-4.9); Albumin/Globulin Ratio 1.56 Ratio (1.60-3.17); Alkaline Phosphatase 108 U/L (41-126); Blood Urea Nitrogen 25.5 mg/dL (9.0-27.0); Calcium 10.8 mg/dL (8.7-10.3); Carbon Dioxide 26.4 mmol/L (21.6-31.8); Chloride 104 mmol/L (96-109); Globulin 2.7 g/dL (1.6-3.3); Glucose 162 mg/dL (70-110); Magnesium 1.7 mg/dL (1.5-2.4); Potassium 5.6 mmol/L (3.5-5.5); Sodium 141 mmol/L (135-145); Total Bilirubin 0.3 mg/dL (0.3-1.2); Total Protein 6.9 g/dL (6.2-8.2)
== END | disposition home or self-care (01) ==
LOC: LABWHC1 07:55
PROVIDERS: ATTEND Student in an Organized Health Care Education/Training Program
DX: I50.9 Heart failure, unspecified (principal); N18.9 Chronic kidney disease, unspecified
CPT/HCPCS: 36415; 80053; 83735; 83880; 85027

== ENCOUNTER → 2024-06-11 | Outpatient (CLI) | payer BC, MEDICARE ==
--- NOTE | 2024-06-11 08:45 | CTL ---
EXAMINATION TYPE: CT Low Dose Lung DATE OF EXAM: 06/11/2024 8:25 AM COMPARISON: None. CLINICAL INDICATION: Male, 64 years old with history of SCREENING FOR MALIGNANT NEOPLASM OF RESP Z12. 2; HISTORY OF SMOKER, history of tobacco use. TECHNIQUE: Multiple axial non-contrast scans were obtained from approximately the lung apices through the upper abdomen. Coronal and sagittal reformatted images were obtained. Low dose technique was uti lized. MIP were created on a separate workstation and submitted for review. CT DLP: 89.2 mGycm, Automated exposure control for dose reduction was used. CT Contrast: Contrast used: None Oral contrast used: None FINDINGS: Lack of intravenous contrast and low dose technique limits the evaluation of the vascular and soft ti ssue structures. LUNGS: No evidence of pulmonary fibrosis. No evidence of focal consolidation, pneumothorax or pleural effusion. Centrilobular emphysema changes. Nodules: RUL: None. RML: None. RLL: 5 mm left lower lobe series 5 image 37, stable. SARMAD: None. LLL: Left lower lobe 6 mm nodule series 5 image 38, stable AIRWAY: Patent and unremarkable. HEART: Size within normal limits. MEDIASTINUM: No gross evidence of adenopathy. VASCULATURE: Atherosclerotic calcifications are present throughout the aorta and its branches. MUSCULOSKELETAL: No acute osseous abnormalities, sternotomy wires are present. SOFT TISSUES/LYMPH NODES: Unremarkable. LOWER NECK: No significant findings. UPPER ABDOMEN: No significant findings. IMPRESSION: 1. No clinically significant pulmonary nodules. 2. Mild emphysema. CT LUNG RAD AND CT CHEST RECOMMENDATION: Lung-Rad 2 Benign Appearance or Behavior: Continue annual sc reening with LDCT in 12 months. S Modifier (other clinically significant findings): None Recommend smoking cessation (if current smoker), or continuation of smoking cessation (if prior smoke r). Annual screening for lung cancer with low-dose computed tomography is recommended in adults ages 55 to 77 years who have a 30 pack-year smoking history and currently smoke or have quit within the pa st 15 years. Screening should be discontinued once a person has not smoked for 15 years or develops a health problem that substantially limits life expectancy or the ability or willingness to have curat marco lung surgery. Lung rads 2021 [email or web address] [facility], , 06/11/2024 8:42 AM
== END | disposition home or self-care (01) ==
LOC: RADCTMAIN 08:04
PROVIDERS: ATTEND Internal Medicine
DX: Z12.2 Encounter for screening for malignant neoplasm of respiratory organs (principal); J43.9 Emphysema, unspecified; I70.0 Atherosclerosis of aorta; Z87.891 Personal history of nicotine dependence
CPT/HCPCS: 71271